=== PATIENT | female | born 1945 ===

== ENCOUNTER 2022-06-18 10:29 | Outpatient (REF) | payer MEDICARE, MEDICAID, SELFPAY ==
[2022-06-18 13:45] LABS: MANUAL DIFF FLAG NO
[2022-06-18 14:08] LABS: Alanine Aminotransferase < 6 U/L (0-31); Albumin Level 3.9 g/dL (3.5-5.0); Alkaline Phosphatase 96 U/L (39-117); Anion Gap 14 (12-20); Aspartate Amino Transferase 12 U/L (5-31); Bilirubin Total 0.8 mg/dL (0.0-1.0); Blood Urea Nitrogen 21 mg/dL (9-16); Calcium 9.1 mg/dL (8.4-10.2); Carbon Dioxide 26 mmol/L (22-29); Chloride 108 mmol/L (96-108); Cholesterol 143 mg/dL; Estimated Glomerular Filt Rate 60; Glucose Fasting 94 mg/dL (60-99); HDL Cholesterol 43 mg/dL; LDL Cholesterol Calculated 77 mg/dl; Potassium 3.3 mmol/L (3.3-5.1); Sodium 145 mmol/L (135-145); Total Protein 7.3 g/dL (6.5-8.0); Triglycerides 117 mg/dL
[2022-06-18 14:13] LABS: Basophils Percent Auto 0.5 % (0-2); Eosinophils Absolute Auto 0.2 X10*3/uL (0.0-0.4); Eosinophils Percent Auto 2.7 % (0-4); Hematocrit 33.4 % (37.0-47.0); Hemoglobin 10.4 g/dl (12.0-16.0); Imm Gran Abs Auto 0.02 X10*3/uL (0.00-0.03); Imm Gran Pct Auto 0.3 % (0.0-0.4); Lymphocytes Absolute Auto 1.5 X10*3/uL (1.2-4.9); Lymphocytes Percent Auto 23.8 % (20-40); Mean Corpuscular HGB Conc 31.1 g/dl (31.0-35.0); Mean Corpuscular Hemoglobin 28.8 pg (27.0-33.0); Mean Corpuscular Volume 92.5 fL (80.0-98.0); Mean Platelet Volume 9.8 fL (9.4-12.3); Monocytes Absolute Auto 0.5 X10*3/uL (0.1-1.2); Monocytes Percent Auto 7.9 % (2-11); Neutrophils Percent Auto 64.8 % (45-73); Platelet Count 274 X10*3/uL (160-400); Red Blood Count 3.61 X10*6/uL (4.20-5.50); Red Cell Distribution Width 14.2 % (11.0-16.0); White Blood Count 6.2 X10*3/uL (4.8-10.8)
[2022-06-18 14:30] LABS: Thyroid Stimulating Hormone 0.53 uIU/mL (0.32-4.0)
== END 2022-06-18 10:30 | disposition home or self-care (01) ==
LOC: HO.10HDL 10:29
PROVIDERS: Visit Provider Internal Medicine
DX: I45.81 Long QT syndrome (principal); I50.42 Chronic combined systolic (congestive) and diastolic (congestive) heart failure; J44.9 Chronic obstructive pulmonary disease, unspecified; F17.291 Nicotine dependence, other tobacco product, in remission
CPT/HCPCS: 36415; 80053; 80061; 84443; 85025

== ENCOUNTER 2023-05-16 17:38 | Inpatient (IN) | payer MEDICARE, MEDICAID, SELFPAY ==
--- NOTE | ~2023-05-16 | XR_ITS ---
EXAMINATION: XR CHEST CLINICAL INFORMATION: Hypoxia COMPARISON: chest radiograph 05/16/2023, CT angiography chest 11/10/2018. TECHNIQUE: Frontal view of the chest was obtained. FINDINGS: Dense aortic calcific atherosclerosis is noted. The heart size is grossly normal. Blunting of the left costophrenic sulcus is present suspicious for a mild-moderate left pleural effusion. Mild left base airspace opacification is noted and may represent compressive atelectasis secondary to the effusion. No pneumothoraces visualized. Attenuation of the upper lung zone pulmonary parenchyma is noted suspicious for centrilobular emphysema as confirmed upon contemporaneous review of the 11/10/2018 examination. XR/XR chest 1V IMPRESSION: 1. Mild-moderate left pleural effusion and mild left base atelectasis. 2. Dense aortic calcific atherosclerosis. 3. Centrilobular emphysema.
--- NOTE | ~2023-05-16 | CT_ITS ---
EXAMINATION: CT HEAD WITHOUT CONTRAST CLINICAL INFORMATION: Epilepsy. Brain metastases. COMPARISON: CT head from 11/04/2018. TECHNIQUE: Contiguous axial imaging was performed from the skull base to vertex without intravenous administration of contrast. This CT examination was performed using dose optimization techniques as appropriate, variously including the following: *Automated exposure control *Adjustment of mA and/or kV according to patient size (this includes techniques or standardized protocols for targeted exams where dose is matched to indication/reason for exam; i.e. extremities or head) *Use of iterative reconstruction technique DLP: 751 mGy-cm FINDINGS: There is a 3.2 cm heterogeneous mass centered in the parasagittal aspect of the right parietal lobe. Moderate perilesional edema. There is chronic encephalomalacia within the superior aspect of the right cerebellar hemisphere with associated volume loss. No additional loss of hernandez-white matter differentiation. No evidence of acute intracranial hemorrhage. Confluent hypoattenuation in the periventricular and deep white matter. Proportional prominence of the ventricles and sulcal spaces without evidence of obstructive hydrocephalus. No abnormal mass effect or midline shift. No extra-axial fluid collections. No acute soft tissue or osseous abnormalities. Mild mucosal thickening of the paranasal sinuses. The mastoid air cells and middle ear cavities are clear. The patient is edentulous. CT/CT head/brain wo IV con IMPRESSION: 1. There is a 3.2 cm heterogeneous mass centered in the parasagittal aspect of the right parietal lobe consistent with metastatic disease. Moderate perilesional edema. 2. No evidence of acute intracranial hemorrhage. 3. Chronic encephalomalacia of the right cerebellar hemisphere. Extensive underlying microangiopathy and generalized cerebral volume loss.
--- NOTE | ~2023-05-16 | XR_ITS ---
EXAMINATION: XR CHEST CLINICAL INFORMATION: Aspiration COMPARISON: Chest radiograph and chest CT dated 11/10/2018 TECHNIQUE: Frontal view of the chest was obtained. FINDINGS: There is mild cardiac enlargement. There is no gross CHF. No pleural effusions. The pleural effusion and left lower lobe infiltrate/atelectasis that was present on the 2018 study on the left has resolved. There is a rounded area of fullness is in the area mediastinal region at the level of the aortic arch on the right. Although this did not appear to be present on prior studies, this is probably a confluence of vessels but a mass cannot be entirely excluded. No acute osseous abnormality. Degenerative changes and scoliosis noted in the spine. Possible bone island overlies right humerus. XR/XR chest 1V IMPRESSION: 1. No acute intrathoracic disease. 2. Rounded area of fullness in the right mediastinum as described above. Consider contrast enhanced CT scan for further evaluation.
[2023-05-16] MEDS: LORazepam 2 MG/ML VIAL IVPUSH (17:45)
--- NOTE | 2023-05-16 17:48 | ED_ITS ---
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 on 03/24/2023 came from group home for status epilepticus started about 30 minute prior to arrival was given 1 mg of Ativan IM and while she came in the ER still having the seizure patient does take 1500 mg of Keppra twice daily no recent fall no fever patient was at her baseline prior to current seizure Related Data Allergies Allergy/AdvReac Type Severity Reaction Status Date / Time codeine Allergy Unknown passed out Verified 05/16/23 18:17 lisinopril Allergy Unknown cough Verified 05/16/23 18:17 primidone Allergy Unknown nausea Verified 05/16/23 18:17 tetanus and diphtheria Allergy Unknown Unknown Verified 05/16/23 18:17 toxoids varenicline Allergy Unknown Unknown Verified 05/16/23 18:17 No Known Allergies Allergy Verified 05/16/23 18:17 [No Known Allergies*] B-blockers Allergy Unknown Raynauds Uncoded 11/26/18 00:00 [facility] Social History Social History Advance Directives: Yes Advance Directives Information Provided: No Advance Directives on File: No Physical Exam Vital Signs: Vital Signs: Last Vital Signs Temp 97.4 F 05/16/23 20:41 Pulse 96 05/16/23 20:41 Resp 15 05/16/23 20:41 BP 93/57 L 05/16/23 20:41 Pulse Ox 100 05/16/23 20:41 O2 Del Method Nasal Cannula 05/16/23 20:41 O2 Flow Rate 2 05/16/23 20:41 Oxygen Flow Rate 6 05/16/23 18:18 BMI result Body Mass Index 17.7 Appearance: Having seizure generalized tonic clonic Neck: Normal inspection. Neck supple. CVS: Normal heart rate and rhythm. Pulses normal. Respiratory: No respiratory distress. Equal air entry bilateral, no wheezing/rales/rhonchi Abdomen: Soft Bowel sounds are present, no mass palpable, Skin: Skin warm and dry. Normal skin color. Normal skin turgor. Extremities: No lower extremity edema. Neuro: Having GTC Medications Administered Generic Name Dose Route Start Last Admin Trade Name Merritt PRN Reason Stop Dose Admin Enoxaparin Sodium 40 mg 05/16/23 21:00 05/16/23 21:46 Enoxaparin Sodium 40 Mg/0.4 Ml Syringe SUBCUT 40 mg Q24H KRIS Administration Sodium Chloride 1,000 mls @ 100 mls/hr 05/16/23 21:15 05/16/23 21:46 Ns IVCONT 100 mls/hr .Q10H KRIS Administration Discontinued Medications Generic Name Dose Route Start Last Admin Trade Name Merritt PRN Reason Stop Dose Admin Dexamethasone Sodium Phosphate 10 mg 05/16/23 19:19 05/16/23 20:20 Dexamethasone Sod Phosphate 10 Mg/Ml Vial IVPUSH 05/16/23 19:20 10 mg ONCE ONE Administration Sodium Chloride 1,000 mls @ 999 mls/hr 05/16/23 17:48 05/16/23 20:20 Ns IV 05/16/23 18:48 Infused .Q1H1M ONE Infusion Levetiracetam 1,000 mg in 100 mls @ 400 mls/hr 05/16/23 17:54 05/16/23 20:21 Keppra IV 05/16/23 18:08 Infused ONCE ONE Infusion Levetiracetam 500 mg in 100 mls @ 400 mls/hr 05/16/23 20:45 05/16/23 21:46 Keppra IV 05/16/23 20:59 400 mls/hr ONCE ONE Administration Lorazepam 2 mg 05/16/23 17:53 05/16/23 17:45 Lorazepam 2 Mg/Ml Vial IVPUSH 05/16/23 17:54 2 mg ONCE ONE Administration Medical Decision Making Medical Decision Making [facility] Narrative: 630 pm case discussed with patient's son Carol rodriguez agreed for only medical management does not want any intubation patient's status is DNR DNI supportive treatment now Patient's status epilepticus from brain Mets untreated lung cancer on Keppra, Decadron patient was given IV Keppra and Ativan 2 mg IV seizure stopped patient is postictal will admit patient for supportive management patient low-grade fever likely from seizures will check the [facility]A Consult Healthcare Provider Management of the patient was discussed with: Hospitalist Lab Data MDM Lab Attestation statement: I reviewed the patient's lab results. 05/16/23 17:52 05/16/23 18:20 Labs: Lab Results 05/16/23 05/16/23 05/16/23 Range/Units 17:52 18:00 18:20 WBC 10.0 (4.8-10.8) X10*3/uL RBC 4.17 L (4.20-5.50) X10*6/uL Hgb 11.5 L (12.0-16.0) g/dl Hct 37.1 (37.0-47.0) % MCV 89.0 (80.0-98.0) fL MCH 27.6 (27.0-33.0) pg MCHC 31.0 (31.0-35.0) g/dl RDW 19.1 H (11.0-16.0) % Plt Count 327 (160-400) X10*3/uL MPV 9.3 L (9.4-12.3) fL Immature Gran % (Auto) 0.7 H (0.0-0.4) % Neut % (Auto) 68.2 (45-73) % Lymph % (Auto) 21.1 (20-40) % Grainger % (Auto) 7.7 (2-11) % Eos % (Auto) 1.8 (0-4) % Baso % (Auto) 0.5 (0-2) % Lymph # (Auto) 2.1 (1.2-4.9) X10*3/uL Grainger # (Auto) 0.8 (0.1-1.2) X10*3/uL Eos # (Auto) 0.2 (0.0-0.4) X10*3/uL Baso # (Auto) 0.1 (0.0-0.2) X10*3/uL Abs Immat Gran (auto) 0.07 H (0.00-0.03) X10*3/uL Absolute Neuts (auto) 6.8 (2.0-8.3) x10*3/uL Absolute Nucleated RBC 0.000 (0.0-0.012) X10*3/uL Nucleated RBC % (auto) 0.0 (0.0-0.2) /100WBC Sodium 145 (135-145) mmol/L Potassium 5.2 H D (3.3-5.1) mmol/L Chloride 106 (96-108) mmol/L Carbon Dioxide 22 (22-29) mmol/L Anion Gap 22 H (12-20) BUN 9 (9-16) mg/dL Creatinine 0.69 (0.5-1.4) mg/dL Estim Creat Clear Calc 44.9 Estimated GFR > 60 POC Glucose 112 (60-115) mg/dL Random Glucose 113 (60-115) mg/dL Calcium 9.7 D (8.4-10.2) mg/dL Total Bilirubin 1.5 H (0.0-1.0) mg/dL AST 41 H (5-31) U/L ALT 26 (0-31) U/L Alkaline Phosphatase 120 H (39-117) U/L Total Protein 7.4 (6.5-8.0) g/dL Albumin 3.2 L (3.5-5.0) g/dL COVID-19 ([facility]) (Negative) COVID-19 Clin Com 05/16/23 Range/Units 18:20 WBC (4.8-10.8) X10*3/uL RBC (4.20-5.50) X10*6/uL Hgb (12.0-16.0) g/dl Hct (37.0-47.0) % MCV (80.0-98.0) fL MCH (27.0-33.0) pg MCHC (31.0-35.0) g/dl RDW (11.0-16.0) % Plt Count (160-400) X10*3/uL MPV (9.4-12.3) fL Immature Gran % (Auto) (0.0-0.4) % Neut % (Auto) (45-73) % Lymph % (Auto) (20-40) % Grainger % (Auto) (2-11) % Eos % (Auto) (0-4) % Baso % (Auto) (0-2) % Lymph # (Auto) (1.2-4.9) X10*3/uL Grainger # (Auto) (0.1-1.2) X10*3/uL Eos # (Auto) (0.0-0.4) X10*3/uL Baso # (Auto) (0.0-0.2) X10*3/uL Abs Immat Gran (auto) (0.00-0.03) X10*3/uL Absolute Neuts (auto) (2.0-8.3) x10*3/uL Absolute Nucleated RBC (0.0-0.012) X10*3/uL Nucleated RBC % (auto) (0.0-0.2) /100WBC Sodium (135-145) mmol/L Potassium (3.3-5.1) mmol/L Chloride (96-108) mmol/L Carbon Dioxide (22-29) mmol/L Anion Gap (12-20) BUN (9-16) mg/dL Creatinine (0.5-1.4) mg/dL Estim Creat Clear Calc Estimated GFR POC Glucose (60-115) mg/dL Random Glucose (60-115) mg/dL Calcium (8.4-10.2) mg/dL Total Bilirubin (0.0-1.0) mg/dL AST (5-31) U/L ALT (0-31) U/L Alkaline Phosphatase (39-117) U/L Total Protein (6.5-8.0) g/dL Albumin (3.5-5.0) g/dL COVID-19 ([facility]) Negative (Negative) COVID-19 Clin Com See Note Discharge Plan Discharge Clinical Impression: Status epilepticus, Lung cancer metastatic to brain Patient Disposition: Admitted As Inpatient
[2023-05-16 17:55] LABS: MANUAL DIFF FLAG NO
[2023-05-16 18:03] LABS: Glucose, Whole Blood 112 mg/dL (60-115)
[2023-05-16] MEDS: levETIRAcetam in NaCl (iso-os) 1,000 MG/100 ML PIGGYBACK 400 MG IV (18:07)
[2023-05-16] MEDS: 0.9 % Sodium Chloride 1,000 ML 999 ML IV (18:13)
[2023-05-16 18:18] VITALS: BP 133/80; BP 92/57; PULSE 107; PULSE 83; RESP 22; TEMP 37.9; O2SAT 99; BMI 17.7
--- NOTE | 2023-05-16 18:22 | PC.NURSE ---
sz activity diminished by 1809. no nystigmus, tremor is absent. pt remains unresponsive except to physical stimuli. grimaces with sternal rub. diaphoresis is diminished but not gone. ST on monitor. plan is for CT of head.
[2023-05-16 18:29] LABS: Basophils Absolute Auto 0.1 X10*3/uL (0.0-0.2); Basophils Percent Auto 0.5 % (0-2); Eosinophils Absolute Auto 0.2 X10*3/uL (0.0-0.4); Eosinophils Percent Auto 1.8 % (0-4); Hematocrit 37.1 % (37.0-47.0); Hemoglobin 11.5 g/dl (12.0-16.0); Imm Gran Abs Auto 0.07 X10*3/uL (0.00-0.03); Imm Gran Pct Auto 0.7 % (0.0-0.4); Lymphocytes Absolute Auto 2.1 X10*3/uL (1.2-4.9); Lymphocytes Percent Auto 21.1 % (20-40); Mean Corpuscular Hemoglobin 27.6 pg (27.0-33.0); Mean Platelet Volume 9.3 fL (9.4-12.3); Monocytes Absolute Auto 0.8 X10*3/uL (0.1-1.2); Monocytes Percent Auto 7.7 % (2-11); Neutrophils Absolute Auto 6.8 x10*3/uL (2.0-8.3); Neutrophils Percent Auto 68.2 % (45-73); Platelet Count 327 X10*3/uL (160-400); Red Blood Count 4.17 X10*6/uL (4.20-5.50); Red Cell Distribution Width 19.1 % (11.0-16.0)
[2023-05-16 18:47] LABS: COVID-19 Test Negative (Negative); IDNOW Serial# 6674DD1D
[2023-05-16 18:54] VITALS: BP 93/51; PULSE 97; RESP 22; O2SAT 90
[2023-05-16 18:54] LABS: Alanine Aminotransferase 26 U/L (0-31); Albumin Level 3.2 g/dL (3.5-5.0); Alkaline Phosphatase 120 U/L (39-117); Anion Gap 22 (12-20); Aspartate Amino Transferase 41 U/L (5-31); Bilirubin Total 1.5 mg/dL (0.0-1.0); Blood Urea Nitrogen 9 mg/dL (9-16); Calcium 9.7 mg/dL (8.4-10.2); Carbon Dioxide 22 mmol/L (22-29); Chloride 106 mmol/L (96-108); Creatinine Clr Calc Pharmacy 44.9; Estimated Glomerular Filt Rate > 60; Glucose Random 113 mg/dL (60-115); Potassium 5.2 mmol/L (3.3-5.1); Sodium 145 mmol/L (135-145); Total Protein 7.4 g/dL (6.5-8.0)
--- NOTE | 2023-05-16 19:48 | P.HPHOSP_ITS ---
History of Present Illness Date of Service: 05/16/23 Attending physician on admission: Gustavo Poole Chief Complaint: Status epilepticus Pt is an 78-year-old female with a PMH significant for lung cancer diagnosed with metastases to the brain with recent seizure activity, HFrEF, COPD, , HLD and depression who presents to the ED from SNF with status epilepticus for about 30 minutes prior to arrival. Patient was given 1 mg of Ativan IM by EMS without resolution of status epilepticus. In the ER patient was given 2 mg IV lorazepam and then 1 g IV Keppra which broke patient's status epilepticus. Patient was apparently at baseline prior to current seizure, and did not have a history of a recent fall or illness. Patient postictal and not responsive to verbal or painful stimuli and thus incapable of providing an accurate HPI. HPI obtained from chart review and family via phone call. Attempted to call SNF but unable to speak to pt's caregivers. Patient was originally diagnosed with lung cancer approximately 1 year ago, but refused treatment and to get a biopsy. Patient never established care with an oncologist despite family's wishes to do so. Son says that about 1 month ago patient agreed to be seen by Oncology and possibly have a biopsy done, and they asked SNF to establish care, however as of yet patient has not had an oncology visit. Patient began experiencing seizures around 6 months ago when metastasis to brain was discovered. Son states that patient is sometimes mildly confused at baseline, but still able to carry on a full conversation had make new memories. In the ED patient had a temperature of 100.3 degrees, was tachycardic up to 107, tachypneic up to 22, and hypotensive at 92 over 57, satting at 90% oxygen on OxyMask. Labs were largely unremarkable except for mildly elevated bilirubin at 1.5 and AST of 41. CXR showed no acute intrathoracic disease but with a rounded area of fullness in the right mediastinum possibly a mass. CT?of head found a 3.2 cm heterogeneous mass centered in the pair a sagittal aspect of the right parietal lobe consistent with metastatic disease with moderate perilesional edema. There is no evidence of acute intracranial hemorrhage but chronic encephalomalacia of the right cerebral hemisphere and extensive underlying micro angiopathy and generalized cerebral volume loss. Pt was treated with lorazepam 2 mg IV, Keppra 1 g IV, and IVF. Pt will be admitted to the hospital under observation for supportive treatment and further evaluation of status epilepticus. Review of Systems Review of Systems: Unable to obtain due to patient's mentation PMFSH Social History Advance Directives: Yes Advance Directives Information Provided: No Advance Directives on File: No Meds Allergies Allergy/AdvReac Type Severity Reaction Status Date / Time codeine Allergy Unknown passed out Verified 05/16/23 18:17 lisinopril Allergy Unknown cough Verified 05/16/23 18:17 primidone Allergy Unknown nausea Verified 05/16/23 18:17 tetanus and diphtheria Allergy Unknown Unknown Verified 05/16/23 18:17 toxoids varenicline Allergy Unknown Unknown Verified 05/16/23 18:17 No Known Allergies Allergy Verified 05/16/23 18:17 [No Known Allergies*] B-blockers Allergy Unknown Raynauds Uncoded 11/26/18 00:00 Physical Exam Vital Signs and Narrative: Vital Signs: Last Vital Signs Temp 100.3 F 05/16/23 18:18 Pulse 97 05/16/23 18:54 Resp 22 H 05/16/23 18:54 BP 93/51 L 05/16/23 18:54 Pulse Ox 90 L 05/16/23 18:54 O2 Del Method Oxymask 05/16/23 18:54 O2 Flow Rate 6 05/16/23 18:54 Oxygen Flow Rate 6 05/16/23 18:18 BMI result Body Mass Index 17.7 General: Patient obtunded, postictal, not responding to verbal or painful stimu li. Labored, diaphragmatic breathing, in mild respiratory distress. With OxyMask on. Resp: Difficult to assess due to patient's positioning and labored breathing through OxyMask CVS: S1, S2, RRR GI: +BS, NT, no distention Skin: No rash Extremities: No edema Results Labs 05/16/23 17:52 05/16/23 18:20 Labs: Laboratory Results - last 24 hr 05/16/23 05/16/23 05/16/23 17:52 18:00 18:20 MCV 89.0 MCH 27.6 MCHC 31.0 RDW 19.1 H Plt Count 327 MPV 9.3 L Immature Gran % (Auto) 0.7 H Neut % (Auto) 68.2 Lymph % (Auto) 21.1 Burnett % (Auto) 7.7 Eos % (Auto) 1.8 Baso % (Auto) 0.5 Lymph # (Auto) 2.1 Burnett # (Auto) 0.8 Eos # (Auto) 0.2 Baso # (Auto) 0.1 Abs Immat Gran (auto) 0.07 H Absolute Neuts (auto) 6.8 Absolute Nucleated RBC 0.000 Nucleated RBC % (auto) 0.0 Anion Gap 22 H Estim Creat Clear Calc 44.9 Estimated GFR > 60 POC Glucose 112 Random Glucose 113 Calcium 9.7 D Total Bilirubin 1.5 H AST 41 H ALT 26 Alkaline Phosphatase 120 H Total Protein 7.4 Albumin 3.2 L COVID-19 ([facility]) COVID-19 Clin Com 05/16/23 18:20 MCV MCH MCHC RDW Plt Count MPV Immature Gran % (Auto) Neut % (Auto) Lymph % (Auto) Burnett % (Auto) Eos % (Auto) Baso % (Auto) Lymph # (Auto) Burnett # (Auto) Eos # (Auto) Baso # (Auto) Abs Immat Gran (auto) Absolute Neuts (auto) Absolute Nucleated RBC Nucleated RBC % (auto) Anion Gap Estim Creat Clear Calc Estimated GFR POC Glucose Random Glucose Calcium Total Bilirubin AST ALT Alkaline Phosphatase Total Protein Albumin COVID-19 ([facility]) Negative COVID-19 Clin Com See Note Imaging Radiologist's Impressions: Impressions Chest X-Ray 05/16/23 18:38 IMPRESSION: 1. No acute intrathoracic disease. 2. Rounded area of fullness in the right mediastinum as described above. Consider contrast enhanced CT scan for further evaluation. Assessment and Plan (1) Status epilepticus: Status: Acute (2) Lung cancer metastatic to brain: Status: Acute (3) Hypoxia: Status: Acute Plan Pt is an 78-year-old female with a PMH significant for lung cancer diagnosed with metastases to the brain with recent seizure activity, HFrEF, COPD, HLD, and depression who presents to the ED from SNF with status epilepticus for about 30 minutes prior to arrival. Patient was given 1 mg of Ativan IM by EMS without resolution of status epilepticus. In the ER patient was given 2 mg IV lorazepam and then 1 g IV Keppra which broke patient's status epilepticus. Pt will be admitted to the hospital under observation for supportive treatment and further evaluation status epilepticus. Status epilepticus in setting of metastatic lung cancer to the brain Has been experiencing seizures for the past 6 months Arrived to the ER with seizure activity for 30+ minutes Patient was given Ativan 1 mg IM by EMS, and then Ativan 2 mg IV, Keppra 1000 mg IV, and dexamethasone 10 mg IV in the ED Continue Keppra 1.5 mg b.i.d. Dexamethasone 4 mg IV q.6 Oncology consult Neurology consult Seizure precautions NPO pending swallow eval IVF: Normal saline Hypoxia due to hypoventilation in the setting of metastatic lung cancer Patient satting at 90% O2 on OxyMask Patient on 3 L home O2 Titrate supplemental O2 >92, wean as tolerated Monitor respiratory status HFrEF Not in acute exacerbation Continue home meds HLD Continue home meds Depression/mood disorder Continue home meds DNR/DNI Attending:?Dr. Poole DVT Prophylaxis: Lovenox Pt will be admitted to the hospital under observation for supportive treatment and further evaluation status epilepticus. Time Spent With Patient Time: Total time managing care of this patient today ____ minutes. Quality Stroke Does the patient have a stroke diagnosis?: No VTE Prior VTE?: No VTE Risk Level:: Medical - moderate - high VTE Device Contraindication: Treatment Not Indicated VTE Drug Contraindication: N/A - Med Ordered
[2023-05-16] MEDS: dexAMETHasone sod phosphate 10 MG/ML VIAL IVPUSH (20:20)
[2023-05-16 20:41] VITALS: BP 93/57; PULSE 96; RESP 15; TEMP 36.3; O2SAT 100
[2023-05-16] MEDS: levETIRAcetam in NaCl (iso-os) 500 MG/100 ML PIGGYBACK 400 MG IV (21:46)
[2023-05-16] MEDS: Enoxaparin Sodium 40 MG/0.4 ML SYRINGE SUBCUT (21:46)
[2023-05-16] MEDS: 0.9 % Sodium Chloride 1,000 ML 100 ML IVCONT (21:46)
[2023-05-17] MEDS: 0.9 % Sodium Chloride Flush 3 ML SYRINGE IVFLUSH ×3 (01:30→19:55)
[2023-05-17] MEDS: dexAMETHasone sod phosphate 4 MG/ML VIAL IVPUSH ×4 (01:30→19:54)
[2023-05-17 01:32] VITALS: BP 100/62; PULSE 92; RESP 20; O2SAT 95
[2023-05-17 05:05] LABS: Basophils Percent Auto 0.6 % (0-2); Hematocrit 34.8 % (37.0-47.0); Hemoglobin 10.4 g/dl (12.0-16.0); Imm Gran Abs Auto 0.02 X10*3/uL (0.00-0.03); Imm Gran Pct Auto 0.4 % (0.0-0.4); Lymphocytes Absolute Auto 0.6 X10*3/uL (1.2-4.9); Lymphocytes Percent Auto 11.3 % (20-40); Mean Corpuscular HGB Conc 29.9 g/dl (31.0-35.0); Mean Corpuscular Hemoglobin 27.7 pg (27.0-33.0); Mean Corpuscular Volume 92.8 fL (80.0-98.0); Mean Platelet Volume 9.2 fL (9.4-12.3); Monocytes Absolute Auto 0.2 X10*3/uL (0.1-1.2); Monocytes Percent Auto 4.7 % (2-11); Neutrophils Absolute Auto 4.2 x10*3/uL (2.0-8.3); Platelet Count 175 X10*3/uL (160-400); Red Blood Count 3.75 X10*6/uL (4.20-5.50); Red Cell Distribution Width 18.6 % (11.0-16.0); White Blood Count 5.1 X10*3/uL (4.8-10.8)
[2023-05-17 05:06] LABS: MANUAL DIFF FLAG NO
[2023-05-17 05:19] LABS: Anion Gap 15 (12-20); Blood Urea Nitrogen 10 mg/dL (9-16); Calcium 8.6 mg/dL (8.4-10.2); Carbon Dioxide 23 mmol/L (22-29); Chloride 110 mmol/L (96-108); Creatinine Clr Calc Pharmacy 55.3; Estimated Glomerular Filt Rate > 60; Glucose Random 124 mg/dL (60-115); Potassium 4.1 mmol/L (3.3-5.1); Sodium 144 mmol/L (135-145)
--- NOTE | 2023-05-17 05:26 | P.CNHO_ITS ---
Subjective - Subjective Chief complaint: seizure Patient: new to practice Consult date: 05/17/23 Primary Care Provider: Ronak Finn MD HPI - Consult Narrative Reason for consult: 78 year old woman residing at [facility] on Narrative: Bri Stout is a 78 year old female residing at [facility] on [facility] in [place] brought to ER yesterday for status epilepticus. She has been treated extensively at [facility]. 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 She has a history of seizures. An MRI of the brain 12/13/2022 showed a 1.5x1.6x1.5 right parietal metastasis. Neurosurgery at [facility] declined surgery citing proximity to the motor strip and recommended radiation. It lucy this has not been done. She has declined a tissue diagnosis or treatment. A CT angiogram of the chest 03/21/2023 at [facility] showed a 3.2x5.1x3.6 cm RUL mass with extensive mediastinal adenopathy and hepatic metastases. She is not being followed there by oncology. She saw Dr. vee here in the clinic in 2013 for a hematology evaluation but has not been seen since. Review of Systems - Constitutional Reports headache(s), Reports lack of energy, Reports weakness - Cardiovascular Reports chest pain at rest - Respiratory Reports chest congestion, Reports cough, Reports dyspnea on exertion - Gastrointestinal Reports constipation, Reports dyspepsia - Musculoskeletal Reports muscle weakness - Neurologic Reports abnormal movements, Reports abnormal speech, Reports abnormal gait, Reports behavioral changes, Reports syncope, Reports frequent falls PMFSH Social History: Social History (Last Reviewed 05/16/23 @ 20:55 by TANYA Knight) Tobacco History: Patient Tobacco Use Status: Tobacco use Unknown Advance Directives: Advance Directives Date on File: 05/17/23 Home Medications and Allergies Current Medications: Current Medications Acetaminophen (Acetaminophen 325 Mg Tablet) 650 mg PO Q6H PRN PRN Reason: Pain, Mild (Pain Scale 1-3) Acetaminophen (Acetaminophen Supp 650 Mg Supp.Rect) 650 mg RI Q6H PRN PRN Reason: Pain, Mild (Pain Scale 1-3) Dexamethasone Sodium Phosphate (Dexamethasone Sod Phosphate 4 Mg/Ml Vial) 4 mg IVPUSH Q6H KRIS Last Admin: 05/17/23 01:30 Dose: 4 mg Enoxaparin Sodium (Enoxaparin Sodium 40 Mg/0.4 Ml Syringe) 40 mg SUBCUT Q24H [facility] Last Admin: 05/16/23 21:46 Dose: 40 mg Levetiracetam (Keppra) 1,500 mg in 100 mls @ 400 mls/hr IV BID KRIS Sodium Chloride (Ns) 1,000 mls @ 100 mls/hr IVCONT .Q10H [facility] Last Admin: 05/16/23 21:46 Dose: 100 mls/hr Melatonin (Melatonin 3 Mg Tablet) 6 mg PO BEDTIME PRN PRN Reason: Insomnia Ondansetron HCl (Ondansetron Hcl 4 Mg/2 Ml Vial) 4 mg IVPUSH Q8H PRN PRN Reason: Nausea and Vomiting Pharmacy Consult (Consult Rx Perform Med Rec) 1 each MISCELLANE ONCE PRN PRN Reason: Consult order Sodium Chloride (0.9 % Sodium Chloride Flush 3 Ml Syringe) 3 ml IVFLUSH QSHIFT [facility] Last Admin: 05/17/23 01:30 Dose: 3 ml Home Medications Medication Instructions Recorded Confirmed Type albuterol sulfate 2.5 mg/3 mL 2.5 mg inhalation Q6H PRN 05/17/23 05/17/23 History (0.083 %) solution for nebulization Shortness Of Breath Or Wheezing albuterol sulfate 90 mcg/actuation 2 puff inhalation QID PRN 05/17/23 05/17/23 History aerosol inhaler (Ventolin HFA) Shortness Of Breath Or Wheezing aspirin 81 mg chewable tablet 81 mg PO DAILY 05/17/23 05/17/23 History atorvastatin 80 mg tablet 80 mg PO BEDTIME 05/17/23 05/17/23 History atropine 1 % eye drops 2 drp buccal BEDTIME 05/17/23 05/17/23 History clopidogrel 75 mg tablet 75 mg PO DAILY 05/17/23 05/17/23 History codeine 10 mg-guaifenesin 100 mg/5 10 ml PO Q4H PRN Cough 05/17/23 05/17/23 History mL oral liquid (Guaifenesin AC) collagenase clostridium histo. 250 1 appl topical NEEDED PRN Wound 05/17/23 05/17/23 History unit/gram topical ointment (Santyl) Care collagenase clostridium histo. 250 1 appl topical QSHIFT 05/17/23 05/17/23 History unit/gram topical ointment (Santyl) dexamethasone 4 mg tablet 4 mg PO DAILY 05/17/23 05/17/23 History docusate sodium 100 mg capsule 100 mg PO BID PRN Constipation 05/17/23 05/17/23 History famotidine 20 mg tablet 20 mg PO BID 05/17/23 05/17/23 History furosemide 20 mg tablet 20 mg PO Q2D 05/17/23 05/17/23 History levetiracetam 100 mg/mL oral 1,500 mg PO BID 05/17/23 05/17/23 History solution loperamide 2 mg capsule 2 mg PO NEEDED PRN Loose Stool 05/17/23 05/17/23 History meclizine 25 mg tablet 25 mg PO TID PRN Dizziness 05/17/23 05/17/23 History mirtazapine 7.5 mg tablet 15 mg PO BEDTIME 05/17/23 05/17/23 History nitroglycerin 0.4 mg sublingual 0.4 mg sublingual DIRECTED PRN 05/17/23 05/17/23 History tablet Chest Pain nystatin 100,000 unit/mL oral 5 ml PO QID 05/17/23 05/17/23 History suspension ondansetron HCl 4 mg tablet 4 mg PO Q6H PRN Nausea And Vomiting 05/17/23 05/17/23 History polyethylene glycol 3350 17 gram 17 g PO DAILY PRN Constipation 05/17/23 05/17/23 History oral powder packet (Miralax) pramipexole 1 mg tablet 1 mg PO BEDTIME 05/17/23 05/17/23 History sertraline 50 mg tablet 50 mg PO DAILY 05/17/23 05/17/23 History umeclidinium 62.5 mcg-vilanterol 1 ea inhalation DAILY 05/17/23 05/17/23 History 25 mcg/actuation powdr for inhalation (Anoro Ellipta) Allergies Allergy/AdvReac Type Severity Reaction Status Date / Time codeine Allergy Unknown passed out Verified 05/16/23 18:17 lisinopril Allergy Unknown cough Verified 05/16/23 18:17 primidone Allergy Unknown nausea Verified 05/16/23 18:17 tetanus and diphtheria Allergy Unknown Unknown Verified 05/16/23 18:17 toxoids varenicline Allergy Unknown Unknown Verified 05/16/23 18:17 No Known Allergies Allergy Verified 05/16/23 18:17 [No Known Allergies*] B-blockers Allergy Unknown Raynauds Uncoded 11/26/18 00:00 Physical Exam Vital signs: Vital Signs Temp 97.4 F 05/16/23 20:41 Pulse 92 05/17/23 01:32 Resp 20 05/17/23 01:32 BP 100/62 05/17/23 01:32 Pulse Ox 95 05/17/23 01:32 O2 Del Method Oxymask 05/17/23 01:32 O2 Flow Rate 1 05/17/23 01:32 FiO2 27 05/17/23 01:32 Intake & Output 05/16/23 05/16/23 05/17/23 06:59 18:59 06:59 Intake Total 1200 / 1200 Balance 1200 / 1200 Intake: Intake, IV Amount 1200 / 1200 0.9 % Sodium Chloride 1,000 ml 1000 / 1000 @ 999 mls/hr IV .Q1H1M ONE Rx#: [id number] levETIRAcetam in NaCl (iso-os) 100 / 100 1,000 mg In 100 ml @ 400 mls/hr IV ONCE ONE Rx#:[id number] levETIRAcetam in NaCl (iso-os) 100 / 100 500 mg In 100 ml @ 400 mls/hr IV ONCE ONE Rx#:[id number] Other: Weight 43.8 kg Weight 43.8 kg - Constitutional Present: chronically ill appearing, obtunded - Routine HEENT Exam Head: Present: atraumatic, normal inspection, normocephalic - Routine Neck Exam Present: supple, full ROM - Routine Respiratory Exam Present: decreased breath sounds - Routine Cardiovascular Exam Cardiovascular: Present: RRR, S1, S2 - Routine Abdominal Exam Present: diminished bowel sounds - Routine Extremities Exam Present: nontender - Routine Skin Exam Present: intact - Routine Neurological Exam Present: altered mental status Hem/Onc Consult Result - Labs CBC & Chem 7: 05/17/23 05:00 05/17/23 05:00 Labs: Short CBC 05/16/23 05/17/23 Range/Units 17:52 05:00 WBC 10.0 5.1 (4.8-10.8) X10*3/uL Hgb 11.5 L 10.4 L (12.0-16.0) g/dl Hct 37.1 34.8 L (37.0-47.0) % Plt Count 327 175 D (160-400) X10*3/uL BMP 05/16/23 05/17/23 18:20 05:00 Sodium 145 144 Potassium 5.2 H D 4.1 D Chloride 106 110 H Carbon Dioxide 22 23 BUN 9 10 Creatinine 0.69 0.56 Calcium 9.7 D 8.6 D Liver Function 05/16/23 Range/Units 18:20 Total Bilirubin 1.5 H (0.0-1.0) mg/dL AST 41 H (5-31) U/L ALT 26 (0-31) U/L Alkaline Phosphatase 120 H (39-117) U/L Albumin 3.2 L (3.5-5.0) g/dL Assessment and Plan Patient Active problem list reviewed?: Yes (1) Lung cancer metastatic to brain Status: Acute Assessment and plan: She has refused diagnosis and therapy in the past. She is DNR/DNI. If she wished to dininish the seizures she could receive several high fractionated doses of radiation at [facility]. At present I recommend dexamethasone 2 to 4 mg bid for palliation of edema in [employer]. Suggest a hospice referral and aggressive palliative care. Will follow. - Time Spent With Patient Time Spent with Patient (in minutes): 30
[2023-05-17] MEDS: 0.9 % Sodium Chloride 1,000 ML 100 ML IVCONT ×2 (06:32→15:30)
[2023-05-17 07:21] VITALS: BP 98/62; PULSE 94; RESP 17; TEMP 36.2; O2SAT 97
[2023-05-17] MEDS: levETIRAcetam in NaCl (iso-os) 1,500 MG/100 ML PIGGYBACK 400 MG IV ×2 (08:53→19:54)
--- OUTSIDE RECORDS SUMMARY | 2023-05-17 08:53 | XMS_ITS | Continuity of Care Document ---
Author Name Unknown Organization [facility] Address [address] [place] [id number]- Care Team Providers Care Molecular Biologist Name Role Phone Sharon Chamberlain MD Primary Care Physician [phone] Encounter [facility] Date(s): 03/07/21 - 03/07/[address] [address]- Encounter Diagnosis Hip pain(Final) - 03/07/21 Discharge Disposition: A-D/C Home Attending Physician: Brandon Gibson MD Admitting Physician: Brandon Gibson MD Referring Physician: Not on Staff, Referring MD Allergies, Adverse Reactions, Alerts Substance Reaction Severity Status codeine Passed out Active Immunizations Given and Recorded Vaccine Date Status Refusal Reason influenza virus vaccine, inactivated 08/23/20 Give n pneumococcal 13-valent vaccine 1 08/22/20 Given 1Result Comment: Manufactured by [employer] Medications Acetaminophen Tablet 975 mg, Tablet, By Mouth, Once, STAT, 03/07/21 9:51:00 EDT, Stop date 03/07/21 9:51:00 EDT Start Date: 03/07/21 Stop Date: 03/07/21 Status: Completed albuterol 0.083% inhalation solution 3 mL = 2.5 mg, Neb, Every 6 hours, PRN as needed for wheezing, # 90 mL, 0 Refills, Maintenance, 08/16/20 18:28:00 EDT, Solution Start Date: 08/16/20 Status: Ordered Anoro Ellipta 62.5 mcg-25 mcg/inh inhalation powder 1 puffs, Inhalation, Daily, # 30 each, 0 Refills, Maintenance, 08/16/20 18:28:00 EDT, Powder Start Date: 08/16/20 Status: Ordered Aspirin Enteric Coated 81 mg oral delayed release tablet 1 tablet = 81 mg, By Mouth, Daily Start Date: 08/16/20 Status: Ordered atorvastatin 80 mg oral tablet 1 tablet = 80 mg, By Mouth, Daily Start Date: 08/16/20 Status: Ordered celecoxib 200 mg oral capsule 1 capsule = 200 mg, By Mouth, Daily Start Date: 08/16/20 Status: Ordered cilostazol 100 mg oral tablet 1 tablet = 100 mg, By Mouth, 2 times a day Start Date: 08/16/20 Status: Ordered Daliresp 500 mcg oral tablet 1 tablet = 500 mcg, By Mouth, Daily, 0 Refills, Maintenance, 09/02/20 13:29:00 EDT, Tablet Start Date: 09/02/20 Status: Ordered hydroCHLOROthiazide 12.5 mg oral capsule 1 capsule = 12.5 mg, By Mouth, Daily Start Date: 08/16/20 Status: Ordered losartan 50 mg oral tablet 50 mg, Tablet, By Mouth, 03/07/21 13:05:00 EDT Start Date: 03/07/21 Stop Date: 03/07/21 Status: Completed losartan 50 mg oral tablet 1 tablet = 50 mg, By Mouth, Daily Start Date: 08/16/20 Status: Ordered melatonin 3 mg oral tablet, disintegrating By Mouth, Daily at bedtime, 0 Refills, Maintenance, 09/02/20 13:29:00 EDT, DIS Tablet Start Date: 09/02/20 Status: Ordered metoprolol 25 mg oral tablet, extended release 25 mg, 1, tablet, By Mouth, Daily, Refills 0, Maintenance, 09/02/20 13:29:00 EDT Start Date: 09/02/20 Status: Ordered morphine 15 mg oral tablet, immediate release 1 tablet = 15 mg, By Mouth, Every 4 hours, PRN as needed for pain, # 5 tablet, 0 Refills, Maintenance, 03/07/21 15:44:00 EDT, Tablet, Partial fill upon patient request if the prescription is for a schedule II opioid drug. Start Date: 03/07/21 Status: Ordered omeprazole 20 mg oral enteric coated capsule 1 capsule = 20 mg, By Mouth, Daily Start Date: 08/16/20 Status: Ordered pramipexole 1 mg oral tablet 1 tablet = 1 mg, By Mouth, Daily at bedtime Start Date: 08/16/20 Status: Ordered saccharomyces boulardii lyo 250 mg oral capsule 1 capsule = 250 mg, By Mouth, 2 times a day, 0 Refills, Maintenance, 09/02/20 13:29:00 EDT, Capsule Start Date: 09/02/20 Status: Ordered Ventolin HFA 108 mcg/inh inhalation aerosol with adapter 2 puffs, Inhalation, 4 times a day, PRN for wheezing, # 18 Gm, 0 Refills, Maintenance, 08/16/20 18:29:00 EDT, Aerosol Start Date: 08/16/20 Status: Ordered Zoloft 25 mg oral tablet 1 tablet = 25 mg, By Mouth, Daily, 0 Refills, Maintenance, 09/02/20 13:29:00 EDT, Tablet Start Date: 09/02/20 Status: Ordered Problem List Condition Effective Dates Status Health Status Inform ant COPD with respiratory failur e, acute(Confirmed) Active MSSA bacteremia(Confirmed) Active Macular degeneration(Confirmed) Active Essential hypertension(Confirmed) Active Glaucoma(Confirmed) Active Hyperlipidemia(Confirmed) Active Acute kidney injury(Confirmed) Active Right low back pain(Confirmed) Active Buerger disease(Confirmed) Active Vital Signs Most recent to oldest [Reference Range]: 1 2 3 Pulse Rate [55-90 bpm] 84 bpm (03/07/21 5:57 PM) Blood Pressure [90-138/55-84 mm Hg] 141/71mm Hg *H* (03/07/21 6:00 PM) 141/71mm Hg *H* (03/07/21 5:57 PM) 98/59mm Hg (03/07/21 3:14 PM) Respiratory Rate [16-30 br/min] 18 br/min (03/07/21 5:57 PM) 18 br/min (03/07/21 3:14 PM) 18 br/min (03/07/21 11:13 AM) Temperature [96.8-100.4 DegF] 98.1 DegF (03/07/21 5:57 PM) 98.2 DegF (03/07/21 9:51 AM) Blood pressure sites Arm, left (03/07/21 5:57 PM) Arm, left (03/07/21 3:14 PM) Arm, left (03/07/21 9:51 AM) Temperature Route Oral (03/07/21 5:57 PM) Oral (03/07/21 9:51 AM) Social History Social History Type Response Tobacco Use: 4 or less cigar ettes(less than 1/4 pack)/day in last 30 days. Tobacco user in household: Yes. Sex
--- OUTSIDE RECORDS SUMMARY | 2023-05-17 08:53 | XMS_ITS | Continuity of Care Document ---
Author Name Unknown Organization [facility] Address [address] [place] [address]- Care Team Providers Care Recovery Collector Name Role Phone Sharon Chamberlain MD Primary Care Physician [phone] Encounter [facility] Date(s): 10/02/20 - 11/14/20 [facility] [address] [place] [id number] Attending Physician: Kamala Hassan NP Admitting Physician: Mo HARGROVE, Kamala Referring Physician: Sharon Chamberlain MD Allergies, Adverse Reactions, Alerts Substance Reaction Severity Status codeine Passed out Active Immunizations Given and Recorded Vaccine Date Status Refusal Reason influenza virus vaccine, inactivated 08/23/20 Give n pneumococcal 13-valent vaccine 1 08/22/20 Given 1Result Comment: Manufactured by [employer] Medications albuterol 0.083% inhalation solution 3 mL = [...] Status: Ordered losartan 50 mg oral tablet 1 tablet [...] 13:29:00 EDT Start Date: 09/02/20 Status: Ordered omeprazole 20 mg oral enteric [...] low back pain(Confirmed) Active Buerger disease(Confirmed) Active Social History Social History Type Response Tobacco Use: 4 or less cigar ettes(less than 1/4 pack)/day in last 30 days. Tobacco user in household: Yes. Sex
--- OUTSIDE RECORDS SUMMARY | 2023-05-17 08:53 | XMS_ITS | Continuity of Care Document ---
Author Name Unknown Organization [facility] Address [address] [place] [id number] Care Team Providers Care Sap Basis Administrator Name Role Phone Bulmaro DEVLIN, Sharon Langley Primary Care Physician Encounter [facility] Date(s): 01/12/23 - 01/14/[address] [id number] Encounter Diagnosis COPD (chronic obstructive pulmonary disease)(Final) - 01/12/23 CHF (congestive heart failure)(Final) - 01/14/23 Discharge Disposition: A-D/C Home Attending Physician: Dionte Mota MD Admitting Physician: Miracle Contreras MD Referring Physician: Not on Staff, Referring MD Allergies, Adverse Reactions, Alerts Substance Reaction Severity Status codeine Passed out Active Immunizations Given and Recorded Vaccine Date Status Refusal Reason SARS-CoV-2 (COVID-19) mRNA-1273 vaccine 03/20/22 R ecorded SARS-CoV-2 (COVID-19) mRNA-1273 vaccine 06/25/21 R ecorded SARS-CoV-2 (COVID-19) mRNA-1273 vaccine 04/24/21 R ecorded SARS-CoV-2 (COVID-19) mRNA-1273 vaccine 03/26/21 R ecorded zoster vaccine, inactivated 07/05/21 Recorded tetanus/diphtheria/pertussis, acel(Tdap) 07/05/21 Recorded influenza virus vaccine, inactivated 08/23/20 Give n pneumococcal 13-valent vaccine 1 08/22/20 Given 1Result Comment: Manufactured by [employer] Medications albuterol 0.083% inhalation solution 3 mL [...] tablet = 80 mg, By Mouth, Daily at bedtime Start Date: 08/16/20 Status: Ordered clopidogrel 75 mg oral tablet 75 mg, 1, tablet, By Mouth, Daily, # 30 tablet, Refills 0, Tot. Refills 0, Maintenance, 05/26/22 14:42:00 EDT, Route to Pharmacy Electronically, [facility], Partial fill upon patient request if the prescription is for a schedule II opioi... Start Date: 05/26/22 Status: Ordered Doculase 100 mg oral capsule 1 capsule = 100 mg, By Mouth, 2 times a day, PRN as needed for constipation, 0 Refills, Maintenance, 05/23/22 12:07:00 EDT, Partial fill upon patient request if the prescription is for a schedule II opioid drug. Start Date: 05/23/22 Status: Ordered gabapentin 100 mg oral capsule 100 mg, Capsule, By Mouth, Once, Restless Legs, PRN for Pain , Moderate, NEERAJ, 01/13/23 21:05:00 EST Start Date: 01/13/23 Stop Date: 01/13/23 Status: Completed Keppra 500 mg oral tablet 2 tablet = 1,000 mg, By Mouth, 2 times a day, # 120 tablet, 0 Refills, Maintenance, 01/14/23 14:23:00 EST, Tablet, [facility], Partial fill upon patient request if the prescription is for a schedule II opioid drug., 162, cm, 01/14/23 1:3... Start Date: 01/14/23 Status: Ordered Lasix 40 mg oral tablet 40 mg, 1, tablet, By Mouth, Daily, # 30 tablet, Refills 0, Tot. Refills 0, Maintenance, 05/26/22 14:43:00 EDT, Route to Pharmacy Electronically, [facility], Partial fill upon patient request if the prescription is for a schedule II opioi... Start Date: 05/26/22 Status: Ordered loperamide 2 mg oral capsule 2 mg, 1, capsule, By Mouth, Daily, PRN, Refills 0, Maintenance, as needed for loose stool, 05/23/2212:09:00 EDT, Partial fill upon patient request if the prescription is for a schedule II opioid drug. Start Date: 05/23/22 Status: Ordered meclizine 25 mg oral tablet, chewable 1 tablet = 25 mg, Chew, 3 times a day, PRN for dizziness, # 30 tablet, 0 Refills, Maintenance, 11/22/21 11:50:00 EST, Chew Tablet, Partial fill upon patient request if the prescription is for a schedule II opioid drug. Start Date: 11/22/21 Status: Ordered MiraLax oral powder for reconstitution = 17 Gm, By Mouth, Daily, PRN Constipation, 0 Refills, Maintenance, 05/23/22 12:15:00 EDT, Partial fill upon patient request if the prescription is for a schedule II opioid drug. Start Date: 05/23/22 Status: Ordered mirtazapine 7.5 mg oral tablet 1 tablet = 7.5 mg, By Mouth, Daily at bedtime, 0 Refills, Maintenance, 05/23/22 12:09:00 EDT, Partial fill upon patient request if the prescription is for a schedule II opioid drug. Start Date: 05/23/22 Status: Ordered nitroglycerin 0.4 mg sublingual tablet 1 tablet = 0.4 mg, Sublingual, Every 5 minutes, PRN Chest Pain, # 100 tablet, 0 Refills, Maintenance, 05/26/22 14:43:00 EDT, Tablet, [facility], Partial fill upon patient request if theprescription is for a schedule II opioid drug., 163... Start Date: 05/26/22 Status: Ordered pramipexole 1 mg oral tablet 1 tablet = 1 mg, By Mouth, Daily at bedtime Start Date: 08/16/20 Status: Ordered predniSONE 20 mg oral tablet 2 tablet = 40 mg, By Mouth, Daily, for 2 days, with food or milk, # 4 tablet, 0 Refills, Acute 01/16/23 14:22:00 EST, 01/14/23 14:22:00 EST, Tablet, [facility], Partial fill upon patient request if the prescription is for a schedule II o... Start Date: 01/14/23 Stop Date: 01/16/23 Status: Ordered Protonix 40 mg oral delayed release tablet = 40 mg, By Mouth, Daily, Please take daily - refill per PCP, # 30 tablet, 0 Refills, Maintenance, 11/24/22 9:27:00 EST, EC Tablet, 164, cm, 11/24/22 7:34:00 EST, Height, 59.5, kg, 11/15/22 22:02:00 EST, Dry Weight Start Date: 11/24/22 Status: Ordered Tylenol 325 mg oral tablet 650 mg, 2, tablet, By Mouth, Every 6 hours, PRN, Refills 0, Maintenance, Pain , Mild, 11/29/21 13:14:00 EST, Partial fill upon patient request if the prescription is for a schedule II opioid drug. Start Date: 11/29/21 Status: Ordered Ventolin HFA 108 mcg/inh inhalation aerosol with adapter 2 puffs, Inhalation, 4 times a day, PRN for wheezing, # 18 Gm, 0 Refills, Maintenance, 08/16/20 18:29:00 EDT, Aerosol Start Date: 08/16/20 Status: Ordered Zoloft 50 mg oral tablet 1 tablet = 50 mg, By Mouth, Daily, 0 Refills, Maintenance, 05/23/22 12:10:00 EDT, Partial fill uponpatient request if the prescription is for a schedule II opioid drug. Start Date: 05/23/22 Status: Ordered Problem List Condition Confirmation Course Effective Dates Status H ealth Status Informant COPD with respiratory failure, acute Confirmed Active MSSA bacteremia Confirmed Active COVID-19 1 Confirmed 09/11/22 Active Macular degeneration Confirmed Active Essential hypertension Confirmed Active Glaucoma Confirmed Active Hyperlipidemia Confirmed Active Acute kidney injury Confirmed Active Right low back pain Confirmed Active Buerger disease Confirmed Active 1Problem added by Discern Expert Results Radiology Reports * Exam Date Time Procedure Performing Provider Status 01/12/23 9:26 AM Chest Portable Yaya , Patito; Auth (V erified) Notes: (Chest Portable) Reason For Exam: Shortness of Breath RESULT: Chest Portable Chest Portable Reason: Shortness of Breath. Clinical Question(s): Pneumonia COMPARISON: 12/20/2022, 12/17/2022. FINDINGS: LINES AND TUBES: None. LUNGS AND PLEURA: Unchanged nodular opacity in the right upper lobe corresponding to a spiculated mass best appreciated on CT chest 12/17/2022. Relatively unchanged left basilar opacity. Increased hazy opacity at the right lung base. Curvilinear opacity overlying the upper mediastinum at the level of the medial clavicles. 0.3 cm square-shaped radiolucency overlying the left upper lobe, may be external to the patient. No pleural effusion. No pneumothorax. HEART, MEDIASTINUM AND HUA: Heart is normal in size. Aorta is calcified. BONES AND SOFT TISSUES: No acute abnormality. IMPRESSION: Mildly increased hazy opacity of the right lung base, favoring atelectasis, however, developing consolidation cannot be entirely excluded. Curvilinear opacity overlying the upper mediastinum at the level of the clavicles, of unknown significance. Further characterization with two-view x-ray can be considered. Relatively unchanged hazy opacity at the left lung base. Unchanged nodular opacity in the right upper lobe corresponding to spiculated mass on prior CT 12/17/2022. 0.3 cm radiopaque density overlying the left upper lobe, most likely external to the patient. I have personally reviewed the images and I agree with this report. WSN: [id number] Ordering Physician: Anita Cadena Dictated By: Ramiro Sun MD Dictated Date/Time: 01/12/23 9:58 am Reviewed By: Calvin Wu MD Signed By: Calvin Wu MD Signed Date/Time: 01/12/23 10:03 am Transcribed By: IVANNA Transcribed Date/Time: 01/12/23 9:47 am Vital Signs Most recent to oldest [Reference Range]: 1 2 3 Height 162 cm (01/14/23 1:35 AM) Weight 56.7 kg (01/14/23 1:35 AM) Oxygen Saturation [94-100 %] 94 % (01/14/23 3:00 PM) 95 % (01/14/23 8:00 AM) 95 % (01/14/23 4:00 AM) Pulse Rate [55-90 bpm] 89 bpm (01/14/23 3:00 PM) 78 bpm (01/14/23 8:00 AM) 75 bpm (01/14/23 4:00 AM) Body Mass Index [18.5-24.99 kg/m2] 21.6 kg/m2 (01/14/23 1:35 AM) Blood Pressure [90-138/55-84 mm Hg] 103/56mm Hg (01/14/23 3:00 PM) 111/54mm Hg (01/14/23 8:00 AM) 100/54mm Hg (01/14/23 4:00 AM) Respiratory Rate [16-30 br/min] 18 br/min (01/14/23 3:00 PM) 17 br/min (01/14/23 8:00 AM) 16 br/min (01/14/23 2:00 AM) Temperature [96.8-100.4 DegF] 97.5 DegF (01/14/23 3:00 PM) 98.7 DegF (01/14/23 8:00 AM) 97.3 DegF (01/14/23 4:00 AM) Liters per Minute 2 L/min (01/14/23 3:00 PM) 2 L/min (01/14/23 8:00 AM) 2 L/min (01/14/23 1:35 AM) Mode of Delivery (Oxygen) Nasal cannula (01/14/23 3:00 PM) Nasal cannula (01/14/23 8:00 AM) Nasal cannula (01/14/23 4:00 AM) Blood pressure sites Arm, right (01/14/23 3:00 PM) Arm, right (01/14/23 8:00 AM) Arm, right (01/14/23 4:00 AM) Temperature Route Oral (01/14/23 3:00 PM) Axillary (01/14/23 8:00 AM) Axillary (01/14/23 4:00 AM) Dry Weight 56.7 kg (01/14/23 1:35 AM) Social History Social History Type Response Tobacco Other: quit smoking in 2019, started smoking age 11, 2 or 3 packs per day. Sex Admission evaluation note * Yessica DEVLIN, Dewayne Rivera: PERFORM Event Display: Admission Note Authored Date: [id number] Patient: ??BRI STOUT ? Age:??77 Years?Sex:??Female?:??1945?? Chief Complaint/Reason for Consultation Siezures and shortness of breath at home. 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 The patient was interviewed alone??however collateral was obtained by calling her son Caleb.? Patient??first had symptoms??around??7??or 8 AM??this morning??with 2 seizures??each lasting between 3 and 5 minutes.?? The patient recalls??1 of these seizures??and describes??upper extremity arm flapping??and an out of body experience.?? She describes feeling as though??she is aware that she is seizing but she is unable to make her hand??stop flapping.?? She was incontinent of urine during the spell.?? She did not have??generalized tonic-clonic convulsions??and no involvement of her??lower extremities.?? She does not typically remember her seizures, she has been having them for the past 4 mo nths,??they are thought to be??likely due to??her??metastatic brain cancer with a known right parietal lesion.?? On conversation with her??son Elijah,??he states that she had 1 witnessed seizure??that was seen by??the patient's sister, and then a second seizure??that shot witnessed.?? Carlos describes seeing??his mom??lying on the ground??with her upper extremities??tremoring??and??hands??flapping.??He did not note??involvement of the lower extremities.?? The seizures abated??without??abortive therapies. ?? When EMS arrived??they also found that she was in respiratory distress.?? She is on??2 L of oxygen at baseline??and is quite dependent on??nebulizer treatments.?? EMS??gave her??Solu-Medrol??and a DuoNeb treatment??with improvement in her respiratory status.?? She states that she has had??a slightly increased cough??in the past week??and she has a cough productive of sputum??at baseline.?? She denies fevers, chills, or sick contacts.?? She takes??Lasix??40 mg??daily??for??heart failure,??while she does not administer her own medications, to her knowledge,??she has been taking all of her medications??as written and has not had any large dietary changes.?? Her sister Maeve??helps??with her medications??as??rBi is blind.?? The patient??does not feel as though she is retaining fluid,??she has not had edematous??on exam and she has not noticed any swelling in her ankles. ?? The patient has had 2 hospitalizations in the past??6 weeks??preceding this admission.?? She washospitalized in mid November??for??shortness of breath??and seizures.?? During that hospitalization??she was found to have??a left- sided??lung mass??and a right??parietal??brain mass.?? She declined biopsy of her lung??however??her clinical picture??is consistent with??a likely diagnosis of metastatic??lung cancer??with a metastasis to the brain.?? She was seen by neurology at that time and they recommended starting her on Keppra, she has been on Keppra 750 mg twice daily??since??her initial hospitalization in mid November.?? At her??most recent hospitalization??she opted??to return home??and deferred further work-up of her cancer.?? She had an extensive goals of care conversation with her??medical team and her family??and decided that she would like to be DNR DNI.?? She was not formally??referred to hospice??and on speaking with her today??she is not feel ready??for that. Review of Systems Patient denies??headaches,??vision changes,??weakness,??fevers, chills,??chest pain,??palpitations,??swelling of the extremities,??new rash,??diarrhea,??dysuria. Patient reports??shortness of breath, sputum production,??seizure. Objective ?? Physical Exam Constitutional: Thin elderly woman??who is??frustrated and agitated upon exam. Mental Status: Oriented to person, place and time. Eyes: Pupils are equal, round and reactive to light. Extraocular muscles intact. Ear, Nose and Throat: Oropharynx clear, mucous membranes moist. Ears and nose without masses, lesions or deformities. Trachea midline. Neck: Supple, Full range of motion.?? +1 JVD. Respiratory: Crackles at the bases bilaterally, worse on the left than the right.?? I do not appreciate a prolonged expiratory phase or??wheezing. Cardiovascular: S1 S2 regular. No murmurs, rubs or gallops. Gastrointestinal: Abdomen soft, non-tender, non-distended. Normal bowel sounds. No pulsatile mass. No hepatosplenomegaly. Neurologic: Cranial nerves II-XII grossly intact. No focal neurological deficits. Flexor plantar response. Moves all extremities spontaneously. Sensation intact bilaterally. Skin: No rashes or lesions. No petechiae or purpura.?? Musculoskeletal: No cyanosis or clubbing. No gross deformities. Normal range of motion. Psychiatric: Normal mood and affect. ??Patient is very frustrated with her experience in the emergency department. Assessment/Plan 77-year-old lady with PMHx for presumed metastatic lung cancer w/ right parietal intracranial mass,seizures, COPD on 2-5L home O2,??HFrEF (EF 25%), aortic regurgitation, HTN/HLP, glaucoma, macular degeneration, left inguinal hernia,?? 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 ??Her seizures are most likely??secondary to??her metastatic??brain lesion.?? She is also likely in a COPD exacerbation, will treat with steroids and azithromycin.?? May be some component??of an acute on chronic??decompensated heart failure, will trial??diuresis as well. ?? Focal onset seizures with impaired awareness Lung cancer with presumed metastatic brain lesion of R Parietal lobe Patient with 2 witnessed seizures of approximately 3 to 5 minutes duration,??bilateral upper extremity arm flapping,??with impaired awareness. Source presumed??to be??metastatic brain lesion in the right parietal lobe. On levetiracetam??750 mg??twice daily. As we have a known etiology??we may or may not consult neurology??depending on clinical course,??patient's goals of care Patient was supposed to follow-up with outpatient neurology??today however??was at ED and was not able to make their appointment. ?? Plan: ?Seizure precautions ??? Q4 neuro check ?Consider neurology consult??depending on goals of care conversation ?? Acute on chronic??respiratory failure??on home oxygen COPD exacerbation Heart failure reduced ejection fraction (EF??25%) Admission chest x-ray??appeared improved from??last hospitalization,??low??suspicion for??community-acquired pneumonia Likely viral URI??trigger??as patient has had increased cough over the past??week or so Received Solu-Medrol??with EMS On exam??patient is??increased work of breathing and accessory muscle use,??crackles bilaterally. May be a component of decompensated heart failure??as well??however this is??of lower concern??as BNP??looks normal??and patient has an ambiguous volume exam. On Lasix 40mg daily at home. Patient denies feeling volume up or any peripheral edema. ?? Plan: ?Azithromycin??500 mg??for 3 days ?Prednisone 40 mg 5-day course ?Duo nebs??every 4??scheduled and as needed ??? Hold home inhaler ???Trial 40 mg IV Lasix, reassess??volume status??and output??tomorrow ?? Goals of care From last hospitalization, [facility]??form signed by her - DNR/DNI/-??She agreed with BIPAP/CPAP if needed. She does not want to have dialysis. She does not want artificial nutrition. She would like to have Artificial hydration?? but for short term only. She want to come??back to hospital if needed??but only to receive non invasive measures such as IVF, antibiotics and simple medications. Given patient??recently??left hospital??under an essentially??plan for comfort cares,??and patient has??grave reservations about a prolonged hospitalization??today,??we will revisit??her disposition??and need for ongoing hospitalization??tomorrow.?? She may be??more appropriate??for comfort cares??a nd a potential discharge home to hospice.?? We will continue to assess??her goals??moving forward. ?? History of??cerebellar stroke??(2019): Continue home aspirin, statin, Plavix. Anxiety/depression:??continue sertraline and mirtazapine ?? Quality Metrics Code Status: DNR/DNI - [facility] signed on 12/23 Diet: Cardiac Diet DVT Prophyllaxis: Lovenox Ongoing Medical Necesity: Seizures, COPD exacerbation Disposition: 1-2 nights ?? Patient presentation??and plan of treatment??were reviewed with Dr. Contreras. ?? Dewayne Juan MD Medicine-Pediatrics, PGY-1 Pager: [phone] ?? (This document has been dictated using [employer] dictation software. Please do not hesitate to contact the author for clarification of any unintentional errors should it be needed.) ?? Histories Allergies Allergies ?(Active and Proposed Allergies Only) codeine? (Severity: Unknown severity, Onset: Unknown) ?Reactions: Passed out ? Past Medical History/Problem List Active Problems??(10) Acute kidney injury Buerger disease COPD with respiratory failure, acute COVID-19 Essential hypertension Glaucoma Hyperlipidemia Macular degeneration MSSA bacteremia Right low back pain ? Past Surgical History Cholecystectomy section Cataract extraction Amputation of finger tip ? Social History Alcohol Details:??Use: Current. ??Frequency: Daily. ??Type: Beer. ??Other: 2-3 15 oz cans of beer per day. Home/Environment Details:??Living situation: Home with assistance. ??Lives with: Sister. ??Other: Son and his familylive upstairs. ??She ambulates with a walker.. Substance Abuse Details:??Use: Never. Tobacco Details:??Use: 4 or less cigarettes(less than 1/4 pack)/day in last 30 days. ??Tobacco user in household: Yes. Details:??Other: quit smoking in 2019, started smoking age 11, 2 or 3 packs per day. ? Family History Father: Skin cancer ? Medications Home Medications Acetaminophen (Tylenol 325 mg oral tablet)?650?Milligram?2?tablet?By Mouth?Every 6 hours?as needed?Pain , Mild Albuterol (albuterol 0.083% inhalation solution)?3?Milliliter?2.5?Milligram?Neb?Every 6 hours?as needed?as needed for wheezing Albuterol (Ventolin HFA 108 mcg/inh inhalation aerosol with adapter)?2?puff(s)?Inhalation?4 times a day?as needed?for wheezing Aspirin (Aspirin Enteric Coated 81 mg oral delayed release tablet)?1?tab(s)?81?Milligram?By Mouth?Daily Atorvastatin (atorvastatin 80 mg oral tablet)?1?tab(s)?80?Milligram?By Mouth?Daily at bedtime Clopidogrel (clopidogrel 75 mg oral tablet)?75?Milligram?1?tablet?By Mouth?Daily Docusate (Doculase 100 mg oral capsule)?1?capsule?100?Milligram?By Mouth?2 times a day?as needed?as needed for constipation Furosemide (Lasix 40 mg oral tablet)?40?Milligram?1?tablet?By Mouth?Daily levETIRAcetam (Keppra 750 mg oral tablet)?1?tab(s)?750?Milligram?By Mouth?2 timesa day?for 30?Days Loperamide (loperamide 2 mg oral capsule)?2?Milligram?1?capsule?By Mouth?Daily?as needed?as needed for loose stool Meclizine (meclizine 25 mg oral tablet, chewable)?1?tab(s)?25?Milligram?Chew?3 times a day?as needed?for dizziness Mirtazapine (mirtazapine 7.5 mg oral tablet)?1?tab(s)?7.5?Milligram?By Mouth?Daily at bedtime Nitroglycerin (nitroglycerin 0.4 mg sublingual tablet)?1?tab(s)?0.4?Milligram?Sublingual?Every 5 minutes?as needed?Chest Pain Oxymetazoline Nasal (Afrin 0.05% spray)?2?spray(s)?Nares, Both?2 times a day Pantoprazole (Protonix 40 mg oral delayed release tablet)?40?Milligram?By Mouth?Daily?Please take daily - refill per PCP Polyethylene Glycol 3350 (MiraLax oral powder for reconstitution)?17?gram?By Mouth?Daily?as needed?Constipation Pramipexole (pramipexole 1 mg oral tablet)?1?tab(s)?1?Milligram?By Mouth?Daily atbedtime PredniSONE (predniSONE 10 mg oral tablet)?See Instructions?4 tab po daily for 2 days then 3 tabs po daily for 2 days then 2 tabs po daily for 2 days then 1 tab po daily for 2 days then stop Sertraline (Zoloft 50 mg oral tablet)?1?tab(s)?50?Milligram?By Mouth?Daily umeclidinium-vilanterol (Anoro Ellipta 62.5 mcg-25 mcg/inh inhalation powder)?1?puff(s)?Inhalation?Daily ? Results Recent Labs BLOOD COUNT & DIFF WBC 3.8 k/mm3 (Low)?? 01/12/2023 09:44 RBC 3.32 m/mm3 (Low)?? 01/12/2023 09:44 Hgb 9.1 Gm/dL (Low)?? 01/12/2023 09:44 Hct 29.2 % (Low)?? 01/12/2023 09:44 MCV 88.0 femtoliters ()?? 01/12/2023 09:44 MCH 27.4 pg ()?? 01/12/2023 09:44 MCHC 31.2 g/dL (Low)?? 01/12/2023 09:44 Platelet Count 260 k/mm3 ()?? 01/12/2023 09:44 RDW-SD 51.9 femtoliters (High)?? 01/12/2023 09:44 MPV 8.9 femtoliters (Low)?? 01/12/2023 09:44 Nucleated RBC (Automated) 0.0 #/100 WBC'S ()?? 01/12/2023 09:44 Abs. NRBC 0.0 k/mm3 ()?? 01/12/2023 09:44 Abs. Neut 2.9 k/mm3 ()?? 01/12/2023 09:44 Abs. Lymph 0.6 k/mm3 (Low)?? 01/12/2023 09:44 Abs. Aurora 0.2 k/mm3 (Low)?? 01/12/2023 09:44 Abs. Eo 0.2 k/mm3 ()?? 01/12/2023 09:44 Abs. Baso 0.0 k/mm3 ()?? 01/12/2023 09:44 Neut % 76.2 % (High)?? 01/12/2023 09:44 Lymph % 14.6 % (Low)?? 01/12/2023 09:44 Aurora % 4.7 % ()?? 01/12/2023 09:44 Eos % 3.9 % ()?? 01/12/2023 09:44 Baso % 0.3 % ()?? 01/12/2023 09:44 Imm Gran 0.3 % ()?? 01/12/2023 09:44 Abs. Imm Gran 0.0 k/mm3 ()?? 01/12/2023 09:44 ?? CARDIAC Nt-Probnp 435 pg/mL ()?? 01/12/2023 09:44 High Sensitivity Troponin (HSTnT) 20 ng/L (High)?? 01/12/2023 09:40 ?? CHEM GENERAL Sodium 144 mmol/L ()?? 01/12/2023 09:44 Potassium 3.4 mmol/L (Low)?? 01/12/2023 09:44 Chloride 105 mmol/L ()?? 01/12/2023 09:44 Bicarbonate Level 27 mmol/L ()?? 01/12/2023 09:44 Anion Gap 12 ()?? 01/12/2023 09:44 Glucose Level 105 mg/dL (High)?? 01/12/2023 09:44 BUN 11 mg/dL ()?? 01/12/2023 09:44 Creatinine-Blood 0.8 mg/dL ()?? 01/12/2023 09:44 Estimated GFR Creatinine 80 ML/MIN/1.73 M2 ()?? 01/12/2023 09:44 Calcium 9.0 mg/dL ()?? 01/12/2023 09:44 Protein, Total 6.0 Gm/dL (Low)?? 01/12/2023 09:44 Albumin 3.3 Gm/dL (Low)?? 01/12/2023 09:44 AG Ratio 1.2 ()?? 01/12/2023 09:44 Alkaline Phosphatase 118 units/L (High)?? 01/12/2023 09:44 AST (SGOT) 10 units/L ()?? 01/12/2023 09:44 ALT (SGPT) <5 units/L ()?? 01/12/2023 09:44 Bilirubin, Total 0.6 mg/dL ()?? 01/12/2023 09:44 ?? HEME OTHER Hold Blue Top SPECIMEN DISCARDED AFTER 4 HOURS. ()?? 01/12/2023 09:44 ?? VIROLOGY Influenza A PCR NEGATIVE ()?? 01/12/2023 10:47 Influenza B PCR NEGATIVE ()?? 01/12/2023 10:47 RSV PCR NEGATIVE ()?? 01/12/2023 10:47 COVID-19 PCR Specimen Source NASAL ()?? 01/12/2023 10:47 COVID-19 PCR Result NEGATIVE ()?? 01/12/2023 10:47 ? CBC, CBC w/Diff?? CBC?? Differential?? WBC:??3.8 k/mm3??Low (09:44) Abs. Neut: 2.9 k/mm3 (:44) RBC:??3.32 m/mm3??Low (09:44) Abs. Lymph:??0.6 k/mm3??Low (09:44) Hct:??29.2 %??Low (:44) Abs. Aurora:??0.2 k/mm3??Low (09:44) RDW-SD:??51.9 femtoliters??High (09:44) Abs. Eo: 0.2 k/mm3 (09:44) Nucleated RBC (Automated): 0 #/100 WBC'S (:44) Abs. Baso: 0 k/mm3 (:44) Abs. NRBC: 0 k/mm3 (09:44) Neut %:??76.2 %??High (09:44) ?? Lymph %:??14.6 %??Low (09:44) ?? Aurora %: 4.7 % (09:44) ?? Eos %: 3.9 % (09:44) ?? Baso %: 0.3 % (:44) ?? Imm Gran: 0.3 % (:44) ?? Abs. Imm Gran: 0 k/mm3 (:44) ? BMP, Mg, and Phos Anion Gap: 12 (:44) Bicarbonate Level: 27 mmol/L (:44) BUN: 11 mg/dL (:44) Calcium: 9 mg/dL (:44) Chloride: 105 mmol/L (:44) Creatinine-Blood: 0.8 mg/dL (:44) Estimated GFR Creatinine: 80 ML/MIN/1.73 M2 (:44) Glucose Level:??105 mg/dL??High (:) Potassium:??3.4 mmol/L??Low (:44) Sodium: 144 mmol/L (:44) ?? Cardiology Labs Nt-Probnp: 435 pg/mL (01/12/23 09:44:00) High Sensitivity Troponin (HSTnT):??20 ng/L??High (01/12/23 09:40:00) ? * Diane DEVLIN, Miracle P: PERFORM Event Display: Admission Note Authored Date: Attending Attestation: I have seen and evaluated this patient on 01/12/23. I have discussed the caseand its management with the resident and agree with the findings and plan as documented in the resident???s note except where modified. ?? Miracle Contreras MD MPH Internal Medicine/Pediatric Hospitalist Pager: [phone] ? Hospital Progress note * Nga Ruiz RN: PERFORM, SIGN, VERIFY Event Display: Progress Note Hospital Authored Date: [id number] Patient: BRI STOUT Age: 77 years Sex: Female : 1945 Associated Diagnoses: None Author: Nga Ruiz RN Findings Narrative/Incidental Patient discharged to home with services. IV removed catheter tip intact and telemetry disconnected. Hand off given to hospital scientist, Medicatiosn sent with patient belongings. Discharged reveiwed with patients son via phone call. . Discharge Information Case Management Discharge Plan : Case Management Discharge Plan Data 01/14/2023 17:31 EST Discharge Level of Care at Discharge Homehealth/VNA Discharge VNA/Hospice/Home Care [facility] [phone] 01/14/2023 11:49 EST Discharge Level of Care at Discharge Homehealth/VNA Discharge VNA/Hospice/Home Care [facility] [phone] Name of Agency #1 [facility] Home Health & Hospice Service Categories #1 Physical Therapy, Prison Service Comments #1 the nurse will see you the day after discharge. They will call before they cometo set up a time to see you. * Denae Chanel: PERFORM, SIGN, VERIFY Event Display: Progress Note Hospital Authored Date: Patient: BRI STOUT Age: 77 years Sex: Female : 1945 Associated Diagnoses: None Author: Denae Chanel Findings Problem Related to Alteration in Respiratory Function (new) : Alteration in Respiratory Function/new 01/14/2023 1:00 EST Alteration in Resp Status Related to COPD, Pneumonia Goals & Outcomes, Respiratory Pt will maintain/resume baseline physical assessment, Pt will maintain adequate nutritional intake, Pt will maintain/resume normal fluid/electrolyte balance, Pt willnot develop complications r/t immobility Interventions, Respiratory Assess for and report S&S of respiratory distress, Position for comfort & optimal oxygenation, Monitor sputum color & consistency. Report changes to MD Goals/Interventions, Respiratory Yes Respiratory, Problem Start 01/14/2023 1:47 Reviewed Plan with, Respiratory Patient Patient Progression, Respiratory Plan Initiation . Nursing Data Vital Signs : VITAL SIGNS SECTION 01/14/2023 1:35 EST Temperature 97.7 DegF Temperature Route Axillary Pulse Rate 82 bpm Respiratory Rate 18 br/min Systolic Blood Pressure 102 mm Hg Diastolic Blood Pressure 52 mm Hg L Blood pressure sites Arm, right Mean Arterial Pressure 69 mm Hg Pulse Pressure 50 mm Hg Oxygen Saturation 95 % Liters per Minute 2 L/min Mode of Delivery (Oxygen) Nasal cannula . Evaluation (Pt arrived via stretcher from ED. A&Ox4. VSS. Denies any pain currently. Pt arrivedon 4L o2 via NC with o2 sat 98%, pt weaned to 2L o2 via NC which is current home O2 level at . clear, no SOB. Skin intact. Pt with L inguinal hernia noted. Neuro's WNL and no seizure activity, seizure precautions maintained. Pt SR on telemetry. Oriented to room and call haq. Frequent safety rounding in place, see CIS for full assessment. ) * Maddi Villanueva MD: PERFORM Event Display: Progress Note Hospital Authored Date: Patient: ??BRI STOUT ? Age:??77 Years?Sex:??Female?:??1945?? Subjective This morning patient feels terrific and very eager to go home. She is aware that her seizures arelikely related to a metastatic mass in the brain. ?? States the last 3 days it's difficult to ambulate due to weakness and deconditioning from being admitted to the hospital often. She does not believe it's due to SOB. ?? Unable to get in touch with son. Called home number and sister answered who did not know much information and said to contact son, however stated he's a very busy person at work. Review of Systems Constitutional: No weight loss, fever, chills (+)fatigue Cardiovascular:??No chest pain, palpitations, edema Respiratory: No shortness of breath, cough, or sputum production Gastrointestinal: No nausea, vomiting, diarrhea, abdominal pain. Genitourinary: No burning micturition. No urinary frequency or incontinence. Neurologic: No headache, dizziness, syncope, unilateral weakness, ataxia, numbness or tingling in the extremities. No change in bowel or bladder control. Musculoskeletal: No muscle pain, back pain, joint pain or stiffness. Psychiatric: No depression or anxiety.?? Allergies Allergies ?(Active and Proposed Allergies Only) codeine? (Severity: Unknown severity, Onset: Unknown) ?Reactions: Passed out ? Objective Vital Signs?? Temperature: 97.4 DegF (01/13/23 13:53:00) Temperature Route: Oral (01/13/23 13:53:00) Pulse Rate: 90 bpm (01/13/23 13:53:00) Respiratory Rate: 19 br/min (01/13/23 13:53:00) Vented: No (01/13/23 05:50:00) Systolic Blood Pressure: 127 mm Hg (01/13/23 13:53:00) Diastolic Blood Pressure: 77 mm Hg (01/13/23 13:53:00) Blood pressure sites: Arm, right (01/13/23 13:53:00) Mean Arterial Pressure: 86 mm Hg (01/13/23 09:53:00) Pulse Pressure: 13 mm Hg (01/13/23 09:53:00) Oxygen Saturation:??93 %??Low (01/13/23 13:53:00) Liters per Minute: 4 L/min (01/13/23 13:53:00) Mode of Delivery (Oxygen): Nasal cannula (01/13/23 13:53:00) Early Warning Score: 7 (01/13/23 13:54:24) ?? Physical Exam Constitutional: Thin elderly woman??, alert, no distress Mental Status: Oriented to person, place and time. Eyes: Pupils are equal, round and reactive to light. Extraocular muscles intact. Ear, Nose and Throat: Oropharynx clear, mucous membranes moist. Ears and nose without masses, lesions or deformities. Trachea midline. Neck: Supple, Full range of motion.?? +hepatojugular reflux Respiratory: Crackles at the bases bilaterally, worse on the left than the right.?? I do not appreciate a prolonged expiratory phase or??wheezing. Cardiovascular: S1 S2 regular. No murmurs, rubs or gallops. Gastrointestinal: Abdomen soft, non-tender, non-distended. Normal bowel sounds. No pulsatile mass. No hepatosplenomegaly. Neurologic: Cranial nerves II-XII grossly intact. No focal neurological deficits. Flexor plantar response. Moves all extremities spontaneously. Sensation intact bilaterally. Skin: No rashes or lesions. No petechiae or purpura.?? Musculoskeletal: No cyanosis or clubbing. No gross deformities. Normal range of motion. Psychiatric: Normal mood and affect. ??Patient is very frustrated with her experience in the emergency department. _ Inpatient Medications Medications (19) Active SCHEDULED: (15) Albuterol/Ipratropium Inhalation Karma 3mL (Duoneb Inhalation Solution) ??1 vials, BAND Nebulizer, 4 times a day Aspirin 81 mg EC Tablet (aspirin 81 mg oral delayed release tablet) ??81 mg, By Mouth, Daily Atorvastatin 80 mg Tablet (atorvastatin 80 mg oral tablet) ??80 mg, By Mouth, Daily at bedtime Azithromycin 500 mg Tablet (Azithromycin Tablet) ??500 mg, By Mouth, Daily Clopidogrel 75 mg Tablet (clopidogrel 75 mg oral tablet) ??75 mg, By Mouth, Daily Enoxaparin 40 mg Inj (Enoxaparin Inj) ??40 mg 0.4 mL, Subcutaneous Injection, Daily Furosemide Inj (Lasix ??Inj) ??40 mg 4 mL, IV Push Slowly, Daily Keppra 500mg Tablet (Keppra 500 mg oral tablet) ??1,000 mg, By Mouth, 2 times a day Mirtazapine 15 mg Tablet (mirtazapine 15 mg oral tablet) ??7.5 mg, By Mouth, Daily at bedtime NaCl 0.9% Flush 3ml (NaCL 0.9% Flush) ??3 mL, IV Push, Every 8 hours Pantoprazole 40 mg EC Tablet (Protonix 40 mg oral delayed release tablet) ??40 mg, By Mouth, Daily Polyethylene Glycol 17 Gm Powder (Polyethylene Glycol Powder) ??17 Gm 1 pack/packet, By Mouth, Daily Pramipexole 0.5 mg Tablet (pramipexole 0.5 mg oral tablet) ??1 mg, By Mouth, Daily at bedtime PredniSONE 20 mg Tablet (predniSONE 20 mg oral tablet) ??40 mg, By Mouth, Daily Sertraline 50 mg Tablet (Zoloft 50 mg oral tablet) ??50 mg, By Mouth, Daily CONTINUOUS: (0) PRN: (4) Acetaminophen 325 mg Tablet (Acetaminophen Tablet) ??650 mg, By Mouth, Every 4 hours Albuterol/Ipratropium Inhalation Karma 3mL (Duoneb Inhalation Solution) ??1 vials, BAND Nebulizer, Every 4 hours Lorazepam 2 mg Inj Syringe (Ativan Inj) ??2 mg, IV Push Slowly, Once Meclizine 12.5 mg Tablet (meclizine 12.5 mg oral tablet) ??25 mg, Chew, 3 times a day ? Results Recent Labs BLOOD COUNT & DIFF WBC 3.8 k/mm3 (Low)?? 01/12/2023 09:44 RBC 3.32 m/mm3 (Low)?? 01/12/2023 09:44 Hgb 9.1 Gm/dL (Low)?? 01/12/2023 09:44 Hct 29.2 % (Low)?? 01/12/2023 09:44 MCV 88.0 femtoliters ()?? 01/12/2023 09:44 MCH 27.4 pg ()?? 01/12/2023 09:44 MCHC 31.2 g/dL (Low)?? 01/12/2023 09:44 Platelet Count 260 k/mm3 ()?? 01/12/2023 09:44 RDW-SD 51.9 femtoliters (High)?? 01/12/2023 09:44 MPV 8.9 femtoliters (Low)?? 01/12/2023 09:44 Nucleated RBC (Automated) 0.0 #/100 WBC'S ()?? 01/12/2023 09:44 Abs. NRBC 0.0 k/mm3 ()?? 01/12/2023 09:44 Abs. Neut 2.9 k/mm3 ()?? 01/12/2023 09:44 Abs. Lymph 0.6 k/mm3 (Low)?? 01/12/2023 09:44 Abs. Aurora 0.2 k/mm3 (Low)?? 01/12/2023 09:44 Abs. Eo 0.2 k/mm3 ()?? 01/12/2023 09:44 Abs. Baso 0.0 k/mm3 ()?? 01/12/2023 09:44 Neut % 76.2 % (High)?? 01/12/2023 09:44 Lymph % 14.6 % (Low)?? 01/12/2023 09:44 Aurora % 4.7 % ()?? 01/12/2023 09:44 Eos % 3.9 % ()?? 01/12/2023 09:44 Baso % 0.3 % ()?? 01/12/2023 09:44 Imm Gran 0.3 % ()?? 01/12/2023 09:44 Abs. Imm Gran 0.0 k/mm3 ()?? 01/12/2023 09:44 ?? CARDIAC Nt-Probnp 435 pg/mL ()?? 01/12/2023 09:44 High Sensitivity Troponin (HSTnT) 20 ng/L (High)?? 01/12/2023 09:40 ?? CHEM GENERAL Sodium 144 mmol/L ()?? 01/12/2023 09:44 Potassium 3.4 mmol/L (Low)?? 01/12/2023 09:44 Chloride 105 mmol/L ()?? 01/12/2023 09:44 Bicarbonate Level 27 mmol/L ()?? 01/12/2023 09:44 Anion Gap 12 ()?? 01/12/2023 09:44 Glucose Level 105 mg/dL (High)?? 01/12/2023 09:44 BUN 11 mg/dL ()?? 01/12/2023 09:44 Creatinine-Blood 0.8 mg/dL ()?? 01/12/2023 09:44 Estimated GFR Creatinine 80 ML/MIN/1.73 M2 ()?? 01/12/2023 09:44 Calcium 9.0 mg/dL ()?? 01/12/2023 09:44 Protein, Total 6.0 Gm/dL (Low)?? 01/12/2023 09:44 Albumin 3.3 Gm/dL (Low)?? 01/12/2023 09:44 AG Ratio 1.2 ()?? 01/12/2023 09:44 Alkaline Phosphatase 118 units/L (High)?? 01/12/2023 09:44 AST (SGOT) 10 units/L ()?? 01/12/2023 09:44 ALT (SGPT) <5 units/L ()?? 01/12/2023 09:44 Bilirubin, Total 0.6 mg/dL ()?? 01/12/2023 09:44 ?? HEME OTHER Hold Blue Top SPECIMEN DISCARDED AFTER 4 HOURS. ()?? 01/12/2023 09:44 ?? UA/URINALYSIS Appear/Color, Urine COLORLESS ()?? 01/12/2023 19:23 Specific [place], Urine 1.008 ()?? 01/12/2023 19:23 pH, Urine 6.5 ()?? 01/12/2023 19:23 Albumin, Urine NEGATIVE ()?? 01/12/2023 19:23 Glucose, Urine NEGATIVE ()?? 01/12/2023 19:23 Ketones, Urine NEGATIVE ()?? 01/12/2023 19:23 Bilirubin, Urine NEGATIVE ()?? 01/12/2023 19:23 Hemoglobin, Urine NEGATIVE ()?? 01/12/2023 19:23 Nitrite, Urine NEGATIVE ()?? 01/12/2023 19:23 Leukocyte, Urine NEGATIVE ()?? 01/12/2023 19:23 Urobilinogen NORMAL mg/dL ()?? 01/12/2023 19:23 WBC's, Urine 1 /HPF ()?? 01/12/2023 19:23 RBC's, Urine 1 /HPF ()?? 01/12/2023 19:23 Bacteria SLIGHT HPF (Abnormal)?? 01/12/2023 19:23 Hold Urine Culture Testing available 48 hours from time of collection. ()?? 01/12/2023 19:23 ?? VIROLOGY Influenza A PCR NEGATIVE ()?? 01/12/2023 10:47 Influenza B PCR NEGATIVE ()?? 01/12/2023 10:47 RSV PCR NEGATIVE ()?? 01/12/2023 10:47 COVID-19 PCR Specimen Source NASAL ()?? 01/12/2023 10:47 COVID-19 PCR Result NEGATIVE ()?? 01/12/2023 10:47 ? 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 ??Her seizures are most likely??secondary to??her metastatic??brain lesion.?? She is also likely in a COPD exacerbation, will treat with steroids and azithromycin.?? May be some component??of an acute on chronic??decompensated heart failure, will trial??diuresis as well. ?? Focal onset seizures with impaired awareness Lung cancer with presumed metastatic brain lesion of R Parietal lobe Patient with 2 witnessed seizures of approximately 3 to 5 minutes duration,??bilateral upper extremity arm flapping,??with impaired awareness. Source presumed??to be??metastatic brain lesion in the right parietal lobe. On levetiracetam??750 mg??twice daily. As we have a known etiology??we may or may not consult neurology??depending on clinical course,??patient's goals of care Patient was supposed to follow-up with outpatient neurology??today however??was at ED and was not able to make their appointment. ?? Plan: ?Seizure precautions ??? Q4 neuro check ?Neurology consult appreciated: increase keppra to 1g bid ?? Acute on chronic??respiratory failure??on home oxygen COPD exacerbation Heart failure reduced ejection fraction (EF??25%) Admission chest x-ray??appeared improved from??last hospitalization,??low??suspicion for??community-acquired pneumonia Likely viral URI??trigger??as patient has had increased cough over the past??week or so Received Solu-Medrol??with EMS On exam??patient is??increased work of breathing and accessory muscle use,??crackles bilaterally. May be a component of decompensated heart failure??as well??however this is??of lower concern??as BNP??looks normal??and patient has an ambiguous volume exam. On Lasix 40mg daily at home. Patient denies feeling volume up or any peripheral edema. ?? Plan: ?Azithromycin??500 mg??for 3 days ?Prednisone 40 mg 5-day course ?Duo nebs??every 4??scheduled and as needed ??? Hold home inhaler ??? Cont lasix 40mg IV daily until tomorrow ?? Goals of care From last hospitalization, MOLST??form signed by her - DNR/DNI/-??She agreed with BIPAP/CPAP if needed. She does not want to have dialysis. She does not want artificial nutrition. She would like to have Artificial hydration?? but for short term only. She want to come??back to hospital if needed??but only to receive non invasive measures such as IVF, antibiotics and simple medications. Given patient??recently??left hospital??under an essentially??plan for comfort cares,??and patient has??grave reservations about a prolonged hospitalization??today,??we will revisit??her disposition??and need for ongoing hospitalization??tomorrow.?? She may be??more appropriate??for comfort cares??a nd a potential discharge home to hospice.?? We will continue to assess??her goals??moving forward. ?? History of??cerebellar stroke??(2019): Continue home aspirin, statin, Plavix. Anxiety/depression:??continue sertraline and mirtazapine ?? Quality Metrics Code Status: DNR/DNI - MOLST signed on 12/23 Diet: Cardiac Diet DVT Prophyllaxis: Lovenox Ongoing Medical Necesity: Seizures, COPD exacerbation Disposition: Really wants to be discharged tomorrow - Consider outpatient hospice transition - Increase keppra at home - Needs son to pick patient up or transportation as son is very busy and??I was unable to contact him today. Note * Nga Ruiz RN: PERFORM Event Display: Discharge/Transfer Note Hospital Authored Date: [id number] Nursing Discharge Note Entered On: 01/14/2023 17:31 EST Performed On: 01/14/2023 17:31 EST by Nga Ruiz RN Nursing Discharge Note 2 Discharge Time : 01/14/2023 17:25 EST Discharge Level of Care at Discharge : Homehealth/VNA Discharge VNA/Hospice/Home Care(v001) : [facility] [phone] Patient Left Unit Via : Ambulance Patient Accompanied Off Unit with : Ambulance/Chair Van Personnel Handover Given to Transport Personnel : Yes DC Instructions Provided & Signed by Pt : Yes Patient Understands D/C Instructions : Yes Patient Instructions Discharge Signed : Yes Did Pt have Specialty Bed or Wound Vac : No Nga Ruiz RN - 01/14/2023 17:31 EST * Argelia Frederick MD: MODIFY, PERFORM, MODIFY Event Display: Discharge/Transfer Note Hospital Authored Date: [id number] Patient: ??MIRIAN, BRI ? Age:??77 Years?Sex:??Female?:??1945?? Patient Information Discharge Location: [facility] Primary Care Physician: Sharon Chamberlain MD Admit Date/Time: 01/12/23 01:23 Discharge Disposition Discharge Disposition: Home with Home Health Discharge Diagnosis Lung cancer, with presumed metastatic brain lesion of R Parietal lobe Focal onset seizures with impaired awareness Acute on chronic respiratory failure on home oxygen COPD exacerbation Heart failure reduced ejection fraction (EF 25%) History of cerebellar stroke Anxiety/Depression _ Discharge Medications Acetaminophen (Tylenol 325 mg oral tablet)?650?Milligram?2?tablet?By Mouth?Every 6 hours?as needed?Pain , Mild Albuterol (albuterol 0.083% inhalation solution)?3?Milliliter?2.5?Milligram?Neb?Every 6 hours?as needed?as needed for wheezing Albuterol (Ventolin HFA 108 mcg/inh inhalation aerosol with adapter)?2?puff(s)?Inhalation?4 times a day?as needed?for wheezing Aspirin (Aspirin Enteric Coated 81 mg oral delayed release tablet)?1?tab(s)?81?Milligram?By Mouth?Daily Atorvastatin (atorvastatin 80 mg oral tablet)?1?tab(s)?80?Milligram?By Mouth?Daily at bedtime Clopidogrel (clopidogrel 75 mg oral tablet)?75?Milligram?1?tablet?By Mouth?Daily Docusate (Doculase 100 mg oral capsule)?1?capsule?100?Milligram?By Mouth?2 times a day?as needed?as needed for constipation Furosemide (Lasix 40 mg oral tablet)?40?Milligram?1?tablet?By Mouth?Daily levETIRAcetam (Keppra 500 mg oral tablet)?2?tab(s)?1,000?Milligram?By Mouth?2 times a day Loperamide (loperamide 2 mg oral capsule)?2?Milligram?1?capsule?By Mouth?Daily?as needed?as needed for loose stool Meclizine (meclizine 25 mg oral tablet, chewable)?1?tab(s)?25?Milligram?Chew?3 times a day?as needed?for dizziness Mirtazapine (mirtazapine 7.5 mg oral tablet)?1?tab(s)?7.5?Milligram?By Mouth?Daily at bedtime Nitroglycerin (nitroglycerin 0.4 mg sublingual tablet)?1?tab(s)?0.4?Milligram?Sublingual?Every 5 minutes?as needed?Chest Pain Pantoprazole (Protonix 40 mg oral delayed release tablet)?40?Milligram?By Mouth?Daily?Please take daily - refill per PCP Polyethylene Glycol 3350 (MiraLax oral powder for reconstitution)?17?gram?By Mouth?Daily?as needed?Constipation Pramipexole (pramipexole 1 mg oral tablet)?1?tab(s)?1?Milligram?By Mouth?Daily atbedtime PredniSONE (predniSONE 20 mg oral tablet)?2?tab(s)?40?Milligram?By Mouth?Daily?for 2?Days?with food or milk Sertraline (Zoloft 50 mg oral tablet)?1?tab(s)?50?Milligram?By Mouth?Daily umeclidinium-vilanterol (Anoro Ellipta 62.5 mcg-25 mcg/inh inhalation powder)?1?puff(s)?Inhalation?Daily ? Medications Started Prednisone 40mg daily (through 01/16/23) Medications Discontinued none Doses Changed Levetiracetam 1g twice daily (increased from 750mg twice daily) Allergies Allergies ?(Active and Proposed Allergies Only) codeine? (Severity: Unknown severity, Onset: Unknown) ?Reactions: Passed out ? PCP Follow-Up/Heads-Up - Please encourage patient to continue following with neurology outpatient as appropriate to manageseizures and further adjust her medication as necessary. Her Keppra dose was increased to 1g BID during this hospitalization. - Please encourage ongoing care with home health services to continue managing COPD and oxygen requirements. - If she feels that appointments, medications, and frequent hospitalizations are becoming too burdensome, can further discuss additional support from hospice services if and when ready. At this time,she is not interested in meeting with hospice services. Future Appointments 2022 12:45 PM EDT ?? With: David Ventura MD Where: [facility] Cardiology [address] [id number]- Hospital Course Ms. Stout is a 77 y.o. female with PMH of presumed metastatic lung cancer with R parietal intracranial mass, 4-month history of seizures on Keppra 750mg BID, history of R cerebellar stroke, COPD on 2-5L O2 at home, HFrEF (EF 25%), macular degeneration with blindness, thromboangiitis obliterans s/p L digit amputation, L inguinal hernia, HTN who presented on 01/12 with shortness of breath following 2 seizures at home, admitted for acute on chronic respiratory failure in the setting of COPD and further management of her seizures. Neurology was consulted and believes her presentation is consistentwith seizures and recommended increasing Keppra dose to 1g BID. Her COPD exacerbation was treated with azithromycin, prednisone burst, nebulizer treatments, and oxygen therapy. In considering her goals of care in light of her presumed metastatic cancer, she has been clear in her wishes to avoid hospitalization as much as possible and may be??discharged home with services ([facility]).??She was able to ambulate with a walker. At this time??does not wish to proceed with hospice but is aware she can discuss this with her PCP. Some??evidence of fluid overload on exam on admission, did well with IV diuresis, now ready to resume home diuretic therapy as she is euvolemic. ?? Focal onset seizures with impaired awareness Lung cancer with presumed metastatic brain lesion of R Parietal lobe ??Patient with 2 witnessed seizures of approximately 3 to 5 minutes duration, bilateral upper extremity arm flapping, with impaired awareness. ??Source presumed to be metastatic brain lesion in the right parietal lobe, on levetiracetam 750 mgtwice daily at home. ??She was scheduled to see neurology outpatient, missed appointment due to being in ED. ??Neurology consulted and recommended increasing Keppra dose to 1g BID for seizure control. ?? Recommendations: - Keppra 1g twice daily -??Please help coordinate follow up with??neurology as outpatient ?? Acute on chronic respiratory failure on home oxygen COPD exacerbation Heart failure reduced ejection fraction (EF 25%) ??Admission chest x-ray appeared improved from last hospitalization with low suspicion for community-acquired pneumonia ??Likely viral URI trigger as patient has had increased cough over the past week. Received Solu-Medrol with EMS. ??On exam??had increased work of breathing and accessory muscle use, crackles bilaterally. ??May be a component of decompensated heart failure, but of lower concern as BNP normal and ambiguous volume exam. ??On Lasix 40mg daily at home. Patient denies feeling volume up or any peripheral edema. ??Treated with azithromycin x3 days, Duonebs as needed, prednisone 40mg (currently day 3/5), and Lasix 40mg IV daily x2 days (home dose is 40mg PO daily) ?? Recommendations: - Continue 40mg prednisone daily through 01/18/23 - Restart home inhalers - Continue home Lasix 40mg daily ?? Goals of care From last hospitalization, MOLST form signed by her - DNR/DNI/- She agreed with BIPAP/CPAP if needed. She does not want to have dialysis. She does not want artificial nutrition. She would like to have Artificial hydration but for short term only. She want to come back to hospital if needed but only to receive non invasive measures such as IVF, antibiotics and simple medications. Patient recently left hospital under an essentially plan for comfort cares, and patient has grave reservations about a prolonged hospitalization. Discussed support services at home and ongoing medical issues in the context of possible support from hospice. While acknowledging the toll that??appointments and medications take in light of her illness, she has been clear she is not ready for hospice transition at this time as??she feels cared for appropriately at home through a combination of family and established VNA and home health aides. ?? Recommendations: - Continue home health??services for support - Can consider establishing with outpatient hospice for additional support if needed ?? Chronic stable conditions: History of cerebellar stroke (2019): Continue home aspirin, statin, Plavix. Anxiety/depression: continue sertraline and mirtazapine Objective Vital Signs?? Temperature: 98.7 DegF (01/14/23 08:00:00) Temperature Route: Axillary (01/14/23 08:00:00) Pulse Rate: 78 bpm (01/14/23 08:00:00) Respiratory Rate: 17 br/min (01/14/23 08:00:00) Systolic Blood Pressure: 111 mm Hg (01/14/23 08:00:00) Diastolic Blood Pressure:??54 mm Hg??Low (01/14/23 08:00:00) Blood pressure sites: Arm, right (01/14/23 08:00:00) Mean Arterial Pressure: 69 mm Hg (01/14/23 01:35:00) Pulse Pressure: 57 mm Hg (01/14/23 08:00:00) Oxygen Saturation: 95 % (01/14/23 08:00:00) Liters per Minute: 2 L/min (01/14/23 08:00:00) Mode of Delivery (Oxygen): Nasal cannula (01/14/23 08:00:00) Early Warning Score: 2 (01/14/23 08:44:29) . Physical Exam General:??Alert, no distress,??talkative, pleasant, with NC in place. Respiratory:??Clear to auscultation. No wheezing, rales or rhonchi, examined shortly after nebulizer treatment. Cardiovascular:??Heart sounds normal. Regular rate and rhythm, no murmurs, cap refill <2 sec. Gastrointestinal:??Abdomen soft, non-tender, non-distended. Normal bowel sounds. Skin:??No rashes or lesions. No petechiae or purpura. No edema. Musculoskeletal:??No joint edema or erythema.??Normal range of motion, ambulates with walker at baseline. Consultants Dr. Kishan Sosa (Neurology) Patient Instructions You came to the hospital due to a seizure at home and shortness of breath due to a flare up of yourCOPD. A neurologist evaluated you for your seizures and recommended increasing the dose of the medication you take at home for seizures in order to help control them. Additionally, your shortness of breath was treated with oxygen, nebulizer treatments, and steroids. Your shortness of breath improved with these medicines and on your home oxygen. We would like you to finish treatment of your COPD flare up with 2 more days of prednisone, a steroid medication, to ensure your shortness of breath continues to improve. ?? We discussed your wishes for the care you hope to receive both in and out of the hospital and understand your wishes for avoiding hospitalization as much as possible. We also discussed your desire for continuing to have home health services at home, without considering hospice services at this time. We recommend that you follow up with your PCP to further discuss your medications and support at home should you feel you need any additional level of care. Home Health Face to Face *Denotes mandatory gould ?? *I certify that this patient is under my care and that I or an allowed non- physician working with me had a face to face encounter with the patient on this date:??01/14/2023 14:26 ?? *The encounter with the patient was in whole, or in part, for the following medical condition, which is the primary diagnosis(es) for home health care:??Seizure disorder, secondary (G40.909) COPD with respiratory failure, acute (J44.9) Acute on chronic HFrEF (heart failure with reduced ejection fraction) (I50.23) Macular degeneration (H35.30) Essential hypertension (I10) Lung cancer metastatic to brain (C34.90) Hyperlipidemia (E78.5) CHF (congestive heart failure) (I50.9) COPD (chronic obstructive pulmonary disease) (J44.9) ? *Select the indications for the discipline/s that are being arranged for this patient. Nursing (select all that apply): [_] None [x] Medication management (reconciliation, teaching)?? [x] Chronic disease management?? [_] Wound care and treatment?? [x] Home safety evaluation [_] Administer SQ/IM/IV medications?? [_] Cath care?? [_] Drain care?? [_] Trach or GT care?? Other _ Occupation Therapy (select all that apply): [_] None [_] ADL Management [_] Fall prevention training [_] Energy conservation [_] Cognitive training Other _ Physical Therapy (select all that apply): [_] None [x] Functional mobility training [_] Home exercise program to strengthen [_] Increase ROM?? [x] Falls prevention training [x] Home maintenance program for chronic disease Other _ Speech Therapy (select all that apply): [_] None [_] Swallow evaluation and training [_] Speech and language training [_] Cognitive training to process, organize, and/or recall information Other _ ? *Homebound due to (select all that apply): [_] Inability to leave home without assistance/supervision [_] Inability to ambulate without assistance [_] Pain [x] Decreased strength and endurance [x] Unsteady gait [_] Severe SOB and fatigue [_] Impaired transfers [_] Inability to negotiate stairs [_] Limited weight bearing [_] Mental status change? *Physician Signature:??Argelia Frederick MD ?? *By signing this, I certify that I have personally evaluated the patient and agree with the findings and recommendations as documented above. ? Results Discharge Labs BLOOD COUNT & DIFF WBC 5.8 k/mm3 ()?? 01/14/2023 07:21 RBC 2.64 m/mm3 (Low)?? 01/14/2023 07:21 Hgb 8.7 Gm/dL (Low)?? 01/14/2023 07:21 Hct 24.1 % (Low)?? 01/14/2023 07:21 MCV 91.3 femtoliters ()?? 01/14/2023 07:21 MCH 33.0 pg ()?? 01/14/2023 07:21 MCHC 36.1 g/dL ()?? 01/14/2023 07:21 Platelet Count 339 k/mm3 ()?? 01/14/2023 07:21 RDW-SD 54.9 femtoliters (High)?? 01/14/2023 07:21 MPV 9.2 femtoliters (Low)?? 01/14/2023 07:21 Nucleated RBC (Automated) 0.0 #/100 WBC'S ()?? 01/14/2023 07:21 Abs. NRBC 0.0 k/mm3 ()?? 01/14/2023 07:21 Abs. Neut 3.6 k/mm3 ()?? 01/14/2023 07:21 Abs. Lymph 1.6 k/mm3 ()?? 01/14/2023 07:21 Abs. Aurora 0.5 k/mm3 ()?? 01/14/2023 07:21 Abs. Eo 0.2 k/mm3 ()?? 01/14/2023 07:21 Abs. Baso 0.0 k/mm3 ()?? 01/14/2023 07:21 Neut % 61.5 % ()?? 01/14/2023 07:21 Lymph % 27.3 % ()?? 01/14/2023 07:21 Aurora % 8.2 % ()?? 01/14/2023 07:21 Eos % 2.6 % ()?? 01/14/2023 07:21 Baso % 0.2 % ()?? 01/14/2023 07:21 Imm Gran 0.2 % ()?? 01/14/2023 07:21 Abs. Imm Gran 0.0 k/mm3 ()?? 01/14/2023 07:21 ?? CARDIAC Nt-Probnp 435 pg/mL ()?? 01/12/2023 09:44 High Sensitivity Troponin (HSTnT) 20 ng/L (High)?? 01/12/2023 09:40 ?? CHEM GENERAL Sodium 144 mmol/L ()?? 01/14/2023 07:21 Potassium 3.3 mmol/L (Low)?? 01/14/2023 07:21 Chloride 104 mmol/L ()?? 01/14/2023 07:21 Bicarbonate Level 31 mmol/L (High)?? 01/14/2023 07:21 Anion Gap 9 ()?? 01/14/2023 07:21 Glucose Level 105 mg/dL (High)?? 01/12/2023 09:44 BUN 28 mg/dL (High)?? 01/14/2023 07:21 Creatinine-Blood 1.0 mg/dL ()?? 01/14/2023 07:21 Estimated GFR Creatinine 56 ML/MIN/1.73 M2 ()?? 01/14/2023 07:21 Calcium 9.0 mg/dL ()?? 01/12/2023 09:44 Magnesium 1.8 mg/dL ()?? 01/14/2023 07:21 Protein, Total 6.0 Gm/dL (Low)?? 01/12/2023 09:44 Albumin 3.3 Gm/dL (Low)?? 01/12/2023 09:44 AG Ratio 1.2 ()?? 01/12/2023 09:44 Alkaline Phosphatase 118 units/L (High)?? 01/12/2023 09:44 AST (SGOT) 10 units/L ()?? 01/12/2023 09:44 ALT (SGPT) <5 units/L ()?? 01/12/2023 09:44 Bilirubin, Total 0.6 mg/dL ()?? 01/12/2023 09:44 ?? HEME OTHER Hold Blue Top SPECIMEN DISCARDED AFTER 4 HOURS. ()?? 01/12/2023 09:44 ? UA/URINALYSIS Appear/Color, Urine COLORLESS ()?? 01/12/2023 19:23 Specific [place], Urine 1.008 ()?? 01/12/2023 19:23 pH, Urine 6.5 ()?? 01/12/2023 19:23 Albumin, Urine NEGATIVE ()?? 01/12/2023 19:23 Glucose, Urine NEGATIVE ()?? 01/12/2023 19:23 Ketones, Urine NEGATIVE ()?? 01/12/2023 19:23 Bilirubin, Urine NEGATIVE ()?? 01/12/2023 19:23 Hemoglobin, Urine NEGATIVE ()?? 01/12/2023 19:23 Nitrite, Urine NEGATIVE ()?? 01/12/2023 19:23 Leukocyte, Urine NEGATIVE ()?? 01/12/2023 19:23 Urobilinogen NORMAL mg/dL ()?? 01/12/2023 19:23 WBC's, Urine 1 /HPF ()?? 01/12/2023 19:23 RBC's, Urine 1 /HPF ()?? 01/12/2023 19:23 Bacteria SLIGHT HPF (Abnormal)?? 01/12/2023 19:23 Hold Urine Culture Testing available 48 hours from time of collection. ()?? 01/12/2023 19:23 ? VIROLOGY Influenza A PCR NEGATIVE ()?? 01/12/2023 10:47 Influenza B PCR NEGATIVE ()?? 01/12/2023 10:47 RSV PCR NEGATIVE ()?? 01/12/2023 10:47 COVID-19 PCR Specimen Source NASAL ()?? 01/12/2023 10:47 COVID-19 PCR Result NEGATIVE ()?? 01/12/2023 10:47 ? 40??minutes spent on discharge ?? Documentation assisted by Rola Osullivan MS4 ?? Argelia Frederick MD Medicine-Pediatrics PGY2 Pager # [phone] Available on Cort[employer] ?? Please excuse any errors in wording or grammatical mistakes in the note as this was transcribed using dictation.? This note is not final until signed by the attending physician.?? The patient was seen and discussed with attending physician, Dr. Mota. * Nakul DEVLIN, Dionte: PERFORM Event Display: Discharge/Transfer Note Hospital Authored Date: [id number] Attending Attestation:??I have seen and evaluated this patient. ??I have discussed the case and itsmanagement with the resident and agree with the findings and plan as documented in the resident???snote. * Nga Ruiz RN: PERFORM Event Display: Patient Education/Instruction Authored Date: [id number] Inpatient Adult Discharge Instructions [address] [address] Name: BRI STOUT : 1945 Visit: 01/12/2023 01:23:00 Current Date: 01/14/2023 16:10 Account: [id number] Inpatient Adult Discharge Instructions We would like to thank you for allowing us to assist you with your healthcare needs. The following includes patient education materials and information regarding your injury/illness. Our entire staffstrives to provide an excellent experience for our patients and their families. PLEASE ENSURE YOU FOLLOW-UP PER THE INSTRUCTIONS BELOW! ?? YOUR OPINION IS IMPORTANT TO US! Please complete the survey you may receive by mail or email. Your feedback will be used to make improvements to the healthcare experiences of our patients and their families. Surveys are administered by [employer] ?? If further treatment with your primary care physician or another doctor is recommended, it is important for you to keep the appointment. Call your primary care physician or return to the Emergency Department immediately if your condition worsens, fails to improve, or new symptoms develop. If you need to find a doctor, you can call [facility] [employer] for a referral at [phone] or toll free at [phone] or log in to [email or web address].. ?? You can view and manage your care through the patient portal or by using a health care leigh of your choosing. [employer] is a website that allows you to securely view your medical information including your hospital discharge summary, office visit summaries, medications and follow-up visits. You can also request appointments, renew medications, and request access to your medical information using a health care leigh of your choosing, or just ask a question. You can enroll at [email or web address] or register during your next office visit. You have been discharged from [facility], Patient Care Unit: D6B. If you have any questions regarding these instructions after you leave, please call us and we will be happy to assist you. [facility] Your Care Team Attending Physician Nakul DEVLIN, Dionte Consulting Providers Ian DEVLIN, Kishan Shcaefer Discharging Providers Otoniel DEVLIN, Argelia Reason for Admission Siezures and shortness of breath at home. Your Diagnosis COPD (chronic obstructive pulmonary disease) COPD with respiratory failure, acute Macular degeneration Essential hypertension Seizure disorder, secondary Lung cancer metastatic to brain Acute on chronic HFrEF (heart failure with reduced ejection fraction) Hyperlipidemia CHF (congestive heart failure) Tests Performed Below is a partial list of the tests performed during your hospitalization. You may have had other tests and procedures not included in this list. Please discuss all test results with your provider. BUN CBC w/ Differential Comprehensive Metabolic Panel COVID-19, RSV, and Flu A/B, Rapid PCR Creatinine High??Sensitivity??Troponin T Hold Blue Top Tube Lytes ProBNP Urinalysis w/hold for Urine Culture CXR Portable Primary Care Provider Bulmaro DEVLIN, Sharon Langley Advance Directive Health Care Proxy on File Yes - Health Care Proxy Yes - MOLST Discharge Vitals Temperature: 97.5 DegF Height: 162 cm Pulse Rate: 89 bpm Weight: 56.7 kg Respiratory Rate: 18 br/min Body Mass Index: 21.6 kg/m2 Systolic Blood Pressure: 103 mm Hg Body surface area: 1.6 Diastolic Blood Pressure: 56 mm Hg ?? Oxygen Saturation: 94 % ?? Studies Pending All tests and labs ordered during this hospital stay have been completed unless listed below. Please discuss all pending results with your provider listed above in these instructions. ?? Basic Metabolic Panel CBC Hold Lavender Tube (BB) Magnesium Level What to do next Instructions From Your Doctor Discharge Orders Scheduled Follow-Up Appointments 2022 12:45 PM EDT ?? With: David Ventura MD Where: [facility] Cardiology [facility] [place] [address]- Discharge Medications MIRIANYULI MirelesNE :1945 Visit Date:01/12/2023 Medications: Please continue your medications until treatment is completed or stopped by your provider. Medications not listed below should be discontinued. Discuss any questions related to medications with your provider. What How Much When Instructions Next Dose Changed PredniSONE (predniSONE 20 mg oral tablet) 2 tab(s) Oral Daily Duration: 2 Days with food or milk ?? [facility] 9 am Changed levETIRAcetam (Keppra 500 mg oral tablet) 2 tab(s) Oral Twice a day Pickup at [facility] 3 01/14/2023 9 pm Unchanged Acetaminophen (Tylenol 325 mg oral tablet) 2 tab(s) Oral Every 6 hours as needed for Pain , Mild as needed Unchanged Albuterol (Ventolin HFA 108 mcg/ inh inhalation aerosol with adapter) 2 puff(s) Inhalation 4 times a day as needed for for wheezing as needed Unchanged Aspirin (Aspirin Enteric Coated 81 mg oral delayed release tablet) 1 tab(s) Oral Daily 01/15/2023 9 am Unchanged Atorvastatin (atorvastatin 80 mg oral tablet) 1 tab(s) Oral Daily at Bedtime 01/14/2023 9 pm Unchanged Clopidogrel (clopidogrel 75 mg oral tablet) 1 tab(s) Oral Daily 01/15/2023 9 am Unchanged Docusate (Doculase 100 mg oral capsule) 1 capsule Oral Twice a day as needed for as needed for constipation as needed Unchanged Furosemide (Lasix 40 mg oral tablet) 1 tab(s) Oral Daily 01/15/2023 9 am Unchanged Loperamide (loperamide 2 mg oral capsule) 1 capsule Oral Daily as needed for as needed for loose stool as needed Unchanged Meclizine (meclizine 25 mg oral tablet, chewable) 1 tab(s) Chew 3 times a day as needed for for dizziness as needed Unchanged Mirtazapine (mirtazapine 7.5 mg oral tablet) 1 tab(s) Oral Daily at Bedtime 01/14/2023 9 pm Unchanged Nitroglycerin (nitroglycerin 0.4 mg sublingual tablet) 1 tab(s) Sublingual Every 5 minutes as needed for Chest Pain as needed Unchanged Pantoprazole (Protonix 40 mg oral delayed release tablet) 40 Milligram Oral Daily Please take daily - refill per PCP ?? 01/15/2023 9 am Unchanged Polyethylene Glycol 3350 (MiraLax oral powder for reconstitution) 17 gram Oral Daily as needed for Constipation as needed Unchanged Pramipexole (pramipexole 1 mg oral tablet) 1 tab(s) Oral Daily at Bedtime 01/14/2023 9 pm Unchanged Sertraline (Zoloft 50 mg oral tablet) 1 tab(s) Oral Daily 01/15/2023 9 am Unchanged umeclidinium-vilanterol (Anoro Ellipta 62.5 mcg-25 mcg/ inh inhalation powder) 1 puff(s) Inhalation Daily 01/15/2023 Pharmacy Information [facility] 3: [address], [place] [id number] [phone] ?? What How Much When Comments Stop Taking Oxymetazoline Nasal (Afrin 0.05% spray) 2 spray(s) Nares, Both Twice a day Test Results Below is a partial list of the most recent Laboratory test results done prior to this discharge. You may have had other tests and procedures not included in this list. Please discuss all test resultswith your provider. BUN (01/14/2023) ???BUN - 28 mg/dL CBC w/ Differential (01/14/2023) ???WBC - 5.8 k/mm3???RBC - 2.64 m/mm3???Hgb - 8.7 Gm/dL???Hct - 24.1 %???MCV - 91.3 femtoliters???MCH - 33.0 pg???MCHC - 36.1 g/dL???Platelet Count - 339 k/mm3???RDW-SD - 54.9 femtoliters???MPV - 9.2femtoliters???Nucleated RBC (Automated) - 0.0 #/100 WBC'S???Abs. NRBC - 0.0 k/mm3???Abs. Neut - 3.6 k/mm3???Abs. Lymph - 1.6 k/mm3???Abs. Aurora - 0.5 k/mm3???Abs. Eo - 0.2 k/mm3???Abs. Baso - 0.0 k/mm3???Neut % - 61.5 %???Lymph % - 27.3 %???Aurora % - 8.2 %???Eos % - 2.6 %???Baso % - 0.2 %???Imm Gran - 0.2 %???Abs. Imm Gran - 0.0 k/mm3 Comprehensive Metabolic Panel (01/12/2023) ???Sodium - 144 mmol/L???Potassium - 3.4 mmol/L???Chloride - 105 mmol/L???Bicarbonate Level - 27 mmol/L???Anion Gap - 12???Glucose Level - 105 mg/dL???BUN - 11 mg/dL???Creatinine-Blood - 0.8 mg/dL???Estimated GFR Creatinine - 80 ML/MIN/1.73 M2???Calcium - 9.0 mg/dL???Protein, Total - 6.0 Gm/dL???Alb umin - 3.3 Gm/dL???AG Ratio - 1.2???Alkaline Phosphatase - 118 units/L???AST (SGOT) - 10 units/L???ALT (SGPT) - <5 units/L? ?Bilirubin, Total - 0.6 mg/dL COVID-19, RSV, and Flu A/B, Rapid PCR (01/12/2023) ???Influenza A PCR - NEGATIVE???Influenza B PCR - NEGATIVE???RSV PCR - NEGATIVE???COVID-19 PCR Specimen Source - NASAL???COVID-19 PCR Result - NEGATIVE Creatinine (01/14/2023) ???Creatinine-Blood - 1.0 mg/dL???Estimated GFR Creatinine - 56 ML/MIN/1.73 M2 High??Sensitivity??Troponin T (01/12/2023) ???High Sensitivity Troponin (HSTnT) - 20 ng/L Hold Blue Top Tube (01/12/2023) ???Hold Blue Top - SPECIMEN DISCARDED AFTER 4 HOURS. Lytes (01/14/2023) ???Sodium - 144 mmol/L???Potassium - 3.3 mmol/L???Chloride - 104 mmol/L???Bicarbonate Level - 31 mmol/L???Anion Gap - 9 ProBNP (01/12/2023) ???Nt-Probnp - 435 pg/mL Urinalysis w/hold for Urine Culture (01/12/2023) ???Appear/Color, Urine - COLORLESS???Specific [place], Urine - 1.008???pH, Urine - 6.5???Albumin, Urine - NEGATIVE???Glucose, Urine - NEGATIVE???Ketones, Urine - NEGATIVE???Bilirubin, Urine - NEGATIVE???Hemoglobin, Urine - NEGATIVE???Nitrite, Urine - NEGATIVE???Leukocyte, Urine - NEGATIVE???Urobilin ogen - NORMAL???WBC's, Urine - 1 /HPF???RBC's, Urine - 1 /HPF???Bacteria - SLIGHT???Hold Urine Culture - Testing available 48 hours from time of collection. Allergies (NKA means No Known Allergies) codeine??(Passed out) Problems Active Problems??(10) Acute kidney injury?? Buerger disease?? COPD with respiratory failure, acute?? COVID-19?? Essential hypertension?? Glaucoma?? Hyperlipidemia?? Macular degeneration?? MSSA bacteremia?? Right low back pain?? Education Materials Below is the list of Educational Leaflet Providered with your Discharge Instructions. Recurrent Seizure (Adult)?? Chronic Lung Disease: Preventing Lung Infections?? Valuables and Belongings I fully understand and agree that [facility] accepts no responsibility for all my personal property including clothing, toilet articles, radios, jewelry, dentures, hearing aids, rings, money, or any other property that is in my possession or is brought to me after admission. I understand certain valuables may be placed in a hospital safe for a short period of time. I understand that the hospital is not liable for loss or damage due to accident, fire, or other natural occurrence while said property is in the safe. I accept full responsibility for any personal property that I keep with me, and will not hold the hospital responsible in case of loss or disappearance. I acknowledge that i have been encouraged to send valuables and belongings home. ?? Review of Valuable and Belonging List: With patient Date for Pt to Sign Valuables/Belongings: 01/14/23 06:38:00 ?? Other Discharge Information ? Case Management Discharge Plan?? Discharge Plan?? Discharge Agency Information?? Discharge Level of Care at Discharge: Homehealth/VNA Name of Agency #1: [facility] Discharge VNA/Hospice/Home Care: [facility] [phone] Service Categories #1: Physical Therapy, Prison ?? Service Comments #1: the nurse will see you the day after discharge. They will call before they come to set up a time to see you. ?? Pulmonary Rehab Status?? Pulmonary Rehab Discharge Status?? Respiratory Rate: 18 br/min ? Common Emergency Awareness Tips IS IT A STROKE? Act FAST and Check for these signs: FACE Does the face look uneven? ARM Does one arm drift down? SPEECH Does their speech sound strange? TIME Call at any sign of stroke ?? Heart Attack Signs Chest discomfort: Most heart attacks involve discomfort in the center of the chest and lasts more than a few minutes, or goes away and comes back. It can feel like uncomfortable pressure, squeezing, fullness or pain. Discomfort in upper body: Symptoms can include pain or discomfort in one or both arms, back, neck, jaw or stomach. Shortness of breath: With or without discomfort. Other signs: Breaking out in a cold sweat, nausea, or lightheaded. Remember, MINUTES DO MATTER. If you experience any of these heart attack warning signs, call to get immediate medical attention! ?? Smoking can increase your chances of developing chronic health problems and can cause harmful effects to other family members in your house. If you smoke, you are strongly encouraged to quit. Please call [facility] [employer] at [phone] or 8-713-597[employer]co ([phone]) or log in to [email or web address] for referrals to smoking cessation programs. ?? The National Suicide Prevention Hotline is available 15/06 if you or someone you know needs to find a reason to keep living. By calling 1-075-725-[employer] (4967) you'll be connected to a skilled, trained counselor at a crisis center in your area. INPATIENT DISCHARGE INSTRUCTIONS SIGNATURE PAGE BRI STOUT Location:[facility] Registration Date and Time:01/12/2023 01:23 [facility] Primary Care Physician: Bulmaro DEVLIN, Sharon Langley, I MIRIANYULINE, have received the above patient education materials/instructions and have verbalized understanding. If ambulance or transport services are being used I further acknowledge being givena choice of service. ?? If you need to contact me, please call me at this number: . Patient/Director Metabolism Name: Patient/Director Metabolism Signature: Relationship to Patient: Witness Name/Signature: Date: * Rola Osullivan: PERFORM Event Display: Patient Education Leaflets Authored Date: [id number] Recurrent Seizure (Adult) ?? [id number] Recurrent Seizure (Adult) You have had another seizure today. A common cause of seizures that keep happening (recurrent seizures) is missing doses of seizure medicine. But sometimes seizures are hard to control even when you take the medicine correctly. If this is the case for you, your healthcare provider may need to increase your dosage. Or you may need to add or change to another medicine. Home care Follow these tips when caring for yourself at home. ??? Seizures aren???t predictable. So don't do anything that might cause danger to you or other people if you have another seizure. Until the seizures are under good control, take these safety steps:o Don???t drive, ride a motorcycle, or ride a bike. o Don???t operate dangerous equipment such as power tools. o Take showers instead of baths. o Don???t swim or climb ladders, trees, or roofs. ??? Tell your close friends and relatives about your seizure. Teach them what to do for you if it happensagain. ??? If medicine was prescribed to prevent seizures, take it exactly as directed. Missing doses will increase the risk of having another seizure. ??? If you miss a dose, take the missed dose assoon as you remember. If it's almost time for your next dose, skip the missed dose. Restart the medicine at your next scheduled time. Don???t take extra medicine to make up for the missed dose. ??? Wear a Medic-Alert bracelet to let emergency staff know about your condition. ??? Follow a regular sleep schedule so that you get at least 6 to 8 hours of restful sleep every night. This is especially important when you're sick with a cold or flu or another type of infection. ??? Alcohol and illegal drugs can cause you to have more seizures. Ask your provider if you are allowed to drink any alcohol at all. For future seizures, if you're alone: ??? If you feel a seizure coming on, lie down on a bed or on the floor with something soft under your head. This will keep you from falling. Lie on your left side, not on your back. This will let fluid drain out of your mouth and prevent choking. Be sure you are clear of any objects that might injure you during the seizure. Call for help if there is time. For future seizures, if someone is with you: ??? The person should help you get into a safe position and call for help. The person shouldn???t try to force anything in your mouth once the seizure begins. This could harm your teeth or jaw. ?? Follow-up care Follow up with your healthcare provider. Keep a seizure calendar to record how often you have a seizure. If you're being started on anti-seizure medicine, ask your provider if you need additional control. Seizure medicine can affect how well control pills work, and you could become . Some women who take seizure medicine also need certain vitamins. Tell your provider if you plan on getting or if you become . Don't drink alcohol until your provider tells you it???s OK. Each state has different laws that say when someone with seizures is allowed to drive. Some states require that a seizure disorder to be reported to the state. They don't allow you to drive until your seizures are controlled. Talk with your provider to see if this applies to you. ?? Important Don't drive until you've followed up with your healthcare provider and you've been cleared to drive. ?? When to get medical care Call your healthcare provider right away??if any of these occur: ??? Seizures happen more often or last longer than normal ??? A seizure lasts more than 5 minutes ??? You don???t wake up between seizures ??? Confusion that lasts more than 30 minutes after a seizure ??? Injury during a seizure ??? Fever of 100.4??F (38.0??C) or higher, or as advised by your provider ??? Unusual grouchiness, drowsiness, or confusion ??? Stiff or painful neck ??? Headache that gets worse? Last Reviewed Date: 2022 ?? 3839-2196 [employer]. All rights reserved. This information is not intended as a substitute for professional medical care. Always follow your healthcare professional's instructions. ?? * Rola Osullivan: PERFORM Event Display: Patient Education Leaflets Authored Date: [id number] Chronic Lung Disease: Preventing Lung Infections ?? 20741 Chronic Lung Disease: Preventing Lung Infections There are many types of chronic lung disease. You may have one of these: ??? Chronic obstructive lung disease (COPD) ??? Chronic bronchitis ??? Emphysema ??? Pulmonary fibrosis ??? Sarcoidosis When you have a chronic lung disease, it's important to protect yourself from respiratory infections. This includes colds, the flu, and lung infections such as pneumonia. Infections like these may cause your chronic lung disease to get worse. It's hard to fully escape getting sick. But there are things you can do to lower your risk of infections. Tips for preventing illness You can lower your risk of respiratory infections with these steps: ??? Keep your hands clean. Washyour hands often, including before and after eating, after using the bathroom, and after coughing, sneezing, or blowing your nose. If you can???t wash, use hand edi coordinator that has at least 60% alcohol. Use it after touching doorknobs, handles, keypads, and anything else other people have touched. Then wash your hands as soon as you can. ??? Wash well. When you wash your hands, use soap and clean,running water. Rub your hands together well for at least 20 seconds. Be sure to wash the backs of your hands, between your fingers, and under your fingernails. Rinse them well. Dry your hands on clean towels or let them air-dry. ??? Don???t touch your face. If your hands aren???t clean, keep them away from your nose and mouth. Germs on your hands can get into your respiratory system this way. ???Get recommended vaccines. To help prevent the flu, get a flu shot every year. You may be able to get it at your healthcare provider's office, a drugstore, pharmacy, or at work. Get your flu shot as soon as the vaccines are available in your area. This is often around July each year. A pneumonia vaccine can also help prevent pneumococcal pneumonia. Talk with your healthcare provider about which vaccine you need, the number of doses, and when you should have them. The COVID-19 vaccine can help prevent serious illness from COVID-19. ??? Stay away from sick people. Try to stay away from people with colds or the flu. Stay away from crowded places during cold and flu season. This may includeshopping centers, movie theaters, and social events. ??? Quit smoking. If you smoke, talk with yourhealthcare provider about getting help to quit. Smoking can make your lung disease worse. And it increases your risk of infections. Also stay away from other people's smoke. This is called secondhandsmoke. It is also harmful and increases your chance of infections. ??? Wear a mask. Wearing a mask indoors can help prevent respiratory illnesses. Consider wearing a mask during cold and flu season if you are in crowded places. ?? Last Reviewed Date: 2022 ?? 4742-8863 [employer]. All rights reserved. This information is not intended as a substitute for professional medical care. Always follow your healthcare professional's instructions. ?? Portable XR Chest Views * [facility] , CIS S: TRANSCRIBE Calvin Wu MD: VERIFY Ramiro Sun MD T: SIGN Event Display: Result: Authored Date: [id number] Chest Portable Reason: Shortness of Breath. Clinical Question(s): Pneumonia COMPARISON: 12/20/2022, 12/17/2022. FINDINGS: LINES AND TUBES: None. LUNGS AND PLEURA: Unchanged nodular opacity in the right upper lobe corresponding to a spiculated mass best appreciated on CT chest 12/17/2022. Relatively unchanged left basilar opacity. Increased hazy opacity at the right lung base. Curvilinear opacity overlying the upper mediastinum at the level of the medial clavicles. 0.3 cm square-shaped radiolucency overlying the left upper lobe, may be external to the patient. No pleural effusion. No pneumothorax. HEART, MEDIASTINUM AND HUA: Heart is normal in size. Aorta is calcified. BONES AND SOFT TISSUES: No acute abnormality. IMPRESSION: Mildly increased hazy opacity of the right lung base, favoring atelectasis, however, developing consolidation cannot be entirely excluded. Curvilinear opacity overlying the upper mediastinum at the level of the clavicles, of unknown significance. Further characterization with two-view x-ray can be considered. Relatively unchanged hazy opacity at the left lung base. Unchanged nodular opacity in the right upper lobe corresponding to spiculated mass on prior CT 12/17/2022. 0.3 cm radiopaque density overlying the left upper lobe, most likely external to the patient. I have personally reviewed the images and I agree with this report. WSN: [id number] Ordering Physician: Anita Cadena Dictated By: Ramiro Sun MD Dictated Date/Time: 01/12/23 9:58 am Reviewed By: Calvin Wu MD Signed By: Calvin Wu MD Signed Date/Time: 01/12/23 10:03 am Transcribed By: IVANNA Transcribed Date/Time: 01/12/23 9:47 am Patient Care team information Care Team Personnel Name: Sharon Chamberlain MD Position: [facility] Outreach Member Role: PCP Address: Address: [address] [place] [address] [address] Sharon Chamberlain MD [place], [place] [id number] Name: Latanya Kahn RN Position: [facility] RN Member Role: Primary Care Nurse Name: Ervin Concepcion RN Position: [facility] RN Member Role: Primary Care Nurse Name: Yuliet Mckinney RN Position: [facility] RN Member Role: Primary Care Nurse Name: Silvia Calhoun RN Position: [facility] RN Member Role: Primary Care Nurse Name: Johana Chacon RN Position: [facility] RN Member Role: Primary Care Nurse Name: Lesley Santana RN Position: [facility] RN Member Role: Primary Care Nurse Name: Alfredito Mosqueda RN Position: [facility] RN Member Role: Primary Care Nurse Name: Magda Rand Position: [facility] RN Member Role: Primary Care Nurse Name: Amena Ta RN Position: [facility] RN Member Role: Primary Care Nurse Name: Michael Landa RN Position: [facility] ED RN W/OE and Tasks Member Role: Primary Care Nurse Name: Dewayne Wahl III, RN Position: [facility] RN Member Role: Primary Care Nurse Name: Nirmala Oconnor RN Position: [facility] RN Member Role: Primary Care Nurse Name: Marlin Pearce RN Position: [facility] RN Member Role: Primary Care Nurse Name: Agapito Montanez RN Position: [facility] RN Member Role: Primary Care Nurse Name: Danyelle Dos Santos RN Position: [facility] RN Member Role: Primary Care Nurse Name: Lo Rodriguez RN Position: [facility] RN Member Role: Primary Care Nurse Name: Rosa Maria Artis RN Position: [facility] Onco RN Member Role: Primary Care Nurse Name: Vanesa Lim RN Position: [facility] RN Member Role: Primary Care Nurse Name: Brittney Vallejo RN Position: [facility] RN Member Role: Primary Care Nurse Name: Kat Donovan RN Position: [facility] RN Member Role: Primary Care Nurse Name: Mya Middleton RN Position: [facility] RN Member Role: Primary Care Nurse Name: [facility] Attending Position: [facility] ED Medicine MD Name: Chuy Walls Position: [facility] ED TA [facility] Name: Alfred Rivers RN Position: [facility] ED RN W/OE and Tasks Member Role: Patient Care Provider Name: Angie Loja RN Position: [facility] ED RN W/OE and Tasks Member Role: Patient Care Provider Care Team Related Persons Name: CALEB STOUT Address: [address] [address]
--- OUTSIDE RECORDS SUMMARY | 2023-05-17 08:53 | XMS_ITS | Continuity of Care Document ---
Author Name Unknown Organization [facility] Address [address] [place] [id number] Care Team Providers Care Restaurant Associate Name Role Phone Bulmaro DEVLIN, Sharon Langley Primary Care Physician Encounter [facility] Date(s): 03/21/23 - 03/24/[address] [id number] Encounter Diagnosis Aspiration pneumonia(Final) - 03/21/23 Discharge Disposition: A-Transfer SNF Attending Physician: Sara Rubi MD Admitting Physician: Nadya Dawn MD Referring Physician: Not on Staff, Referring [...] 1 08/22/20 Given 1Result Comment: Manufactured by [employer] Medications albuterol 0.083% inhalation solution 3 mL = 2.5 mg, Neb, Every 6 hours, PRN as needed for wheezing, 0 Refills, Maintenance, 08/16/20 18:28:00 EDT, Solution Start Date: 08/16/20 Status: Ordered Anoro Ellipta 62.5 mcg-25 mcg/inh inhalation powder 1 puffs, Inhalation, Daily, 0 Refills, Maintenance, 08/16/20 18:28:00 EDT, Powder [...] 05/26/22 14:42:00 EDT, Route to Pharmacy Electronically, [facility], Partial fill upon patient request if the prescription is for a schedule II opioi... Start Date: 05/26/22 Status: Ordered dexamethasone 4 mg oral tablet See Instructions, 4 mg by mouth 2 times day x 2 days followed by 2 mg 2 times a day to be continuedwith food, # 32 tablet, 0 Refills, Acute 04/28/23 14:04:00 EDT, 03/24/23 14:03:00 EDT, Tablet, Partial fill upon patient request if the prescription... Start Date: 03/24/23 Stop Date: 04/28/23 Status: Ordered Doculase 100 mg oral capsule 1 capsule = 100 mg, By Mouth, 2 times a day, PRN as needed for constipation, 0 Refills, Maintenance, 05/23/22 12:07:00 EDT, Partial fill upon patient request if the prescription is for a schedule II opioid drug. Start Date: 05/23/22 Status: Ordered famotidine 20 mg oral tablet 20 mg, 1, tablet, By Mouth, 2 times a day, Refills 0, Maintenance, 03/24/23 14:12:00 EDT, Partial fill upon patient request if the prescription is for a schedule II opioid drug. Start Date: 03/24/23 Status: Ordered Keppra 500 mg oral tablet 3 tablet = 1,500 mg, By Mouth, 2 times a day, # 180 tablet, 0 Refills, Maintenance, 02/22/23 21:37:00 EDT, Tablet, [facility], Partial fill upon patient request if the prescription is for a schedule II opioid drug., 163, cm, 02/01... Start Date: 02/22/23 Stop Date: 03/24/23 Status: Ordered Lasix 40 mg oral tablet 40 mg, 1, tablet, By Mouth, Daily, # 30 tablet, Refills 0, Tot. Refills 0, Maintenance, 05/26/22 14:43:00 EDT, Route to Pharmacy Electronically, [facility], Partial fill upon patient request if [...] 3 times a day, PRN for dizziness, 0 Refills, Maintenance, 11/22/21 11:50:00EST, Chew Tablet, Partial fill upon patient request if the prescription is for a schedule II opioiddrug. Start Date: 11/22/21 Status: Ordered MiraLax oral [...] 0 Refills, Maintenance, 05/26/22 14:43:00 EDT, Tablet, [facility], Partial fill upon patient request if theprescription is for a schedule II opioid drug., 163... Start Date: 05/26/22 Status: Ordered pramipexole 1 mg oral tablet 1 tablet = 1 mg, By Mouth, Daily at bedtime Start Date: 08/16/20 Status: Ordered Robitussin DM Liquid 10 mL, By Mouth, Every 4 hours, PRN Cough, 0 Refills, Maintenance, 03/24/23 14:02:00 EDT, Syrup, Partial fill upon patient request if the prescription is for a schedule II opioid drug. Start Date: 03/24/23 Status: Ordered Tylenol 325 mg oral tablet 650 mg, 2, tablet, By Mouth, Every 6 hours, PRN, Refills 0, Maintenance, Pain , Mild, 11/29/21 13:14:00 EST, Partial fill upon patient request if the prescription is for a schedule II opioid drug. Start Date: 11/29/21 Status: Ordered Ventolin HFA 108 mcg/inh inhalation aerosol with adapter 2 puffs, Inhalation, 4 times a day, PRN Wheezing/Shortness of Breath, 0 Refills, Maintenance, 08/16/20 18:29:00 EDT, Aerosol [...] Active 1Problem added by Discern Expert Results Orders for Microbiology Reports Name Date Blood Culture 03/23/23 Blood Culture #2 03/23/23 Blood Culture 03/21/23 Blood Culture #2 03/21/23 Microbiology Reports TEST:Blood Culture STATUS:Unauthenticated BODY SITE: SOURCE:Blood COLLECTED DATE/TIME:03/23/23 1:18 AM Blood Culture SPECIMEN DESCRIPTION : BLOOD NO SITE SPECIAL REQUESTS : NONE CULTURE : NO GROWTH AFTER 24 HOURS REPORT STATUS : PRELIMINARY REPORT TEST:Blood Culture, Second Order STATUS:Unauthenticated BODY SITE: SOURCE:Blood COLLECTED DATE/TIME:03/23/23 1:18 AM Blood Culture, Second Order SPECIMEN DESCRIPTION : BLOOD NOT GIVEN SPECIAL REQUESTS : NONE CULTURE : NO GROWTH AFTER 24 HOURS REPORT STATUS : PRELIMINARY REPORT TEST:Blood Culture STATUS:Unauthenticated BODY SITE: SOURCE:Blood COLLECTED DATE/TIME:03/21/23 2:20 AM Blood Culture SPECIMEN DESCRIPTION : BLOOD RT AC SPECIAL REQUESTS : NONE CULTURE : NO GROWTH 3 DAYS REPORT STATUS : PRELIMINARY REPORT TEST:Blood Culture, Second Order STATUS:Auth (Verified) BODY SITE: SOURCE:Blood COLLECTED DATE/TIME:03/21/23 2:20 AM Blood Culture, Second Order SPECIMEN DESCRIPTION : BLOOD L AC SPECIAL REQUESTS : CRITICAL VALUE CALLED AND VERIFIED BY READBACK FOR: GRAM POSITIVE COCCI TO [id number], D6A, 03/22 AT 0310 BY TECH [id number] CULTURE : STAPHYLOCOCCUS EPIDERMIDIS SUSCEPTIBILITY TESTING NOT ROUTINELY PERFORMED ON THIS ISOLATE. Single isolates of coagulase negative Staphylococcus, Micrococcus sp., Bacillus sp., Corynebacterium sp. (or Diptheroids), Cutibacterium (formerly Propionibacterium) acnes and Viridans group streptococci could be skin contaminates. Multiple isolates of these organisms are more likely to be significant. Staphylococcus epidermidis was identified by multi-plex PCR REPORT STATUS : FINAL 03/23/2023 Radiology Reports * Exam Date Time Procedure Performing Provider Status 03/23/23 12:37 PM Chest Portable Anita Richey; Lalo h (Verified) Notes: (Chest Portable) Reason For Exam: Shortness of Breath RESULT: Chest Portable Chest Portable Reason: Shortness of Breath; Clinical Question(s): Pulmonary Edema. COMPARISON: Multiple prior chest imaging studies, most recent CT chest with abdomen/pelvis and chest radiograph 03/21/2023. FINDINGS: LINES AND TUBES: None. LUNGS AND PLEURA: Similar appearance of an ill-defined patchy opacity abutting the right superior mediastinum consistent with a known right upper lobe paramediastinal mass best seen on recent cross-sectional imaging. Mildly coarsened interstitial markings likely representing a combination of chronic lung disease and atelectasis. Underlying mild pulmonary edema, infection, or inflammation is not excluded. A small left pleural effusion and/or atelectasis is not excluded. No pneumothorax. HEART, MEDIASTINUM AND MORRIS: Unchanged. BONES AND SOFT TISSUES: No acute abnormality. IMPRESSION: 1. Mildly coarsened bilateral lung markings which could represent a combination of chronic lung disease, atelectasis, pulmonary edema, infection, and/or inflammation. 2. A small left pleural effusion is not excluded. 3. Similar appearance of ill-defined patchy opacity in the right upper paramediastinal region consistent with known right upper lobe paramediastinal mass. I have personally reviewed the images and I agree with this report. WSN: [id number] Ordering Physician: Sara Rubi Dictated By: Sharon Michel DO Dictated Date/Time: 03/23/23 1:35 pm Reviewed By: Latanya Das MD Signed By: Latanya Das MD Signed Date/Time: 03/23/23 1:40 pm Transcribed By: IVANNA Transcribed Date/Time: 03/23/23 1:28 pm * Exam Date Time Procedure Performing Provider Status 03/21/23 2:08 AM Chest Portable Magda Goins; Auth (Verified) Notes: (Chest Portable) Reason For Exam: Shortness of Breath RESULT: Chest Portable Chest Portable performed upright at 2:05 AM Reason: Shortness of Breath; Clinical Question(s): Pneumonia COMPARISON: None. FINDINGS: LINES AND TUBES: None. LUNGS AND PLEURA: Clear lungs. Normal pulmonary vascularity. No pleural effusion. No pneumothorax. HEART, MEDIASTINUM AND MORRIS: Heart is normal in size. Aorta is tortuous and partially calcified. BONES AND SOFT TISSUES: No acute abnormality. IMPRESSION: No acute abnormality. WSN: [id number] Ordering Physician: Richard Valentine Dictated By: Gisela Meeks MD Dictated Date/Time: 03/21/23 5:30 am Reviewed By: Gisela Meeks MD Signed By: Gisela Meeks MD Signed Date/Time: 03/21/23 5:30 am Transcribed By: IVANNA Transcribed Date/Time: 03/21/23 5:29 am * Exam Date Time Procedure Performing Provider Status 03/21/23 3:[address] Abd/Pelvis W/ IV Contrast Only Kimberly Figueroa; Auth (Verified) Notes: (CT Abd/Pelvis W/ IV Contrast Only) Reason For Exam: LLQ abdominal pain;Other: RESULT: CT Abd/Pelvis W/ IV Contrast Only CT Chest W/ Contrast, CT Abd/Pelvis W/ IV Contrast Only INDICATION: Seizure-like activity. Metastatic lung cancer. TECHNIQUE: Helical CT scan of the chest, abdomen, and pelvis with IV contrast, formatted in 3 planes. 70 cc of Omnipaque 300 was administered intravenously. This study was performed without oral contrast. Weight-based protocol was performed using automatic exposure control. CTDIvol Body: 6.40 mGy, DLP Body: 417 mGy*cm. COMPARISON: Multiple priors most recent 02/14/2023 and 09/07/2022 FINDINGS: [employer] Sales Representative view findings, lines and tubes: None. Trachea and airways: Patent without evidence of tracheal or endobronchial lesion. Lungs and pleura: * Increased right upper lobe paramediastinal mass, 3.2 x 5.1 x 3.6 cm. The mass abuts the segmentaland subsegmental right upper lobe pulmonary arteries as well as the superior vena cava. * Moderate centrilobular emphysema. * No effusion or pneumothorax. Mediastinum and morris: Extensive mediastinal lymphadenopathy. Large maury mass in the mediastinum measuring 3.2 x 3.5 cm. Additional smaller mediastinal lymph nodes are seen measuring up to 1.6 cm. Small type I hiatal hernia. Heart: Heart is normal in size. No pericardial effusion. Moderate coronary artery calcification. Aorta: Severe atherosclerotic vascular calcification but no aneurysm. Pulmonary arteries: Normal caliber. No evidence of pulmonary embolism on this study performed without angiographic technique. Chest wall soft tissues: No acute abnormality. Diaphragm: Intact. Liver: New low-density lesions seen in segment 5 with the more well-defined lesion measuring 2 cm (image 101 series 2 1) Gallbladder: Absent consistent with prior cholecystectomy. Bile ducts: Mild intrahepatic and extrahepatic biliary dilation, likely physiologic given the postcholecystectomy status. Spleen: Normal in size. Pancreas: No suspicious lesion or ductal dilatation. Adrenal glands: Unchanged right adrenal gland nodule. New left adrenal gland nodule measuring 1.7 cm, suspicious for metastatic disease. Kidneys and ureters: No hydronephrosis, stone, or suspicious lesion. Simple appearing renal cysts are noted, requiring no dedicated follow up. Bladder: No wall thickening or surrounding stranding. Reproductive organs: Normal. Stomach, small bowel, and large bowel: No evidence of obstruction or inflammation. Small bowel loops within left inguinal hernia without evidence of strangulation. Sigmoid diverticulosis without evidence of diverticulitis. Appendix: Not seen, but no evidence of acute appendicitis. Peritoneum and retroperitoneum: No ascites or pneumoperitoneum. No omental or mesenteric lesions. Abdominal lymph nodes: Normal. Blood vessels: Severe atherosclerotic vascular calcification. 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 Ectasia of bilateral common iliac arteries. No evidence of venous thrombosis. Abdominal and pelvic wall soft tissues: Small fat-containing umbilical hernia. Right fat-containinginguinal hernia. Left small bowel containing inguinal hernia. Bones: Prior right femur kevin fixation. Moderate degenerative changes in the visualized spine. No acute abnormality. IMPRESSION: Increased right upper lobe lung mass and new liver and left adrenal metastatic lesions. I have personally reviewed the images and I agree with this report. WSN: [id number] Ordering Physician: Richard Valentine Dictated By: Mane Bateman DO Dictated Date/Time: 03/21/23 7:53 am Reviewed By: Henry Syed MD Signed By: Henry Syed MD Signed Date/Time: 03/21/23 7:58 am Transcribed By: IVANNA Transcribed Date/Time: 03/21/23 7:44 am * Exam Date Time Procedure Performing Provider Status 03/21/23 3:[address] Chest W/ Contrast Kimberly Figueroa; Tay (Verified) Notes: (CT Chest W/ Contrast) Reason For Exam: Pulmonary Lesion;Other: RESULT: CT Chest W/ Contrast CT Chest W/ Contrast, CT Abd/Pelvis W/ IV Contrast Only INDICATION: Seizure-like activity. Metastatic lung cancer. TECHNIQUE: Helical CT scan of the chest, abdomen, and pelvis with IV contrast, formatted in 3 planes. 70 cc of Omnipaque 300 was administered intravenously. This study was performed without oral contrast. Weight-based protocol was performed using automatic exposure control. CTDIvol Body: 6.40 mGy, DLP Body: 417 mGy*cm. COMPARISON: Multiple priors most recent 02/14/2023 and 09/07/2022 FINDINGS: [employer] Sales Representative view findings, lines and tubes: None. Trachea and airways: Patent without evidence of tracheal or endobronchial lesion. Lungs and pleura: * Increased right upper lobe paramediastinal mass, 3.2 x 5.1 x 3.6 cm. The mass abuts the segmentaland subsegmental right upper lobe pulmonary arteries as well as the superior vena cava. * Moderate centrilobular emphysema. * No effusion or pneumothorax. Mediastinum and morris: Extensive mediastinal lymphadenopathy. Large maury mass in the mediastinum measuring 3.2 x 3.5 cm. Additional smaller mediastinal lymph nodes are seen measuring up to 1.6 cm. Small type I hiatal hernia. Heart: Heart is normal in size. No pericardial effusion. Moderate coronary artery calcification. Aorta: Severe atherosclerotic vascular calcification but no aneurysm. Pulmonary arteries: Normal caliber. No evidence of pulmonary embolism on this study performed without angiographic technique. Chest wall soft tissues: No acute abnormality. Diaphragm: Intact. Liver: New low-density lesions seen in segment 5 with the more well-defined lesion measuring 2 cm (image 101 series 2 1) Gallbladder: Absent consistent with prior cholecystectomy. Bile ducts: Mild intrahepatic and extrahepatic biliary dilation, likely physiologic given the postcholecystectomy status. Spleen: Normal in size. Pancreas: No suspicious lesion or ductal dilatation. Adrenal glands: Unchanged right adrenal gland nodule. New left adrenal gland nodule measuring 1.7 cm, suspicious for metastatic disease. Kidneys and ureters: No hydronephrosis, stone, or suspicious lesion. Simple appearing renal cysts are noted, requiring no dedicated follow up. Bladder: No wall thickening or surrounding stranding. Reproductive organs: Normal. Stomach, small bowel, and large bowel: No evidence of obstruction or inflammation. Small bowel loops within left inguinal hernia without evidence of strangulation. Sigmoid diverticulosis without evidence of diverticulitis. Appendix: Not seen, but no evidence of acute appendicitis. Peritoneum and retroperitoneum: No ascites or pneumoperitoneum. No omental or mesenteric lesions. Abdominal lymph nodes: Normal. Blood vessels: Severe atherosclerotic vascular calcification. 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 Ectasia of bilateral common iliac arteries. No evidence of venous thrombosis. Abdominal and pelvic wall soft tissues: Small fat-containing umbilical hernia. Right fat-containinginguinal hernia. Left small bowel containing inguinal hernia. Bones: Prior right femur kevin fixation. Moderate degenerative changes in the visualized spine. No acute abnormality. IMPRESSION: Increased right upper lobe lung mass and new liver and left adrenal metastatic lesions. I have personally reviewed the images and I agree with this report. WSN: [id number] Ordering Physician: Richard Valentine Dictated By: Mane Bateman DO Dictated Date/Time: 03/21/23 7:53 am Reviewed By: Henry Syed MD Signed By: Henry Syed MD Signed Date/Time: 03/21/23 7:58 am Transcribed By: IVANNA Transcribed Date/Time: 03/21/23 7:44 am * Exam Date Time Procedure Performing Provider Status 03/21/23 3:[address] Head/Brain W/O Contrast Kimberly Figueroa ; Tay (Verified) Notes: (CT Head/Brain W/O Contrast) Reason For Exam: Headache(s) RESULT: CT Head/Brain W/O Contrast CT Head/Brain W/O Contrast INDICATION: Reason: Headache(s); Clinical Question(s): Hematoma; Taylor met bleed TECHNIQUE: Noncontrast head CT using axial technique and reconstructed in axial and coronal planes.Iterative reconstruction techniques are used to optimize dose and image quality. CTDIvol Head: 47.80 mGy, DLP Head: 773 mGy*cm. COMPARISON: Multiple priors most recently 02/22/2023 FINDINGS: [employer] Sales Representative view findings, lines and tubes: None. BRAIN AND EXTRA-AXIAL SPACES: Redemonstrated heterogeneous mass in the superior frontoparietal junction measuring 2.6 x 3.3 x 2.7cm, increased in size compared to prior when it measured 2 x 2.5 cm. Significant surrounding vasogenic edema. There is mild mass effect on the right lateral ventricle. There is no cisternal effacement. No parenchymal hemorrhage, or midline shift. Colin-white matter differentiation is well preserved.No acute infarct. Mild prominence of the ventricles and sulci consistent with parenchymal volume loss. Moderate low-density white matter changes. No subarachnoid hemorrhage. No subdural or epidural collection. CALVARIUM, SKULL BASE, AND SOFT TISSUES: No fractures or suspicious bony lesions. The paranasal sinuses and mastoid air cells are clear. Visualized orbits and globes are intact. The extracranial soft tissues are unremarkable. IMPRESSION: Redemonstrated mass in the superior frontoparietal junction, increased in size and surrounding vasogenic edema when compared to 02/22/2023 No acute intracranial hemorrhage. Findings communicated to Dr. Richard Valentine at 3:16 AM on 03/21/2023. I have personally reviewed the images and I agree with this report. WSN: [id number] Ordering Physician: Richard Valentine Dictated By: Mane Bateman DO Dictated Date/Time: 03/21/23 7:57 am Reviewed By: Juan Alcala MD Signed By: Juan Alcala MD Signed Date/Time: 03/21/23 8:02 am Transcribed By: IVANNA Transcribed Date/Time: 03/21/23 3:16 am Vital Signs Most recent to oldest [Reference Range]: 1 2 3 Oxygen Saturation [94-100 %] 100 % (03/24/23 12:34 PM) 100 % (03/24/23 8:08 AM) 100 % (03/24/23 5:00 AM) Pulse Rate [55-90 bpm] 88 bpm (03/24/23 12:34 PM) 96 bpm *H* (03/24/23 8:08 AM) 89 bpm (03/24/23 5:00 AM) Blood Pressure [90-138/55-84 mm Hg] 120/70mm Hg (03/24/23 12:34 PM) 115/76mm Hg (03/24/23 8:08 AM) 131/76mm Hg (03/24/23 5:00 AM) Respiratory Rate [16-30 br/min] 19 br/min (03/24/23 12:34 PM) 18 br/min (03/24/23 8:08 AM) 18 br/min (03/24/23 5:00 AM) Temperature [96.8-100.4 DegF] 97.6 DegF (03/24/23 12:34 PM) 98.6 DegF (03/24/23 8:08 AM) 97.3 DegF (03/24/23 5:00 AM) Liters per Minute 2 L/min (03/24/23 12:34 PM) 5 L/min (03/24/23 8:08 AM) 4 L/min (03/24/23 5:00 AM) Mode of Delivery (Oxygen) Nasal cannula (03/24/23 12:34 PM) Nasal cannula (03/24/23 8:08 AM) Nasal cannula (03/24/23 5:00 AM) Blood pressure sites Arm, left (03/24/23 12:34 PM) Arm, left (03/24/23 8:08 AM) Arm, right (03/24/23 5:00 AM) Temperature Route Oral (03/24/23 12:34 PM) Temporal (03/24/23 8:08 AM) Oral (03/24/23 5:00 AM) Social History Social History Type Response Tobacco Other: quit smoking in 2019, started smoking age 11, 2 or 3 packs per day. Sex Admission evaluation note * Ellie DEVLIN, Juan M Subramanian: MODIFY, MODIFY, PERFORM Event Display: Admission Note Authored Date: Patient: ??BRI VELA ? Age:??78 Years?Sex:??Female?:??1945?? Chief Complaint/Reason for Consultation Seizure, acute on chronic respiratory failure, acute encephalopathy ?? 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 She was ordered for admission to neuro Intercare unit because of her seizures, respiratory failure, and mental status changes.?PMHx COPD normally on 2 L (recently increased to 3L)??or increased as needed when ambulatory, systolic CHF (EF 20 05/2022 [facility]), hypertension, hyperlipidemia. Multiple admissions in recent??months for seizure and respiratory failure. ?? As noted, with history of chronic hypoxic respiratory failure 2 L at baseline, found to be hypoxic by EMS??(to the 70s, documented in ED chart??)??and placed on facemask en route and??CPAP??in the ED.?? On presentation heart rates in the 120s with low-grade fever of 100.2, appears to have stabilized in the ED after supportive treatment and was given Keppra, IV azithromycin and ceftriaxone in the ED.?? CT chest, abdomen, head were performed; chest/abdomen CT showing new adrenal and liver metastasis and increase in size of her lung mass.?? Initial blood work fairly unremarkable aside from lactic acidemia 3.7. ?? 03/21: Patient accepted under my care shortly before 8 AM.?? Chart reviewed, saw and examined patient.?? Her??hypoxia is resolved??while on CPAP. ??She??is very somnolent but arouses easily to answer questions, dozing off immediately.?? History is limited.?? Therefore history taken from chart review,??her listed emergency contact was called repeatedly but no answer.?? As per her most recent??admission and MOLST form??she was DNR/DNI, we will continue this.?? Unable to reconcile meds,??will have the pharmacy technician instructor??confirm meds. Received a call back by son Caleb, she lives with sister Maeve Louise, reachable at home [phone] or cell [phone]. At baseline patient wheelchair bound, son checks in daily and confirms she is taking AM seizure meds. No recent illnesses or changes inrecent days. She is generally on 3 liters at rest and 5 with activity. She is also blind. ?? Review of Systems History limited by patient's mental status, she arouses to answer limited ROS but question reliability - denies CP/SOB/abdominal pain or other pain Objective ? Vital Signs?? Temperature: 99 DegF (03/21/23 03:51:00) Temperature Route: Oral (03/21/23 02:24:00) Heart Rate Monitored: 85 bpm (03/21/23 09:41:00) Respiratory Rate: 20 br/min (03/21/23 09:41:00) Vented: No (03/21/23 09:41:00) Systolic Blood Pressure: 136 mm Hg (03/21/23 09:41:00) Diastolic Blood Pressure: 72 mm Hg (03/21/23 09:41:00) Pulse Pressure: 64 mm Hg (03/21/23 09:41:00) Oxygen Saturation: 99 % (03/21/23 09:41:00) Mode of Delivery (Oxygen): BiPAP (03/21/23 09:41:00) FiO2: 30 % (03/21/23 09:41:00) Early Warning Score: 0 (03/21/23 09:45:39) ? Pain Scores?? No qualifying data available. ? Mobility & Ambulation Level Mobility & Ambulation Level?? No qualifying data available. ? Physical Exam Constitutional: Somnolent,??wakes up to loud voice and noxious stimuli, will answer questions??briefly before falling back asleep immediately, in no acute distress. Head EENT: PERRL.??NCAT. NIV mask in place Neck: Supple. No obvious LAD. Respiratory: CTAB. No use of accessory muscles. Cardiovascular: S1S2 present. No obvious JVD. Gastrointestinal: Abdomen soft, non-tender, non-distended. Bowel sounds present. Genitourinary: No CVA tenderness. Genital exam deferred. Extremities: No lower extremity pitting??edema. No cyanosis or clubbing. Neurologic: Somnolent, limited exam, speech very soft, some right arm contracture noted Assessment/Plan Diagnoses Acute encephalopathy ??(G93.40) Acute on chronic respiratory failure with hypoxia ??(J96.21) Aspiration pneumonia ??(J69.0) Brain metastasis ??(C79.31) COPD with respiratory failure, acute ??(J44.9) Chronic systolic heart failure ??(I50.22) Encephalopathy ??(G93.40) Essential hypertension ??(I10) Hyperlipidemia ??(E78.5) Lactic acidemia ??(E87.20) Lung cancer metastatic to brain ??(C34.90) Seizure ??(R56.9) ?? 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 She was ordered for admission to neuro Intercare unit because of her seizures, respiratory failure, and mental status changes. PMHx COPD normally on??3L or increased as neededwhen ambulatory, systolic CHF (EF 20 05/2022 [facility]), hypertension, hyperlipidemia. Multiple admissions in recent months for seizure and respiratory failure.. ?? Acute on chronic hypoxic respiratory failure COPD on 2 L (recently increased to 3L) Systolic CHF EF 20 On exam,??no obvious hypervolemia noted.??Chest imaging??clear aside from her known lung cancer, which is increased in size.??She has??chronic emphysematous changes, no new??infiltrates or effusion.??On admission, she is hyperoxic on??CPAP, a stat??ABG was ordered, it is possible she is retaining??which is contributing to her mental status changes.??In the ED she was treated with empiric antibiotics for the suspicion of pneumonia however??there are no infiltrates, we will hold off on further antibiotics for now. ?? -Admit to inpatient -Appropriate for Intercare for now -Continue NIV for now,??consider change to BiPAP??based on ABG results -Wean to??home oxygen??(2 L)??as her mental status improves -Hold off on steroids (for COPD) or diuretics for now -Hold empiric antibiotics, monitor vital signs, fever curve, signs and symptoms of infection,??Pro-Alejo -DNR/DNI per??chart review and MOLST -Son was called and updated,??see revised HPI -Son is primary HCP and POA,??sister lives with patient but could not be reached ?? 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 She was also previously considered for neurosurgical treatments??but??surgical risk was felt too high because of the risk of paralysis.??On admission,??head CT performed revealing??increase in size of her right-sided brain mass.??She is noted to have some right arm contracture as well??on exam. ?? -EEG -Seizure precautions -Already loaded with Keppra??IV in the ED -Continue IV Keppra??till her mental status improves, at home she is on 1 g twice daily, we will??increase to??1250 twice daily IV (given breakthrough seizure)??for now??pending??Neuro eval, adjust as per Neuro -Dexamethasone 6x1 for now,??consider further doses??and adjustment??as per Neuro/Neurosurgery -If mental status does not improve we will put her on??maintenance IV fluids??at a lower rate -Neurology and Neurosurgery consults requested ?? -May be appropriate for??Rad Onc eval,??versus Hospice depending on goals of care -Palliative care consulted??preemptively for next week ? Hypertension Hyperlipidemia History of cerebellar stroke Anxiety/Depression -Holding p.o. meds until her mental status improves and??as she can swallow safely, they can be??reconciled ?? Lactic acidemia Patient with lactic acidemia, 3.7, on admission??blood work in the ED.??Possibly relating to her seizure??versus respiratory failure. -Recheck with next blood work ? Please note, dictation software ([employer]) may have been used in the preparation of this note, and may have generated unintentional errors in speech recognition. If there are any questions going forward, please reach out for clarification. ? Discharge Planning:?? Ongoing workup and management for multiple acute issues as above ?? Histories Allergies Allergies ?(Active and Proposed Allergies Only) codeine? (Severity: Unknown severity, Onset: Unknown) ?Reactions: Passed out ? Past Medical History/Problem List Active Problems??(11) Acute kidney injury Aspiration pneumonia Buerger disease COPD with respiratory failure, acute [...] ? Family History Father: Skin cancer ? Travel History Travel Outside [facility]: No ?? Medications Home Medications Acetaminophen (Tylenol 325 mg oral tablet)?650?Milligram?2?tablet?By Mouth?Every 6 hours?as needed?Pain , Mild Albuterol (albuterol 0.083% inhalation solution)?3?Milliliter?2.5?Milligram?Neb?Every 6 hours?as needed?as needed for wheezing Albuterol (Ventolin HFA 108 mcg/inh inhalation aerosol with adapter)?2?puff(s)?Inhalation?4 times a day?as needed?Wheezing/Shortness of Breath Aspirin (Aspirin Enteric Coated 81 mg oral delayed release tablet)?1?tab(s)?81?Milligram?By Mouth?Daily Atorvastatin (atorvastatin 80 mg oral tablet)?1?tab(s)?80?Milligram?By Mouth?Daily at bedtime Clopidogrel (clopidogrel 75 mg oral tablet)?75?Milligram?1?tablet?By Mouth?Daily Docusate (Doculase 100 mg oral capsule)?1?capsule?100?Milligram?By Mouth?2 times a day?as needed?as needed for constipation Furosemide (Lasix 40 mg oral tablet)?40?Milligram?1?tablet?By Mouth?Daily levETIRAcetam (Keppra 500 mg oral tablet)?2?tab(s)?1,000?Milligram?By Mouth?2 times a day levETIRAcetam (Keppra 500 mg oral tablet)?3?tab(s)?1,500?Milligram?By Mouth?2 times a day?for 30?Days Loperamide (loperamide 2 mg oral capsule)?2?Milligram?1?capsule?By Mouth?Daily?as needed?as needed for loose stool Meclizine (meclizine 25 mg oral tablet, chewable)?1?tab(s)?25?Milligram?Chew?3 times a day?as needed?for dizziness Mirtazapine (mirtazapine 7.5 mg oral tablet)?1?tab(s)?7.5?Milligram?By Mouth?Daily at bedtime Nitroglycerin (nitroglycerin 0.4 mg sublingual tablet)?1?tab(s)?0.4?Milligram?Sublingual?Every 5 minutes?as needed?Chest Pain Oxymetazoline Nasal (oxymetazoline 0.05% nasal spray)?2?spray(s)?Nares, Both?2 times a day?as needed?as needed for nasal congestion Pantoprazole (Protonix 40 mg oral delayed release tablet)?40?Milligram?By Mouth?Daily?Please take daily - refill per PCP Polyethylene Glycol 3350 (MiraLax oral powder for reconstitution)?17?gram?By Mouth?Daily?as needed?Constipation Pramipexole (pramipexole 1 mg oral tablet)?1?tab(s)?1?Milligram?By Mouth?Daily atbedtime Sertraline (Zoloft 50 mg oral tablet)?1?tab(s)?50?Milligram?By Mouth?Daily umeclidinium-vilanterol (Anoro Ellipta 62.5 mcg-25 mcg/inh inhalation powder)?1?puff(s)?Inhalation?Daily ? Inpatient Medications Medications (10) Active SCHEDULED: (3) Dexamethasone 4 mg/mL Inj (Decadron Inj) ??6 mg 1.5 mL, IV Push Slowly, Once Levetiracetam 100mg/ml IVPB (Keppra Inj) ??1,250 mg, IV Push Slowly, Every 12 hours NaCl 0.9% Flush 3ml (NaCL 0.9% Flush) ??3 mL, IV Push, Every 8 hours CONTINUOUS: (0) PRN: (7) Acetaminophen 325 mg Tablet (Acetaminophen Tablet) ??650 mg, By Mouth, Every 4 hours Dextromethorphan-Guaifenesin 20 mg-200 mg/10 mL Liqu UD (Robitussin DM Liquid) ??10 mL, By Mouth, Every 4 hours Melatonin 3 mg Tablet (Melatonin Tablet) ??3 mg, By Mouth, Daily at bedtime NaCl 0.9% Flush 3ml (NaCL 0.9% Flush) ??3 mL, IV Push, Every 8 hours Polyethylene Glycol 17 Gm Powder (MiraLax Powder) ??17 Gm 1 pack/packet, By Mouth, Daily Senna 8.6 mg / Docusate 50 mg tablet (Docusate/Senna Tablet) ??1 tablet, By Mouth, 2 times a day Simethicone 80 mg Chewable Tablet (Simethicone Tablet) ??80 mg, Chew, 3 times a day ? 72 Hour Antibiotic History Stopped Antibiotics Stop Date/Time Last Administered First Administered Azithromycin??500 mg, 250 mL/hr, IVPB, Once 03/21/2023 03:17 03/21/2023 03:17 03/21/2023 03:17 Ceftriaxone??1 Gm, 100 mL/hr, IVPB, Once 03/21/2023 02:28 03/21/2023 02:27 03/21/2023 02:27 ? Vaccinations and Immunoprophylaxis influenza virus vaccine, inactivated: 0.7 mL (08/23/20 10:51:00) pneumococcal 13-valent vaccine: 0.5 mL (08/22/20 10:37:00) SARS-CoV-2 (COVID-19) mRNA-1273 vaccine: 0.25 Unknown (03/20/22 08:00:00) SARS-CoV-2 (COVID-19) mRNA-1273 vaccine: 0 Unknown (06/25/21 08:00:00) SARS-CoV-2 (COVID-19) mRNA-1273 vaccine: 0.5 Unknown (04/24/21 08:00:00) SARS-CoV-2 (COVID-19) mRNA-1273 vaccine: 0.5 Unknown (03/26/21 08:00:00) tetanus/diphtheria/pertussis, acel(Tdap): 0.5 Unknown (07/05/21 08:00:00) zoster vaccine, inactivated: 0.5 Unknown (07/05/21 08:00:00) ?? Results Recent Labs BLOOD COUNT & DIFF WBC 8.7 k/mm3 ()?? 03/21/2023 02:22 RBC 4.06 m/mm3 (Low)?? 03/21/2023 02:22 Hgb 11.3 Gm/dL (Low)?? 03/21/2023 02:22 Hct 35.7 % ()?? 03/21/2023 02:22 MCV 87.9 femtoliters ()?? 03/21/2023 02:22 MCH 27.8 pg ()?? 03/21/2023 02:22 MCHC 31.7 g/dL (Low)?? 03/21/2023 02:22 Platelet Count 371 k/mm3 ()?? 03/21/2023 02:22 RDW-SD 51.4 femtoliters (High)?? 03/21/2023 02:22 MPV 9.2 femtoliters (Low)?? 03/21/2023 02:22 Nucleated RBC (Automated) 0.0 #/100 WBC'S ()?? 03/21/2023 02:22 Abs. NRBC 0.0 k/mm3 ()?? 03/21/2023 02:22 Abs. Neut 4.3 k/mm3 ()?? 03/21/2023 02:22 Abs. Lymph 3.4 k/mm3 (High)?? 03/21/2023 02:22 Abs. Campbell 0.9 k/mm3 ()?? 03/21/2023 02:22 Abs. Eo 0.2 k/mm3 ()?? 03/21/2023 02:22 Abs. Baso 0.1 k/mm3 ()?? 03/21/2023 02:22 Neut % 48.9 % ()?? 03/21/2023 02:22 Lymph % 38.4 % ()?? 03/21/2023 02:22 Campbell % 9.7 % ()?? 03/21/2023 02:22 Eos % 2.2 % ()?? 03/21/2023 02:22 Baso % 0.6 % ()?? 03/21/2023 02:22 Imm Gran 0.2 % ()?? 03/21/2023 02:22 Abs. Imm Gran 0.0 k/mm3 ()?? 03/21/2023 02:22 ?? CARDIAC Nt-Probnp 283 pg/mL ()?? 03/21/2023 02:22 High Sensitivity Troponin (HSTnT) 33 ng/L (High)?? 03/21/2023 02:22 ?? CHEM GENERAL Sodium 139 mmol/L ()?? 03/21/2023 02:22 Potassium HEMOLYZED mmol/L ()?? 03/21/2023 02:22 Chloride 95 mmol/L (Low)?? 03/21/2023 02:22 Bicarbonate Level 28 mmol/L ()?? 03/21/2023 02:22 Anion Gap 16 ()?? 03/21/2023 02:22 Glucose Level 123 mg/dL (High)?? 03/21/2023 02:22 Glucose, POC 132 mg/dL (High)?? 03/21/2023 01:56 BUN 14 mg/dL ()?? 03/21/2023 02:22 Creatinine-Blood 0.8 mg/dL ()?? 03/21/2023 02:22 Estimated GFR Creatinine 72 ML/MIN/1.73 M2 ()?? 03/21/2023 02:22 Calcium 9.7 mg/dL ()?? 03/21/2023 02:22 Magnesium 1.6 mg/dL ()?? 03/21/2023 02:22 Protein, Total 7.3 Gm/dL ()?? 03/21/2023 02:22 Albumin 4.0 Gm/dL ()?? 03/21/2023 02:22 AG Ratio 1.2 ()?? 03/21/2023 02:22 Alkaline Phosphatase 112 units/L (High)?? 03/21/2023 02:22 AST (SGOT) 20 units/L ()?? 03/21/2023 02:22 ALT (SGPT) 8 units/L ()?? 03/21/2023 02:22 Bilirubin, Total 0.8 mg/dL ()?? 03/21/2023 02:22 Lactate 1.8 mmol/L ()?? 03/21/2023 09:05 ?? COAG INR 1.1 ()?? 03/21/2023 02:22 Protime (PT) 11.9 seconds (High)?? 03/21/2023 02:22 ?? UA/URINALYSIS Appear/Color, Urine YELLOW ()?? 03/21/2023 04:58 Specific [place], Urine 1.017 ()?? 03/21/2023 04:58 pH, Urine 5.5 ()?? 03/21/2023 04:58 Albumin, Urine TRACE (Abnormal)?? 03/21/2023 04:58 Glucose, Urine NEGATIVE ()?? 03/21/2023 04:58 Ketones, Urine NEGATIVE ()?? 03/21/2023 04:58 Bilirubin, Urine NEGATIVE ()?? 03/21/2023 04:58 Hemoglobin, Urine NEGATIVE ()?? 03/21/2023 04:58 Nitrite, Urine NEGATIVE ()?? 03/21/2023 04:58 Leukocyte, Urine 3+ (Abnormal)?? 03/21/2023 04:58 Urobilinogen NORMAL mg/dL ()?? 03/21/2023 04:58 WBC's, Urine 100 /HPF (High)?? 03/21/2023 04:58 RBC's, Urine 2 /HPF ()?? 03/21/2023 04:58 Bacteria MODERATE HPF (Abnormal)?? 03/21/2023 04:58 Squamous Epith 6 /HPF ()?? 03/21/2023 04:58 Transitional Epith 1 /HPF ()?? 03/21/2023 04:58 Renal Epith 1 /HPF ()?? 03/21/2023 04:58 Mucus SLIGHT /LPF ()?? 03/21/2023 04:58 WBC Clumps SLIGHT /HPF ()?? 03/21/2023 04:58 Hold Urine Culture Testing available 48 hours from time of collection. ()?? 03/21/2023 04:58 ?? VIROLOGY Influenza A PCR NEGATIVE ()?? 03/21/2023 04:58 Influenza B PCR NEGATIVE ()?? 03/21/2023 04:58 RSV PCR NEGATIVE ()?? 03/21/2023 04:58 COVID-19 PCR Specimen Source NASAL ()?? 03/21/2023 04:58 COVID-19 PCR Result NEGATIVE ()?? 03/21/2023 04:58 ? EKG study * Event Display: EKG Authored Date: * Event Display: ECG 12-Lead Authored Date: Please click on pdf link to open report * Event Display: ECG 12-Lead Authored Date: Ventricular Rate: 140 BPM Atrial Rate: 129 BPM P-R Interval: 200 ms QRS Duration: 76 ms Q-T Interval: 320 ms QTC Calculation(Bazett): 488 ms P [place]: -46 degrees R [place]: -79 degrees T [place]: 140 degrees Poor data quality, interpretation may be adversely affected Undetermined rhythm Left axis deviation infero-posterior infarct (cited on or before 23-MAY-2022) Anterior infarct (cited on or before Baseline artifact limits ECG interpretation Abnormal ECG When compared with ECG of 22-FEB-2023 18:26, Poor data quality in current ECG precludes serial comparison Confirmed by JANES MARKS ([id number]) on 03/24/2023 10:10:19 AM [place]: JANES MARKS Note * Alexander WING, Argelia: PERFORM Event Display: Discharge/Transfer Note Hospital Authored Date: [id number] Nursing Discharge Note Entered On: 03/24/2023 18:49 EDT Performed On: 03/24/2023 18:49 EDT by Argelia Munoz RN Nursing Discharge Note 2 Discharge Time : 03/24/2023 17:44 EDT Discharge Level of Care at Discharge : detention facility Discharge Nursing Homes/Rehab Facilities : [facility] Patient Left Unit Via : Ambulance Patient Accompanied Off Unit with : Ambulance/Chair Van Personnel Handover Given to Transport Personnel : Yes DC Instructions Provided & Signed by Pt : Yes Patient Understands D/C Instructions : Yes Patient Instructions Discharge Signed : Yes Did Pt have Specialty Bed or Wound Vac : Yes Argelia Munoz RN - 03/24/2023 18:49 EDT * Elicia DEVLIN, Sara: MODIFY, MODIFY, MODIFY, PERFORM Event Display: Discharge/Transfer Note Hospital Authored Date: [id number] Patient: ??BRI VELA ? Age:??78 Years?Sex:??Female?:??1945?? Patient Information Discharge Location: [facility] Primary Care Physician: Bulmaro DEVLIN, Sharon Langley Admit Date/Time: 03/21/23 06:17 Discharge Disposition Discharge Disposition: Senior Care Facility/Rehab Discharge Diagnosis Acute encephalopathy (G93.40) Acute on chronic respiratory failure with hypoxia (J96.21) Aspiration pneumonia (J69.0) Brain metastasis (C79.31) COPD with respiratory failure, acute (J44.9) Chronic systolic heart failure (I50.22) Encephalopathy (G93.40) Essential hypertension (I10) Hyperlipidemia (E78.5) Lactic acidemia (E87.20) Lung cancer metastatic to brain (C34.90) Seizure (R56.9) Acute kidney injury COPD with respiratory failure, acute Essential hypertension Glaucoma Hyperlipidemia Macular degeneration ?? _ Discharge Medications Acetaminophen (Tylenol 325 mg oral tablet)?650?Milligram?2?tablet?By Mouth?Every 6 hours?as needed?Pain , Mild Albuterol (albuterol 0.083% inhalation solution)?3?Milliliter?2.5?Milligram?Neb?Every 6 hours?as needed?as needed for wheezing Albuterol (Ventolin HFA 108 mcg/inh inhalation aerosol with adapter)?2?puff(s)?Inhalation?4 times a day?as needed?Wheezing/Shortness of Breath Aspirin (Aspirin Enteric Coated 81 mg oral delayed release tablet)?1?tab(s)?81?Milligram?By Mouth?Daily Atorvastatin (atorvastatin 80 mg oral tablet)?1?tab(s)?80?Milligram?By Mouth?Daily at bedtime Clopidogrel (clopidogrel 75 mg oral tablet)?75?Milligram?1?tablet?By Mouth?Daily Dexamethasone (dexamethasone 4 mg oral tablet)?See Instructions?4 mg by mouth 2 times day x 2days followed by 2 mg ??2 times a day ??to be continuedwith food Docusate (Doculase 100 mg oral capsule)?1?capsule?100?Milligram?By Mouth?2 times a day?as needed?as needed for constipation Famotidine (famotidine 20 mg oral tablet)?20?Milligram?1?tablet?By Mouth?2 times a day Furosemide (Lasix 40 mg oral tablet)?40?Milligram?1?tablet?By Mouth?Daily Guaifenesin/Dextromethorphan (Robitussin DM Liquid)?10?Milliliter?By Mouth?Every 4 hours?as needed?Cough levETIRAcetam (Keppra 500 mg oral tablet)?3?tab(s)?1,500?Milligram?By Mouth?2 times a day?for 30?Days Loperamide (loperamide 2 mg oral capsule)?2?Milligram?1?capsule?By Mouth?Daily?as needed?as needed for loose stool Meclizine (meclizine 25 mg oral tablet, chewable)?1?tab(s)?25?Milligram?Chew?3 times a day?as needed?for dizziness Mirtazapine (mirtazapine 7.5 mg oral tablet)?1?tab(s)?7.5?Milligram?By Mouth?Daily at bedtime Nitroglycerin (nitroglycerin 0.4 mg sublingual tablet)?1?tab(s)?0.4?Milligram?Sublingual?Every 5 minutes?as needed?Chest Pain Polyethylene Glycol 3350 (MiraLax oral powder for reconstitution)?17?gram?By Mouth?Daily?as needed?Constipation Pramipexole (pramipexole 1 mg oral tablet)?1?tab(s)?1?Milligram?By Mouth?Daily atbedtime Sertraline (Zoloft 50 mg oral tablet)?1?tab(s)?50?Milligram?By Mouth?Daily umeclidinium-vilanterol (Anoro Ellipta 62.5 mcg-25 mcg/inh inhalation powder)?1?puff(s)?Inhalation?Daily ?? Medications Started Dexamethasone (dexamethasone 4 mg oral tablet)?See Instructions?4 mg by mouth 2 times day x 2days followed by 2 mg ??2 times a day ??to be continuedwith food Famotidine (famotidine 20 mg oral tablet)?20?Milligram?1?tablet?By Mouth?2 times a day Guaifenesin/Dextromethorphan (Robitussin DM Liquid)?10?Milliliter?By Mouth?Every 4 hours?as needed?Cough Polyethylene Glycol 3350 (MiraLax oral powder for reconstitution)?17?gram?By Mouth?Daily?as needed?Constipation Medications Discontinued None Doses Changed Levetiracetam (Keppra 500 mg oral tablet)?3?tab(s)?1,500?Milligram?By Mouth?2 times a day?for 30?Days PCP Follow-Up/Heads-Up Patient was admitted for altered mental status from seizure from brain metastasis. ??She is startedon dexamethasone with GI prophylaxis with famotidine. ??Follow-up with the??seizure clinic as outpatient.?Palliative care evaluated patient during the hospital stay, further??conversation needed wi th the patient and the son regarding goals of care.?? 1 out of 2 blood culture was positive for??Staph epidermidis from 03/21, likely contaminant, no active source of infection, no fever, no leukocytosis. ??Please follow-up the repeat blood culture sent on 03/23 as outpatient. Hospital Course 78 years old female with medical history of??metastatic lung cancer complicated by parietal brain metastasis, most with history of recurrent partial seizure, Buerger's disease , ??COPD normally on??3L or increased as needed when ambulatory, systolic CHF (EF 20 05/2022 [facility]), hypertension, hyperlipidemia presented on 03/21 in the gill box fixer with partial seizure, similar to prior episodes.?? She was initially admitted in neuro inter care for??seizures, respiratory failure, and mental status changes. Multiple admissions in recent months for seizure and respiratory failure. ??Now stable. ? Acute encephalopathy- likely from seizure from brain metastasis. 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 CT head???mass in the superior frontoparietal junction, increased in size and surrounding vasogenicedema compared to 02/22/2023. ??No acute intracranial hemorrhage. CT??chest/abdomen/pelvis???increased right upper lobe lung mass, new liver and left adrenal metastatic lesions. NSGY evaluated pt 03/21, Patient did not want any invasive surgical procedures to be done. ??Page them back, if patient changes her mind. ?? Pt did not undergo any biopsy for her lung lesion in Nov 2022. Pulmonary evaluated her during that time. Neurology evaluated patient 03/21, increase Keppra?? to??1500 mg 2 times a day Decadron tapering doses, please continue as outpatient. Famotidine for GI prophylaxis.?? Per [place] state law, no driving until 6 months seizure free.?? Avoid any activity that put you or others at risk should you lose consciousness Palliative team evaluated pt during hospital stay, last seen 03/24/2023,??Pt mentioned??repeatedly that she does not want hospice,??though her goals seem in line with hospice. She is?? unsure if she wants to come back?? to the hospital when she gets sicker.?? Follow-up as outpatient with primary care physician, and palliative team as needed. ? Acute on chronic hypoxic respiratory failure COPD on 2 L (recently increased to 3L) Systolic CHF EF 20 On exam,??no obvious hypervolemia noted.?? On admission, she??was hypoxic on??CPAP, now stable.?? CXR no acute changes Continue??albuterol inhaler, DuoNeb as needed Anoro Ellipta? Continue home Lasix.?? Follow up with PCP as outpatient. ?? Blood culture positive for??staph epidermidis Patient had staph epidermidis in blood culture from 1 out of 2 samples??from 03/21 No fever, no leucocytosis, no signs of infection. Most likely contaminant, no need for antibiotics. Repeat blood culture sent 03/22, PLEASE FOLLOW UP FINAL Culture result. ? 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 ?? Hypertension History of cerebellar stroke Anxiety/Depression Continue home meds??mirtazapine??7.5 mg daily at bedside Continue pramipexole 1 mg daily at bedtime Sertraline 50 mg daily ? Hyperlipidemia Continue home Statin. ?? Lactic acidemia Patient with lactic acidemia, 3.7, now improved 1.5. Possibly related to her seizure?? Objective ? Vital Signs?? Temperature: 98.6 DegF (03/24/23 08:08:00) Temperature Route: Temporal (03/24/23 08:08:00) Pulse Rate:??96 bpm??High (03/24/23 08:08:00) Respiratory Rate: 18 br/min (03/24/23 08:08:00) Systolic Blood Pressure: 115 mm Hg (03/24/23 08:08:00) Diastolic Blood Pressure: 76 mm Hg (03/24/23 08:08:00) Blood pressure sites: Arm, left (03/24/23 08:08:00) Mean Arterial Pressure: 89 mm Hg (03/24/23 08:08:00) Pulse Pressure: 39 mm Hg (03/24/23 08:08:00) Oxygen Saturation: 100 % (03/24/23 08:08:00) Liters per Minute: 5 L/min (03/24/23 08:08:00) Mode of Delivery (Oxygen): Nasal cannula (03/24/23 08:08:00) Early Warning Score: 0 (03/24/23 08:08:55) ? . Physical Exam Constitutional: Alert, in mild distress from shortness of breath. Mental Status: Oriented to person, place,?year. Has waxing and waning of mental status at times. Head: Normocephalic. Eyes: Pupils are equal, round and reactive to light.?? Ear, Nose and Throat: Oropharynx clear, mucous membranes moist.?Nasal cannula in place. Neck: Supple, Full range of motion. Respiratory:??Decreased ??lung sounds bilaterally, some rhonchi present. Cardiovascular: S1 S2 regular. No murmurs, rubs or gallops. Gastrointestinal: Abdomen soft, non-tender, non-distended. Normal bowel sounds.?? Neurologic: Cranial nerves II-XII grossly intact.??Motor strength--??LUE 3/5 , RUE 4/5, Bilateral LE 4/5 strength. Consultants Neurology Palliative team Pending Results Blood Culture ordered on 03/21/2023 Blood Culture ordered on 03/23/2023 Blood Culture #2 ordered on 03/23/2023 Blood Gas Arterial ordered on 03/21/2023 COVID-19 (Novel Coronavirus), Rapid PCR ordered on 03/24/2023 Lactic Acid Level ordered on 03/21/2023 Patient Education Titles Dexamethasone Oral Tablet?? Levetiracetam Oral Tablet?? Recurrent Seizure (Adult)?? Anatomy of the Brain?? Discharge Instructions for Heart Failure?? Coping with Heart Failure?? Chronic Lung Disease: Helping with Treatment, For Caregivers?? Chronic Lung Disease: Your Emotional Well-Being?? Preventing Common Respiratory Infections?? Follow-Up Appointments Added Follow Up ?Time Frame ?Comments Miki DEVLIN, Kaz?1 week Bulmaro DEVLIN, Sharon Langley?1 to 2 weeks Patient Instructions During this hospitalization you were??treated for: Acute encephalopathy Seizure from brain mass versus cyst Acute on chronic hypoxic respiratory failure Positive blood culture ? You will go home with the following NEW medications: Dexamethasone (dexamethasone 4 mg oral tablet)?See Instructions?4 mg by mouth 2 times day x 2days followed by 2 mg ??2 times a day ??to be continuedwith food Famotidine (famotidine 20 mg oral tablet)?20?Milligram?1?tablet?By Mouth?2 times a day Guaifenesin/Dextromethorphan (Robitussin DM Liquid)?10?Milliliter?By Mouth?Every 4 hours?as needed?Cough Polyethylene Glycol 3350 (MiraLax oral powder for reconstitution)?17?gram?By Mouth?Daily?as needed?Constipation ? The following medications were CHANGED : Levetiracetam (Keppra 500 mg oral tablet)?3?tab(s)?1,500?Milligram?By Mouth?2 times a day?for 30?Days? The following medications were?? STOPPED: None ? Activity changes: Per [place] state law, no driving until 6 months seizure free.?? Avoid any activity that put you or others at risk should you lose consciousness.? Who to follow up with after being discharged from the hospital: -??Please follow up at your primary??care doctor's office in 1-2 weeks. Please make appointment with the clinic. - Please follow up with seizure doctor as outpatient. Please call office to schedule appointment. - Please follow-up with??your primary care physician to??monitor your electrolytes and kidney function as outpatient. - Please follow-up with your primary care physician to follow-up your blood culture results??as outpatient ?? Reasons to immediately return to the emergency room or call 911: - You pass out or faint. - You develop any acute weakness or numbness in any part of the body. - You develop any acute??speech difficulty, swallowing problem,??vision problem.?? -??You are having trouble breathing. - You are unable to tolerate fluids enough to stay hydrated. - You have any concerns that you think require emergency management. Post Discharge Care Diet: Regular Diet Activity: Ambulate with assistance ??3 times a day ??unless otherwise specified Code Status: No Resuscitation Other Comfort Measures: OK for NIV Discharge ?03/24/23 15:01:00 EDT Discharge Prescriptions ?None, ??03/24/23 15:01:00 EDT Home Health Face to Face ^HomeHealthFTF Results Discharge Labs BLOOD COUNT & DIFF WBC 4.2 k/mm3 ()?? 03/22/2023 00:32 RBC 3.35 m/mm3 (Low)?? 03/22/2023 00:32 Hgb 9.0 Gm/dL (Low)?? 03/22/2023 00:32 Hct 29.2 % (Low)?? 03/22/2023 00:32 MCV 87.2 femtoliters ()?? 03/22/2023 00:32 MCH 26.9 pg (Low)?? 03/22/2023 00:32 MCHC 30.8 g/dL (Low)?? 03/22/2023 00:32 Platelet Count 238 k/mm3 ()?? 03/22/2023 00:32 RDW-SD 51.2 femtoliters (High)?? 03/22/2023 00:32 MPV 9.2 femtoliters (Low)?? 03/22/2023 00:32 Nucleated RBC (Automated) 0.0 #/100 WBC'S ()?? 03/22/2023 00:32 Abs. NRBC 0.0 k/mm3 ()?? 03/22/2023 00:32 Abs. Neut 4.3 k/mm3 ()?? 03/21/2023 02:22 Abs. Lymph 3.4 k/mm3 (High)?? 03/21/2023 02:22 Abs. Campbell 0.9 k/mm3 ()?? 03/21/2023 02:22 Abs. Eo 0.2 k/mm3 ()?? 03/21/2023 02:22 Abs. Baso 0.1 k/mm3 ()?? 03/21/2023 02:22 Neut % 48.9 % ()?? 03/21/2023 02:22 Lymph % 38.4 % ()?? 03/21/2023 02:22 Campbell % 9.7 % ()?? 03/21/2023 02:22 Eos % 2.2 % ()?? 03/21/2023 02:22 Baso % 0.6 % ()?? 03/21/2023 02:22 Imm Gran 0.2 % ()?? 03/21/2023 02:22 Abs. Imm Gran 0.0 k/mm3 ()?? 03/21/2023 02:22 ?? CARDIAC Nt-Probnp 283 pg/mL ()?? 03/21/2023 02:22 High Sensitivity Troponin (HSTnT) 33 ng/L (High)?? 03/21/2023 02:22 ?? CHEM GENERAL Sodium 145 mmol/L ()?? 03/22/2023 00:32 Potassium 4.8 mmol/L ()?? 03/22/2023 00:32 Chloride 107 mmol/L ()?? 03/22/2023 00:32 Bicarbonate Level 29 mmol/L ()?? 03/22/2023 00:32 Anion Gap 9 ()?? 03/22/2023 00:32 Glucose Level 129 mg/dL (High)?? 03/22/2023 00:32 Glucose, POC 132 mg/dL (High)?? 03/21/2023 01:56 BUN 15 mg/dL ()?? 03/22/2023 00:32 Creatinine-Blood 0.7 mg/dL ()?? 03/22/2023 00:32 Estimated GFR Creatinine 87 ML/MIN/1.73 M2 ()?? 03/22/2023 00:32 Calcium 9.0 mg/dL ()?? 03/22/2023 00:32 Magnesium 1.7 mg/dL ()?? 03/22/2023 00:32 Protein, Total 7.3 Gm/dL ()?? 03/21/2023 02:22 Albumin 4.0 Gm/dL ()?? 03/21/2023 02:22 AG Ratio 1.2 ()?? 03/21/2023 02:22 Alkaline Phosphatase 112 units/L (High)?? 03/21/2023 02:22 AST (SGOT) 20 units/L ()?? 03/21/2023 02:22 ALT (SGPT) 8 units/L ()?? 03/21/2023 02:22 Bilirubin, Total 0.8 mg/dL ()?? 03/21/2023 02:22 Lactate 1.5 mmol/L ()?? 03/21/2023 10:26 ?? COAG INR 1.1 ()?? 03/21/2023 02:22 Protime (PT) 11.9 seconds (High)?? 03/21/2023 02:22 ?? MISC. CHEMISTRY Hold Green Top SPECIMEN DISCARDED AFTER 1 WEEK ()?? 03/21/2023 10:26 Procalcitonin 0.24 ng/mL ()?? 03/21/2023 10:26 ?? UA/URINALYSIS Appear/Color, Urine YELLOW ()?? 03/21/2023 04:58 Specific [place], Urine 1.017 ()?? 03/21/2023 04:58 pH, Urine 5.5 ()?? 03/21/2023 04:58 Albumin, Urine TRACE (Abnormal)?? 03/21/2023 04:58 Glucose, Urine NEGATIVE ()?? 03/21/2023 04:58 Ketones, Urine NEGATIVE ()?? 03/21/2023 04:58 Bilirubin, Urine NEGATIVE ()?? 03/21/2023 04:58 Hemoglobin, Urine NEGATIVE ()?? 03/21/2023 04:58 Nitrite, Urine NEGATIVE ()?? 03/21/2023 04:58 Leukocyte, Urine 3+ (Abnormal)?? 03/21/2023 04:58 Urobilinogen NORMAL mg/dL ()?? 03/21/2023 04:58 WBC's, Urine 100 /HPF (High)?? 03/21/2023 04:58 RBC's, Urine 2 /HPF ()?? 03/21/2023 04:58 Bacteria MODERATE HPF (Abnormal)?? 03/21/2023 04:58 Squamous Epith 6 /HPF ()?? 03/21/2023 04:58 Transitional Epith 1 /HPF ()?? 03/21/2023 04:58 Renal Epith 1 /HPF ()?? 03/21/2023 04:58 Mucus SLIGHT /LPF ()?? 03/21/2023 04:58 WBC Clumps SLIGHT /HPF ()?? 03/21/2023 04:58 Hold Urine Culture Testing available 48 hours from time of collection. ()?? 03/21/2023 04:58 ?? VIROLOGY Influenza A PCR NEGATIVE ()?? 03/21/2023 04:58 Influenza B PCR NEGATIVE ()?? 03/21/2023 04:58 RSV PCR NEGATIVE ()?? 03/21/2023 04:58 COVID-19 PCR Specimen Source NASAL ()?? 03/21/2023 04:58 COVID-19 PCR Result NEGATIVE ()?? 03/21/2023 04:58 ? Microbiology ?? Blood Culture #2?? Completed?? Source: Blood Body Site: ?? Collected Dt/Tm: 03/21/2023 01:58 Last Updated Dt/Tm: 03/21/2023 02:15 ?SPECIMEN DESCRIPTION : BLOOD ??L ACSPECIAL REQUESTS : CRITICAL VALUE CALLED AND VERIFIED BY READBACK FOR: GRAM POSITIVE COCCI ? TO [id number], D6A, 03/22 AT 0310 BY Birdi [id number] : STAPHYLOCOCCUS EPIDERMIDIS ??SUSCEPTIBILITY TESTING NOT ROUTINELY ? PERFORMED ON THIS ISOLATE.Single isolates of coagulase negative ? Staphylococcus, Micrococcus sp., Bacillus sp., Corynebacterium sp. (or ? Diptheroids), Cutibacterium (formerly Propionibacterium) acnes and? Viridans group streptococci could be skin contaminates. Multiple ? isolates of these organisms are more likely to be significant. ?Staphylococcus epidermidis was identified by multi-plex PCRREPORT STATUS : FINAL 03/23/2023 COVID-19, RSV, and Flu A/B, Rapid PCR?? Completed?? Source: Nasal Body Site: Nose Collected Dt/Tm: 03/21/2023 04:23 Last Updated Dt/Tm: 03/21/2023 05:50 ? Imaging(s) ?CT Head/Brain W/O Contrast ?? 03/21/2023 03:27??by Juan Alcala MD ? Redemonstrated mass in the superior frontoparietal junction, increased in size and surrounding vasogenic edema when compared to 02/22/2023 ?? No acute intracranial hemorrhage. ?CT Chest W/ Contrast ?? 03/21/2023 03:27??by Henry Syed MD ? Increased right upper lobe lung mass and new liver and left adrenal metastatic lesions. ?Chest Portable ?? 03/23/2023 12:37??by Latanya Das MD ? 1. Mildly coarsened bilateral lung markings which could represent a combination of chronic lung disease, atelectasis, pulmonary edema, infection, and/or inflammation. 2. A small left pleural effusion is not excluded. 3. Similar appearance of ill-defined patchy opacity in the right upper paramediastinal region consistent with known right upper lobe paramediastinal mass. ?Chest Portable ?? 03/21/2023 02:08??by Gisela Meeks MD ? No acute abnormality. ?Routine EEG ?? 03/22/2023 12:19 ?This routine EEG, obtained with the patient awake with no instructions for sleep deprivation is moderately abnormal due to the multifocal slowing described above, more over the left frontotemporal leads as well the right posterior quadrant as intermittent RLEDs. No epileptiform activityor seizures occurred. These findings are nonspecific indicators od multifocal cerebral dysfunction as might be seen due to toxic, metabolic, infectious or ischemic causes among others. ?CT Abd/Pelvis W/ IV Contrast Only ?? 03/21/2023 03:27??by Henry Syed MD ? Increased right upper lobe lung mass and new liver and left adrenal metastatic lesions. ? 35 minutes spent on discharge * Attila WING, Senait: PERFORM, SIGN, VERIFY Event Display: Case Management Discharge Plan Authored Date: [id number] Patient: BRI VELA Age: 78 years Sex: Female : 1945 Associated Diagnoses: None Author: Attila WING, Senait Discharge Plan Case Management Discharge Plan : Case Management Discharge Plan Data 03/24/2023 14:36 EDT Discharge Level of Care at Discharge detention facility Discharge Nursing Homes/Rehab Facilities [facility] Discharge Transportation Arranged [facility] [address] [facility] [id number] [phone] Discharge Arranged Transport Date/Time 03/24/2023 16:00 Mode of Transportation Arranged Ambulance Name of Agency #1 [facility] Service Categories #1 Occupational Therapy, Physical Therapy, Senior Care Service Comments #1 An ambulance has been arranged through [facility] to transfer patient to [facility] today @ 4pm Name of Person Notified of Transfer Patient and son Marcio * Alexander WING, Argelia: PERFORM Event Display: Patient Education/Instruction Authored Date: [id number] Inpatient Adult Discharge Instructions [address] [address] Name: BRI VELA : 1945 Visit: 03/21/2023 06:17:00 Current Date: 03/24/2023 15:55 Account: [id number] Inpatient Adult Discharge Instructions We would like [...] and their families. Surveys are administered by [employer] ?? If further treatment with your primary care physician or another doctor is recommended, it is important for you to keep the appointment. Call your primary care physician or return to the Emergency Department immediately if your condition worsens, fails to improve, or new symptoms develop. If you need to find a doctor, you can call [facility] for a referral at [phone] or toll free at [phone] or log in to [email or web address].. ?? You can view and manage your care through the patient portal or by using a health care leigh of your choosing. [employer] is a website that allows you to securely view your medical information including your hospital discharge summary, office visit summaries, medications and follow-up visits. You can also request appointments, renew medications, and request access to your medical information using a health care leigh of your choosing, or just ask a question. You can enroll at [email or web address] or register during your next office visit. You have been discharged from [facility], Patient Care Unit: D5A. If you have any questions regarding these instructions after you leave, please call us and we will be happy to assist you. [facility] Your Care Team Attending Physician Elicia DEVLIN, Sara Consulting Providers Rylie DEVLIN, Maddi Lujan Discharging Providers Elicia DEVLIN, Sara Reason for Your Visit See NAOMI Level 1 Your Diagnosis Acute encephalopathy,??Encephalopathy Acute on chronic respiratory failure with hypoxia Aspiration pneumonia Brain metastasis Chronic systolic heart failure COPD with respiratory failure, acute Essential hypertension General medical Hyperlipidemia Lactic acidemia Lung cancer metastatic to brain Seizure Tests Performed Below is a partial list of the tests performed during your hospitalization. You may have had other tests and procedures not included in this list. Please discuss all test results with your provider. ABG?-- Results Pending -- Basic Metabolic Panel CBC CBC w/ Differential Comprehensive Metabolic Panel COVID-19 (NOVEL CORONAVIRUS), PCR COVID-19, RSV, and Flu A/B, Rapid PCR GLUCOSE POC High??Sensitivity??Troponin T HOLD GREEN TUBE INR Lactate Level Magnesium Level ProBNP Procalcitonin Level Urinalysis w/hold for Urine Culture CT Abd/Pelvis W/ IV Contrast Only CT Chest W/ IV Contrast CT Head/Brain W/O Contrast Portable Chest XR Chest Portable ? You will be contacted within 72 hours with your results. Primary Care Provider Bulmaro DEVLIN, Sharon Langley Advance Directive . Discharge Vitals Temperature: 97.6 DegF Pulse Rate: 88 bpm Respiratory Rate: 19 br/min Systolic Blood Pressure: 120 mm Hg Diastolic Blood Pressure: 70 mm Hg Oxygen Saturation: 100 % Studies Pending All tests and labs ordered during this hospital stay have been completed unless listed below. Please discuss all pending results with your provider listed above in these instructions. ?? Blood Culture Blood Culture #2 Blood Gas Arterial (ABG) Lactic Acid Level (Lactate Level) What to do next Instructions From Your Doctor During this hospitalization you were??treated for: Acute encephalopathy Seizure from brain mass versus cyst Acute on chronic hypoxic respiratory failure Positive blood culture ? You will go home with the following NEW medications: Dexamethasone (dexamethasone 4 mg oral tablet)?See Instructions?4 mg by mouth 2 times day x 2days followed by 2 mg ??2 times a day ??to be continuedwith food Famotidine (famotidine 20 mg oral tablet)?20?Milligram?1?tablet?By Mouth?2 times a day Guaifenesin/Dextromethorphan (Robitussin DM Liquid)?10?Milliliter?By Mouth?Every 4 hours?as needed?Cough Polyethylene Glycol 3350 (MiraLax oral powder for reconstitution)?17?gram?By Mouth?Daily?as needed?Constipation ? The following medications were CHANGED : Levetiracetam (Keppra 500 mg oral tablet)?3?tab(s)?1,500?Milligram?By Mouth?2 times a day?for 30?Days? The following medications were?? STOPPED: None ? Activity changes: Per [place] state law, no driving until 6 months seizure free.?? Avoid any activity that put you or others at risk should you lose consciousness.? Who to follow up with after being discharged from the hospital: -??Please follow up at your primary??care doctor's office in 1-2 weeks. Please make appointment with the clinic. - Please follow up with seizure doctor as outpatient. Please call office to schedule appointment. - Please follow-up with??your primary care physician to??monitor your electrolytes and kidney function as outpatient. - Please follow-up with your primary care physician to follow-up your blood culture results??as outpatient ?? Reasons to immediately return to the emergency room or call 911: - You pass out or faint. - You develop any acute weakness or numbness in any part of the body. - You develop any acute??speech difficulty, swallowing problem,??vision problem.?? -??You are having trouble breathing. - You are unable to tolerate fluids enough to stay hydrated. - You have any concerns that you think require emergency management. Discharge Orders Diet:??Regular Diet Activity:??Ambulate with assistance 3 times a day unless otherwise specified Code Status:??No Resuscitation Other Comfort Measures: OK for NIV You Need to Schedule the Following Appointments Follow Up with??Kaz Livingston MD When??Within 1 week Where: [address] [place] [address]- Follow Up with??Sharon Chamberlain MD When??Within 1 to 2 weeks Where: [address] [place] [address]- Discharge Medications BRI VELA :1945 Visit Date:03/21/2023 Medications: Please continue your medications until treatment is completed or stopped by your provider. Medications not listed below should be discontinued. Discuss any questions related to medications with your provider. What How Much When Instructions Next Dose New Famotidine (famotidine 20 mg oral tablet) 1 tab(s) Oral Twice a day 03/24 9PM Unchanged Acetaminophen (Tylenol 325 mg oral tablet) 2 tab(s) Oral Every 6 hours as needed for Pain , Mild PRN Unchanged Albuterol (albuterol 0.083% inhalation solution) 3 Milliliter Nebulized inhalation Every 6 hours as needed for as needed for wheezing PRN Unchanged Albuterol (Ventolin HFA 108 mcg/ inh inhalation aerosol with adapter) 2 puff(s) Inhalation 4 times a day as needed for Wheezing/Shortness of Breath PRN Unchanged Aspirin (Aspirin Enteric Coated 81 mg oral delayed release tablet) 1 tab(s) Oral Daily 03/25 9AM Unchanged Atorvastatin (atorvastatin 80 mg oral tablet) 1 tab(s) Oral Daily at Bedtime 03/24 9PM Unchanged Clopidogrel (clopidogrel 75 mg oral tablet) 1 tab(s) Oral Daily 03/25 9AM Unchanged Dexamethasone (dexamethasone 4 mg oral tablet) See instructions 4 mg by mouth 2 times day x 2 days followed by 2 mg ??2 times a day ??to be continued with food ?? 03/24 7PM Unchanged Docusate (Doculase 100 mg oral capsule) 1 capsule Oral Twice a day as needed for as needed for constipation 03/24 9PM Unchanged Furosemide (Lasix 40 mg oral tablet) 1 tab(s) Oral Daily 03/25 9AM Unchanged Guaifenesin/ Dextromethorphan (Robitussin DM Liquid) 10 Milliliter Oral Every 4 hours as needed for Cough PRN for cough Unchanged levETIRAcetam (Keppra 500 mg oral tablet) 3 tab(s) Oral Twice a day Duration: 30 Days 03/24 9PM Unchanged Loperamide (loperamide 2 mg oral capsule) 1 capsule Oral Daily as needed for as needed for loose stool Resume home dosing Unchanged Meclizine (meclizine 25 mg oral tablet, chewable) 1 tab(s) Chew 3 times a day as needed for for dizziness Resume home dosing Unchanged Mirtazapine (mirtazapine 7.5 mg oral tablet) 1 tab(s) Oral Daily at Bedtime 03/24 9PM Unchanged Nitroglycerin (nitroglycerin 0.4 mg sublingual tablet) 1 tab(s) Sublingual Every 5 minutes as needed for Chest Pain Resume home dosing Unchanged Polyethylene Glycol 3350 (MiraLax oral powder for reconstitution) 17 gram Oral Daily as needed for Constipation Resume home dosing Unchanged Pramipexole (pramipexole 1 mg oral tablet) 1 tab(s) Oral Daily at Bedtime 03/24 9PM Unchanged Sertraline (Zoloft 50 mg oral tablet) 1 tab(s) Oral Daily 03/25 9AM Unchanged umeclidinium-vilanterol (Anoro Ellipta 62.5 mcg-25 mcg/ inh inhalation powder) 1 puff(s) Inhalation Daily 03/25 9AM Test Results Below is a partial list of the most recent Laboratory test results done prior to this discharge. You may have had other tests and procedures not included in this list. Please discuss all test resultswith your provider. Basic Metabolic Panel (03/22/2023) ???Sodium - 145 mmol/L???Potassium - 4.8 mmol/L???Chloride - 107 mmol/L???Bicarbonate Level - 29 mmol/L???Anion Gap - 9???Glucose Level - 129 mg/dL???BUN - 15 mg/dL???Creatinine-Blood - 0.7 mg/dL???Estimated GFR Creatinine - 87 ML/MIN/1.73 M2???Calcium - 9.0 mg/dL CBC (03/22/2023) ???WBC - 4.2 k/mm3???RBC - 3.35 m/mm3???Hgb - 9.0 Gm/dL???Hct - 29.2 %???MCV - 87.2 femtoliters???MCH - 26.9 pg???MCHC - 30.8 g/dL???Platelet Count - 238 k/mm3???RDW-SD - 51.2 femtoliters???MPV - 9.2femtoliters???Nucleated RBC (Automated) - 0.0 #/100 WBC'S???Abs. NRBC - 0.0 k/mm3 CBC w/ Differential (03/21/2023) ???WBC - 8.7 k/mm3???RBC - 4.06 m/mm3???Hgb - 11.3 Gm/dL???Hct - 35.7 %???MCV - 87.9 femtoliters???MCH - 27.8 pg???MCHC - 31.7 g/dL???Platelet Count - 371 k/mm3???RDW-SD - 51.4 femtoliters???MPV - 9.2 femtoliters???Nucleated RBC (Automated) - 0.0 #/100 WBC'S???Abs. NRBC - 0.0 k/mm3???Abs. Neut - 4.3 k/mm3???Abs. Lymph - 3.4 k/mm3???Abs. Campbell - 0.9 k/mm3???Abs. Eo - 0.2 k/mm3???Abs. Baso - 0.1 k/mm3???Neut % - 48.9 %???Lymph % - 38.4 %???Campbell % - 9.7 %???Eos % - 2.2 %???Baso % - 0.6 %???Imm Gran- 0.2 %???Abs. Imm Gran - 0.0 k/mm3 Comprehensive Metabolic Panel (03/21/2023) ???Sodium - 139 mmol/L???Potassium - HEMOLYZED???Chloride - 95 mmol/L???Bicarbonate Level - 28 mmol/L???Anion Gap - 16???Glucose Level - 123 mg/dL???BUN - 14 mg/dL???Creatinine-Blood - 0.8 mg/dL???Estimated GFR Creatinine - 72 ML/MIN/1.73 M2???Calcium - 9.7 mg/dL???Protein, Total - 7.3 Gm/dL???Albumin - 4.0 Gm/dL???AG Ratio - 1.2???Alkaline Phosphatase - 112 units/L???AST (SGOT) - 20 units/L???ALT (SGPT) - 8 units/L???Bilirubin, Total - 0.8 mg/dL COVID-19 (NOVEL CORONAVIRUS), PCR (03/24/2023) ???COVID-19 by RT-PCR - NEGATIVE COVID-19, RSV, and Flu A/B, Rapid PCR (03/21/2023) ???Influenza A PCR - NEGATIVE???Influenza B PCR - NEGATIVE???RSV PCR - NEGATIVE???COVID-19 PCR Specimen Source - NASAL???COVID-19 PCR Result - NEGATIVE GLUCOSE POC (03/21/2023) ???Glucose, POC - 132 mg/dL High??Sensitivity??Troponin T (03/21/2023) ???High Sensitivity Troponin (HSTnT) - 33 ng/L HOLD GREEN TUBE (03/21/2023) ???Hold Green Top - SPECIMEN DISCARDED AFTER 1 WEEK INR (03/21/2023) ???INR - 1.1???Protime (PT) - 11.9 seconds Lactate Level (03/21/2023) ???Lactate - 1.5 mmol/L Magnesium Level (03/22/2023) ???Magnesium - 1.7 mg/dL ProBNP (03/21/2023) ???Nt-Probnp - 283 pg/mL Procalcitonin Level (03/21/2023) ???Procalcitonin - 0.24 ng/mL Urinalysis w/hold for Urine Culture (03/21/2023) ???Appear/Color, Urine - YELLOW???Specific [place], Urine - 1.017???pH, Urine - 5.5???Albumin, Urine - TRACE???Glucose, Urine - NEGATIVE???Ketones, Urine - NEGATIVE???Bilirubin, Urine - NEGATIVE???Hemoglobin, Urine - NEGATIVE???Nitrite, Urine - NEGATIVE???Leukocyte, Urine - 3+???Urobilinogen - NORMAL???WBC's, Urine - 100 /HPF???RBC's, Urine - 2 /HPF???Bacteria - MODERATE???Squamous Epith - 6 /HPF???Transitional Epith - 1 /HPF???Renal Epith - 1 /HPF???Mucus - SLIGHT???WBC Clumps - SLIGHT???Hold Urine Culture - Testing available 48 hours from time of collection. Allergies (NKA means No Known Allergies) codeine??(Passed out) Problems Active Problems??(11) Acute kidney injury?? Aspiration pneumonia?? Buerger disease?? COPD with respiratory failure, acute?? COVID-19?? Essential hypertension?? Glaucoma?? Hyperlipidemia?? Macular degeneration?? MSSA bacteremia?? Right low back pain?? Education Materials Below is the list of Educational Leaflet Providered with your Discharge Instructions. Famotidine Oral Tablet?? Dexamethasone Oral Tablet?? Levetiracetam Oral Tablet?? Recurrent Seizure (Adult)?? Anatomy of the Brain?? Discharge Instructions for Heart Failure?? Coping with Heart Failure?? Chronic Lung Disease: Helping with Treatment, For Caregivers?? Chronic Lung Disease: Your Emotional Well-Being?? Preventing Common Respiratory Infections?? Valuables and Belongings I fully understand and agree that [facility] accepts no responsibility for all my personal [...] Review of Valuable and Belonging List: With witness Date for Pt to Sign Valuables/Belongings: 03/21/23 09:11:00 ?? Other Discharge Information ? Case Management Discharge Plan?? Discharge Plan?? Discharge Agency Information?? Discharge Level of Care at Discharge: detention facility Name of Agency #1: [facility] Discharge Transportation Arranged: [facility] [address] [facility] [id number] [phone] Service Categories #1: Occupational Therapy, Physical Therapy, Senior Care Mode of Transportation Arranged: Ambulance Service Comments #1: An ambulance has been arranged through [facility] @ 4[facility] Discharge Arranged Transport Date/Time: 03/24/23 16:00:00 Name of Person Notified of Transfer: Patient and son Marcio Discharge Nursing Homes/Rehab Facilities: [facility] ? Pulmonary Rehab Status?? Pulmonary Rehab Discharge Status?? CPAP/BiPAP Mask Type: Full CPAP/BiPAP Mask Size: Small Respiratory Rate: 19 br/min ? Common Emergency Awareness Tips IS [...] are strongly encouraged to quit. Please call [facility] at [phone] or [phone] or log in to [email or web address] for referrals to smoking cessation programs. ?? 016 Suicide & Crisis Lifeline is available 15/06 if you or someone you know needs to find a reason to keep living. By calling 107 you'll be connected to a skilled, trained counselor at a crisis center in your area. INPATIENT DISCHARGE INSTRUCTIONS SIGNATURE PAGE BRI VELA Location:[facility] Registration Date and Time:03/21/2023 06:17 EDT Primary Care Physician: Bulmaro DEVLIN, Sharon Langley, I MIRIAN BRI, have received the above patient education materials/instructions and have verbalized understanding. If ambulance or transport services are being used I further acknowledge being givena choice of service. ?? If you need to contact me, please call me at this number: . Patient/Client Experience Consultant Name: Patient/Client Experience Consultant Signature: Relationship to Patient: Witness Name/Signature: Date: * Argelia Munoz RN: PERFORM Event Display: Patient Education Leaflets Authored Date: [id number] Famotidine Oral Tablet ?? Famotidine Oral Tablet Brands: Pepcid Uses This medicine is used for the following purposes: ??? heartburn ??? inflammation of stomach ??? prevent heartburn ??? prevent indigestion ??? stomach acid ??? stomach acid reflux ??? ulcers in stomach or intestines ??? ulcers in stomach or intestines ?? Instructions This medicine may be taken with or without food. Swallow with a full glass (8 oz) of water unless your doctor gives you different instructions. Keep the medicine at room temperature. Avoid heat and direct light. Keep the medicine away from heat and light. This medicine can reduce the absorption of other medicines. Talk to your doctor or pharmacist aboutthe best times to use this product. It is important that you keep taking each dose of this medicine on time even if you are feeling well. If you forget to take a dose on time, take it as soon as you remember. If it is almost time for thenext dose, do not take the missed dose. Return to your normal schedule. Do not take 2 doses at one time. Drug interactions can change how medicines work or increase risk for side effects. Tell your healthcare providers about all medicines taken. Include prescription and ramp-kwn-hiirpjn medicines, vitamins, and herbal medicines. Speak with your doctor or pharmacist before starting or stopping any medicine. Tell your doctor if symptoms do not get better or if they get worse. ?? Cautions Tell your doctor and pharmacist if you ever had an allergic reaction to a medicine. Do not use the medication any more than instructed. Tell the doctor or pharmacist if you are , planning to be , or . Do not share this medicine with anyone who has not been prescribed this medicine. ?? Side Effects The following is a list of some common side effects from this medicine. Please speak with your doctor about what you should do if you experience these or other side effects. ??? constipation or diarrhea ??? headaches Call your doctor or get medical help right away if you notice any of these more serious side effects: ??? bleeding or bruising ??? chest pain ??? confusion ??? dizziness ??? fainting ??? fast or irregular heart beats ??? seizures ??? shortness of breath A few people may have an allergic reaction to this medicine. Symptoms can include difficulty breathing, skin rash, itching, swelling, or severe dizziness. If you notice any of these symptoms, seek medical help quickly. ?? Extra Please speak with your doctor, nurse, or pharmacist if you have any questions about this medicine. ?? [email or web address] IMPORTANT NOTE: This document tells you briefly how to take your medicine, but it does not tell youall there is to know about it. Your doctor or pharmacist may give you other documents about your medicine. Please talk to them if you have any questions. Always follow their advice. There is a more complete description of this medicine available in [place]. Scan this code on your smartphone or tablet or use the web address below. You can also ask your pharmacist for a printout. If you have any questions, please ask your pharmacist. The display and use of this drug information is subject to Terms of Use. Copyright(c) 2022 [employer]. ?? [employer]. All rights reserved. This information is not intended as a substitute for professional medical care. Always follow your healthcare professional's instructions. ?? * Sara Rubi MD: PERFORM Event Display: Patient Education Leaflets Authored Date: [id number] Dexamethasone Oral Tablet ?? [id number] Dexamethasone Oral Tablet Brands: Decadron Uses This medicine is used for the following purposes: ??? allergic reaction ??? autoimmune disorder ???blood disorder ??? diagnostic test ??? endocrine disorder ??? inflammatory disease ??? nausea and vomiting ??? immune suppression ??? cancer ??? COVID-19 (coronavirus) ?? Instructions Take the medicine with food. Keep the medicine at room temperature. Avoid heat and direct light. If you forget to take a dose on time, take it as soon as you remember. If it is almost time for thenext dose, do not take the missed dose. Return to your normal schedule. Do not take 2 doses at one time. Drug interactions can change how medicines work or increase risk for side effects. Tell your healthcare providers about all medicines taken. Include prescription and qtws-xjl-jtaarmw medicines, vitamins, and herbal medicines. Speak with your doctor or pharmacist before starting or stopping any medicine. Tell your doctor if symptoms do not get better or if they get worse. This medicine may affect your blood sugar levels. If you have diabetes, talk to your doctor before changing the dose of your diabetes medicine. This medicine may affect the strength of your bones. If you have or are at increased risk for osteoporosis (weakening of the bones), your doctor may recommend foods with calcium and vitamin D. ?? Cautions Tell your doctor and pharmacist if you ever had an allergic reaction to a medicine. Some patients taking this medicine have experienced serious side effects. Please speak with your doctor to understand the risks and benefits associated with this medicine. Do not use the medication any more than instructed. Please check with your doctor before drinking alcohol while on this medicine. This medicine may reduce your body's ability to fight infections. Avoid contact with people with colds, flu or other infections. Contact your doctor if you develop fever, cough, sore throat, or chills. Speak with your health care provider before receiving any vaccinations. It is unknown if this medicine passes into breast milk. Ask your doctor before . During , this medicine should be used only when clearly needed. Talk to your doctor about the risks and benefits. Do not share this medicine with anyone who has not been prescribed this medicine. ?? Side Effects The following is a list of some common side effects from this medicine. Please speak with your doctor about what you should do if you experience these or other side effects. ??? agitated feeling or trouble sleeping ??? increased appetite ??? headaches ??? high blood sugar ??? high blood pressure ??? stomach upset or abdominal pain ??? weight gain Call your doctor or get medical help right away if you notice any of these more serious side effects: ??? change in behavior ??? bleeding or bruising ??? severe or persistent bone, joint or jaw pain ??? confusion ??? coughing up blood or vomit that looks like coffee grounds ??? depression or feeling sad ??? swelling of the legs, feet, and hands ??? pain in the eye ??? fever or chills ??? hallucinations (unusual thoughts, seeing or hearing things that are not real) ??? fast or irregular heart beats ??? menstruation changes (missed or fewer periods) ??? mood changes ??? muscle pain or weakness ??? seizures ??? thinning of the skin ??? severe stomach or bowel pain ??? bloody or dark, tarry stools ??? suicidal thoughts ??? persistent or unusual thirst ??? unusual or unexplained tiredness or weakness ??? increased urinary frequency ??? blurring or changes of vision ??? sudden or unexplained weight gain ??? slow wound healing A few people may have an allergic reaction to this medicine. Symptoms can include difficulty breathing, skin rash, itching, swelling, or severe dizziness. If you notice any of these symptoms, seek medical help quickly. ?? Extra Please speak with your doctor, nurse, or pharmacist if you have any questions about this medicine. ?? [email or web address] IMPORTANT NOTE: This document tells you briefly how to take your medicine, but it does not tell youall there is to know about it. Your doctor or pharmacist may give you other documents about your medicine. Please talk to them if you have any questions. Always follow their advice. There is a more complete description of this medicine available in [place]. Scan this code on your smartphone or tablet or use the web address below. You can also ask your pharmacist for a printout. If you have any questions, please ask your pharmacist. The display and use of this drug information is subject to Terms of Use. Copyright(c) 2022 [employer]. ?? [employer]. All rights reserved. This information is not intended as a substitute for professional medical care. Always follow your healthcare professional's instructions. ?? * Sara Rubi MD: PERFORM Event Display: Patient Education Leaflets Authored Date: [id number] Levetiracetam Oral Tablet ?? [id number] Levetiracetam Oral Tablet Brands: Keppra, Roweepra Uses For seizures. ?? Instructions Swallow the medicine without crushing or chewing it. This medicine may be taken with or without food. This medicine will work best if you take it at about the same time every day. Keep the medicine at room temperature. Avoid heat and direct light. It is important that you keep taking each dose of this medicine on time even if you are feeling well. If you forget to take a dose on time, take it as soon as you remember. If it is almost time for thenext dose, do not take the missed dose. Return to your normal schedule. Do not take 2 doses at one time. Tell your doctor and pharmacist about all your medicines. Include prescription and zdcm-pmp-fkuslsxhcjrpddoh, vitamins, and herbal medicines. Contact your doctor if your seizures do not improve or worsen while on this medicine. Do not suddenly stop taking this medicine. Check with your doctor before stopping. It is very important that you follow your doctor's instructions for all blood tests. ?? Cautions Tell your doctor and pharmacist if you ever had an allergic reaction to a medicine. There is an increased risk of bleeding while on this medicine, please tell your doctor or nurse if you notice any excessive bleeding or bruising. Do not use the medication any more than instructed. Your ability to stay alert or to react quickly may be impaired by this medicine. Do not drive or operate machinery until you know how this medicine will affect you. Please check with your doctor before drinking alcohol while on this medicine. Family should check on the patient often. Call the doctor if patient becomes more depressed, has thoughts of suicide, or shows changes in behavior. Tell the doctor or pharmacist if you are , planning to be , or . Do not start or stop any other medicines without first speaking to your doctor or pharmacist. Do not share this medicine with anyone who has not been prescribed this medicine. Some patients have serious side effects from this medicine. Ask your pharmacist to show you the information from the Food and Drug Administration (FDA) and discuss it with you. ?? Side Effects The following is a list of some common side effects from this medicine. Please speak with your doctor about what you should do if you experience these or other side effects. ??? dizziness or drowsiness ??? lack of energy and tiredness Call your doctor or get medical help right away if you notice any of these more serious side effects: ??? agitated feeling or trouble sleeping ??? depression or feeling sad ??? fever ??? fast or irregular heart beats ??? rapid breathing A few people may have an allergic reaction to this medicine. Symptoms can include difficulty breathing, skin rash, itching, swelling, or severe dizziness. If you notice any of these symptoms, seek medical help quickly. ?? Extra Please speak with your doctor, nurse, or pharmacist if you have any questions about this medicine. ?? [email or web address] IMPORTANT NOTE: This document tells you briefly how to take your medicine, but it does not tell youall there is to know about it. Your doctor or pharmacist may give you other documents about your medicine. Please talk to them if you have any questions. Always follow their advice. There is a more complete description of this medicine available in [place]. Scan this code on your smartphone or tablet or use the web address below. You can also ask your pharmacist for a printout. If you have any questions, please ask your pharmacist. The display and use of this drug information is subject to Terms of Use. Copyright(c) 2022 [employer]. ?? 4933-2884 [employer]. All rights reserved. This information is not intended as a substitute for professional medical care. Always follow your healthcare professional's instructions. ?? * Event Display: Cardiac Rhythm Strips Authored Date: Hospital Progress note * Argelia Munoz RN: PERFORM, SIGN, VERIFY, MODIFY, SIGN Event Display: Progress Note Hospital Authored Date: Patient: BRI VELA Age: 78 years Sex: Female : 1945 Associated Diagnoses: None Author: Argelia Munoz RN Findings Problem Related to Alteration in Neurological : Alteration in Neurological Function/new 03/24/2023 14:00 EDT Alteration in Neuro status Related to Seizure Goals & Outcomes, Neurological Lab studies/diagnostic tests within pt specific limits, Pt is safe with transfers & activities, Pt will be discharged without infection, Pt will be hemodynamically stable, Pt will be Neurologically stable, Pt will become pain free with appropriate intervention, Pt will maintain intact skin integrity, Pt will remain free from injury, Pt will resume/maintain ad equate cardiac output, Pt will state importance of adhering to medication regime, Pt/caregiver willreceive psychosocial support as needed, Pt/caregiver will state understanding of rehab plan, Pt/caregiver will state strategies to reduce risk factors, Pt/caregiver will state understanding aspiration precautions, Pt/caregiver will state understanding dietary modifications, Pt/caregiver will state understanding of disease process, Pt/caregiver will state understanding of plan/goals of care, Pt/caregiver will state understanding of the D/C plan, Pt will be free from complications r/t seizure activity, Pt will be seizure controlled, Pt will remain free from injury post seizure activity, Pt willreturn to baseline after post ictal phase, Pt/caregiver will state understanding of home management Interventions, Neurological Assess/monitor neurologic status, Assess/monitor VS per unit standards & prn, Call/Report variances in assessments to provider, Collaborate w/ provider to implement appropriate guidelines, Collaborate with Nutrition, Collaborate with provider re: medication regime, Document & Monitor O2 Sats; Administer O2 as ordered, Emergency airway equipment at bedside, Insti tute alternate means of communication, Keep patient's head & body in good alignment, Maintain normothermia, report temp >101.5 F, Maintain patient safety if unsteady gait, Maintain strict intake & output, Monitor Fluid & Electrolytes, Serum Osmolarity, Monitor for headaches, nausea, vomiting, Monitor speech fluency, aphasia, word finding difficulty, Physical assessment per unit errol hutchison, Provide emotional support to Pt/caregiver Goals/Interventions, Neurological Yes Neurological, Problem Start 03/21/2023 17:00 Reviewed plan with, Neurological Patient Patient Progression, Neurological Pt progressing according to plan . Nursing Data Neurological Data. : Neurological Data. 03/24/2023 9:00 EDT Tongue Disposition Midline Neurological Symptoms Double vision, Unsteady gait/Ataxia, Weakness or loss of muscle strength (Modified) Level of Consciousness Confusion Orientated to person, place, time Person, Place Hallucinations None Facial Symmetry Intact Characteristics of Speech Clear and normal Swallowing Difficulty None Pupil description, left Regular Pupil description, right Regular Pupil reaction, left Brisk Pupil reaction, right Brisk Strength LUE 3-Active movement against gravity Strength RUE 5-Active movement against gravity & full resistance Strength LLE 3-Active movement against gravity Strength RLE 5-Active movement against gravity & full resistance Tone LUE Normal Tone RUE Normal Tone LLE Normal Tone RLE Normal Sensation LUE Intact Sensation RUE Intact Sensation LLE Intact Sensation RLE Intact Movement LUE Spontaneous, To command Movement RUE Spontaneous, To command Movement LLE Spontaneous, To command Movement RLE Spontaneous, To command Gait Unable to assess Tremors None Response Eye Opening Spontaneously Motor Response-Adult Obeys commands Verbal Response-Adult Disoriented and converses [place] Coma Score 14 Neuro WNL except Eyes and Movements Conjugate gaze: Move in same direction at same speed Headache None Memory Intact Swallow - Neuro Normal . Evaluation Pt A+Ox2 with speech clear and appropriate. Confused at times. Able to follow all commands. Calm and cooperative with care. Moves left side 3/5 and right side 5/5, unable to assess gait. Reports blurred vision that is her baseline. Denies any N/V, numbness/tingling, dizziness, headache or visual changes. On 2L nasal cannula, occasionally desats while working with PT or eating and reports that at home she goes up to 5L when needed. Last BM was 03/21, +bs in all quadrants, gave all PRN bowel meds to help facilitate movement. Denies any pain. Safety precautions maintained. Family updated over thephone. . * Rylie DEVLIN, Maddi Lujan: PERFORM Event Display: Progress Note Hospital Authored Date: [id number] Patient: ??BRI VELA ? Age:??78 Years?Sex:??Female?:??1945?? Subjective ?? Met with Bri this morning. ??She denied pain or shortness of breath. ??Oxygen back to 2 L.?? She states that she does get short of breath when walking around, often has to titrate her oxygen at home.?? She denied headache, nausea, vomiting. ??She says that she has a good appetite.?? We discussed whether or not she wants to return home or go to nursing facility from the hospital. ??She says thatshe does not have??a strong opinion, though acknowledges that it has been a lot to care for her at home.?? She states that her incontinence makes it difficult for her sister to care for her.?? She says that she would be willing to consider going to a facility.?? We discussed what kind of care she would want when she is at the facility.?? I asked her if she would want to come back to the hospital and she get sicker or if she would rather?? in the nursing facility. ??She shared with me that??this was a difficult decision, but she??thinks that she would prefer to in the nursing facility instead of coming back to the hospital.?? She said that she would like some time to think about this and talk to her son Caleb.?? Supported that decision. ?? Spoke to??son Caleb over the phone.?? Introduced the role of palliative care.?? He states that things are going?? okay at home with Bri's health. ??He understands that she does not desire a work-up for her metastatic cancer. ??I shared that it is likely lung cancer.?? He says that he has noticedthat his mom is gotten weaker at home and needs more more care. ??This has been difficult for her sister who has been trying to care for her??and also has her own medical problems. ??Carlos lives in the apartment downstairs and is providing help with moving Bri. ??She is no longer walking.?? He feels like she is declining.?? I asked him??about what he??thought the best plan of action going from here would be. 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 I told him that if she goes to long-term care or rehab, they will send her back to the hospital if she develops symptoms.?? I also shared my worry that??she has a disease that will likely cause severe symptoms such as seizure.?? With permission, shared a prognosis of??weeks to short months.?? He was not surprised to hear this information.?? Because Bri had shared with me that she would consider comfort measure only??in a facility, I??told Carlos that usually when patients opt for this, I would recommend the support of hospice care, as they can provide support and symptom management at the end of life.?? Caleb states they met with hospice and were taken aback when they were told that family members would have to administer morphine at the end-of-lfe instead of sending Bri to the hospital.?? Caleb feels that family would not be able to administer morphine even for symptoms.?? I shared my worry about Bri coming back and forth to the hospital during the last days to weeks of life instead of spending time on things sheenjoys.?? He understands this.?? I encouraged him to continue to talk to Bri about her wishes at end-of-life because??I think 1. time is short, 2. likely to be symptomatic at end of life, 3. Bri is declining.?? He was appreciative of our conversation. ?? Updated later in the day that the plan is for discharge today. Symptoms well- controlled.?? Will need ongoing GOC discussions. ?? Review of Systems Negative aside from above Allergies Allergies ?(Active and Proposed Allergies Only) codeine? (Severity: Unknown severity, Onset: Unknown) ?Reactions: Passed out ? Past Medical History Active Problems??(11) Acute kidney injury Aspiration pneumonia Buerger disease COPD with respiratory failure, acute [...] 2 or 3 packs per day. ? Psychosocial History ? Family History Father: Skin cancer ? Spiritual History Future Pastoral Plan: Continue to follow, Other: As appropriate Intervention Spiritual Services: Attentive presence, Empathetic listening, Empowerment/encouragement/affirmation, Hope building/decision making, Prayer/spiritual support Adventist/Spiritual Preference: Muslim Start Time (Spiritual Service): 11/20/22 11:17:00 ?? Objective ? Vital Signs?? Temperature: 97.6 DegF (03/24/23 12:34:00) Temperature Route: Oral (03/24/23 12:34:00) Pulse Rate: 88 bpm (03/24/23 12:34:00) Respiratory Rate: 19 br/min (03/24/23 12:34:00) Systolic Blood Pressure: 120 mm Hg (03/24/23 12:34:00) Diastolic Blood Pressure: 70 mm Hg (03/24/23:34:00) Blood pressure sites: Arm, left (03/24/23 12:34:00) Mean Arterial Pressure: 87 mm Hg (03/24/23 12:34:00) Pulse Pressure: 50 mm Hg (03/24/23 12:34:00) Oxygen Saturation: 100 % (03/24/23:34:00) Liters per Minute: 2 L/min (03/24/23 12:34:00) Mode of Delivery (Oxygen): Nasal cannula (03/24/23 12:34:00) Early Warning Score: 2 (03/24/23 12:35:31) ? Pain Scores?? No qualifying data available. ? Physical Exam Constitutional: Awake, tachypneic, 2L O2 Mental Status: O x 3 Head:??Normocephalic?? Eyes: PERRLA, no conjunctival injection Ear, Nose and Throat: Oropharynx clear, hearing intact, diffuse wheeze Neck: Supple Respiratory: Bilateral breath sounds, no crackles or wheeze Cardiovascular: RRR. No murmurs LE:??No peripheral edema Gastrointestinal: Abdomen soft, nontender, nondistended.?? No hepatosplenomegaly. Neurologic: Strength and sensation equal bilaterally.?? CN grossly intact. Skin: No rashes or lesions. No petechiae or purpura. Musculoskeletal: No joint erythema or swelling. Psychiatric: Calm, engaged _ Inpatient Medications Medications (25) Active SCHEDULED: (14) Albuterol 90mcg/Inhalation Inhaler HFA (albuterol CFC free 90 mcg/inh inhalation aerosol) ??180 mcg2 puffs, Inhalation, Every 6 hours Aspirin 81 mg EC Tablet (aspirin 81 mg oral delayed release tablet) ??81 mg, By Mouth, Daily Atorvastatin 80 mg Tablet (atorvastatin 80 mg oral tablet) ??80 mg, By Mouth, Daily at bedtime Breo Ellipta 100 mcg / 25 mcg Inhaler (Breo Ellipta 100 mcg-25 mcg Inhaler) ??1 puffs, Inhalation, Daily Clopidogrel 75 mg Tablet (clopidogrel 75 mg oral tablet) ??75 mg, By Mouth, Daily Dexamethasone 4 mg/mL Inj (Decadron Inj) ??4 mg 1 mL, IV Push Slowly, Every 12 hours Famotidine 20 mg Tablet (famotidine 20 mg oral tablet) ??20 mg, By Mouth, 2 times a day Furosemide 40 mg Tablet (Lasix 40 mg oral tablet) ??40 mg, By Mouth, Daily Heparin 5000 units/mL Inj (1 mL) (Heparin Inj) ??5,000 units 1 mL, Subcutaneous Injection, 3 times a day Keppra 500mg Tablet (Keppra 500 mg oral tablet) ??1,500 mg, By Mouth, 2 times a day Mirtazapine 15 mg Tablet (mirtazapine 15 mg oral tablet) ??7.5 mg, By Mouth, Daily at bedtime NaCl 0.9% Flush 3ml (NaCL 0.9% Flush) ??3 mL, IV Push, Every 8 hours Pramipexole 0.5 mg Tablet (pramipexole 0.5 mg oral tablet) ??1 mg, By Mouth, Daily at bedtime Sertraline 50 mg Tablet (Zoloft 50 mg oral tablet) ??50 mg, By Mouth, Daily CONTINUOUS: (0) PRN: (11) Acetaminophen 325 mg Tablet (Acetaminophen Tablet) ??650 mg, By Mouth, Every 4 hours Albuterol/Ipratropium Inhalation Karma 3mL (Duoneb Inhalation Solution) ??1 vials, BAND Nebulizer, Every 4 hours Dextromethorphan-Guaifenesin 20 mg-200 mg/10 mL Liqu UD (Robitussin DM Liquid) ??10 mL, By Mouth, Every 4 hours Docusate Sodium 100 mg Capsule (docusate sodium 100 mg oral capsule) ??100 mg 1 capsule, By Mouth, 2 times a day Meclizine 12.5 mg Tablet (meclizine 12.5 mg oral tablet) ??25 mg, Chew, 3 times a day Melatonin 3 mg Tablet (Melatonin Tablet) ??3 mg, By Mouth, Daily at bedtime NaCl 0.9% Flush 3ml (NaCL 0.9% Flush) ??3 mL, IV Push, Every 8 hours Nitroglycerin 0.4 mg Sublingual Tablet (nitroglycerin 0.4 mg sublingual tablet) ??0.4 mg, Sublingual, Every 5 minutes Polyethylene Glycol 17 Gm Powder (MiraLax Powder) ??17 Gm 1 pack/packet, By Mouth, Daily Senna 8.6 mg / Docusate 50 mg tablet (Docusate/Senna Tablet) ??1 tablet, By Mouth, 2 times a day Simethicone 80 mg Chewable Tablet (Simethicone Tablet) ??80 mg, Chew, 3 times a day ? 72 Hour Antibiotic History Stopped Antibiotics Stop Date/Time Last Administered First Administered Vancomycin??750 mg, 150 mL, 150 mL/hr, IVPB, Every 24 hours 03/24/2023 12:49 03/24/2023 07:03 03/23/2023 06:33 Vancomycin??750 mg, 150 mL, 150 mL/hr, IVPB, Every 24 hours 03/22/2023 12:40 03/22/2023 05:06 03/22/2023 05:06 ? Results Recent Labs No labs resulted between 03/23/2023 00:00 and 03/24/2023 14:37? Assessment/Plan Chief Complaint: See NAOMI Level 1 ?? Diagnoses Acute encephalopathy ??(G93.40) Acute on chronic respiratory failure with hypoxia ??(J96.21) Aspiration pneumonia ??(J69.0) Brain metastasis ??(C79.31) COPD with respiratory failure, acute ??(J44.9) Chronic systolic heart failure ??(I50.22) Encephalopathy ??(G93.40) Essential hypertension ??(I10) Hyperlipidemia ??(E78.5) Lactic acidemia ??(E87.20) Lung cancer metastatic to brain ??(C34.90) Seizure ??(R56.9) ?? Patient is a 78 yo F with metastatic lung ca, with mets to brain, and COPD and HF who presents to the hospital with seizure-like activity and acute hypoxic respiratory failure.? She has been hospitalized at least once a month since 10/2022. Palliative care consulted for goals of care. ?? Active Issues: hypoxia, metastatic cancer with brain mets, seizures ?? #Advanced care planning/Goals of care Code Status: DNI/DNR, confirmed today MOLST?: yes HCP/surrogate decision maker: bony Milligan -Goals: to return home, to peacefully without significant intervention -Spiritual Needs: Denominational ?? #Pain: Patient currently denies pain. -Tylenol PRN ?? #Dyspnea: Likely 2/2 lung ca, CHF, and COPD. High risk for aspiration. -O2 per primary team -Management of COPD/CHF per primary team ?? #Constipation: -would recommend scheduling??2 tabs senna twice daily?? -can add MiraLAX as needed if not having bowel movements after 24-48 hours and titrate to bisacodylsuppository as needed ?? #Delirium: At risk given age and acute illness. - Non-pharm measures as follows: subdued environment, sunlight during day, reducing distractions and noise, rest at night, well-lit surrounding, routine, frequent reorientation, and familiar faces when possible. ?? #Psychosocial support/Adjustment to Illness: -offered supportive listening to patient ?? # Prognostic Awareness?? -Palliative Performance Scale: 30% -ECOG Performance Status: 4 -Clinical estimate:?days to weeks -Discussed with patient/family? no -Information preferences:?patient likes to be involved in decision-making ?? Patient is at high risk for??rehospitalization given progressive cancer with history of seizures.??I have explained this in detail to her son and have begun [facility] conversations with Bri.?? She??has told me repeatedly that she does not want hospice,??though her goals seem in line with hospice - sheis as??of??today unsure if she wants to come back?? to the hospital when she gets sicker.?? I encouraged her to speak with her son about her wishes.?? Even without hospice,??could [facility]. ? Thank you for consulting the Palliative Care Service.?? Pager: [phone] or via Cortext M-F Daytime Family Line: [phone]? * Talia WING, Erin Andrade: SIGN, PERFORM, VERIFY Event Display: Progress Note Hospital Authored Date: Patient: BRI VELA Age: 78 years Sex: Female : 1945 Associated Diagnoses: None Author: Talia WING, Erin Andrade Findings Problem Related to Alteration in Neurological : Alteration in Neurological Function/new 03/23/2023 22:00 EDT Alteration in Neuro status Related to Seizure Goals & Outcomes, Neurological Lab studies/diagnostic tests within pt specific limits, Pt is safe with transfers & activities, Pt will be discharged without infection, Pt will be hemodynamically stable, Pt will be Neurologically stable, Pt will become pain free with appropriate intervention, Pt will maintain intact skin integrity, Pt will remain free from injury, Pt will resume/maintain ad equate cardiac output, Pt will state importance of adhering to medication regime, Pt/caregiver willreceive psychosocial support as needed, Pt/caregiver will state understanding of rehab plan, Pt/caregiver will state strategies to reduce risk factors, Pt/caregiver will state understanding aspiration precautions, Pt/caregiver will state understanding dietary modifications, Pt/caregiver will state understanding of disease process, Pt/caregiver will state understanding of plan/goals of care, Pt/caregiver will state understanding of the D/C plan, Pt will be free from complications r/t seizure activity, Pt will be seizure controlled, Pt will remain free from injury post seizure activity, Pt willreturn to baseline after post ictal phase, Pt/caregiver will state understanding of home management(Modified) Interventions, Neurological Assess & monitor for seizure activity, Assess for aspiration and status epileptics, Assess seizure Hx, frequency/type/presence of aura, Document length of postictal phase & postictal activity, Document length of seizure and activity during seizure, During seizureactivity maintain pt safety & privacy, Initiate & maintain Seizure Precautions, Minimize seizure triggering stimuli (i.e. light, noise, pain, Monitor for therapeutic levels of anti-seizure meds, Monitor oxygenation/ventilation during seizure activity, Monitor/maintain airway patency, Obtainpost seizure labs as ordered, Post seizure: assess pt for injury/vital signs/neuro's, Provide explanation of disorder, causes & treatment, Teach Pt/caregiver EEG Video protocol, Teach Pt/caregiver how to respond to seizures, Teach Pt/caregiver maintaining daily seizure log, Teach Pt/caregiver medications & schedule, Teach Pt/caregiver s/s of too much medication (Modified) BH Goals/Interventions, Neurological Yes Neurological, Problem Start 03/21/2023 17:00 Reviewed plan with, Neurological Patient Patient Progression, Neurological Plan Initiation . Nursing Data Neurological Data. : Neurological Data. 03/23/2023 22:03 EDT Neurological Symptoms History of seizures Level of Consciousness Full Consciousness Orientated to person, place, time Person, Place, Time Strength LUE 4-Active movement against gravity & some resistance Strength RUE 5-Active movement against gravity & full resistance Tone LUE Normal Tone RUE Normal Tone LLE Normal Tone RLE Normal Sensation LUE Intact Sensation RUE Intact Sensation LLE Intact Sensation RLE Intact Neuro WNL except . 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 Pt LUE 4/5 strength, RUE 5/5 strength, BLE 4/5 strength. Pt on tele box #19 in NSR w/ a bundle branch block and has diminished lung sounds on 5LO2 via NC w/ normal breathing and an occasional nonproductive cough. Desat into 80s but resolve deep brathing exercises, rodri Fraga paged and made aware. Pt is incontinent of urine and bowel in a brief and voiding w/ out issues w/ last BM 03/21 w/ +BSx4 and abd soft and nontender. Pt has some redness to the coccyx but the area is blanchable. Pt denies pain, nausea, or vomiting. All PM and PRN meds administered per order. Ed ucated patient on the plan of care and call haq use, fall risk precaution in place. Call haq within reach. Will continue to monitor as needed. . Discharge Information Pulmonary Rehab Discharge : Pulmonary Rehab Discharge Status 03/21/2023 8:46 EDT CPAP/BiPAP Mask Type Full CPAP/BiPAP Mask Size Small 03/21/2023 4:38 EDT CPAP/BiPAP Mask Type Full CPAP/BiPAP Mask Size Small 03/21/2023 2:01 EDT CPAP/BiPAP Mask Type Full CPAP/BiPAP Mask Size Small Portable XR Chest Views * [facility] , CIS S: TRANSCRIBE Sharon Michel DO: SIGN Latanya Das MD: VERIFY Event Display: Result: Authored Date: [id number] Chest Portable Reason: Shortness of Breath; Clinical Question(s): Pulmonary Edema. COMPARISON: Multiple prior chest imaging studies, most recent CT chest with abdomen/pelvis and chest radiograph 03/21/2023. FINDINGS: LINES AND TUBES: None. LUNGS AND PLEURA: Similar appearance of an ill-defined patchy opacity abutting the right superior mediastinum consistent with a known right upper lobe paramediastinal mass best seen on recent cross-sectional imaging. Mildly coarsened interstitial markings likely representing a combination of chronic lung disease and atelectasis. Underlying mild pulmonary edema, infection, or inflammation is not excluded. A small left pleural effusion and/or atelectasis is not excluded. No pneumothorax. HEART, MEDIASTINUM AND MORRIS: Unchanged. BONES AND SOFT TISSUES: No acute abnormality. IMPRESSION: 1. Mildly coarsened bilateral lung markings which could represent a combination of chronic lung disease, atelectasis, pulmonary edema, infection, and/or inflammation. 2. A small left pleural effusion is not excluded. 3. Similar appearance of ill-defined patchy opacity in the right upper paramediastinal region consistent with known right upper lobe paramediastinal mass. I have personally reviewed the images and I agree with this report. WSN: [id number] Ordering Physician: Sara Rubi Dictated By: Sharon Michel DO Dictated Date/Time: 03/23/23 1:35 pm Reviewed By: Latanya Das MD Signed By: Latanya Das MD Signed Date/Time: 03/23/23 1:40 pm Transcribed By: IVANNA Transcribed Date/Time: 03/23/23 1:28 pm * Lalita CIS S: TRANSCRIBE Gisela Meeks MD: VERIFY Event Display: Result: Authored Date: [id number] Chest Portable performed upright at 2:05 AM Reason: Shortness of Breath; Clinical Question(s): Pneumonia COMPARISON: None. FINDINGS: LINES AND TUBES: None. LUNGS AND PLEURA: Clear lungs. Normal pulmonary vascularity. No pleural effusion. No pneumothorax. HEART, MEDIASTINUM AND MORRIS: Heart is normal in size. Aorta is tortuous and partially calcified. BONES AND SOFT TISSUES: No acute abnormality. IMPRESSION: No acute abnormality. WSN: [id number] Ordering Physician: Richard Valentine Dictated By: Gisela Meeks MD Dictated Date/Time: 03/21/23 5:30 am Reviewed By: Gisela Meeks MD Signed By: Gisela Meeks MD Signed Date/Time: 03/21/23 5:30 am Transcribed By: IVANNA Transcribed Date/Time: 03/21/23 5:[address] Abdomen and Pelvis W contrast IV * [facility] , CIS S: TRANSCRIBE Mane Bateman DO: SIGN Henry Syed MD: VERIFY Event Display: Result: Authored Date: [id number] CT Chest W/ Contrast, CT Abd/Pelvis W/ IV Contrast Only INDICATION: Seizure-like activity. Metastatic lung cancer. TECHNIQUE: Helical CT scan of the chest, abdomen, and pelvis with IV contrast, formatted in 3 planes. 70 cc of Omnipaque 300 was administered intravenously. This study was performed without oral contrast. Weight-based protocol was performed using automatic exposure control. CTDIvol Body: 6.40 mGy, DLP Body: 417 mGy*cm. COMPARISON: Multiple priors most recent 02/14/2023 and 09/07/2022 FINDINGS: [employer] Sales Representative view findings, lines and tubes: None. Trachea and airways: Patent without evidence of tracheal or endobronchial lesion. Lungs and pleura: * Increased right upper lobe paramediastinal mass, 3.2 x 5.1 x 3.6 cm. The mass abuts the segmentaland subsegmental right upper lobe pulmonary arteries as well as the superior vena cava. * Moderate centrilobular emphysema. * No effusion or pneumothorax. Mediastinum and morris: Extensive mediastinal lymphadenopathy. Large maury mass in the mediastinum measuring 3.2 x 3.5 cm. Additional smaller mediastinal lymph nodes are seen measuring up to 1.6 cm. Small type I hiatal hernia. Heart: Heart is normal in size. No pericardial effusion. Moderate coronary artery calcification. Aorta: Severe atherosclerotic vascular calcification but no aneurysm. Pulmonary arteries: Normal caliber. No evidence of pulmonary embolism on this study performed without angiographic technique. Chest wall soft tissues: No acute abnormality. Diaphragm: Intact. Liver: New low-density lesions seen in segment 5 with the more well-defined lesion measuring 2 cm (image 101 series 2 1) Gallbladder: Absent consistent with prior cholecystectomy. Bile ducts: Mild intrahepatic and extrahepatic biliary dilation, likely physiologic given the postcholecystectomy status. Spleen: Normal in size. Pancreas: No suspicious lesion or ductal dilatation. Adrenal glands: Unchanged right adrenal gland nodule. New left adrenal gland nodule measuring 1.7 cm, suspicious for metastatic disease. Kidneys and ureters: No hydronephrosis, stone, or suspicious lesion. Simple appearing renal cysts are noted, requiring no dedicated follow up. Bladder: No wall thickening or surrounding stranding. Reproductive organs: Normal. Stomach, small bowel, and large bowel: No evidence of obstruction or inflammation. Small bowel loops within left inguinal hernia without evidence of strangulation. Sigmoid diverticulosis without evidence of diverticulitis. Appendix: Not seen, but no evidence of acute appendicitis. Peritoneum and retroperitoneum: No ascites or pneumoperitoneum. No omental or mesenteric lesions. Abdominal lymph nodes: Normal. Blood vessels: Severe atherosclerotic vascular calcification. 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 Ectasia of bilateral common iliac arteries. No evidence of venous thrombosis. Abdominal and pelvic wall soft tissues: Small fat-containing umbilical hernia. Right fat-containinginguinal hernia. Left small bowel containing inguinal hernia. Bones: Prior right femur kevin fixation. Moderate degenerative changes in the visualized spine. No acute abnormality. IMPRESSION: Increased right upper lobe lung mass and new liver and left adrenal metastatic lesions. I have personally reviewed the images and I agree with this report. WSN: [id number] Ordering Physician: Richard Valentine Dictated By: Mane Bateman DO Dictated Date/Time: 03/21/23 7:53 am Reviewed By: Henry Syed MD Signed By: Henry Syed MD Signed Date/Time: 03/21/23 7:58 am Transcribed By: IVANNA Transcribed Date/Time: 03/21/23 7:[address] Chest W contrast IV * [facility] , CIS S: TRANSCRIBE Mane Bateman DO: Henry Mendoza MD: VERIFY Event Display: Result: Authored Date: [id number] CT Chest W/ Contrast, CT Abd/Pelvis W/ IV Contrast Only INDICATION: Seizure-like activity. Metastatic lung cancer. TECHNIQUE: Helical CT scan of the chest, abdomen, and pelvis with IV contrast, formatted in 3 planes. 70 cc of Omnipaque 300 was administered intravenously. This study was performed without oral contrast. Weight-based protocol was performed using automatic exposure control. CTDIvol Body: 6.40 mGy, DLP Body: 417 mGy*cm. COMPARISON: Multiple priors most recent 02/14/2023 and 09/07/2022 FINDINGS: [employer] Sales Representative view findings, lines and tubes: None. Trachea and airways: Patent without evidence of tracheal or endobronchial lesion. Lungs and pleura: * Increased right upper lobe paramediastinal mass, 3.2 x 5.1 x 3.6 cm. The mass abuts the segmentaland subsegmental right upper lobe pulmonary arteries as well as the superior vena cava. * Moderate centrilobular emphysema. * No effusion or pneumothorax. Mediastinum and morris: Extensive mediastinal lymphadenopathy. Large maury mass in the mediastinum measuring 3.2 x 3.5 cm. Additional smaller mediastinal lymph nodes are seen measuring up to 1.6 cm. Small type I hiatal hernia. Heart: Heart is normal in size. No pericardial effusion. Moderate coronary artery calcification. Aorta: Severe atherosclerotic vascular calcification but no aneurysm. Pulmonary arteries: Normal caliber. No evidence of pulmonary embolism on this study performed without angiographic technique. Chest wall soft tissues: No acute abnormality. Diaphragm: Intact. Liver: New low-density lesions seen in segment 5 with the more well-defined lesion measuring 2 cm (image 101 series 2 1) Gallbladder: Absent consistent with prior cholecystectomy. Bile ducts: Mild intrahepatic and extrahepatic biliary dilation, likely physiologic given the postcholecystectomy status. Spleen: Normal in size. Pancreas: No suspicious lesion or ductal dilatation. Adrenal glands: Unchanged right adrenal gland nodule. New left adrenal gland nodule measuring 1.7 cm, suspicious for metastatic disease. Kidneys and ureters: No hydronephrosis, stone, or suspicious lesion. Simple appearing renal cysts are noted, requiring no dedicated follow up. Bladder: No wall thickening or surrounding stranding. Reproductive organs: Normal. Stomach, small bowel, and large bowel: No evidence of obstruction or inflammation. Small bowel loops within left inguinal hernia without evidence of strangulation. Sigmoid diverticulosis without evidence of diverticulitis. Appendix: Not seen, but no evidence of acute appendicitis. Peritoneum and retroperitoneum: No ascites or pneumoperitoneum. No omental or mesenteric lesions. Abdominal lymph nodes: Normal. Blood vessels: Severe atherosclerotic vascular calcification. 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 Ectasia of bilateral common iliac arteries. No evidence of venous thrombosis. Abdominal and pelvic wall soft tissues: Small fat-containing umbilical hernia. Right fat-containinginguinal hernia. Left small bowel containing inguinal hernia. Bones: Prior right femur kevin fixation. Moderate degenerative changes in the visualized spine. No acute abnormality. IMPRESSION: Increased right upper lobe lung mass and new liver and left adrenal metastatic lesions. I have personally reviewed the images and I agree with this report. WSN: [id number] Ordering Physician: Richard Valentine Dictated By: Mane Bateman DO Dictated Date/Time: 03/21/23 7:53 am Reviewed By: Henry Syed MD Signed By: Henry Syed MD Signed Date/Time: 03/21/23 7:58 am Transcribed By: IVANNA Transcribed Date/Time: 03/21/23 7:[address] Head WO contrast * [facility] , AURE S: TRANSCJuan Cuenca MD J: VERIFY Mane Bateman DO: SIGN Event Display: Result: Authored Date: [id number] CT Head/Brain W/O Contrast INDICATION: Reason: Headache(s); Clinical Question(s): Hematoma; Taylor met bleed TECHNIQUE: Noncontrast head CT using axial technique and reconstructed in axial and coronal planes.Iterative reconstruction techniques are used to optimize dose and image quality. CTDIvol Head: 47.80 mGy, DLP Head: 773 mGy*cm. COMPARISON: Multiple priors most recently 02/22/2023 FINDINGS: [employer] Sales Representative view findings, lines and tubes: None. BRAIN AND EXTRA-AXIAL SPACES: Redemonstrated heterogeneous mass in the superior frontoparietal junction measuring 2.6 x 3.3 x 2.7cm, increased in size compared to prior when it measured 2 x 2.5 cm. Significant surrounding vasogenic edema. There is mild mass effect on the right lateral ventricle. There is no cisternal effacement. No parenchymal hemorrhage, or midline shift. Colin-white matter differentiation is well preserved.No acute infarct. Mild prominence of the ventricles and sulci consistent with parenchymal volume loss. Moderate low-density white matter changes. No subarachnoid hemorrhage. No subdural or epidural collection. CALVARIUM, SKULL BASE, AND SOFT TISSUES: No fractures or suspicious bony lesions. The paranasal sinuses and mastoid air cells are clear. Visualized orbits and globes are intact. The extracranial soft tissues are unremarkable. IMPRESSION: Redemonstrated mass in the superior frontoparietal junction, increased in size and surrounding vasogenic edema when compared to 02/22/2023 No acute intracranial hemorrhage. Findings communicated to Dr. Richard Valentine at 3:16 AM on 03/21/2023. I have personally reviewed the images and I agree with this report. WSN: [id number] Ordering Physician: Richard Valentine Dictated By: Mane Bateman DO Dictated Date/Time: 03/21/23 7:57 am Reviewed By: Juan Alcala MD Signed By: Juan Alcala MD Signed Date/Time: 03/21/23 8:02 am Transcribed By: IVANNA Transcribed Date/Time: 03/21/23 3:16 am Patient Care team information Care Team Personnel Name: Sharon Chamberlain MD Position: [facility] Outreach Member Role: PCP Address: Address: [address] [place] [address] [address] Sharon Chamberlain MD [place], [place] [address] Name: Erin Melgar RN Position: [facility] RN Member Role: Primary Care Nurse Name: Latanya Kahn RN Position: S RN Member Role: Primary Care Nurse Name: Ervin Concepcion RN Position: S RN Member Role: Primary Care Nurse Name: Yuliet Mckinney RN Position: S RN Member Role: Primary Care Nurse Name: Silvia Calhoun RN Position: S RN Member Role: Primary Care Nurse Name: Johana Chacon RN Position: S RN Member Role: Primary Care Nurse Name: Michael Lomeli RN Position: [facility] RN Member Role: Primary Care Nurse Name: Lesley Santana RN Position: [facility] RN Member Role: Primary Care Nurse Name: Alfredito Mosqueda RN Position: [facility] RN Member Role: Primary Care Nurse Name: Magda Rand Position: [facility] RN Member Role: Primary Care Nurse Name: Amena Ta RN Position: [facility] RN Member Role: Primary Care Nurse Name: Dewayne Wahl III, RN Position: [facility] RN Member Role: Primary Care Nurse Name: Nirmala Oconnor RN Position: [facility] RN Member Role: Primary Care Nurse Name: Marlin Pearce RN Position: [facility] RN Member Role: Primary Care Nurse Name: Eugenia Batista RN Position: [facility] RN Member Role: Primary Care Nurse Name: Agapito Montanez RN Position: [facility] RN Member Role: Primary Care Nurse Name: Danyelle Dos Santos RN Position: [facility] RN Member Role: Primary Care Nurse Name: Lo Rodriguez RN Position: [facility] RN Member Role: Primary Care Nurse Name: Rosa Maria Artis RN Position: [facility] Onco RN Member Role: Primary Care Nurse Name: Vanesa Lim RN Position: [facility] RN Member Role: Primary Care Nurse Name: Brittney Vallejo RN Position: [facility] RN Member Role: Primary Care Nurse Name: Kat Donovan RN Position: [facility] RN Member Role: Primary Care Nurse Name: Terrell CORONADO Attending Position: [facility] ED Medicine MD Name: Meme HEATON, Richard Position: [facility] Resident Member Role: ED Resident Address: Address: [address] [place] [address] [place] [address]- Name: Cassie Gauthier Position: [facility] ED TA [facility] Member Role: Molding Supervisor Name: Marlin Quintero Position: [facility] ED RN W/OE and Tasks Member Role: Patient Care Provider Care Team Related Persons Name: CALEB VELA Address: [address] [place] [address]
--- OUTSIDE RECORDS SUMMARY | 2023-05-17 08:53 | XMS_ITS | Continuity of Care Document ---
Author Name Unknown Organization [facility] Address [address] [address]- Care Team Providers Care Leather Seasoner Name Role Phone Bulmaro DEVLIN, Sharon Langley Primary Care Physician Encounter [facility] Date(s): 11/01/20 - 12/01/20 [facility] [address] [address]- Attending Physician: Caden Lynch Admitting Physician: AdmCaden yepez Referring Physician: Admtr, Ar8 Allergies, Adverse Reactions, Alerts Substance Reaction Severity Status codeine Passed out Active Immunizations Given and Recorded Vaccine Date Status Refusal Reason influenza virus vaccine, inactivated 08/23/20 Give n pneumococcal 13-valent vaccine 1 08/22/20 Given 1Result Comment: Manufactured by [employer] Medications albuterol 0.083% inhalation solution 3 mL [...]
--- OUTSIDE RECORDS SUMMARY | 2023-05-17 08:53 | XMS_ITS | Continuity of Care Document ---
Author Name Unknown Organization [facility] Address [address] [place] [id number]- Care Team Providers Care Shank Cutter Name Role Phone Sharon Chamberlain MD Primary Care Physician [phone] [facility] [place] 02/14/23 - 02/15/[address] [address]- Encounter Diagnosis Shortness of breath(Final) - 02/14/23 Discharge Disposition: A-D/C Home Attending Physician: Miles Paez MD Admitting Physician: Miles Paez MD Referring Physician: Not on Staff, Referring [...] 1 08/22/20 Given 1Result Comment: Manufactured by [employer]. [employer] Medications albuterol 0.083% inhalation solution 3 mL [...] 05/26/22 14:42:00 EDT, Route to Pharmacy Electronically, [facility], Partial fill upon patient [...] opioid drug. Start Date: 05/23/22 Status: Ordered Keppra 500 mg oral tablet 2 tablet = 1,000 mg, By Mouth, 2 times a day, # 120 tablet, 0 Refills, Maintenance, 01/14/23 14:23:00 EST, Tablet, [facility], Partial fill upon patient request if the prescription is for a schedule II opioid drug., 162, cm, 01/14/23 1:3... Start Date: 01/14/23 Status: Ordered Lasix 40 mg oral tablet 40 mg, 1, tablet, By Mouth, Daily, # 30 tablet, Refills 0, Tot. Refills 0, Maintenance, 05/26/22 14:43:00 EDT, Route to Pharmacy Electronically, [facility], Partial fill upon patient [...] 0 Refills, Maintenance, 05/26/22 14:43:00 EDT, Tablet, [facility], Partial fill upon patient request if theprescription is for a schedule II opioid drug., 163... Start Date: 05/26/22 Status: Ordered oxymetazoline 0.05% nasal spray 2 sprays, Nares, Both, 2 times a day, PRN as needed for nasal congestion, Maintenance, 02/15/23 7:33:00 EDT, [place], Partial fill upon patient request if the prescription is for a schedule II opioid drug. 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 Images are formatted in multiple planes using 2-D multiplanar and 3-D maximum intensity projection. 60 cc of Omnipaque 300 was administered intravenously. Weight-based protocol using automatic tube modulation was used to optimize exposure parameters. CTDIvol Body: 8.78 mGy, DLP Body: 415 mGy*cm. COMPARISONS: 2023 and 12/17/2022. ANGIOGRAPHIC FINDINGS: Evaluation is mildly limited by motion artifact. No pulmonary embolism to the subsegmental level. Normal caliber pulmonary arteries. No acute aortic abnormality seen on this study performed without cardiac gating. Severe atherosclerotic calcifications. NON-ANGIOGRAPHIC FINDINGS: Header Dock View Findings, Lines and Tubes: None. Trachea and Airways: Patent without evidence of tracheal or endobronchial lesion. 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 Mass abuts segmental and subsegmental right upper lobe pulmonary arteries as well as the superior vena cava. * Moderate centrilobular emphysema. * Moderate left base atelectasis. * No pleural effusion or pneumothorax. Mediastinum and morris: No mass or hematoma. Extensive mediastinal and right hilar adenopathy including a 3.4 cm right paratracheal lymph node and 2.2 cm subcarinal lymph node. Type 3 paraesophageal hernia. Unchanged small bilateral thyroid nodules. Heart: Mild cardiomegaly. No pericardial effusion. Moderate coronary artery calcification. Chest Wall Soft Tissues: Normal. Diaphragm and upper abdomen: No significant abnormality. Bones: No acute abnormality. Moderate thoracic dextroscoliosis. Unchanged right T7 bone island. IMPRESSION: No evidence of pulmonary embolism. Unchanged 3.4 cm right upper paramediastinal mass and extensive mediastinal and right hilar adenopathy. I have personally reviewed the images and I agree with this report. WSN: [id number] Ordering Physician: Tia Seaman Dictated By: Enrike Toledo DO Dictated Date/Time: 02/14/23 11:07 p Reviewed By: Tyler Morris MD Signed By: Tyler Morris MD Signed Date/Time: 02/14/23 11:12 pm Transcribed By: IVANNA Transcribed Date/Time: 02/14/23 10:39 pm * Exam Date Time Procedure Performing Provider Status 02/14/23 8:29 PM Chest Portable Cal Thacker; Auth (Ve rified) Notes: (Chest Portable) Reason For Exam: Shortness of Breath RESULT: Chest Portable Chest Portable Reason: Shortness of Breath; Clinical Question(s): CHF COMPARISON: X-ray 2023 CT 2023. FINDINGS: LINES AND TUBES: None. LUNGS AND PLEURA: Right juxta hilar mass approximately 3 cm unchanged. No pneumonia . There is a new small left effusion with adjacent atelectasis. No pneumothorax. HEART, MEDIASTINUM AND MORRIS: Mild prominence of the cardiac silhouette. 3 cm right superior juxta hilar nodule corresponding to spiculated lesion seen on CT. BONES AND SOFT TISSUES: No acute abnormality. IMPRESSION: New small left effusion with some atelectasis at the left lung base. Right juxta hilar mass unchanged from previous exams. COPD. WSN: [id number] Ordering Physician: Dee Dee Neri Dictated By: Tyler Morris MD Dictated Date/Time: 02/14/23 8:40 pm Reviewed By: Tyler Morris MD Signed By: Tyler Morris MD Signed Date/Time: 02/14/23 8:40 pm Transcribed By: IVANNA Transcribed Date/Time: 02/14/23 8:37 pm Vital Signs Most recent to oldest [Reference Range]: 1 2 3 Oxygen Saturation [94-100 %] 96 % (02/15/23 7:39 AM) 96 % (02/15/23 6:00 AM) 93 % *L* (02/15/23 4:00 AM) Pulse Rate [55-90 bpm] 83 bpm (02/15/23 7:39 AM) 84 bpm (02/15/23 6:00 AM) 85 bpm (02/15/23 4:00 AM) Blood Pressure [90-138/55-84 mm Hg] 138/97mm Hg (02/15/23 7:39 AM) 126/74mm Hg (02/15/23 6:00 AM) 115/82mm Hg (02/15/23 4:00 AM) Respiratory Rate [16-30 br/min] 20 br/min (02/15/23 7:39 AM) 20 br/min (02/15/23 6:00 AM) 22 br/min (02/15/23 4:00 AM) Temperature [96.8-100.4 DegF] 97.6 DegF (02/15/23 6:00 AM) 97.7 DegF (02/15/23 3:17 AM) 97.7 DegF (02/14/23 11:08 PM) Liters per Minute 1 L/min (02/15/23 7:39 AM) 2 L/min (02/15/23 6:00 AM) 2 L/min (02/15/23 4:00 AM) Mode of Delivery (Oxygen) Nasal cannula (02/15/23 7:39 AM) Nasal cannula (02/15/23 6:00 AM) Nasal cannula (02/15/23 4:00 AM) Blood pressure sites Arm, right (02/15/23 7:39 AM) Arm, right (02/15/23 6:00 AM) Arm, right (02/15/23 4:00 AM) Temperature Route Oral (02/15/23 6:00 AM) Oral (02/15/23 3:17 AM) Oral (02/14/23 11:08 PM) Social History Social History Type Response Tobacco Other: quit smoking in 2018, started smoking age 11, 2 or 3 packs per day. Sex EKG study * Event Display: ECG 12-Lead Authored Date: Please click on pdf link to open report * Event Display: ECG 12-Lead Authored Date: Ventricular Rate: 87 BPM Atrial Rate: 87 BPM P-R Interval: 164 ms QRS Duration: 76 ms Q-T Interval: 390 ms QTC Calculation(Bazett): 469 ms P [place]: 51 degrees R [place]: -61 degrees T [place]: 15 degrees Normal sinus rhythm Possible Left atrial enlargement Left axis deviation Inferior infarct , age undetermined Anterior infarct (cited on or before 26-NOV-2021) Abnormal ECG When compared with ECG of 01-FEB-2023 10:15, Inferior infarct is now Present Questionable change in initial forces of Lateral leads Nonspecific T wave abnormality has replaced inverted T waves in Lateral leads Confirmed by MICHELLE DANIEL MD ([id number]) on 02/15/2023 9:06:56 AM [place]: MICHELLE DANIEL MD Portable XR Chest Views * [facility] , CIS S: TRANSCRIBE Arturo DEVLIN, Tyler J: VERIFY Event Display: Result: Authored Date: Chest Portable Reason: Shortness of Breath; Clinical Question(s): CHF COMPARISON: X-ray 2023 CT 2023. FINDINGS: LINES AND TUBES: None. LUNGS AND PLEURA: Right juxta hilar mass approximately 3 cm unchanged. No pneumonia . There is a new small left effusion with adjacent atelectasis. No pneumothorax. HEART, MEDIASTINUM AND MORRIS: Mild prominence of the cardiac silhouette. 3 cm right superior juxta hilar nodule corresponding to spiculated lesion seen on CT. BONES AND SOFT TISSUES: No acute abnormality. IMPRESSION: New small left effusion with some atelectasis at the left lung base. Right juxta hilar mass unchanged from previous exams. COPD. 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 Images are formatted in multiple planes using 2-D multiplanar and 3-D maximum intensity projection. 60 cc of Omnipaque 300 was administered intravenously. Weight-based protocol using automatic tube modulation was used to optimize exposure parameters. CTDIvol Body: 8.78 mGy, DLP Body: 415 mGy*cm. COMPARISONS: 2023 and 12/17/2022. ANGIOGRAPHIC FINDINGS: Evaluation is mildly limited by motion artifact. No pulmonary embolism to the subsegmental level. Normal caliber pulmonary arteries. No acute aortic abnormality seen on this study performed without cardiac gating. Severe atherosclerotic calcifications. NON-ANGIOGRAPHIC FINDINGS: Header Dock View Findings, Lines and Tubes: None. Trachea and Airways: Patent without evidence of tracheal or endobronchial lesion. 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 Mass abuts segmental and subsegmental right upper lobe pulmonary arteries as well as the superior vena cava. * Moderate centrilobular emphysema. * Moderate left base atelectasis. * No pleural effusion or pneumothorax. Mediastinum and morris: No mass or hematoma. Extensive mediastinal and right hilar adenopathy including a 3.4 cm right paratracheal lymph node and 2.2 cm subcarinal lymph node. Type 3 paraesophageal hernia. Unchanged small bilateral thyroid nodules. Heart: Mild cardiomegaly. No pericardial effusion. Moderate coronary artery calcification. Chest Wall Soft Tissues: Normal. Diaphragm and upper abdomen: No significant abnormality. Bones: No acute abnormality. Moderate thoracic dextroscoliosis. Unchanged right T7 bone island. IMPRESSION: No evidence of pulmonary embolism. Unchanged 3.4 cm right upper paramediastinal mass and extensive mediastinal and right hilar adenopathy. I have personally reviewed the images and I agree with this report. WSN: [id number] Ordering Physician: Tia Seaman Dictated By: Enrike Toledo DO Dictated Date/Time: 02/14/23 11:07 p Reviewed By: Tyler Morris MD Signed By: Tyler Morris MD Signed Date/Time: 02/14/23 11:12 pm Transcribed By: IVANNA Transcribed Date/Time: 02/14/23 10:39 pm Patient Care team information Care Team Personnel Name: Sharon Chamberlain MD Position: [facility] Outreach Member Role: PCP Address: Address: [address] Sharon Chamber[place], [place] [address] Name: Latanya Kahn RN Position: S RN Member Role: Primary Care Nurse Name: Ervin Concepcion RN Position: S RN Member Role: Primary Care Nurse Name: Yuliet Mckinney RN Position: S RN Member Role: Primary Care Nurse Name: Silvia Calhoun RN Position: [facility] RN Member Role: Primary Care Nurse Name: Johana Chacon RN Position: [facility] RN Member Role: Primary Care Nurse Name: Lesley Santana RN Position: [facility] RN Member Role: Primary Care Nurse Name: Alfredito Mosqueda RN Position: [facility] RN Member Role: Primary Care Nurse Name: Magda Rand Position: [facility] RN Member Role: Primary Care Nurse Name: Amena Ta RN Position: [facility] RN Member Role: Primary Care Nurse Name: Michael Landa RN Position: [facility] RN Member Role: Primary Care Nurse Name: Dewayne Wahl III, RN Position: [facility] RN Member Role: Primary Care Nurse Name: Nirmaal Oconnor RN Position: [facility] RN Member Role: Primary Care Nurse Name: Marlin Pearce RN Position: [facility] RN Member Role: Primary Care Nurse Name: Agapito Montanez RN Position: [facility] RN Member Role: Primary Care Nurse Name: Danyelle Dos Santos RN Position: [facility] RN Member Role: Primary Care Nurse Name: Lo Rodriguez RN Position: [facility] RN Member Role: Primary Care Nurse Name: Rosa Maria Artis RN Position: [facility] Onco RN Member Role: Primary Care Nurse Name: Vanesa Lim RN Position: [facility] RN Member Role: Primary Care Nurse Name: Brittney Vallejo RN Position: [facility] RN Member Role: Primary Care Nurse Name: Kat Donovan RN Position: [facility] RN Member Role: Primary Care Nurse Name: Mya Middleton RN Position: [facility] RN Member Role: Primary Care Nurse Name: Greer Cox DO Position: [facility] Resident Member Role: ED Resident Address: Address: [address] [place] [id number] [place] Name: Esperanza Camp Position: [facility] ED TA [facility] Name: India Young RN Position: [facility] ED RN W/OE and Tasks Member Role: Patient Care Provider Name: Miles Paez MD Position: [facility] ED Medicine MD Member Role: Admitting Physician Address: Address: [address] [place] [id number]- Care Team Related Persons Name: CALEB VELA Address: home [address] [place] [id number]
--- OUTSIDE RECORDS SUMMARY | 2023-05-17 08:53 | XMS_ITS | Continuity of Care Document ---
Author Name Unknown Organization [facility] Address [address] [place] [id number]- Care Team Providers Care R[employer]her [employer] Name Role Phone Bulmaro DEVLIN, Sharon Langley Primary Care Physician [phone] Encounter [facility] [place](s): 11/16/21 - 11/29/[address] [address]- Encounter Diagnosis Hip fracture, right(Final) - 11/16/21 Discharge Disposition: A-Transfer SNF Attending Physician: Monie Maya MD Admitting Physician: Audi Patterson MD Referring Physician: Not on Staff, Referring MD Allergies, Adverse Reactions, Alerts Substance Reaction Severity Status codeine Passed out Active Immunizations Given and Recorded Vaccine Date Status Refusal Reason SARS-CoV-2 (COVID-19) mRNA-1273 vaccine 06/25/21 R ecorded SARS-CoV-2 (COVID-19) mRNA-1273 vaccine 04/24/21 R ecorded SARS-CoV-2 (COVID-19) mRNA-1273 vaccine 03/26/21 R ecorded influenza virus vaccine, inactivated 08/23/20 Give n pneumococcal 13-valent vaccine 1 08/22/20 Given 1Result Comment: Manufactured by [employer] Medications Afrin 0.05% spray 2 sprays, Nares, Both, 2 times a day, # 15 mL, 0 Refills, Maintenance, 11/22/21 11:51:00 EST, [place], Partial fill upon patient request if the prescription is for a schedule II opioid drug. Start Date: 11/22/21 Status: Ordered albuterol 0.083% inhalation solution 3 mL = [...] a day Start Date: 08/16/20 Status: Ordered docusate sodium 150 mg/15 ml oral liquid 10 mL = 100 mg, By Mouth, 2 times a day, PRN Constipation, 0 Refills, Maintenance, 11/29/21 13:16:00 EST, Liquid, Partial fill upon patient request if the prescription is for a schedule II opioid drug. Start Date: 11/29/21 Status: Ordered Enoxaparin 0.4 mL = 40 mg, Subcutaneous Injection, Daily, 0 Refills, Maintenance, 11/29/21 13:16:00 EST, Injection, Partial fill upon patient request if the prescription is for a schedule II opioid drug. Start Date: 11/29/21 Stop Date: 12/13/21 Status: Ordered gabapentin 300 mg oral capsule 300 mg, Capsule, By Mouth, 11/29/21 15:00:00 EST Start Date: 11/29/21 Stop Date: 11/29/21 Status: Completed Lasix 20 mg oral tablet 20 mg, 1, tablet, By Mouth, Daily, Refills 0, Maintenance, 11/29/21 13:16:00 EST, Partial fill uponpatient request if the prescription is for a schedule II opioid drug. Start Date: 11/29/21 Status: Ordered lisinopril 20 mg oral tablet 20 mg, Tablet, By Mouth, 11/29/21 9:00:00 EST Start Date: 11/29/21 Stop Date: 11/29/21 Status: Completed losartan 50 mg oral tablet 1 tablet = 50 mg, By Mouth, Daily Start Date: 08/16/20 Status: Ordered meclizine 25 mg oral tablet, chewable 1 tablet = 25 mg, Chew, 3 times a day, PRN for dizziness, # 30 tablet, 0 Refills, Maintenance, 11/22/21 11:50:00 EST, Chew Tablet, Partial fill upon patient request if the prescription is for a schedule II opioid drug. Start Date: 11/22/21 Status: Ordered metoprolol 25 mg oral tablet 12.5 mg, Tablet, By Mouth, 11/29/21 9:00:00 EST Start Date: 11/29/21 Stop Date: 11/29/21 Status: Completed metoprolol 25 mg oral tablet, extended release 25 mg, 1, tablet, By Mouth, Daily, Refills 0, Maintenance, 09/02/20 13:29:00 EDT Start Date: 09/02/20 Status: Ordered omeprazole 20 mg oral enteric coated capsule 1 capsule = 20 mg, By Mouth, Daily Start Date: 08/16/20 Status: Ordered oxyCODONE 5 mg oral tablet 2.5 mg, 0.5, tablet, By Mouth, Every 6 hours, PRN, for 2 days, # 7 tablet, Refills 0, Tot. Refills 0, Acute 12/01/21 14:51:00 EST, Pain , Moderate, 11/29/21 14:51:00 EST, Print Requisition, Partial fill upon patient request if the prescription is for... Start Date: 11/29/21 Stop Date: 12/01/21 Status: Ordered pramipexole 1 mg oral tablet 1 tablet = 1 mg, By Mouth, Daily at bedtime Start Date: 08/16/20 Status: Ordered Tylenol 325 mg oral tablet 975 mg, 3, tablet, By Mouth, Every 6 hours, Refills 0, Maintenance, 11/29/21 13:14:00 EST, Partial fill upon patient [...] low back pain(Confirmed) Active Buerger disease(Confirmed) Active Results Orders for Microbiology Reports Name Date Sputum Culture (CF Pts) w/Gram Smear Blood Culture 11/19/21 Blood Culture #2 11/19/21 Microbiology Reports TEST:Sputum Culture w/Gram Smear STATUS:Auth (Verified) BODY SITE: SOURCE:ENDOTR COLLECTED DATE/TIME:11/20/21 5:20 AM Sputum Culture w/Gram Smear SPECIMEN DESCRIPTION : ENDOTRACHEAL ASPIRATE SPECIAL REQUESTS : NONE GRAM STAIN : 2+ POLYMORPHONUCLEAR LEUKOCYTES 3+ TISSUE CELLS 3+ GRAM POSITIVE COCCI 2+ GRAM POSITIVE RODS CULTURE : 3+ NORMAL ISATU REPORT STATUS : FINAL 11/23/2021 TEST:Blood Culture STATUS:Auth (Verified) BODY SITE: SOURCE:Blood COLLECTED DATE/TIME:11/19/21 6:35 PM Blood Culture SPECIMEN DESCRIPTION : BLOOD R SPECIAL REQUESTS : NONE CULTURE : NO GROWTH 5 DAYS. REPORT STATUS : FINAL 11/24/2021 TEST:Blood Culture, Second Order STATUS:Auth (Verified) BODY SITE: SOURCE:Blood COLLECTED DATE/TIME:11/19/21 6:35 PM Blood Culture, Second Order SPECIMEN DESCRIPTION : BLOOD NOSITE SPECIAL REQUESTS : NONE CULTURE : NO GROWTH 5 DAYS. REPORT STATUS : FINAL 11/24/2021 Radiology Reports (Most Recent Ten) * Exam Date Time Procedure Performing Provider Status 11/27/21 8:25 AM Esophagus Barium Swallow Breanna Mcgraw er; Auth (Verified) Notes: (Esophagus Barium Swallow) Reason For Exam: Dysphagia;Dysphagia RESULT: Esophagus Barium Swallow PROCEDURE: Esophagus Barium Swallow CLINICAL INDICATION: Dysphagia COMPARISONS: None FLUOROSCOPY TIME: 1.6 Min Dose Area Product (DAP): 1258.0 uGy*m2 TECHNIQUE: Barium contrast esophagram was performed by Cole Evans PA-C. FINDINGS: Swallow: Normal oral and pharyngeal phases with no laryngeal penetration or subglottic aspiration. Esophagus: Normal in contour and mucosal appearance. Tertiary contractions are noted along the distal half of the esophagus with proximal escape of the barium bolus seen. A nonreducible hiatal herniawith minor paraesophageal component is seen measuring up to 8 cm in transverse dimension and composed of approximately one quarter of the stomach. Spontaneous paraesophageal reflux was appreciated during the study. A 13 mm barium tablet passed unimpeded into the stomach. No evidence of esophageal web, narrowing or outpouching. No esophageal obstruction. The stomach and proximal duodenum are grossly normal. Contrast promptly empties from the stomach into a nondilated duodenum. No gastric outlet obstruction. IMPRESSION: Type III hiatal hernia with associated spontaneous gastroesophageal reflux. Moderate esophageal dysmotility By undersigning and finalizing the report, the attending radiologist confirms he/she has personallyreviewed and interpreted the images and agrees with the description of the findings. I have personally reviewed the images and I agree with this report. WSN: [id number] Ordering Physician: Hung Smart Dictated By: Kiko Mars Dictated Date/Time: 11/27/21 1:00 pm Reviewed By: Abdiaziz Farias MD Signed By: Abdiaziz Farias MD Signed Date/Time: 11/27/21 1:05 pm Transcribed By: IVANNA Transcribed Date/Time: 11/27/21 8:25 am * Exam Date Time Procedure Performing Provider Status 11/26/21 12:05 PM Chest Portable Greer Riley; Auth (V erified) Notes: (Chest Portable) Reason For Exam: CHF RESULT: Chest Portable Chest Portable CLINICAL INDICATION: Reason: CHF; Clinical Question(s): Pulmonary Edema COMPARISON: Prior radiographs, most recently 11/24/2021. Chest CT, 11/16/2021. FINDINGS: The cardiac silhouette is within normal limits. There is calcification of the aortic arch. Hilar contours are normal. There are low lung volumes with thick linear band at the right lung base, likely atelectasis. Minimal left basilar atelectasis is also seen. Underlying emphysematous changes are noted. Spiculated density in the right upper lobe corresponds to the nodule seen on CT. No acute osseous abnormality is noted. IMPRESSION: Low lung volumes. Thick linear band at the right lung base likely represents atelectasis. There is also mild left basilar atelectasis. Spiculated right upper lobe nodule better seen on CT. WSN: [id number] Ordering Physician: Hung Smart Dictated By: Bere Delarosa MD Dictated Date/Time: 11/26/21 12:26 p Reviewed By: Bere Delarosa MD Signed By: Bere Delarosa MD Signed Date/Time: 11/26/21 12:26 pm Transcribed By: IVANNA Transcribed Date/Time: 11/26/21 12:24 pm * Exam Date Time Procedure Performing Provider Status 11/24/21 9:38 AM Chest Portable Marfabiano Abdiaziz; Tay (Verified) Notes: (Chest Portable) Reason For Exam: Asthma RESULT: Chest Portable Examination: Portable chest performed on 11/24/2021. History: Asthma. Findings: A frontal view of the chest is compared to a prior study dated 11/21/2021. The cardiac silhouette is within normal limits for size. Calcification and ectasia of the thoracic aorta is seen. There are patchy bilateral lower lobe opacities. The osseous structures are intact. IMPRESSION: Patchy bilateral lower lobe opacities which may represent atelectasis or developing infiltrates. Clinical correlation is suggested. WSN: [id number] Ordering Physician: Hung Smart Dictated By: Thelma Greenfield MD Dictated Date/Time: 11/24/21 12:24 p Reviewed By: Thelma Greenfield MD Signed By: Thelma Greenfield MD Signed Date/Time: 11/24/21 12:24 pm Transcribed By: IVANNA Transcribed Date/Time: 11/24/21 12:22 pm * Exam Date Time Procedure Performing Provider Status 11/21/21 10:22 AM Chest Portable Argelia Garcia; Lorraine th (Verified) Notes: (Chest Portable) Reason For Exam: Shortness of Breath RESULT: Chest Portable Chest Portable Reason: Shortness of Breath. COMPARISON: Chest radiograph 11/20/2021. FINDINGS: Patient is slightly rotated rightward. LINES AND TUBES: Interval removal of ET and enteric tubes. Left IJ central venous catheter terminates at the level of the brachiocephalic/SVC confluence. LUNGS AND PLEURA: Low lung volumes with unchanged patchy bilateral interstitial opacities. Lungs are otherwise clear with no consolidation. No pleural effusion. No pneumothorax. HEART, MEDIASTINUM AND HUA: Heart is normal in size. Aorta is calcified. BONES AND SOFT TISSUES: No acute abnormality. IMPRESSION: Interval removal of enteric and ET tubes. Unchanged bilateral groundglass opacities more prominent at the bases. I have personally reviewed the images and I agree with this report. WSN: [id number] Ordering Physician: Andrew Potter Dictated By: Nadya Coleman MD Dictated Date/Time: 11/21/21 10:52 a Reviewed By: Tito Hilliard MD, V Signed By: Tito Hilliard MD, V Signed Date/Time: 11/21/21 10:57 am Transcribed By: IVANNA Transcribed Date/Time: 11/21/21 10:50 am * Exam Date Time Procedure Performing Provider Status 11/20/21 3:55 AM Chest Portable Henny Calderon (Verified) Notes: (Chest Portable) Reason For Exam: Line Placement RESULT: Chest Portable Chest Portable Reason: Line Placement; Clinical Question(s): Line Placement; Special Instructions: L TLC already placed needs confirmation COMPARISON: X-ray from 11/19/2021 at 9:21 PM FINDINGS: LINES AND TUBES: ETT 1.7 cm above the verónica. Enterogastric tube tip extends below the left diaphragm off the [id number] unchanged. Left IJ CVL with distal tip projecting at the confluence of the left brachiocephalic vein and SVC. LUNGS AND PLEURA: Patchy bibasilar opacity and slight volume loss not significantly changed. Central vascular markings are prominent. No pleural effusion. No pneumothorax. HEART, MEDIASTINUM AND HUA: Heart size is exaggerated by AP technique and low lung volumes, unchanged. Normal upper mediastinal and hilar contour. BONES AND SOFT TISSUES: No acute abnormality. IMPRESSION: Lines and tubes are adequately positioned as above. No change in bibasilar opacities and central vascular congestion. WSN: [id number] Ordering Physician: Gonzalo Dueñas Dictated By: Tyler Morris MD Dictated Date/Time: 11/20/21 8:05 am Reviewed By: Tyler Morris MD Signed By: Tyler Morris MD Signed Date/Time: 11/20/21 8:05 am Transcribed By: IVANNA Transcribed Date/Time: 11/20/21 8:03 am * Exam Date Time Procedure Performing Provider Status 11/19/21 9:30 PM Chest Portable Sandip Calderon; Aut h (Verified) Notes: (Chest Portable) Reason For Exam: Tube Placement RESULT: Chest Portable Chest Portable Reason: Tube Placement; Clinical Question(s): Tube Placement COMPARISON: None. FINDINGS: LINES AND TUBES: Endotracheal tube tip appears to have slightly pulled back now 1 cm above the verónica. Enteric tube in good position. LUNGS AND PLEURA: Patchy density in the right lung unchanged from previous examination. No pleural effusion. No pneumothorax. HEART, MEDIASTINUM AND HUA: Heart is normal in size. Normal upper mediastinal and hilar contour. BONES AND SOFT TISSUES: No acute abnormality. IMPRESSION: Endotracheal tube tip now 1 cm above the verónica. Enteric tube in good position. WSN: [id number] Ordering Physician: Santo Sullivan Dictated By: Daquan Mcneill MD Dictated Date/Time: 11/19/21 9:36 pm Reviewed By: Daquan Mcneill MD Signed By: Daquan Mcneill MD Signed Date/Time: 11/19/21 9:36 pm Transcribed By: IVANNA Transcribed Date/Time: 11/19/21 9:35 pm * Exam Date Time Procedure Performing Provider Status 11/19/21 9:04 PM Chest Portable Sandip Calderon; Mod ified Notes: (Chest Portable) Reason For Exam: Tube Placement RESULT: Chest Portable Chest Portable Reason: Shortness of Breath; Worsening SOB with increase O2 requirements; Clinical Question(s): Pneumonia COMPARISON: 11/18/2021 FINDINGS: LINES AND TUBES: ET tube at the verónica. Enteric tube terminates at the distal esophagus. Removal of previous left IJapproach central venous catheter. LUNGS AND PLEURA: Bilateral patchy airspace opacities slightly worsened on the right. No pneumothorax. HEART, MEDIASTINUM AND HUA: Heart is normal in size. Normal upper mediastinal and hilar contour. BONES AND SOFT TISSUES: No acute abnormality. IMPRESSION: ET tube at the level of the verónica. Suggest retraction. Enteric tube terminates in the distal esophagus. Suggest advancement. WSN: [id number] Ordering Physician: Harpal Pablo Dictated By: Abdiaziz Galo MD Dictated Date/Time: 11/19/21 7:59 pm Reviewed By: Abdiaziz Galo MD Signed By: Abdiaziz Galo MD Signed Date/Time: 11/19/21 7:59 pm Transcribed By: IVANNA Transcribed Date/Time: 11/19/21 7:56 pm * Exam Date Time Procedure Performing Provider Status 11/18/21 6:50 AM Chest Portable Giraldo Verónica; Au th (Verified) Notes: (Chest Portable) Reason For Exam: Follow-Up Pleural Effusion RESULT: Chest Portable Chest Portable Reason: Follow-Up Pleural Effusion COMPARISON: 11/16/2021 FINDINGS: LINES AND TUBES: None. LUNGS AND PLEURA: Low lung volumes with mild basilar atelectasis. Chronic elevation of right hemidiaphragm. Previously seen nodular opacity overlying the right upperlobe slightly less apparent due to atelectasis but otherwise still present. Central vascular markings are mildly prominent. No pleural effusion. No pneumothorax. HEART, MEDIASTINUM AND HUA: Heart is at the upper limits of normal for size. Aorta is calcified. BONES AND SOFT TISSUES: No acute abnormality. IMPRESSION: Borderline cardiac enlargement and mild vascular congestion without overt CHF. No pleural effusionsare seen. WSN: [id number] Ordering Physician: Nita Chong Dictated By: Tyler Morris MD Dictated Date/Time: 11/18/21 7:45 am Reviewed By: Tyler Morris MD Signed By: Tyler Morris MD Signed Date/Time: 11/18/21 7:45 am Transcribed By: IVANNA Transcribed Date/Time: 11/18/21 7:44 am * Exam Date Time Procedure Performing Provider Status 11/16/21 4:26 PM C-Arm < 1 Hour Jolynn Mojica; Auth ( Verified) Notes: (C-Arm < 1 Hour) Reason For Exam: right femur rodding RESULT: C-Arm < 1 Hour Femur 2 Views Right, C-Arm < 1 Hour INDICATION: right femur rodding; Special Instructions: TT 55 min, FT 74 sec, DAP 21.64 mGy COMPARISONS: 11/16/2021 TECHNIQUE: Fluoroscopy support was provided. There was no radiologist in attendance. Fluoroscopy time: 73.7 seconds Technologist time: 55 minutes Exposure: 21.6 mGy FINDINGS: 5 images were submitted showing ORIF of the right proximal femur fracture. Please refer to operative note for full details. IMPRESSION: See above. WSN: [id number] Ordering Physician: Audi Patterson Dictated By: Tyler Doss MD Dictated Date/Time: 11/16/21 5:25 pm Reviewed By: Tyler Doss MD Signed By: Tyler Doss MD Signed Date/Time: 11/16/21 5:25 pm Transcribed By: IVANNA Transcribed Date/Time: 11/16/21 5:24 pm * Exam Date Time Procedure Performing Provider Status 11/16/21 4:26 PM XR Femur 2 Views Right Jolynn Mojica ; Auth (Verified) Notes: (XR Femur 2 Views Right) Reason For Exam: right femur rodding RESULT: Femur 2 Views Right Femur 2 Views Right, C-Arm < 1 Hour INDICATION: right femur rodding; Special Instructions: TT 55 min, FT 74 sec, DAP 21.64 mGy COMPARISONS: 11/16/2021 TECHNIQUE: Fluoroscopy support was provided. There was no radiologist in attendance. Fluoroscopy time: 73.7 seconds Technologist time: 55 minutes Exposure: 21.6 mGy FINDINGS: 5 images were submitted showing ORIF of the right proximal femur fracture. Please refer to operative note for full details. IMPRESSION: See above. WSN: [id number] Ordering Physician: Audi Patterson Dictated By: Tyler Doss MD Dictated Date/Time: 11/16/21 5:25 pm Reviewed By: Tyler Doss MD Signed By: Tyler Doss MD Signed Date/Time: 11/16/21 5:25 pm Transcribed By: IVANNA Transcribed Date/Time: 11/16/21 5:24 pm Vital Signs Most recent to oldest [Reference Range]: 1 2 3 Height 147 cm (11/29/21 2:45 PM) 147 cm (11/29/21 7:14 AM) 147 cm (11/29/21 3:50 AM) Weight 73.5 kg (11/21/21 6:48 AM) 78.1 kg (11/19/21 8:03 PM) Oxygen Saturation [94-100 %] 93 % *L* (11/29/21 2:45 PM) 94 % (11/29/21 7:14 AM) 98 % (11/29/21 3:50 AM) Pulse Rate [55-90 bpm] 86 bpm (11/29/21 2:45 PM) 109 bpm *H* (11/29/21 8:51 AM) 91 bpm *H* (11/29/21 7:14 AM) Blood Pressure [90-138/55-84 mm Hg] 107/53mm Hg (11/29/21 2:45 PM) 138/70mm Hg (11/29/21 8:51 AM) 138/70mm Hg (11/29/21 8:51 AM) Respiratory Rate [16-30 br/min] 20 br/min (11/29/21 5:25 PM) 20 br/min (11/29/21 3:24 PM) 18 br/min (11/29/21 2:45 PM) Temperature [96.8-100.4 DegF] 98.0 DegF (11/29/21 2:45 PM) 97.9 DegF (11/29/21 7:14 AM) 98.1 DegF (11/29/21 3:50 AM) Liters per Minute 3 L/min (11/29/21 2:45 PM) 3 L/min (11/29/21 7:14 AM) 3 L/min (11/29/21 3:50 AM) Mode of Delivery (Oxygen) Nasal cannula (11/29/21 2:45 PM) Nasal cannula (11/29/21 7:14 AM) Nasal cannula (11/29/21 3:50 AM) Blood pressure sites Arm, right (11/29/21 2:45 PM) Arm, right (11/29/21 7:14 AM) Arm, right (11/29/21 3:50 AM) Temperature Route Oral (11/29/21 2:45 PM) Oral (11/29/21 7:14 AM) Oral (11/29/21 3:50 AM) Dry Weight 78.1 kg (11/19/21 7:45 PM) Weight Obtained Via Bed scale (11/21/21 6:48 AM) Bed scale (11/19/21 8:03 PM) Social History Social History Type Response Tobacco Use: 4 or less cigar ettes(less than 1/4 pack)/day in last 30 days. Tobacco user in household: Yes. Sex
--- OUTSIDE RECORDS SUMMARY | 2023-05-17 08:53 | XMS_ITS | Continuity of Care Document ---
Author Name Unknown Organization [facility] Address [address] [place] [id number]- Care Team Providers Care [employer] Processor Name Role Phone Sharon Chamberlain MD Primary Care Physician [phone] Encounter [facility] [place] Date(s): 11/18/22 - 01/21/23 [facility] [address] [place] [id number]- Attending Physician: Mo HARGROVE, Kamala Admitting Physician: Mo HARGROVE, Kamala Allergies, Adverse Reactions, Alerts Substance Reaction Severity [...] 1 08/22/20 Given 1Result Comment: Manufactured by [employer] Medications albuterol 0.083% inhalation solution 3 mL [...] 05/26/22 14:42:00 EDT, Route to Pharmacy Electronically, [facility], Partial fill upon patient request [...] 0 Refills, Maintenance, 01/14/23 14:23:00 EST, Tablet, [facility], Partial fill upon patient request if the prescription is for a schedule II opioid drug., 162, cm, 01/14/23 1:3... Start Date: 01/14/23 Status: Ordered Lasix 40 mg oral tablet 40 mg, 1, tablet, By Mouth, Daily, # 30 tablet, Refills 0, Tot. Refills 0, Maintenance, 05/26/22 14:43:00 EDT, Route to Pharmacy Electronically, [facility], Partial fill upon patient request [...] 0 Refills, Maintenance, 05/26/22 14:43:00 EDT, Tablet, [facility], Partial fill upon patient request if [...] Confirmed Active 1Problem added by Discern Expert Social History Social History Type Response Tobacco Other: quit smoking in 2019, started smoking age 11, 2 or 3 packs per day. Sex Patient Care team information Care Team Personnel Name: Sharon Chamberlain MD Position: [facility] Outreach Member Role: PCP Address: Address: [address] [place] [address] [address] Sharon Chamberlain MD [place], [place] [address] Name: Latanya Kahn RN Position: S RN Member Role: Primary Care Nurse Name: Ervin Concepcion RN Position: [facility] RN Member Role: Primary Care Nurse Name: Yuliet Mckinney RN Position: S RN Member Role: Primary Care Nurse Name: Silvia Calhoun RN Position: S RN Member Role: Primary Care Nurse Name: Johana Chacon RN Position: S RN Member Role: Primary Care Nurse Name: Lesley Santana RN Position: S RN Member Role: Primary Care Nurse Name: Alfredito Mosqueda RN Position: S RN Member Role: Primary Care Nurse Name: Magda Rand Position: S RN Member Role: Primary Care Nurse Name: Amena Ta RN Position: S RN Member Role: Primary Care Nurse Name: Michael Landa RN Position: S RN Member Role: Primary Care Nurse Name: Dewayne Wahl III, RN Position: [facility] RN Member Role: Primary Care Nurse Name: Nirmala Oconnor RN Position: [facility] RN Member Role: Primary Care Nurse Name: Marlin Pearce RN Position: [facility] RN Member Role: Primary Care Nurse Name: Agapito Montanez RN Position: [facility] RN Member Role: Primary Care Nurse Name: Danyelle Dos Santos RN Position: [facility] RN Member Role: Primary Care Nurse Name: Lo Rodriguez RN Position: [facility] RN Member Role: Primary Care Nurse Name: Rosa Maria Artis RN Position: [facility] Onco RN Member Role: Primary Care Nurse Name: Vanesa Lim RN Position: [facility] RN Member Role: Primary Care Nurse Name: Brittney Vallejo RN Position: [facility] RN Member Role: Primary Care Nurse Name: Kat Donovan RN Position: [facility] RN Member Role: Primary Care Nurse Name: Mya Middleton RN Position: [facility] RN Member Role: Primary Care Nurse Care Team Related Persons Name: SHELLI VELAN Address: [address] [address]
--- OUTSIDE RECORDS SUMMARY | 2023-05-17 08:53 | XMS_ITS | Continuity of Care Document ---
Author Name Unknown Organization [facility] Address [address] [place] [address]- Care Team Providers Care Orthotist/Prosthetist Name Role Phone Sharon Chamberlain MD Primary Care Physician [phone] Encounter [facility] [place] Date(s): 10/01/20 - 10/31/20 [facility] [address] [place] [id number]- Allergies, Adverse Reactions, Alerts Substance Reaction Severity Status codeine Passed out Active Immunizations Given and Recorded Vaccine Date Status Refusal Reason influenza virus vaccine, inactivated 08/23/20 Give n pneumococcal 13-valent vaccine 1 08/22/20 Given 1Result Comment: Manufactured by [employer] Medications albuterol 0.083% inhalation solution 3 mL [...] Daily Start Date: 08/16/20 Status: Ordered meclizine 12.5 mg oral tablet 2 tablet = 25 mg, By Mouth, 3 times a day, for 10 days, # 60 tablet, 0 Refills, Acute 11/01/20 12:51:00 EST, 10/22/20 12:51:00 EST, Tablet, [facility], Partial fill upon patient request, 162, cm, 10/22/20 11:17:00 EST, Height, 54.5, kg,... Start Date: 10/22/20 Stop Date: 11/01/20 Status: Ordered melatonin 3 mg oral tablet, [...]
--- OUTSIDE RECORDS SUMMARY | 2023-05-17 08:53 | XMS_ITS | Continuity of Care Document ---
Author Name Unknown Organization [facility] Address [address] [place] [phone]- Care Team Providers Care Drug Safety Scientist Name Role Phone Bulmaro DEVLIN, Sharon Langley Primary Care Physician [phone] Encounter [facility] [place] Date(s): 08/28/20 - 09/02/[address] [address]- [facility] Encounter Diagnosis ACS (acute coronary syndrome)(Final) - 08/27/20 Fatigue(Final) - 08/28/20 Discharge Disposition: A-Transfer SNF Attending Physician: Kinga Marlow MD Admitting Physician: Edis Parker MD Referring Physician: Not on Staff, Referring MD Allergies, Adverse Reactions, Alerts Substance Reaction Severity Status codeine Passed out Active Immunizations Given and Recorded Vaccine Date Status Refusal Reason influenza virus vaccine, inactivated 08/23/20 Give n pneumococcal 13-valent vaccine 1 08/22/20 Given 1Result Comment: Manufactured by [employer] Medications albuterol 0.083% inhalation solution 3 mL [...] Mouth, Daily Start Date: 08/16/20 Status: Ordered ceFAZolin 2 g intravenous injection = 2 Gm, IV Infusion, Every 8 hours, for 23 days, # 69 each, 0 Refills, Acute 09/16/20 11:18:00 EDT,08/24/20 11:18:00 EDT Start Date: 08/24/20 Stop Date: 09/16/20 Status: Ordered celecoxib 200 mg oral capsule [...] COPD with respiratory failur e, acute(Confirmed) Active Macular degeneration(Confirmed) Active Essential hypertension(Confirmed) Active Glaucoma(Confirmed) Active Hyperlipidemia(Confirmed) Active Buerger disease(Confirmed) Active Results Orders for Microbiology Reports Name Date Blood Culture #2 08/30/20 Microbiology Reports TEST:Blood Culture, Second Order STATUS:Unauthenticated BODY SITE: SOURCE:Blood COLLECTED DATE/TIME:08/30/20 7:58 PM Blood Culture, Second Order SPECIMEN DESCRIPTION : BLOOD RAC SPECIAL REQUESTS : NONE CULTURE : NO GROWTH 3 DAYS REPORT STATUS : PRELIMINARY REPORT Radiology Reports * Exam Date Time Procedure Performing Provider Status 08/30/20 2:43 PM Chest Portable Esperanza New; Auth ( Verified) Notes: (Chest Portable) Reason For Exam: Fever RESULT: Chest Portable Chest Portable Reason: Fever; Clinical Question(s): Pneumonia COMPARISON: 08/27/2020 FINDINGS: Slight increase in right basilar airspace disease. No change in linear density in the left mid to lower lung zone. IMPRESSION: Slight increase in right basilar airspace disease may be secondary to atelectasis, pneumonia or aspiration. Linear density in the left mid to lower lung zone is stable and may be secondary to subsegmental atelectasis WSN: [id number] Ordering Physician: Malini Vasquez Dictated By: Abdiaziz Farias MD Dictated Date/Time: 08/30/20 2:45 pm Reviewed By: Abdiaziz Farias MD Signed By: Abdiaziz Farias MD Signed Date/Time: 08/30/20 2:45 pm Transcribed By: IVANNA Transcribed Date/Time: 08/30/20 2:43 pm * Exam Date Time Procedure Performing Provider Status 08/27/20 7:29 PM Chest Portable Tomeka Williamson; Auth (Verified) Notes: (Chest Portable) Reason For Exam: Shortness of Breath RESULT: Chest Portable Chest Portable Hx of Present Illness: pt reports no complaints since discharge home on 08 24. repeadedly states I just want everything to be okay. I want to be me again. Denies new pain, new back pain; Reason: Shortness of Breath; Clinical Question(s): CHF COMPARISON: Multiple priors, most recently 08/19/2020. FINDINGS: LINES AND TUBES: None. LUNGS AND PLEURA: Resolving airspace disease in the right lung base. Persistent airspace disease in the left lung base. The rest of the lungs again demonstrate coarse lung markings consistent with COPD. No new focal consolidation. No pleural effusion. No pneumothorax. HEART, MEDIASTINUM AND HUA: Heart size is unchanged. Aorta is calcified. BONES AND SOFT TISSUES: No acute abnormality. IMPRESSION: Somewhat improved right lung base. Otherwise no significant change. WSN: [id number] Ordering Physician: Vidal Garvin Dictated By: Mikey Maciel MD Dictated Date/Time: 08/27/20 7:46 pm Reviewed By: Mikey Maciel MD Signed By: Mikey Maciel MD Signed Date/Time: 08/27/20 7:46 pm Transcribed By: IVANNA Transcribed Date/Time: 08/27/20 7:33 pm Vital Signs Most recent to oldest [Reference Range]: 1 2 3 Height 162 cm (09/02/20 4:02 PM) 162 cm (09/02/20 7:38 AM) 162 cm (09/02/20 4:35 AM) Weight 65.8 kg (08/28/20 1:30 PM) 59 kg (08/28/20 9:53 AM) 59 kg (08/27/20 6:24 PM) Oxygen Saturation [94-100 %] 96 % (09/02/20 4:02 PM) 95 % (09/02/20 7:38 AM) 97 % (09/02/20 4:35 AM) Pulse Rate [55-90 bpm] 97 bpm *H* (09/02/20 4:02 PM) 96 bpm *H* (09/02/20 9:13 AM) 89 bpm (09/02/20 7:38 AM) Body Mass Index [18.5-24.99] 25.07 *H* (08/28/20 1:30 PM) 22.48 (08/28/20 9:53 AM) Blood Pressure [90-138/55-84 mm Hg] 112/54mm Hg (09/02/20 4:02 PM) 125/68mm Hg (09/02/20 9:14 AM) 125/68mm Hg (09/02/20 9:13 AM) Respiratory Rate [16-30 br/min] 18 br/min (09/02/20 4:02 PM) 18 br/min (09/02/20 7:38 AM) 18 br/min (09/02/20 4:35 AM) Temperature [96.8-100.4 DegF] 97.9 DegF (09/02/20 4:02 PM) 99.2 DegF (09/02/20 7:38 AM) 98.0 DegF (09/02/20 4:35 AM) Liters per Minute 3 L/min (09/02/20 4:02 PM) 2 L/min (09/02/20 7:38 AM) 2 L/min (09/02/20 4:35 AM) Mode of Delivery (Oxygen) Nasal cannula (09/02/20 4:02 PM) Nasal cannula (09/02/20 7:38 AM) Nasal cannula (09/02/20 4:35 AM) Blood pressure sites Arm, right (09/02/20 4:02 PM) Arm, right (09/02/20 7:38 AM) Arm, right (09/02/20 4:35 AM) Temperature Route Oral (09/02/20 4:02 PM) Oral (09/02/20 7:38 AM) Oral (09/02/20 4:35 AM) Dry Weight 65.8 kg (08/28/20 1:30 PM) 59 kg (08/28/20 9:53 AM) 59 kg (08/27/20 6:24 PM) Weight Obtained Via Patient/family stated (08/27/20 6:24 PM) Dry Weight Obtained Via Patient/family stated (08/27/20 6:24 PM) Social History Social History Type Response Tobacco Use: 4 or less cigar ettes(less than 1/4 pack)/day in last 30 days. Tobacco user in household: Yes. Sex
--- OUTSIDE RECORDS SUMMARY | 2023-05-17 08:53 | XMS_ITS | Continuity of Care Document ---
Author Name Unknown Organization [facility] Address [address] [place] [phone]- Care Team Providers Care Warranty Manager Name Role Phone Sharon Chamberlain MD Primary Care Physician Encounter [facility] R [id number] Date(s): 11/21/22 - 03/21/23 [facility] [address] [place] [phone]- Attending Physician: David Ventura MD Admitting Physician: David Ventura MD Referring Physician: Sharon Chamberlain MD Allergies, Adverse [...] 1 08/22/20 Given 1Result Comment: Manufactured by [employer] Medications albuterol 0.083% inhalation solution 3 mL [...] 05/26/22 14:42:00 EDT, Route to Pharmacy Electronically, [facility], Partial fill upon patient request if [...] 0 Refills, Maintenance, 02/22/23 21:37:00 EDT, Tablet, [facility], Partial fill upon patient request if the prescription is for a schedule II opioid drug., 163, cm, 02/01... Start Date: 02/22/23 Stop Date: 03/24/23 Status: Ordered Lasix 40 mg oral tablet 40 mg, 1, tablet, By Mouth, Daily, # 30 tablet, Refills 0, Tot. Refills 0, Maintenance, 05/26/22 14:43:00 EDT, Route to Pharmacy Electronically, [facility], Partial fill upon patient request if [...] 0 Refills, Maintenance, 05/26/22 14:43:00 EDT, Tablet, [facility], Partial fill upon patient request if [...] Team Personnel Name: Sharon Chamberlain MD Position: [facility] Outreach Member Role: PCP Address: Address: [address] [place] [address] [address] Sharon Chamberlain MD [place], [place] [address] Name: Latanya Kahn RN Position: [facility] RN Member Role: Primary Care Nurse Name: Ervin Concepcion RN Position: [facility] RN Member Role: Primary Care Nurse Name: Yuliet Mckinney RN Position: [facility] RN Member Role: Primary Care Nurse Name: Silvia Calhoun RN Position: [facility] RN Member Role: Primary Care Nurse Name: Johana Chacon RN Position: [facility] RN Member Role: Primary Care Nurse Name: Lesley Santana RN Position: [facility] RN Member Role: Primary Care Nurse Name: Alfredito Mosqueda RN Position: [facility] RN Member Role: Primary Care Nurse Name: Magda Rand Position: [facility] RN Member Role: Primary Care Nurse Name: Amena Ta RN Position: [facility] RN Member Role: Primary Care Nurse Name: Michael Landa RN Position: [facility] RN Member Role: Primary Care Nurse Name: Dewayne Wahl III, RN Position: [facility] RN Member Role: Primary Care Nurse Name: Nirmala Oconnor RN Position: [facility] RN Member Role: Primary Care Nurse Name: Marlin Pearce RN Position: [facility] RN Member Role: Primary Care Nurse Name: Agapito Montanez RN Position: [facility] RN Member Role: Primary Care Nurse Name: Danyelle Dos Santos RN Position: [facility] RN Member Role: Primary Care Nurse Name: Lo Rodriguez RN Position: [facility] RN Member Role: Primary Care Nurse Name: Rosa Maria Artis RN Position: [facility] On[employer] RN Member Role: Primary Care Nurse Name: Vanesa Lim RN Position: [facility] RN Member Role: Primary Care Nurse Name: Brittney Vallejo RN Position: [facility] RN Member Role: Primary Care Nurse Name: Kat Donovan RN Position: [facility] RN Member Role: Primary Care Nurse Care Team Related Persons Name: DAVID VELAWN Address: [address] [address]
--- OUTSIDE RECORDS SUMMARY | 2023-05-17 08:53 | XMS_ITS | Continuity of Care Document ---
Author Name Unknown Organization [facility] Address [address] [facility], [address] Floor, [address] [place] [address]- Care Team Providers Care Ice Guard Inspector Name Role Phone Bulmaro DEVLIN, Sharon Langley Primary Care Physician Encounter [facility] [place] Date(s): 01/12/23 - 02/11/23 [facility] [address], [address] Floor, [address] [place] [address]- Attending Physician: Admtr, Ar8 Admitting Physician: Admtr, Ar8 Referring Physician: Admtr, Ar8 Allergies, Adverse Reactions, [...] 1 08/22/20 Given 1Result Comment: Manufactured by [employer] Medications albuterol 0.083% inhalation solution 3 mL [...] 05/26/22 14:42:00 EDT, Route to Pharmacy Electronically, [facility], Partial fill upon patient [...] 0 Refills, Maintenance, 01/14/23 14:23:00 EST, Tablet, [facility], Partial fill upon patient request if the prescription is for a schedule II opioid drug., 162, cm, 01/14/23 1:3... Start Date: 01/14/23 Status: Ordered Lasix 40 mg oral tablet 40 mg, 1, tablet, By Mouth, Daily, # 30 tablet, Refills 0, Tot. Refills 0, Maintenance, 05/26/22 14:43:00 EDT, Route to Pharmacy Electronically, [facility], Partial fill upon patient [...] 0 Refills, Maintenance, 05/26/22 14:43:00 EDT, Tablet, [facility], Partial fill upon patient [...] Team Personnel Name: Sharon Chamberlain MD Position: [facility] Outreach Member Role: PCP Address: Address: [address] [place] [address] [address] Sharon Chamberlain MD [place], [place] [address] Name: Latanya Kahn RN Position: [facility] RN Member Role: Primary Care Nurse Name: Ervin Concepcion RN Position: [facility] RN Member Role: Primary Care Nurse Name: Yuliet Mckinney RN Position: [facility] RN Member Role: Primary Care Nurse Name: Silvia Calhoun RN Position: [facility] RN Member Role: Primary Care Nurse Name: Johana Chacon RN Position: [facility] RN Member Role: Primary Care Nurse Name: Lesley Santana RN Position: [facility] RN Member Role: Primary Care Nurse Name: Alfredito Mosqueda RN Position: [facility] RN Member Role: Primary Care Nurse Name: Magda Rand Position: [facility] RN Member Role: Primary Care Nurse Name: Amena Ta RN Position: [facility] RN Member Role: Primary Care Nurse Name: Michael Landa RN Position: [facility] RN Member Role: Primary Care Nurse Name: Dewayne Wahl III, RN Position: [facility] RN Member Role: Primary Care Nurse Name: Nirmala Oconnor RN Position: [facility] RN Member Role: Primary Care Nurse Name: Marlin Pearce RN Position: [facility] RN Member Role: Primary Care Nurse Name: Agapito Montanez RN Position: [facility] RN Member Role: Primary Care Nurse Name: Danyelle Dos Santos RN Position: [facility] RN Member Role: Primary Care Nurse Name: Lo Rodriguez RN Position: [facility] RN Member Role: Primary Care Nurse Name: Rosa Maria Artis RN Position: [facility] Onco RN Member Role: Primary Care Nurse Name: Vanesa Lim RN Position: [facility] RN Member Role: Primary Care Nurse Name: Brittney Vallejo RN Position: [facility] RN Member Role: Primary Care Nurse Name: Kat Donovan RN Position: [facility] RN Member Role: Primary Care Nurse Name: Mya Middleton RN Position: [facility] RN Member Role: Primary Care Nurse Care Team Related Persons Name: CALEB VELA Address: [address] [address]
--- OUTSIDE RECORDS SUMMARY | 2023-05-17 08:53 | XMS_ITS | Continuity of Care Document ---
Author Name Unknown Organization [facility] Address [address] [place] [id number]- Care Team Providers Care Survey Engineer Name Role Phone Bulmaro DEVLIN, Sharon Langley Primary Care Physician Encounter [facility] [place] Date(s): 02/18/21 - 02/18/[address] [address]- Encounter Diagnosis Fall(Final) - 02/18/21 Pelvic fracture(Final) - 02/18/21 Discharge Disposition: A-D/C Home Attending Physician: Bindu Moura MD Admitting Physician: Bindu Moura MD Referring Physician: Not on Staff, Referring MD Allergies, Adverse Reactions, Alerts Substance Reaction Severity Status codeine Passed out Active Immunizations Given and Recorded Vaccine Date Status Refusal Reason influenza virus vaccine, inactivated 08/23/20 Give n pneumococcal 13-valent vaccine 1 08/22/20 Given 1Result Comment: Manufactured by [employer] Medications albuterol 0.083% inhalation solution 3 mL [...] 13:29:00 EDT Start Date: 09/02/20 Status: Ordered MorPHINE Immediate Release Tablet 7.5 mg, Tablet, By Mouth, Once, PRN for Pain , Moderate, STAT, 02/18/21 17:27:00 EDT Start Date: 02/18/21 Stop Date: 02/18/21 Status: Completed omeprazole 20 mg oral enteric coated capsule [...] back pain(Confirmed) Active Buerger disease(Confirmed) Active Results Radiology Reports * Exam Date Time Procedure Performing Provider Status 02/18/21 7:20 PM Pelvis Min 3 Views Mikaela Izquierdo; Au th (Verified) Notes: (Pelvis Min 3 Views) Reason For Exam: Pain RESULT: Pelvis Min 3 Views Pelvis Min 3 Views Hx of Present Illness: At 1800 last night, pt stepped up on one step outside of home, using walker,slipped and fell on lower back. Denies LOC, head neck pain, numbness. Lower back pain radiates L toR. -Thinners.; Reason: Pain; Clinical Question(s): Fracture; Special Instructions: AP, inlet, outlet, judet views COMPARISON: CT lumbar spine and pelvis 02/18/2021 FINDINGS: Bones are diffusely osteopenic. The nondisplaced right superior and inferior pubic ramus fractures and sacral insufficiency fractures are better visualized on comparison CT scan. No displaced fracture or dislocation. Mild osteitis pubis. Severe vascular calcification. Ectatic infrarenal aorta again demonstrated. IMPRESSION: Nondisplaced right superior and inferior pubic rami fractures and sacral insufficiency fractures better visualized on CT pelvis performed earlier today. No displaced fracture or dislocation. Osteopenia. WSN: [id number] Ordering Physician: Peg Bro Dictated By: Matt Lamar MD Dictated Date/Time: 02/18/21 7:45 pm Reviewed By: Matt Lamar MD Signed By: Matt Lamar MD Signed Date/Time: 02/18/21 7:45 pm Transcribed By: IVANNA Transcribed Date/Time: 02/18/21 7:41 pm Vital Signs Most recent to oldest [Reference Range]: 1 2 3 Oxygen Saturation [94-100 %] 98 % (02/18/21 10:30 PM) 96 % (02/18/21 6:38 PM) 97 % (02/18/21 4:15 PM) Pulse Rate [55-90 bpm] 85 bpm (02/18/21 10:30 PM) 98 bpm *H* (02/18/21 6:38 PM) 100 bpm *H* (02/18/21 4:15 PM) Blood Pressure [90-138/55-84 mm Hg] 128/56mm Hg (02/18/21 10:30 PM) 138/80mm Hg (02/18/21 6:38 PM) 140/79mm Hg *H* (02/18/21 4:15 PM) Respiratory Rate [16-30 br/min] 20 br/min (02/18/21 10:30 PM) 20 br/min (02/18/21 8:02 PM) 18 br/min (02/18/21 6:38 PM) Temperature [96.8-100.4 DegF] 98.5 DegF (02/18/21 2:29 PM) Mode of Delivery (Oxygen) Room air (02/18/21 10:30 PM) Room air (02/18/21 6:38 PM) Room air (02/18/21 4:15 PM) Blood pressure sites Arm, right (02/18/21 10:30 PM) Arm, right (02/18/21 6:38 PM) Arm, right (02/18/21 4:15 PM) Temperature Route Oral (02/18/21 2:29 PM) Social History Social History Type Response Tobacco Use: 4 or less cigar ettes(less than 1/4 pack)/day in last 30 days. Tobacco user in household: Yes. Sex
--- OUTSIDE RECORDS SUMMARY | 2023-05-17 08:53 | XMS_ITS | Continuity of Care Document ---
Author Name Unknown Organization [facility] Address [address] [place] [address]- Care Team Providers Care Telephone Surveyor Name Role Phone Bulmaro DEVLIN, Sharon Langley Primary Care Physician Encounter [facility] [place] Date(s): 12/06/20 - 01/05/21 [facility] [address] [place] [id number]- Attending Physician: AdmCaden yepez Admitting Physician: Admtr, Ar8 Referring Physician: Admtr, Ar8 Allergies, Adverse Reactions, Alerts Substance Reaction Severity Status codeine Passed out Active Immunizations Given and Recorded Vaccine Date Status Refusal Reason influenza virus vaccine, inactivated 08/23/20 Give n pneumococcal 13-valent vaccine 1 08/22/20 Given 1Result Comment: Manufactured by [employer] Medications albuterol 0.083% inhalation solution 3 mL [...]
--- OUTSIDE RECORDS SUMMARY | 2023-05-17 08:53 | XMS_ITS | Continuity of Care Document ---
Author Name Unknown Organization [facility] Address [address] [place] [address]- Care Team Providers Care Reference Archivist Name Role Phone Sharon Chamberlain MD Primary Care Physician [phone] [facility] [place] Date(s): 11/12/20 - 02/16/21 [facility] [address] [place] [address] Attending Physician: David Ventura MD Admitting Physician: David Ventura MD Referring Physician: Sharon Chamberlain MD Allergies, Adverse Reactions, Alerts Substance Reaction Severity Status codeine Passed out Active Immunizations Given and Recorded Vaccine Date Status Refusal Reason influenza virus vaccine, inactivated 08/23/20 Give n pneumococcal 13-valent vaccine 1 08/22/20 Given 1Result Comment: Manufactured by [employer] Medications albuterol 0.083% inhalation solution 3 mL [...]
--- OUTSIDE RECORDS SUMMARY | 2023-05-17 08:53 | XMS_ITS | Continuity of Care Document ---
Author Name Unknown Organization [facility] Address [address] [place] [address]- Care Team Providers Care Personal Development Coach Name Role Phone Sharon Chamberlain MD Primary Care Physician [phone] Encounter [facility] [place] Date(s): 09/28/22 - 11/07/[address] [address]- Attending Physician: Aneudy Fernandez MD Admitting Physician: Aneudy Fernandez MD Referring Physician: Aneudy Fernandez MD Allergies, Adverse Reactions, Alerts Substance Reaction [...] 1 08/22/20 Given 1Result Comment: Manufactured by [employer] Medications Afrin 0.05% spray 2 sprays, Nares, Both, 2 times a day, # 15 mL, 0 Refills, Maintenance, 11/22/21 11:51:00 EST, [place], Partial fill upon patient request if the prescription is for a schedule II opioid drug. Start Date: 11/22/21 Status: Ordered albuterol 0.083% inhalation solution 3 mL = 2.5 mg, Neb, Every 6 hours, PRN as needed for wheezing, # 90 mL, 0 Refills, Maintenance, 08/16/20 18:28:00 EDT, Solution Start Date: 08/16/20 Status: Ordered albuterol-ipratropium 3 mg-0.5 mg/3 ml inhalation solution 3 mL, Neb, Every 4 hours, Dx: J44.9, # 180 mL, 0 Refills, Maintenance, 05/27/22 9:41:00 EDT, Inhalation Solution, [facility], Partial fill upon patient request if the prescription is for a schedule II opioid drug., 3 mL Neb Every... Start Date: 05/27/22 Status: Ordered Anoro Ellipta 62.5 mcg-25 mcg/inh [...] 05/26/22 14:42:00 EDT, Route to Pharmacy Electronically, [facility] 3, Partial fill upon patient [...] opioid drug. Start Date: 05/23/22 Status: Ordered Lasix 40 mg oral tablet 40 mg, 1, tablet, By Mouth, Daily, # 30 tablet, Refills 0, Tot. Refills 0, Maintenance, 05/26/22 14:43:00 EDT, Route to Pharmacy Electronically, [facility], Partial fill upon patient request [...] 11/22/21 Status: Ordered metoprolol 25 mg oral tablet, extended release 25 mg, 1, tablet, By Mouth, Daily, Refills 0, Maintenance, 09/02/20 13:29:00 EDT Start Date: 09/02/20 Status: Ordered MiraLax oral powder for reconstitution [...] Refills, Maintenance, 05/26/22 14:43:00 EDT, Tablet, [facility], Partial fill upon patient request if theprescription is for a schedule II opioid drug., 163... Start Date: 05/26/22 Status: Ordered omeprazole 20 mg oral enteric [...] opioid drug. Start Date: 11/29/21 Status: Ordered valsartan 40 mg oral tablet 40 mg, 1, tablet, By Mouth, 2 times a day, # 180 tablet, Refills 0, Tot. Refills 0, Maintenance, 05/26/22 14:43:00 EDT, Route to Pharmacy Electronically, [facility], Partial fill upon patient request if the prescription is for a schedule... Start Date: 05/26/22 Status: Ordered Ventolin HFA 108 mcg/inh inhalation [...] days. Tobacco user in household: Yes. Sex Patient Care team information Care Team Personnel Name: Sharon Chamberlain MD Position: [facility] Outreach Member Role: PCP Address: Address: [address] [place] [address] [address] [place] [address]- Name: Latanya Kahn RN Position: S RN Member Role: Primary Care Nurse Name: Ervin Concepcion RN Position: S RN Member Role: Primary Care Nurse Name: Yuliet Mckinney RN Position: [facility] RN Member Role: Primary Care Nurse Name: Silvia Calhoun RN Position: [facility] RN Member Role: Primary Care Nurse Name: Johana Chacon RN Position: [facility] RN Member Role: Primary Care Nurse Name: Alfredito Mosqueda RN Position: [facility] RN Member Role: Primary Care Nurse Name: Magda Rand Position: [facility] RN Member Role: Primary Care Nurse Name: Amena Ta RN Position: [facility] RN Member Role: Primary Care Nurse Name: Dewayne Wahl III, RN Position: [facility] RN Member Role: Primary Care Nurse Name: Nirmala Oconnor RN Position: [facility] RN Member Role: Primary Care Nurse Name: Marlin Pearce RN Position: [facility] RN Member Role: Primary Care Nurse Name: Agapito Montanez RN Position: [facility] RN Member Role: Primary Care Nurse Name: Rosa Maria Artis RN Position: [facility] Onco RN Member Role: Primary Care Nurse Name: Brittney Vallejo RN Position: [facility] RN Member Role: Primary Care Nurse Name: Kat Donovan RN Position: [facility] RN Member Role: Primary Care Nurse Name: Mya Middleton RN Position: [facility] RN Member Role: Primary Care Nurse Care Team Related Persons Name: CALEB VELA Address: [address] [address]
--- OUTSIDE RECORDS SUMMARY | 2023-05-17 08:53 | XMS_ITS | Continuity of Care Document ---
Author Name Unknown Organization [facility] Address [address] [facility], [address] Floor, [address] [place] [address]- Care Team Providers Care Coater Operator Insulation Board Name Role Phone Bulmaro DEVLIN, Sharon Langley Primary Care Physician Encounter [facility] [place] [facility] [id number] Date(s): 12/24/20 - 01/23/21 [facility] [address] [facility], 3rd Floor, [address] [place] [id number] Attending Physician: AdmCaden yepez Admitting Physician: Admtr, Ar8 Referring Physician: Admtr, Ar8 Allergies, Adverse Reactions, Alerts Substance Reaction Severity Status codeine Passed out Active Immunizations Given and Recorded Vaccine Date Status Refusal Reason influenza virus vaccine, inactivated 08/23/20 Give n pneumococcal 13-valent vaccine 1 08/22/20 Given 1Result Comment: Manufactured by [employer] Medications albuterol 0.083% inhalation solution 3 mL [...]
--- OUTSIDE RECORDS SUMMARY | 2023-05-17 08:53 | XMS_ITS | Continuity of Care Document ---
Author Name Unknown Organization [facility] Address [address] [place] [address]- Care Team Providers Care Audit Lead Name Role Phone Bulmaro DEVLIN, Sharon Langley Primary Care Physician Encounter [facility] [place] Date(s): 05/23/22 - 05/27/[address] [address] Discharge Disposition: A-D/C Home Attending Physician: Inder Nicholas DO Admitting Physician: Giancarlo Gu MD Referring Physician: Not on Staff, Referring [...] 1 08/22/20 Given 1Result Comment: Manufactured by [employer] Medications Afrin 0.05% spray 2 sprays, Nares, Both, 2 times a day, # 15 mL, 0 Refills, Maintenance, 11/22/21 11:51:00 EST, [place], Partial fill upon patient request if the [...] Refills, Maintenance, 05/27/22 9:41:00 EDT, Inhalation Solution, [facility], Partial fill upon patient request [...] 05/26/22 14:42:00 EDT, Route to Pharmacy Electronically, [facility] 3, Partial fill upon patient [...] 05/26/22 14:43:00 EDT, Route to Pharmacy Electronically, [facility] 3, Partial fill upon patient [...] 13:29:00 EDT Start Date: 09/02/20 Status: Ordered metoprolol 25 mg oral tablet, extended release 25 mg, XL Tablet, By Mouth, 05/27/22 9:00:00 EDT Start Date: 05/27/22 Stop Date: 05/27/22 Status: Completed MiraLax oral powder for reconstitution = 17 [...] 0 Refills, Maintenance, 05/26/22 14:43:00 EDT, Tablet, [facility] 3, Partial fill upon patient request if theprescription is for a schedule II opioid drug., 163... Start Date: 05/26/22 Status: Ordered omeprazole 20 mg oral enteric coated capsule 1 capsule = 20 mg, By Mouth, Daily Start Date: 9/24/20 Status: Ordered pramipexole 1 mg oral tablet [...] 05/26/22 14:43:00 EDT, Route to Pharmacy Electronically, [facility], Partial fill [...] Date: 05/23/22 Status: Ordered Problem List Condition Effective Dates Status Health Status Inform ant COPD with respiratory failur e, acute(Confirmed) Active MSSA bacteremia(Confirmed) Active Macular degeneration(Confirmed) Active Essential hypertension(Confirmed) Active Glaucoma(Confirmed) Active Hyperlipidemia(Confirmed) Active Acute kidney injury(Confirmed) Active Right low back pain(Confirmed) Active Buerger disease(Confirmed) Active Results Radiology Reports * Exam Date Time Procedure Performing Provider Status 05/24/22 12:20 AM Abdomen AP Argelia Garcia; Auth ( Verified) Notes: (Abdomen AP) Reason For Exam: Pain RESULT: XR Abdomen AP XR Abdomen AP 1 view INDICATION/CLINICAL QUESTION: Reason: Pain; Clinical Question(s): Colitis COMPARISON: CT 11/16/2021. FINDINGS: Nonspecific nonobstructive bowel gas pattern. No evidence of gross pneumoperitoneum on this supine radiograph. Right upper quadrant cholecystectomy clips are noted. Ectatic infrarenal abdominal aorta previously measured 2.[address] 11/16/2021, likely unchanged allowing for differences in technique. Multilevel degenerative changes of the spine. Partially imaged right hip ORIF. IMPRESSION: Nonobstructive bowel gas pattern. Ectatic infrarenal abdominal aorta likely unchanged when compared to 11/16/2021 allowing for differences in technique. WSN: [id number] Ordering Physician: Mayra Elise Dictated By: Blas Chavez MD Dictated Date/Time: 05/24/22 8:50 am Reviewed By: Blas Chavez MD Signed By: Blas Chavez MD Signed Date/Time: 05/24/22 8:50 am Transcribed By: IVANNA Transcribed Date/Time: 05/24/22 8:49 am * Exam Date Time Procedure Performing Provider Status 05/24/22 12:20 AM Chest Portable Argelia Garcia; Auth (Verified) Notes: (Chest Portable) Reason For Exam: CHF RESULT: Chest Portable Chest Portable Reason: CHF; Clinical Question(s): CHF COMPARISON: 05/23/2022 FINDINGS: LINES AND TUBES: None. LUNGS AND PLEURA: Improving hazy opacification the lung bases bilaterally. Decreased pleural effusions bilaterally. Persistent mild interstitial prominence. No pneumothorax. HEART, MEDIASTINUM AND HUA: Heart is normal in size. Aorta is tortuous and partially calcified. BONES AND SOFT TISSUES: No acute abnormality. IMPRESSION: Improving pulmonary edema and pleural effusions. Mild interstitial edema and trace effusions remain. WSN: [id number] Ordering Physician: Mayra Elise Dictated By: Blas Chavez MD Dictated Date/Time: 05/24/22 8:48 am Reviewed By: Blas Chavez MD Signed By: Blas Chavez MD Signed Date/Time: 05/24/22 8:48 am Transcribed By: IVANNA Transcribed Date/Time: 05/24/22 8:47 am * Exam Date Time Procedure Performing Provider Status 05/23/22 6:11 AM Chest Portable Vanesa Noriega; Auth (Verified) Notes: (Chest Portable) Reason For Exam: Shortness of Breath RESULT: Chest Portable Chest Portable Hx of Present Illness: SOB; Reason: Shortness of Breath; Clinical Question(s): CHF COMPARISON: 11/26/2021. FINDINGS: LINES AND TUBES: None. LUNGS AND PLEURA: Increased interstitial markings throughout both lung gould and trace pleural effusions. There are hazy opacities in lower lung gould. No pneumothorax, although right apex partially obscured by patient's chin. HEART, MEDIASTINUM AND HUA: Heart is normal in size. Aorta is calcified. BONES AND SOFT TISSUES: No acute abnormality. IMPRESSION: Pulmonary edema and trace pleural effusions. Hazy opacities in lower lung gould could represent atelectasis but superimposed pneumonia cannot be excluded. WSN: [id number] Ordering Physician: Joanna Padilla Dictated By: Anne Logan MD Dictated Date/Time: 05/23/22 8:26 am Reviewed By: Anne Logan MD Signed By: Anne Logan MD Signed Date/Time: 05/23/22 8:26 am Transcribed By: IVANNA Transcribed Date/Time: 05/23/22 8:24 am Vital Signs Most recent to oldest [Reference Range]: 1 2 3 Height 163.83 cm (05/27/22 8:02 AM) 163.83 cm (05/27/22 3:22 AM) 163.83 cm (05/26/22 8:40 PM) Weight 54.9 kg (05/27/22 6:42 AM) 55.1 kg (05/26/22 2:44 AM) 59.2 kg (05/23/22 3:36 PM) Oxygen Saturation [94-100 %] 94 % (05/27/22 8:02 AM) 96 % (05/27/22 3:22 AM) 96 % (05/26/22 8:40 PM) Pulse Rate [55-90 bpm] 89 bpm (05/27/22 9:22 AM) 89 bpm (05/27/22 8:02 AM) 90 bpm (05/27/22 3:22 AM) Body Mass Index [18.5-24.99] 22.06 (05/23/22 3:36 PM) 36.14 *>HHI* (05/23/22 9:51 AM) Blood Pressure [90-138/55-84 mm Hg] 114/77mm Hg (05/27/22 9:22 AM) 114/77mm Hg (05/27/22 8:02 AM) 121/68mm Hg (05/27/22 3:22 AM) Respiratory Rate [16-30 br/min] 20 br/min (05/27/22 8:02 AM) 20 br/min (05/27/22 3:22 AM) 20 br/min (05/26/22 8:40 PM) Temperature [96.8-100.4 DegF] 97.8 DegF (05/27/22 8:02 AM) 97.6 DegF (05/27/22 3:22 AM) 97.5 DegF (05/26/22 8:40 PM) Liters per Minute 2 L/min (05/27/22 3:22 AM) 2 L/min (05/26/22 8:40 PM) 3 L/min (05/26/22 2:41 AM) Mode of Delivery (Oxygen) Room air (05/27/22 8:02 AM) Nasal cannula (05/27/22 3:22 AM) Nasal cannula (05/26/22 8:40 PM) Blood pressure sites Arm, right (05/27/22 8:02 AM) Arm, right (05/27/22 3:22 AM) Arm, right (05/26/22 8:40 PM) Temperature Route Temporal (05/27/22 8:02 AM) Temporal (05/27/22 3:22 AM) Temporal (05/26/22 8:40 PM) Dry Weight 55.7 kg (05/23/22 5:19 PM) 78.1 kg (05/23/22 9:51 AM) Weight Obtained Via Bed scale (05/26/22 2:44 AM) Bed scale (05/23/22 3:36 PM) Social History Social History Type Response Tobacco Use: 4 or less cigar ettes(less than 1/4 pack)/day in last 30 days. Tobacco user in household: Yes. Sex
--- OUTSIDE RECORDS SUMMARY | 2023-05-17 08:53 | XMS_ITS | Continuity of Care Document ---
Author Name Unknown Organization [facility] Address [facility] [place] [address]- Care Team Providers Care Agent Ticketing Gate Name Role Phone Sharon Chamberlain MD Primary Care Physician Encounter [facility] [place] Date(s): 01/17/21 - 02/16/21 [facility] [address] [place] [id number] Attending Physician: AdmtrCaden Admitting Physician: Admtr, Ar8 Referring Physician: Admtr, Ar8 Allergies, Adverse Reactions, Alerts Substance Reaction Severity Status codeine Passed out Active Immunizations Given and Recorded Vaccine Date Status Refusal Reason influenza virus vaccine, inactivated 08/23/20 Give n pneumococcal 13-valent vaccine 1 08/22/20 Given 1Result Comment: Manufactured by [employer] Medications albuterol 0.083% inhalation solution 3 mL [...]
--- OUTSIDE RECORDS SUMMARY | 2023-05-17 08:54 | XMS_ITS | Continuity of Care Document ---
Author Name Unknown Organization [facility] Address [address] [facility], [address] d Floor, [address] [place] [address]- Care Team Providers Care Strip Machine Operator Name Role Phone Bulmaro DEVLIN, Sharon Langley Primary Care Physician Encounter [facility] [place] [facility] [id number] Date(s): 12/15/22 - 04/02/23 [facility] [address], [address] Floor, [address] [place] [id number] Attending Physician: Moy Qiu MD Admitting Physician: Moy Qiu MD Allergies, Adverse Reactions, Alerts Substance Reaction [...] 1 08/22/20 Given 1Result Comment: Manufactured by [employer] Medications albuterol 0.083% inhalation solution 3 mL [...] 05/26/22 14:42:00 EDT, Route to Pharmacy Electronically, [facility], Partial fill upon patient [...] 0 Refills, Maintenance, 02/22/23 21:37:00 EDT, Tablet, [facility], Partial fill upon patient request if the prescription is for a schedule II opioid drug., 163, cm, 02/01... Start Date: 02/22/23 Stop Date: 03/24/23 Status: Ordered Lasix 40 mg oral tablet 40 mg, 1, tablet, By Mouth, Daily, # 30 tablet, Refills 0, Tot. Refills 0, Maintenance, 05/26/22 14:43:00 EDT, Route to Pharmacy Electronically, [facility] 3, Partial fill upon patient [...] 0 Refills, Maintenance, 05/26/22 14:43:00 EDT, Tablet, [facility] 3, Partial fill upon patient [...] Team Personnel Name: Sharon Chamberlain MD Position: [facility] Outreach Member Role: PCP Address: Address: [address] [place] [address]- Name: Erin Melgar RN Position: [facility] RN Member Role: Primary Care Nurse Name: Latanya Kahn RN Position: [facility] RN Member Role: Primary Care Nurse Name: Ervin Concepcion RN Position: [facility] RN Member Role: Primary Care Nurse Name: Yuliet Mckinney RN Position: [facility] RN Member Role: Primary Care Nurse Name: Silvia Calhoun RN Position: [facility] RN Member Role: Primary Care Nurse Name: Michael Lomeli RN Position: [facility] RN Member Role: Primary Care Nurse Name: Lesley Santana RN Position: [facility] RN Member Role: Primary Care Nurse Name: Alfredito Mosqueda RN Position: [facility] RN Member Role: Primary Care Nurse Name: Magda Rand Position: [facility] RN Member Role: Primary Care Nurse Name: Amena Ta RN Position: [facility] RN Member Role: Primary Care Nurse Name: Dewayne Wahl III, RN Position: [facility] RN Member Role: Primary Care Nurse Name: Nirmala Oconnor RN Position: [facility] RN Member Role: Primary Care Nurse Name: Marlin Pearce RN Position: [facility] RN Member Role: Primary Care Nurse Name: Eugenia Batista RN Position: [facility] RN Member Role: Primary Care Nurse Name: Agapito oMntanez RN Position: [facility] RN Member Role: Primary Care Nurse Name: Danyelle Dos Santos RN Position: [facility] RN Member Role: Primary Care Nurse Name: Lo Rodriguez RN Position: [facility] RN Member Role: Primary Care Nurse Name: Rosa Maria Artis RN Position: [facility] Onco RN Member Role: Primary Care Nurse Name: Vanesa Lim RN Position: [facility] RN Member Role: Primary Care Nurse Name: Brittney Vallejo RN Position: [facility] RN Member Role: Primary Care Nurse Name: Kat Donovan RN Position: [facility] RN Member Role: Primary Care Nurse Care Team Related Persons Name: CALEB VELA Address: [address] [address]
--- OUTSIDE RECORDS SUMMARY | 2023-05-17 08:54 | XMS_ITS | Continuity of Care Document ---
Author Name Unknown Organization [facility] ter Address [address] [place] [id number]- Care Team Providers Care Spooling Supervisor Name Role Phone Sharon Chamberlain MD Primary Care Physician [place] [facility] [place] 09[place]08/22 - 09/11/[address] [id number]- Encounter Diagnosis COVID-19(Final) - 09/07/22 Syncope(Final) - 09/07/22 Discharge Disposition: A-D/C Home Attending Physician: Tyler White MD Admitting Physician: Fatuma Luther MD Referring Physician: Not on Staff, Referring [...] 1 08/22/20 Given 1Result Comment: Manufactured by [employer]. [employer] Medications Afrin 0.05% spray 2 sprays, Nares, Both, 2 times a day, # 15 mL, 0 Refills, Maintenance, 11/22/21 11:51:00 EST, [place], Partial fill upon patient request if the [...] Refills, Maintenance, 05/27/22 9:41:00 EDT, Inhalation Solution, [facility], Partial fill upon patient request if [...] 05/26/22 14:42:00 EDT, Route to Pharmacy Electronically, [facility], Partial fill upon patient [...] 05/26/22 14:43:00 EDT, Route to Pharmacy Electronically, [facility], Partial fill upon patient [...] Maintenance, 05/26/22 14:43:00 EDT, [facility] Partial fill upon patient request if [...] Exam Date Time Procedure Performing Provider Status 09/07/22 1:01 PM Chest Portable Chencho Garcia h (Verified) Notes: (Chest Portable) Reason For Exam: Shortness of Breath RESULT: Chest Portable Chest Portable Hx of Present Illness: comes from home, call by family for seizures on ems arrival ? syncope after using bathroom, on arrival to ed pt alert, c o cp and some sob; Reason: Shortness of Breath; Clinical Question(s): CHF COMPARISON: 08/10/2022, and correlation with CT chest on 09/04/2022. FINDINGS: LINES AND TUBES: None. LUNGS AND PLEURA: No focal infiltrate. The patient has a known spiculated mass in the right upper lobe medially, which is not visible on the current plain film. No pulmonary vascular congestion. No pleural effusion. No pneumothorax. HEART, MEDIASTINUM AND HUA: Heart is top normal in size. Tortuous thoracic aorta with mural calcification. Normal mediastinal and hilar contour. BONES AND SOFT TISSUES: No acute abnormality. IMPRESSION: No acute cardiopulmonary disease. Known spiculated mass in the right upper lobe as seen on recent CT of the chest, which is not clearly seen on the current plain film. WSN: [id number] Ordering Physician: Mando Puga Dictated By: Amanda New MD, I Dictated Date/Time: 09/07/22 1:22 pm Reviewed By: Amanda New MD, I Signed By: Amanda New MD, I Signed Date/Time: 09/07/22 1:22 pm Transcribed By: IVANNA Transcribed Date/Time: 09/07/22 1:19 pm Vital Signs Most recent to oldest [Reference Range]: 1 2 3 Oxygen Saturation [94-100 %] 91 % *L* (09/11/22 3:20 PM) 98 % (09/11/22 10:19 AM) 93 % *L* (09/11/22 3:48 AM) Pulse Rate [55-90 bpm] 74 bpm (09/11/22 3:20 PM) 90 bpm (09/11/22 10:19 AM) 76 bpm (09/11/22 3:48 AM) Blood Pressure [90-138/55-84 mm Hg] 139/84mm Hg *H* (09/11/22 3:20 PM) 123/85mm Hg (09/11/22 10:19 AM) 126/65mm Hg (09/11/22 3:48 AM) Respiratory Rate [16-30 br/min] 20 br/min (09/11/22 3:20 PM) 20 br/min (09/11/22 10:19 AM) 16 br/min (09/11/22 3:48 AM) Temperature [96.8-100.4 DegF] 97.6 DegF (09/11/22 3:20 PM) 97.3 DegF (09/11/22 10:19 AM) 98.0 DegF (09/11/22 3:48 AM) Liters per Minute 2 L/min (09/10/22 8:36 AM) 4 L/min (09/10/22 5:00 AM) 4 L/min (09/09/22 8:37 PM) Mode of Delivery (Oxygen) Room air (09/11/22 3:20 PM) Room air (09/11/22 10:19 AM) Room air (09/11/22 3:48 AM) Blood pressure sites Arm, right (09/11/22 3:20 PM) Arm, right (09/11/22 10:19 AM) Arm, left (09/11/22 3:48 AM) Temperature Route Oral (09/11/22 3:20 PM) Oral (09/11/22 10:19 AM) Oral (09/11/22 3:48 AM) Social History Social History Type Response Tobacco Use: 4 or less cigar ettes(less than 1/4 pack)/day in last 30 days. Tobacco user in household: Yes. Sex Portable XR Chest Views * [employer] , CIS S: TRANSCRIBE Shaq DEVLIN, Amanda I: VERIFY Event Display: Result: Authored Date: Chest Portable Hx of Present Illness: comes from home, call by family for seizures on ems arrival ? syncope after using bathroom, on arrival to ed pt alert, c o cp and some sob; Reason: Shortness of Breath; Clinical Question(s): CHF COMPARISON: 08/10/2022, and correlation with CT chest on 09/04/2022. FINDINGS: LINES AND TUBES: None. LUNGS AND PLEURA: No focal infiltrate. The patient has a known spiculated mass in the right upper lobe medially, which is not visible on the current plain film. No pulmonary vascular congestion. No pleural effusion. No pneumothorax. HEART, MEDIASTINUM AND HUA: Heart is top normal in size. Tortuous thoracic aorta with mural calcification. Normal mediastinal and hilar contour. BONES AND SOFT TISSUES: No acute abnormality. IMPRESSION: No acute cardiopulmonary disease. Known spiculated mass in the right upper lobe as seen on recent CT of the chest, which is not clearly seen on the current plain film. WSN: [id number] Ordering Physician: Mando Puga Dictated By: Amanda New MD, I Dictated Date/Time: 09/07/22 1:22 pm Reviewed By: Amanda New MD, I Signed By: Amanda New MD, I Signed Date/Time: 09/07/22 1:22 pm Transcribed By: IVANNA Transcribed Date/Time: 09/07/22 1:19 pm Patient Care team information Personnel Name: Sharon Chamberlain MD Address: Address: [address] [place] [address] [address] Sharon Chamberlain MD [place], [place] [address]
--- OUTSIDE RECORDS SUMMARY | 2023-05-17 08:54 | XMS_ITS | Continuity of Care Document ---
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 Medications albuterol 0.083% inhalation solution 3 [...] 05/26/22 14:42:00 EDT, Route to Pharmacy Electronically, [facility], Partial fill upon patient [...] 0 Refills, Maintenance, 02/22/23 21:37:00 EDT, Tablet, [facility], Partial fill upon patient request if the prescription is for a schedule II opioid drug., 163, cm, 02/01... Start Date: 02/22/23 Stop Date: 03/24/23 Status: Ordered Keppra 500 mg oral tablet 2 tablet = 1,000 mg, By Mouth, 2 times a day, # 120 tablet, 0 Refills, Maintenance, 01/14/23 14:23:00 EST, Tablet, [facility], Partial fill upon patient request if the prescription is for a schedule II opioid drug., 162, cm, 01/14/23 1:3... Start Date: 01/14/23 Status: Ordered Lasix 40 mg oral tablet 40 mg, 1, tablet, By Mouth, Daily, # 30 tablet, Refills 0, Tot. Refills 0, Maintenance, 05/26/22 14:43:00 EDT, Route to Pharmacy Electronically, [facility], Partial fill upon patient [...] 0 Refills, Maintenance, 05/26/22 14:43:00 EDT, Tablet, [facility], Partial fill upon patient request if theprescription is for a schedule II opioid drug., 163... Start Date: 05/26/22 Status: Ordered oxymetazoline 0.05% nasal spray 2 sprays, Nares, Both, 2 times a day, PRN as needed for nasal congestion, Maintenance, 02/15/23 7:33:00 EDT, [place], Partial fill upon patient request if the [...] Exam Date Time Procedure Performing Provider Status 02/22/23 7:[address] Head/Brain W/O Contrast Colon , Patria marifer; Auth (Verified) Notes: (CT Head/Brain W/O Contrast) Reason For Exam: Seizure Disorder RESULT: CT Head/Brain W/O Contrast CT Head/Brain W/O Contrast INDICATION: Hx of Present Illness: Seizures; Reason: Seizure Disorder; Clinical Question(s): Other:; known mass ,bleeding?; Order Comment: CLINICAL QUESTION: Other: TECHNIQUE: Noncontrast head CT using axial technique and reconstructed in axial and coronal plane. Age-based protocol was used to optimize exposure parameters. CTDIvol Head: 46.90 mGy, DLP Head: 773 mGy*cm. COMPARISON: 01/17/2021 MRI of the brain 12/13/2022 FINDINGS: BRAIN: There is a heterogeneous mass in the right high parietal lobe, 2.5 x 2 cm, with adjacent vasogenic edema, overall increasing from 12/13/2022. There is no midline shift or significant cisternal effacement. Ventricular size is stable from previous. There is no intracranial hemorrhage. Chronic right cerebellar encephalomalacia. Mild periventricular and subcortical low-density white matter changes. CALVARIUM, SKULL BASE and SINUSES: No acute finding. IMPRESSION: Right high parietal mass with adjacent vasogenic edema, increasing from 12/13/2022. WSN: [id number] Ordering Physician: Halina Mesa Dictated By: Shaista Perez MD Dictated Date/Time: 02/22/23 8:00 pm Reviewed By: Shaista Perez MD Signed By: Shaista Perez MD Signed Date/Time: 02/22/23 8:00 pm Transcribed By: IVANNA Transcribed Date/Time: 02/22/23 7:53 pm Vital Signs Most recent to oldest [Reference Range]: 1 2 3 Oxygen Saturation [94-100 %] 95 % (02/22/23 11:37 PM) 99 % (02/22/23 9:50 PM) 100 % (02/22/23 7:24 PM) Pulse Rate [55-90 bpm] 86 bpm (02/22/23 11:37 PM) 85 bpm (02/22/23 9:50 PM) 88 bpm (02/22/23 7:24 PM) Blood Pressure [90-138/55-84 mm Hg] 100/56mm Hg (02/22/23 11:37 PM) 117/61mm Hg (02/22/23 9:50 PM) 114/63mm Hg (02/22/23 7:24 PM) Respiratory Rate [16-30 br/min] 21 br/min (02/22/23 11:37 PM) 23 br/min (02/22/23 9:50 PM) 26 br/min (02/22/23 7:24 PM) Temperature [96.8-100.4 DegF] 98.6 DegF (02/22/23 9:50 PM) 98.6 DegF (02/22/23 7:24 PM) 98.1 DegF (02/22/23 6:39 PM) Liters per Minute 3 L/min (02/22/23 11:37 PM) 3 L/min (02/22/23 9:50 PM) 3 L/min (02/22/23 7:24 PM) Mode of Delivery (Oxygen) Nasal cannula (02/22/23 11:37 PM) Nasal cannula (02/22/23 9:50 PM) Nasal cannula (02/22/23 7:24 PM) Blood pressure sites Arm, left (02/22/23 11:37 PM) Arm, left (02/22/23 9:50 PM) Arm, left (02/22/23 7:24 PM) Temperature Route Oral (02/22/23 9:50 PM) Oral (02/22/23 7:24 PM) Oral (02/22/23 6:39 PM) Social History Social History Type Response Tobacco Other: quit smoking in 2018, started smoking age 11, 2 or 3 packs per day. Sex Note * Bonita DEVLIN, Halina Bryant: PERFORM, SIGN, VERIFY Event Display: Patient Education Handout Authored Date: CT Head WO contrast * [employer] , CIS S: TRANSCRIBE Ana DEVLIN, Shaista Vann: VERIFY Event Display: Result: Authored Date: CT Head/Brain W/O Contrast INDICATION: Hx of Present Illness: Seizures; Reason: Seizure Disorder; Clinical Question(s): Other:; known mass ,bleeding?; Order Comment: CLINICAL QUESTION: Other: TECHNIQUE: Noncontrast head CT using axial technique and reconstructed in axial and coronal plane. Age-based protocol was used to optimize exposure parameters. CTDIvol Head: 46.90 mGy, DLP Head: 773 mGy*cm. COMPARISON: 01/17/2021 MRI of the brain 12/13/2022 FINDINGS: BRAIN: There is a heterogeneous mass in the right high parietal lobe, 2.5 x 2 cm, with adjacent vasogenic edema, overall increasing from 12/13/2022. There is no midline shift or significant cisternal effacement. Ventricular size is stable from previous. There is no intracranial hemorrhage. Chronic right cerebellar encephalomalacia. Mild periventricular and subcortical low-density white matter changes. CALVARIUM, SKULL BASE and SINUSES: No acute finding. IMPRESSION: Right high parietal mass with adjacent vasogenic edema, increasing from 12/13/2022. WSN: [id number] Ordering Physician: Halina Mesa Dictated By: Shaista Perez MD Dictated Date/Time: 02/22/23 8:00 pm Reviewed By: Shaista Perez MD Signed By: Shaista Perez MD Signed Date/Time: 02/22/23 8:00 pm Transcribed By: IVANNA Transcribed Date/Time: 02/22/23 7:53 pm Patient Care team information Care Team Personnel Name: Sharon Chamberlain MD Position: [facility] Outreach Member Role: PCP Address: Address: [address] [place] [address] [address] Sharon Chamberlain [place], [place] [address] Name: Latanya Kahn RN Position: [facility] RN Member Role: Primary Care Nurse Name: Ervin Concepcion RN Position: [facility] RN Member Role: Primary Care Nurse Name: Yuliet Mckinney RN Position: [facility] RN Member Role: Primary Care Nurse Name: Silvia Calhoun RN Position: [facility] RN Member [...] Care Nurse Name: Nirmala Oconnor RN Position: [facility] RN [...] RN Member Role: Primary Care Nurse Name: Scot Concepcion DO Position: [facility] ED Medicine MD Member Role: ED Attending Physician Address: Address: [address] [place] [address]- Name: Lois Mar RN Position: [facility] ED RN W/OE and Tasks Member Role: Patient Care Provider Name: Halina Mesa MD Position: [facility] Resident Member Role: ED Resident Address: Address: [address] [place] [address]- Care Team Related Persons Name: MIRIAN, CALEB Address: home [address] [place] [id number]
--- OUTSIDE RECORDS SUMMARY | 2023-05-17 08:54 | XMS_ITS | Continuity of Care Document ---
Author Name Unknown Organization [facility] Address [address] [facility], [address] Floor, [address] [place] [phone]- Care Team Providers Care Structural Engineering Project Manager Name Role Phone Bulmaro DEVLIN, Sharon Langley Primary Care Physician Encounter [facility] [place] [facility] [place] [id number] Date(s): 12/24/20 - 12/31/20 [facility] [address], [address], [address] [place] [id number] Attending Physician: Anu Dempsey MD, Nikki Allergies, Adverse Reactions, Alerts Substance Reaction Severity Status codeine Passed out Active Immunizations Given and Recorded Vaccine Date Status Refusal Reason influenza virus vaccine, inactivated 08/23/20 Give n pneumococcal 13-valent vaccine 1 08/22/20 Given 1Result Comment: Manufactured by [employer] Medications albuterol 0.083% inhalation solution 3 mL [...]
--- OUTSIDE RECORDS SUMMARY | 2023-05-17 08:54 | XMS_ITS | Continuity of Care Document ---
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 Name Role Phone Sharon Chamberlain MD Primary Care Physician Encounter [facility] Date(s): 12/11/22 - 12/14/[address] [address]- Encounter Diagnosis Seizure(Final) - 12/11/22 Discharge Disposition: A-D/C Home Attending Physician: Anne Welch MD Admitting Physician: No Hernandez MD Referring Physician: Not on Staff, Referring [...] 1 08/22/20 Given 1Result Comment: Manufactured by [employer] Afrin 0.05% spray 2 sprays, Nares, Both, 2 times a day, # 15 mL, 0 Refills, Maintenance, 11/22/21 11:51:00 EST, [place], Partial fill upon patient request if the [...] Refills, Maintenance, 05/27/22 9:41:00 EDT, Inhalation Solution, [facility], Partial fill upon patient request [...] 05/26/22 14:42:00 EDT, Route to Pharmacy Electronically, [facility], Partial fill upon patient request if [...] drug. Start Date: 05/23/22 Status: Ordered Keppra 750 mg oral tablet 1 tablet = 750 mg, By Mouth, 2 times a day, # 60 tablet, 0 Refills, Maintenance, 12/14/22 10:30:00 EST, Tablet, [facility], Partial fill upon patient request if the prescription is for a schedule II opioid drug., 163, cm, 12/14/22 7:33:0... Start Date: 12/14/22 Stop Date: 01/13/23 Status: Ordered Lasix 40 mg oral tablet 40 mg, 1, tablet, By Mouth, Daily, # 30 tablet, Refills 0, Tot. Refills 0, Maintenance, 05/26/22 14:43:00 EDT, Route to Pharmacy Electronically, [facility], Partial fill upon patient request [...] 0 Refills, Maintenance, 05/26/22 14:43:00 EDT, Tablet, [facility], Partial fill upon patient request [...] Confirmed Active 1Problem added by Discern Expert Procedures Procedure Date Related Diagnosis Body Site Status section Complete d Cholecystectomy Completed Results Radiology Reports * Exam Date Time Procedure Performing Provider Status 12/13/22 12:26 PM MRI Brain W+W/O Contrast Scot Branch ; Auth (Verified) Notes: (MRI Brain W+W/O Contrast) Reason For Exam: Other: RESULT: MRI Brain W+W/O Contrast MRI Brain W+W/O Contrast INDICATION / CLINICAL QUESTION: Reason: Other:; Clinical Question(s): Other:; Special Instructions:r o seizure; seizure protocol; Order Comment: Please see Reference Text for complete list of contraindications Other: TECHNIQUE: MRI of the brain was performed with and without contrast utilizing sagittal and axial T1, axial T2, axial FLAIR, coronal T2, coronal FLAIR, axial SWAN, and axial DWI sequences, and post-contrast 3D T1 RAY with multiplanar reformats. 11 mL of Clariscan was administered intravenously. COMPARISON: MRI of 10/20/2020, CT of 11/16/2021. FINDINGS: This examination was degraded by motion. Within the confines, the following are the findings. BRAIN and EXTRA-AXIAL SPACES: There is a 1.5 x 1.6 x 1.5 cm predominantly peripherally enhancing mass in the right medial posterior parietal lobe with associated restricted diffusion predominantly in the periphery most compatiblewith hypercellularity. There is subtle susceptibility signal in the nonenhancing center suggesting blood products and necrosis. There is surrounding vasogenic edema. Within the confines of motion, noother mass is identified. The bilateral medial temporal lobes are symmetric in signal, morphology, and volume. There is no abnormal enhancement. There is no midline shift or effacement of the basal cisterns. No other areas of restricted diffusion that would indicate acute or subacute infarct present. No other areas of susceptibility signal are present. There are mild to moderate concentric T2 hyperintensities in the periventricular and subcortical white matter which is nonspecific but may represent chronic microangiopathy. There is encephalomalacia in the right cerebellum. In the axillary fat in the inferior left cerebellum is also noted. T2 hyperintense foci are also noted in the francisco which are nonspecific. The midline structures areunremarkable. Ventricles, cisterns, and sulci are moderately prominent, consistent with volume loss, without hydrocephalus. No abnormal extra-axial fluid collections are seen. Meningeal surfaces are normal. No other abnormal intracranial enhancement is seen. Major intracranial flow voids are present. EXTRACRANIAL SOFT TISSUES: Orbits are unremarkable. Paranasal sinuses and mastoids are unremarkable. BONES: Marrow signal is preserved. IMPRESSION: Right parietal predominantly peripheral enhancing intraparenchymal mass most consistent with metastatic disease. No midline shift or hydrocephalus. No other area of abnormal enhancement or other massis identified. No acute/subacute infarct or acute hemorrhage. Mild to moderate nonspecific white matter T2 hyperintensities. Mild to moderate global cerebral volume loss. A critical result message (Nichols) has been communicated via the [employer] system on 12/13/2022 1:12 PM, Message ID [id number]. WSN: [id number] Ordering Physician: Anne Welch Dictated By: Judi Eller MD Dictated Date/Time: 12/13/22 1:13 pm Reviewed By: Judi Eller MD Signed By: Judi Eller MD Signed Date/Time: 12/13/22 1:13 pm Transcribed By: IVANNA Transcribed Date/Time: 12/13/22 1:00 pm * Exam Date Time Procedure Performing Provider Status 12/11/22 6:07 PM Chest 2 Views Frontal and Lat Lorna , Mago; Auth (Verified) Notes: (Chest 2 Views Frontal and Lat) Reason For Exam: Chest Pain;Other: RESULT: Chest 2 Views Frontal and Lat Chest 2 Views Frontal and Lat Hx of Present Illness: pt states she is unsure what happened they told me i had a seiziure. pt reports just finishing supper unable to finish and requested to go to bedroom to go to bed, pt reports not sleeping well the night before; Reason: Other:; Chest Pain; Clinical Question(s): CHF COMPARISON: None. FINDINGS: LINES AND TUBES: None. LUNGS AND PLEURA: Residual hazy opacity in the medial right upper lung field which is less prominent compared to the prior exam. HEART, MEDIASTINUM AND HUA: Prominent cardiomediastinal silhouette which remains unchanged. Tortuous ectatic thoracic aorta with atherosclerotic calcifications. There is a moderate-sized hiatal hernia. BONES AND SOFT TISSUES: No acute abnormality. IMPRESSION: 1. Residual hazy opacity in the medial right upper lung field which is less prominent compared to the prior exam. 2. Persistent enlargement of the cardiomediastinal silhouette. WSN: [id number] Ordering Physician: Elyssa Valdez Dictated By: Jasmina Lopez MD Dictated Date/Time: 12/11/22 6:21 pm Reviewed By: Jasmina Lopez MD Signed By: Jasmina Lopez MD Signed Date/Time: 12/11/22 6:21 pm Transcribed By: IVANNA Transcribed Date/Time: 12/11/22 6:10 pm Vital Signs Most recent to oldest [Reference Range]: 1 2 3 Height 163 cm (12/14/22 11:44 AM) 163 cm (12/14/22 7:33 AM) 163 cm (12/14/22 4:01 AM) Weight 59.5 kg (12/12/22 11:33 AM) Oxygen Saturation [94-100 %] 80 % *L* (12/14/22 11:44 AM) 93 % *L* (12/14/22 7:33 AM) 94 % (12/14/22 4:01 AM) Pulse Rate [55-90 bpm] 55 bpm (12/14/22 11:44 AM) 86 bpm (12/14/22 7:33 AM) 83 bpm (12/14/22 4:01 AM) Body Mass Index [18.5-24.99 kg/m2] 22.39 kg/m2 (12/12/22 11:33 AM) Blood Pressure [90-138/55-84 mm Hg] 103/58mm Hg (12/14/22 11:44 AM) 116/75mm Hg (12/14/22 7:33 AM) 116/58mm Hg (12/14/22 4:01 AM) Respiratory Rate [16-30 br/min] 20 br/min (12/14/22 11:44 AM) 20 br/min (12/14/22 7:33 AM) 18 br/min (12/14/22 4:01 AM) Temperature [96.8-100.4 DegF] 98.0 DegF (12/14/22 11:44 AM) 98.0 DegF (12/14/22 7:33 AM) 98.1 DegF (12/14/22 4:01 AM) Liters per Minute 2 L/min (12/14/22 11:44 AM) 2 L/min (12/14/22 7:33 AM) 2 L/min (12/14/22 4:01 AM) Mode of Delivery (Oxygen) Nasal cannula (12/14/22 11:44 AM) Nasal cannula (12/14/22 7:33 AM) Nasal cannula (12/14/22 4:01 AM) Blood pressure sites Arm, right (12/14/22 11:44 AM) Arm, right (12/14/22 7:33 AM) Arm, right (12/14/22 4:01 AM) Temperature Route Oral (12/14/22 11:44 AM) Oral (12/14/22 7:33 AM) Oral (12/14/22 4:01 AM) Dry Weight 59.5 kg (12/12/22 11:33 AM) Social History Social History Type Response Tobacco Other: quit smoking in 2019, started smoking age 11, 2 or 3 packs per day. Sex Admission evaluation note * Selina Freeman MD: PERFORM Event Display: Admission Note Authored Date: [id number] Patient: ??BRI STOUT ? Age:??77 Years?Sex:??Female?:??1945?? History of Present Illness Bri Stout is a 77-year-old female patient??with past medical history significant for HTN, HLD, thromboangitis obliterans with left digit amputation, subacute right cerebellar stroke in 2019, COPD on nocturnal oxygen 2 L, former smoker, heart failure with reduced ejection fraction, EF 25%, recently admitted through 11/24/22 for heart failure exacerbation??in the setting of community acquired pneumonia??who is presenting from home for the chief complaint of seizure-like activity. Reportedly patient had an episode of vomiting followed by an episode of shaking and clenching her upper body, she states that this is what her sister had told her had happened. Patient reports that the next thing that she remembered was her son calling for an ambulance. ?? She states that prior to this episode she had been feeling very well. Her shortness of breath had been at baseline given her COPD and she did not have any worsened nausea and vomiting than usual. She does report occasional nausea and vomiting for several months now, which is usually exacerbated by meals, and she does not feel this episode of vomiting would be out of the ordinary for her. She does not report any dysuria though does report chronic difficulties with incontinence. She does occasionally have dizziness but did not have any dizziness prior to the episode. ??She does report some history of??episodic hypotension as well. ??Since she was feeling nauseas she had asked her sister to help her back to her room in her wheelchair and that was when she had the episode. She did not fallout of the wheelchair or injure herself in any way. She did not have any tongue biting. She does not report any recent coughing, fevers, diarrhea, constipation, or rashes. She does not report??any medication changes recently??since her most recent??discharge.??Patient did have a similar episode in August of 2022 and was diagnosed with syncope and discharged home. ?? While in the ED, patient was found to have stable anemia at 10.1, no leukocytosis, normal sodiumat 141, and [id number] potassium low at 3.2.?? However, serum potassium was hemolyzed.?? Repeat stat electrolytes have been ordered.?? Otherwise, ionized calcium is also low at 1.07.?? EKG showed normal sinus rhythm with a rate of around 85.?? proBNP was within normal limits at 360 and TSH was also within normal limits at 0.73.?? Urinalysis was not concerning for UTI, and high-sensitivity troponin returned at 22. ??Chest x-ray showed stable right upper lobe opacity. Review of Systems General: Negative for fevers, chills, fatigue HEENT: Negative for cough, congestion, rhinorrhea, sore throat Cardiovascular: Negative for chest pain, palpitations Respiratory: Negative for shortness of breath, wheezing Gastrointestinal: Positive for nausea, vomiting. ??Negative for abdominal pain, diarrhea/constipation Genitourinary: Negative for dysuria, increased urinary frequency Musculoskeletal: Negative for MSK pain, bone pain Neurologic: Positive for syncope. ??Negative for weakness, numbness/tingling, headache, dizziness Skin: Negative for rashes or lesions Psychiatric: Negative for depression, anxiety Objective Vital Signs?? Temperature: 98 DegF (12/11/22 19:37:00) Temperature Route: Oral (12/11/22 19:37:00) Pulse Rate:??94 bpm??High (12/12/22 04:21:00) Respiratory Rate: 20 br/min (12/12/22 04:21:00) Systolic Blood Pressure: 110 mm Hg (12/12/22 04:21:00) Diastolic Blood Pressure: 80 mm Hg (12/12/22 04:21:00) Mean Arterial Pressure: 86 mm Hg (12/11/22 19:37:00) Pulse Pressure: 52 mm Hg (12/12/22 00:25:00) Oxygen Saturation: 98 % (12/12/22 04:21:00) Liters per Minute: 15 L/min (12/12/22 04:21:00) Mode of Delivery (Oxygen): Partial rebreather mask (12/12/22 04:21:00) Early Warning Score: 0 (12/12/22 04:28:21) ? Physical Exam General Appearance: The patient is in NAD. Eyes: EOMI. ROBERT. No scleral icterus. Cardiovascular: RRR S1 and S2 heard with no M/R/G. Respiratory: ??Breath sounds clear to auscultation bilaterally. No wheezing. Good air movement throughout both lungs. GI: Soft. Nontender and nondistended. No rebound tenderness. MS: ??No edema or erythema in the lower extremities. Skin: No rashes seen on chest, abdomen, or back. ? Neuro: ??No slurred speech. Upper extremity strength equal bilaterally with 5/5 strength in flexion, extension and accounting recruiter. ??Lower extremity strength equal bilaterally with 5/5 strength. ??Reflexes 2+ throughout. ??CN II-XII intact. Psych: Alert and oriented x3. Appropriate and pleasant. Lines: Peripheral IV in place. Assessment/Plan ?? Bri Stout is a 77-year-old female patient??with past medical history significant for HTN, HLD, thromboangitis obliterans with left digit amputation, subacute right cerebellar stroke in 2020, COPD on nocturnal oxygen 2 L, former smoker, heart failure with reduced ejection fraction, EF 25%, recently admitted through 11/24/22 for heart failure exacerbation??in the setting of community acquired pneumonia??who is presenting from home for the chief complaint of seizure-like activity following an episode of nausea and vomiting. She is being kept in observation status for further workup and management. ?? 1. Seizure-like activity vs. Syncope ?? Given that patient??had a prodrome of nausea and vomiting,??this is more likely to be??vasovagal syncope than??seizure. ??Seizure is also less likely given absence of tongue biting. ??Orthostatic syncope is also possible. ??However, this happened while patient was seated.?? Still, given the patient reports??orthostasis in the past, will check orthostatic vital signs during this admission.?? 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 ??Given possible other episodes of seizure in the past, will consult neurology to see if??they would recommend any additional testing.?? Given patient's likely lung cancer,??it is also possible that she has pain metastases which could be causing seizure. ??She is scheduled to discuss her PET/CT findings with warp dyeing tender on 12/19 and does not yet??know the diagnosis. ?? -orthostatic vitals in AM -[place] police lieutenant -f/u repeat troponin -seizure precautions, neurochecks every 4 hours -PRN ativan for seizure -neurology consult -f/u repeat stat electrolytes ? chronic/stable medical conditions: COPD: continue scheduled and as needed duonebs, spiriva+breo ellipta??while inpatient??in place of??[place] Ellipta hld: continue home aspirin, atorvastatin, clopidogrel HFrEF: continue home lasix 40 mg po daily depression/anxiety: continue home mirtazapine, sertraline ? Quality Metrics: DVT:??lovenox Diet:??cardiac Code: DNR/DNI ? Patient seen and discussed with??Dr. Britt ? Selina Freeman MD PGY-2, Internal Medicine Available on Cortext December 12, 2022 at 4:51 AM ? Histories Allergies Allergies ?(Active and Proposed Allergies [...] with adapter)?2?puff(s)?Inhalation?4 times a day?as needed?for wheezing Albuterol/Ipratropium (albuterol-ipratropium 3 mg-0.5 mg/3 ml inhalation solution)?3?Milliliter?Neb?Every 4 hours?Dx: J44.9 Aspirin (Aspirin Enteric Coated 81 mg oral delayed release tablet)?1?tab(s)?81?Milligram?By Mouth?Daily Atorvastatin (atorvastatin 80 mg oral tablet)?1?tab(s)?80?Milligram?By Mouth?Daily at bedtime Clopidogrel (clopidogrel 75 mg oral tablet)?75?Milligram?1?tablet?By Mouth?Daily Docusate (Doculase 100 mg oral capsule)?1?capsule?100?Milligram?By Mouth?2 times a day?as needed?as needed for constipation Furosemide (Lasix 40 mg oral tablet)?40?Milligram?1?tablet?By Mouth?Daily Loperamide (loperamide 2 mg oral capsule)?2?Milligram?1?capsule?By Mouth?Daily?as [...] Recent Labs BLOOD COUNT & DIFF WBC 4.9 k/mm3 ()?? 12/11/2022 18:16 RBC 3.13 m/mm3 (Low)?? 12/11/2022 18:16 Hgb 10.1 Gm/dL (Low)?? 12/11/2022 18:16 Hct 29.1 % (Low)?? 12/11/2022 18:16 MCV 93.0 femtoliters ()?? 12/11/2022 18:16 MCH 32.3 pg ()?? 12/11/2022 18:16 MCHC 34.7 g/dL ()?? 12/11/2022 18:16 Platelet Count 242 k/mm3 ()?? 12/11/2022 18:16 RDW-SD 51.5 femtoliters (High)?? 12/11/2022 18:16 MPV 9.3 femtoliters (Low)?? 12/11/2022 18:16 Nucleated RBC (Automated) 0.0 #/100 WBC'S ()?? 12/11/2022 18:16 Abs. NRBC 0.0 k/mm3 ()?? 12/11/2022 18:16 Abs. Neut 3.9 k/mm3 ()?? 12/11/2022 18:16 Abs. Lymph 0.6 k/mm3 (Low)?? 12/11/2022 18:16 Abs. Leslie 0.3 k/mm3 (Low)?? 12/11/2022 18:16 Abs. Eo 0.1 k/mm3 ()?? 12/11/2022 18:16 Abs. Baso 0.0 k/mm3 ()?? 12/11/2022 18:16 Neut % 78.7 % (High)?? 12/11/2022 18:16 Lymph % 12.4 % (Low)?? 12/11/2022 18:16 Leslie % 6.7 % ()?? 12/11/2022 18:16 Eos % 1.4 % ()?? 12/11/2022 18:16 Baso % 0.4 % ()?? 12/11/2022 18:16 Hemoglobin (POC) POC Cartridge 10.2 Gm/dL (Low)?? 12/11/2022 21:38 Hematocrit (POC) POC Cartridge 30 % (Low)?? 12/11/2022 21:38 Imm Gran 0.4 % ()?? 12/11/2022 18:16 Abs. Imm Gran 0.0 k/mm3 ()?? 12/11/2022 18:16 ?? CARDIAC Nt-Probnp 364 pg/mL ()?? 12/11/2022 18:16 High Sensitivity Troponin (HSTnT) 22 ng/L (High)?? 12/11/2022 18:25 ?? CHEM GENERAL Sodium 141 mmol/L ()?? 12/11/2022 18:16 Potassium HEMOLYZED mmol/L ()?? 12/11/2022 18:16 Chloride 99 mmol/L ()?? 12/11/2022 18:16 Bicarbonate Level 29 mmol/L ()?? 12/11/2022 18:16 Anion Gap 13 ()?? 12/11/2022 18:16 Sodium (POC) POC Cartridge 141 mmol/L ()?? 12/11/2022 21:38 Potassium (POC) POC Cartridge 3.2 mmol/L (Low)?? 12/11/2022 21:38 Chloride (POC) POC Cartridge 97 mmol/L (Low)?? 12/11/2022 21:38 Glucose Level 134 mg/dL (High)?? 12/11/2022 18:16 Glucose (POC) POC Cartridge 132 (High)?? 12/11/2022 21:38 BUN 15 mg/dL ()?? 12/11/2022 18:16 BUN (POC) POC Cartridge 17 mg/dL ()?? 12/11/2022 21:38 Creatinine-Blood 1.0 mg/dL ()?? 12/11/2022 18:16 Creatinine (POC) POC Cartridge 1.0 mg/dL ()?? 12/11/2022 21:38 Estimated GFR Creatinine 57 ML/MIN/1.73 M2 ()?? 12/11/2022 18:16 Calcium 8.9 mg/dL ()?? 12/11/2022 18:16 Ionized Calcium (POC) POC Cartridge 1.07 mmol/L (Low)?? 12/11/2022 21:38 Magnesium 1.7 mg/dL ()?? 12/11/2022 18:16 Protein, Total 6.8 Gm/dL ()?? 12/11/2022 18:16 Albumin 3.8 Gm/dL ()?? 12/11/2022 18:16 Alkaline Phosphatase 124 units/L (High)?? 12/11/2022 18:16 AST (SGOT) HEMOLYZED units/L ()?? 12/11/2022 18:16 ALT (SGPT) 10 units/L ()?? 12/11/2022 18:16 Bilirubin, Total 0.6 mg/dL ()?? 12/11/2022 18:16 Bilirubin, Direct HEMOLYZED mg/dL ()?? 12/11/2022 18:16 Bilirubin, Indirect Unable to calculate mg/dL ()?? 12/11/2022 18:16 ?? ENDOCRINE/TUMOR MARKER TSH 0.73 uIU/mL ()?? 12/11/2022 18:16 ?? HEME OTHER Hold Lavender Top SPECIMEN DISCARDED AFTER 24 HOURS. ()?? 12/12/2022 03:34 Hold Blue Top SPECIMEN DISCARDED AFTER 4 HOURS. ()?? 12/11/2022 18:16 ?? UA/URINALYSIS Appear/Color, Urine LIGHT YELLOW ()?? 12/11/2022 20:20 Specific [place], Urine 1.009 ()?? 12/11/2022 20:20 pH, Urine 5.5 ()?? 12/11/2022 20:20 Albumin, Urine NEGATIVE ()?? 12/11/2022 20:20 Glucose, Urine NEGATIVE ()?? 12/11/2022 20:20 Ketones, Urine NEGATIVE ()?? 12/11/2022 20:20 Bilirubin, Urine NEGATIVE ()?? 12/11/2022 20:20 Hemoglobin, Urine NEGATIVE ()?? 12/11/2022 20:20 Nitrite, Urine NEGATIVE ()?? 12/11/2022 20:20 Leukocyte, Urine NEGATIVE ()?? 12/11/2022 20:20 Urobilinogen NORMAL mg/dL ()?? 12/11/2022 20:20 WBC's, Urine NONE SEEN /HPF ()?? 12/11/2022 20:20 RBC's, Urine 1 /HPF ()?? 12/11/2022 20:20 Hold Urine Culture Testing available 48 hours from time of collection. ()?? 12/11/2022 20:20 ?? VIROLOGY COVID-19 by RT-PCR NEGATIVE ()?? 12/11/2022 20:48 ? * Keven Britt MD: PERFORM Event Display: Admission Note Authored Date: ??Attending Attestation:?? I had seen and evaluated this patient. ?? I had ??discussed the case and its management with the resident and agree with the findings and plan as documented in the resident's note. ??I??had ??provided care to this patient till 7 AM of the admitting date. ? Hospital Progress note * Berto Quevedo RN: PERFORM, SIGN, VERIFY Event Display: Progress Note Hospital Authored Date: Patient: BRI STOUT Age: 77 years Sex: Female : 1945 Associated Diagnoses: None Author: Berto Quevedo RN Findings Patient alert and oriented, VSS, answers questions appropriately. No significant events or complaints overnight. On tele reading NSR and on O2 @ 2L via nasal cannula. Patient denies pain, lungs clearto auscultation, and seizure precautions in place. Patient has occasional cough, given PRN cough syrup which appears to have suppressed cough. Patient refused scheduled neb. treatment to continue sleeping. Med rescheduled for a later time. Call haq in reach, safety and comfort measures maintained.. * Stan Rivas: PERFORM Event Display: Progress Note Hospital Authored Date: Patient: ??BRI STOUT ? Age:??77 Years?Sex:??Female?:??1945?? Subjective interim hx no further events Review of Systems Allergies Allergies ?(Active and Proposed Allergies Only) codeine? (Severity: Unknown severity, Onset: Unknown) ?Reactions: Passed out ? Objective Vital Signs?? Temperature: 97.5 DegF (12/13/22 14::00) Temperature Route: Oral (12/13/22 14::00) Pulse Rate:??47 bpm??Low (12/13/22 14::00) Respiratory Rate: 20 br/min (12/13/22 14:01:00) Systolic Blood Pressure: 112 mm Hg (12/13/22 14::00) Diastolic Blood Pressure: 81 mm Hg (12/13/22 14:01:00) Blood pressure sites: Arm, right (12/13/22 14::00) Mean Arterial Pressure: 91 mm Hg (12/13/22 14::00) Pulse Pressure: 31 mm Hg (12/13/22 14:01:00) Oxygen Saturation: 95 % (12/13/22 14:01:00) Liters per Minute: 2 L/min (12/13/22 14:01:00) Mode of Delivery (Oxygen): Nasal cannula (12/13/22 14:01:00) Early Warning Score: 5 (12/13/22 14:02:14) ? Physical Exam Gen- NAD? neuro- mentation- alert and oriented x person, place, time, and disposition. ??able to name simple objectssuch as watch and eyeglasses. ??able to follow simple and complex commands. ??no aphasia.?? 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 face- symmetric, sensation intact speech- clear, fluent ?? Motor- good muscle bulk and tone, no rigidity, no tremor RUE- 5/5 ?? RLE- 5/5 LUE- 5/5 ?LLE- 5/5 ?? sensation-??intact to LT bilaterally ? _ Home Medications Acetaminophen (Tylenol 325 mg oral tablet)?650?Milligram?2?tablet?By Mouth?Every 6 hours?as needed?Pain , Mild Albuterol (albuterol 0.083% inhalation solution)?3?Milliliter?2.5?Milligram?Neb?Every 6 hours?as needed?as needed for wheezing Albuterol (Ventolin HFA 108 mcg/inh inhalation aerosol with adapter)?2?puff(s)?Inhalation?4 times a day?as needed?for wheezing Albuterol/Ipratropium (albuterol-ipratropium 3 mg-0.5 mg/3 ml inhalation solution)?3?Milliliter?Neb?Every 4 hours?Dx: J44.9 Aspirin (Aspirin Enteric Coated 81 mg oral delayed release tablet)?1?tab(s)?81?Milligram?By Mouth?Daily Atorvastatin (atorvastatin 80 mg oral tablet)?1?tab(s)?80?Milligram?By Mouth?Daily at bedtime Clopidogrel (clopidogrel 75 mg oral tablet)?75?Milligram?1?tablet?By Mouth?Daily Docusate (Doculase 100 mg oral capsule)?1?capsule?100?Milligram?By Mouth?2 times a day?as needed?as needed for constipation Furosemide (Lasix 40 mg oral tablet)?40?Milligram?1?tablet?By Mouth?Daily Loperamide (loperamide 2 mg oral capsule)?2?Milligram?1?capsule?By Mouth?Daily?as [...] mcg/inh inhalation powder)?1?puff(s)?Inhalation?Daily ? Inpatient Medications Medications (25) Active SCHEDULED: (15) Albuterol/Ipratropium Inhalation Karma 3mL (Duoneb Inhalation Solution) ??1 vials, BAND Nebulizer, 4 times a day Aspirin 81 mg EC Tablet (aspirin 81 mg oral delayed release tablet) ??81 mg, By Mouth, Daily Atorvastatin 80 mg Tablet (atorvastatin 80 mg oral tablet) ??80 mg, By Mouth, Daily at bedtime Breo Ellipta 200 mcg / 25 mcg Inhaler (Breo Ellipta 200 mcg-25 mcg Inhaler) ??1 puffs, Inhalation, Daily Clopidogrel 75 mg Tablet (clopidogrel 75 mg oral tablet) ??75 mg, By Mouth, Daily Enoxaparin 40 mg Inj (Enoxaparin Inj) ??40 mg 0.4 mL, Subcutaneous Injection, Daily Furosemide 40 mg Tablet (Lasix 40 mg oral tablet) ??40 mg, By Mouth, Daily Levetiracetam 250 mg Tablet (Keppra 500 mg oral tablet) ??750 mg, By Mouth, 2 times a day Mirtazapine 15 mg Tablet (mirtazapine 15 mg oral tablet) ??7.5 mg, By Mouth, Daily at bedtime NaCl 0.9% Flush 3ml (NaCL 0.9% Flush) ??3 mL, IV Push, Every 8 hours Pantoprazole 40 mg EC Tablet (Protonix 40 mg oral delayed release tablet) ??40 mg, By Mouth, Daily Potassium Chloride 10mEq ER Tablet (potassium chloride 10 mEq oral tablet, extended release) ??40 mEq, By Mouth, Every 4 hours Pramipexole 0.5 mg Tablet (pramipexole 0.5 mg oral tablet) ??1 mg, By Mouth, Daily at bedtime Sertraline 50 mg Tablet (Zoloft 50 mg oral tablet) ??50 mg, By Mouth, Daily Spiriva Respimat 2.5 mcg Inhaler (Spiriva Respimat Inhaler) ??2 puffs, Inhalation, Daily CONTINUOUS: (0) PRN: (10) Acetaminophen 325 mg Tablet (Acetaminophen Tablet) ??650 mg, By Mouth, Every 4 hours Albuterol/Ipratropium Inhalation Karma 3mL (Duoneb Inhalation Solution) ??1 vials, BAND Nebulizer, 4 times a day Dextromethorphan-Guaifenesin 20 mg-200 mg/10 mL Liqu UD (Robitussin DM Liquid) ??10 mL, By Mouth, Every 4 hours Lorazepam 2 mg Inj Syringe (Ativan Inj) ??1 mg, IV Push Slowly, Once Melatonin 3 mg Tablet (Melatonin Tablet) ??3 [...] Recent Labs BLOOD COUNT & DIFF WBC 4.4 k/mm3 ()?? 12/13/2022 00:37 RBC 3.18 m/mm3 (Low)?? 12/13/2022 00:37 Hgb 8.8 Gm/dL (Low)?? 12/13/2022 00:37 Hct 28.2 % (Low)?? 12/13/2022 00:37 MCV 88.7 femtoliters ()?? 12/13/2022 00:37 MCH 27.7 pg ()?? 12/13/2022 00:37 MCHC 31.2 g/dL (Low)?? 12/13/2022 00:37 Platelet Count 236 k/mm3 ()?? 12/13/2022 00:37 RDW-SD 52.2 femtoliters (High)?? 12/13/2022 00:37 MPV 9.3 femtoliters (Low)?? 12/13/2022 00:37 Nucleated RBC (Automated) 0.0 #/100 WBC'S ()?? 12/13/2022 00:37 Abs. NRBC 0.0 k/mm3 ()?? 12/13/2022 00:37 Abs. Neut 2.5 k/mm3 ()?? 12/13/2022 00:37 Abs. Lymph 1.3 k/mm3 ()?? 12/13/2022 00:37 Abs. Leslie 0.4 k/mm3 ()?? 12/13/2022 00:37 Abs. Eo 0.2 k/mm3 ()?? 12/13/2022 00:37 Abs. Baso 0.0 k/mm3 ()?? 12/13/2022 00:37 Neut % 56.1 % ()?? 12/13/2022 00:37 Lymph % 28.8 % ()?? 12/13/2022 00:37 Leslie % 10.1 % ()?? 12/13/2022 00:37 Eos % 4.3 % ()?? 12/13/2022 00:37 Baso % 0.2 % ()?? 12/13/2022 00:37 Imm Gran 0.5 % ()?? 12/13/2022 00:37 Abs. Imm Gran 0.0 k/mm3 ()?? 12/13/2022 00:37 ?? CARDIAC High Sensitivity Troponin (HSTnT) 24 ng/L (High)?? 12/12/2022 05:25 ?? CHEM GENERAL Sodium 143 mmol/L ()?? 12/13/2022 00:37 Potassium 3.0 mmol/L (Low)?? 12/13/2022 00:37 Chloride 101 mmol/L ()?? 12/13/2022 00:37 Bicarbonate Level 33 mmol/L (High)?? 12/13/2022 00:37 Anion Gap 9 ()?? 12/13/2022 00:37 Glucose Level 107 mg/dL (High)?? 12/13/2022 00:37 BUN 18 mg/dL ()?? 12/13/2022 00:37 Creatinine-Blood 0.9 mg/dL ()?? 12/13/2022 00:37 Estimated GFR Creatinine 63 ML/MIN/1.73 M2 ()?? 12/13/2022 00:37 Calcium 9.1 mg/dL ()?? 12/12/2022 05:25 Magnesium 1.7 mg/dL ()?? 12/13/2022 00:37 ?? HEME OTHER Hold Lavender Top SPECIMEN DISCARDED AFTER 24 HOURS. ()?? 12/12/2022 03:34 ? (12/13/2022 12:26 EST MRI Brain W+W/O Contrast) IMPRESSION: ?? Right parietal predominantly peripheral enhancing intraparenchymal mass most consistent with metastatic disease. No midline shift or hydrocephalus. No other area of abnormal enhancement or other massis identified. ?? No acute/subacute infarct or acute hemorrhage. ?? Mild to moderate nonspecific white matter T2 hyperintensities. ?? Mild to moderate global cerebral volume loss. ?? A critical result message (Nichols) has been communicated via the [employer] system on 12/13/2022 1:12 PM, Message ID [id number]. WSN: [id number] ? Ordering Physician: Anne Welch ?? Signature Line Dictated By: ?Judi Eller MD Dictated Date/Time: ?12/13/22 1:13 pm [1] Assessment/Plan Diagnoses Seizure ??(R56.9) ? 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 ?? MRI with R parietal metastatic lesion? patient with syncope vs sz ?? recommend cancel EEG and start keppra 750mg BID.?? I deferred the movement d/o f/u as this is possibly due to brain lesion, would rec neurosurgery/ oncology.?? we will sign off.?? I will refer for f/u in sz clinic. ?? d/w dr aj messaged team [1]??MRI Brain W+W/O Contrast; Judi Eller MD 12/13/2022 12:26 EST * Lazarus DEVLIN, Moy L: PERFORM Event Display: Progress Note Hospital Authored Date: I personally reviewed the case and agree with the findings and plan as noted below. * Rebekah DEVLIN, Anne Lujan: MODIFY, PERFORM Event Display: Progress Note Hospital Authored Date: Patient: ??BRI STOUT ? Age:??77 Years?Sex:??Female?:??1945?? Subjective Seen and examined today Awaiting for MRI k very low does not want iv kcl as it tim ?? no cp no sob no further seizure ? Review of Systems Objective ?? Physical Exam Awake, alert, oriented Lungs: Clear to auscultation bilateral, no wheezing no rales Heart: Regular rate and rhythm, no murmur, no rub or gallop Abdomen: Soft, nontender, nondistended; Bowel sounds present Extremity: No edema cyanosis clubbing Neurological: No focal deficit Psychiatric: Normal mood and affect Assessment/Plan Assessment:??77 y/o??female patient with past medical history significant for HTN, HLD, thromboangitis obliterans with left digit amputation, subacute right cerebellar stroke in 2019, COPD on nocturnal oxygen 2 L, former smoker, heart failure with reduced ejection fraction, EF 25%, recently admitted through 11/24/22 for heart failure exacerbation in the setting of community acquired pneumonia who is presenting from home for the chief complaint of seizure-like activity following an episode of nausea and vomiting. She is being kept in observation status for further workup and management. ?? Seizure vs. syncope Possible parkinsonism ?? Plan: Awaiting for??MRI brain with and without contrast, seizure protocol ??-Routine EEG ??-Orthostatic BP measurements supine and standing ??-Seizure precautions Appreciated neurology consult ? Chronic/stable medical conditions: ?? COPD: continue scheduled and as needed duonebs, spiriva+breo ellipta Hyperlipidemia: Will continue home aspirin, atorvastatin, clopidogrel ?? HFrEF: Stable Will continue home lasix 40 mg po daily ?? Depression/anxiety: Will continue home mirtazapine, sertraline ?? DVT: lovenox ?? Diet: cardiac ?? Code: DNR/DNI ?? Discharge Planning:? MRI shows brain mass (left parietal) likely??mets ?? CT PET done outside that shows lung mass ?? Will start Keppra for seizure prophylaxis Oncology and neuro surgery consult Updated daughter Note * Mable Cervantes RN: PERFORM Event Display: Discharge/Transfer Note Hospital Authored Date: [id number] Nursing Discharge Note Entered On: 12/14/2022 16:06 EST Performed On: 12/14/2022 14:30 EST by Mable Cervantes RN Nursing Discharge Note 2 Discharge VNA/Hospice/Home Care(v001) : [facility] Discharge Comments : LEFT MESSAGE WITH [facility] FOR PHYSICAL THERAPY SERVICES. Mable Cervantes RN - 12/14/2022 16:58 EST Discharge Time : 12/14/2022 14:30 EST Discharge Level of Care at Discharge : Homehealth/VNA Patient Left Unit Via : Chair [facility] Patient Accompanied Off Unit with : Ambulance/Chair [facility] Personnel Handover Given to Transport Personnel : Yes DC Instructions Provided & Signed by Pt : Yes Patient Understands D/C Instructions : Yes Patient Instructions Discharge Signed : Yes Did Pt have Specialty Bed or Wound Vac : No Mable Cervantes RN - 12/14/2022 16:05 EST * Rebekah DEVLIN, Anne Lujan: PERFORM, MODIFY Event Display: Discharge/Transfer Note Hospital Authored Date: [id number] Patient: ??IMRIAN, BRI ? Age:??77 Years?Sex:??Female?:??1945?? Patient Information Discharge Location: [facility] Primary Care Physician: Sharon Chamberlain MD Admit Date/Time: 12/11/22 16:04 Discharge Disposition Discharge Disposition: ?? Discharge Diagnosis Seizure (R56.9) ??Brain mass Lung Mass ?? _ Discharge Medications Acetaminophen (Tylenol 325 mg oral tablet)?650?Milligram?2?tablet?By Mouth?Every 6 hours?as needed?Pain , Mild Albuterol (albuterol 0.083% inhalation solution)?3?Milliliter?2.5?Milligram?Neb?Every 6 hours?as needed?as needed for wheezing Albuterol (Ventolin HFA 108 mcg/inh inhalation aerosol with adapter)?2?puff(s)?Inhalation?4 times a day?as needed?for wheezing Albuterol/Ipratropium (albuterol-ipratropium 3 mg-0.5 mg/3 ml inhalation solution)?3?Milliliter?Neb?Every 4 hours?Dx: J44.9 Aspirin (Aspirin Enteric Coated 81 mg oral [...] mcg-25 mcg/inh inhalation powder)?1?puff(s)?Inhalation?Daily ? Medications Started Keppra Allergies Allergies ?(Active and Proposed Allergies Only) codeine? (Severity: Unknown severity, Onset: Unknown) ?Reactions: Passed out ? Future Appointments Thursday 10:00 AM EST ?? With: Bharathi DEVLIN, Grace Reyes Where: [facility] Pulmonary [address] [place] [address]- Thursday 9:15 AM EST ?? With: Kamala Hassan NP Where: [facility] Cardiology [address] [place] [address]- 2022 12:45 PM EDT ?? With: David Ventura MD Where: [facility] Cardiology [address] [place] [address]- Hospital Course 77 y/o female patient with past medical history significant for HTN, HLD, thromboangitis obliteranswith left digit amputation, subacute right cerebellar stroke in 2019, COPD on nocturnal oxygen 2 L,former smoker, heart failure with reduced ejection fraction, EF 25%, recently admitted through 11/24/22 for heart failure exacerbation in the setting of community acquired pneumonia who is presenting from home for the chief complaint of seizure-like activity following an episode of nausea and vomiting. She is being kept in observation status for further workup and management. ?? Seizure vs. syncope Possible parkinsonism MRI brain with and without contrast, seizure protocol showed??left parietal mass??likely mets with primary lung She already knows that she has lung mass; also has thyroid mass ?CT PET done outside that shows lung mass Neurosurgery and Oncology consulted; recommended lung and thyroid biopsy Patient is well aware that this is most likely metastatic disease, but does not want biopsy She wants to go home Patient is independent and she is rational Updated patient's son too ?? She is being discharged home Advised to d/w PCP if she wants to move ahead with biopsy and treatment ?? Plan: ??Will continue??Stephane for seizure prophylaxis ??F/up with PCP ? Chronic/stable medical conditions: ?COPD: continue scheduled and as needed duonebs, spiriva+breo ellipta while inpatient in place of [facility] Ell[facility] ? HFrEF: Stable ?? Will continue home lasix 40 mg po daily ? Depression/anxiety: ?? Will continue home mirtazapine, sertraline ? Diet: cardiac ? Code: DNR/DNI ? Objective Assessment and Plan Vital Signs?? Temperature: 98 DegF (12/14/22 07:33:00) Temperature Route: Oral (12/14/22 07:33:00) Pulse Rate: 86 bpm (12/14/22 07:33:00) Respiratory Rate: 20 br/min (12/14/22 07:33:00) Systolic Blood Pressure: 116 mm Hg (12/14/22 07:33:00) Diastolic Blood Pressure: 75 mm Hg (12/14/22 07:33:00) Blood pressure sites: Arm, right (12/14/22 07:33:00) Mean Arterial Pressure: 89 mm Hg (12/14/22 07:33:00) Pulse Pressure: 41 mm Hg (12/14/22 07:33:00) Oxygen Saturation:??93 %??Low (12/14/22 07:33:00) Liters per Minute: 2 L/min (12/14/22 07:33:00) Mode of Delivery (Oxygen): Nasal cannula (12/14/22 07:33:00) Early Warning Score: 2 (12/14/22 07:34:27) ? . Physical Exam Awake, alert, oriented Lungs: Clear to auscultation bilateral, no wheezing no rales Heart: Regular rate and rhythm, no murmur, no rub or gallop Abdomen: Soft, nontender, nondistended; Bowel sounds present Extremity: No edema cyanosis clubbing Neurological: No focal deficit Psychiatric: Normal mood and affect Pending Results No Pending Results Follow-Up Appointments Added Follow Up ?Time Frame ?Comments Bulmaro DEVLIN, Sharon Langley?1 week Home Health Face to Face ^HomeHealth[facility] Results Discharge Labs BLOOD COUNT & DIFF WBC 4.4 k/mm3 ()?? 12/14/2022 00:34 RBC 3.07 m/mm3 (Low)?? 12/14/2022 00:34 Hgb 9.4 Gm/dL (Low)?? 12/14/2022 00:34 Hct 28.7 % (Low)?? 12/14/2022 00:34 MCV 93.5 femtoliters ()?? 12/14/2022 00:34 MCH 30.6 pg ()?? 12/14/2022 00:34 MCHC 32.8 g/dL (Low)?? 12/14/2022 00:34 Platelet Count 261 k/mm3 ()?? 12/14/2022 00:34 RDW-SD 52.5 femtoliters (High)?? 12/14/2022 00:34 MPV 8.9 femtoliters (Low)?? 12/14/2022 00:34 Nucleated RBC (Automated) 0.0 #/100 WBC'S ()?? 12/14/2022 00:34 Abs. NRBC 0.0 k/mm3 ()?? 12/14/2022 00:34 Abs. Neut 2.4 k/mm3 ()?? 12/14/2022 00:34 Abs. Lymph 1.1 k/mm3 ()?? 12/14/2022 00:34 Abs. Leslie 0.6 k/mm3 ()?? 12/14/2022 00:34 Abs. Eo 0.2 k/mm3 ()?? 12/14/2022 00:34 Abs. Baso 0.0 k/mm3 ()?? 12/14/2022 00:34 Neut % 56.0 % ()?? 12/14/2022 00:34 Lymph % 25.9 % ()?? 12/14/2022 00:34 Leslie % 12.8 % (High)?? 12/14/2022 00:34 Eos % 4.6 % ()?? 12/14/2022 00:34 Baso % 0.5 % ()?? 12/14/2022 00:34 Hemoglobin (POC) POC Cartridge 10.2 Gm/dL (Low)?? 12/11/2022 21:38 Hematocrit (POC) POC Cartridge 30 % (Low)?? 12/11/2022 21:38 Imm Gran 0.2 % ()?? 12/14/2022 00:34 Abs. Imm Gran 0.0 k/mm3 ()?? 12/14/2022 00:34 ?? CARDIAC Nt-Probnp 364 pg/mL ()?? 12/11/2022 18:16 High Sensitivity Troponin (HSTnT) 24 ng/L (High)?? 12/12/2022 05:25 ?? CHEM GENERAL Sodium 142 mmol/L ()?? 12/14/2022 00:34 Potassium 4.3 mmol/L ()?? 12/14/2022 00:34 Chloride 105 mmol/L ()?? 12/14/2022 00:34 Bicarbonate Level 25 mmol/L ()?? 12/14/2022 00:34 Anion Gap 12 ()?? 12/14/2022 00:34 Sodium (POC) POC Cartridge 141 mmol/L ()?? 12/11/2022 21:38 Potassium (POC) POC Cartridge 3.2 mmol/L (Low)?? 12/11/2022 21:38 Chloride (POC) POC Cartridge 97 mmol/L (Low)?? 12/11/2022 21:38 Glucose Level 94 mg/dL ()?? 12/14/2022 00:34 Glucose (POC) POC Cartridge 132 (High)?? 12/11/2022 21:38 BUN 17 mg/dL ()?? 12/14/2022 00:34 BUN (POC) POC Cartridge 17 mg/dL ()?? 12/11/2022 21:38 Creatinine-Blood 0.9 mg/dL ()?? 12/14/2022 00:34 Creatinine (POC) POC Cartridge 1.0 mg/dL ()?? 12/11/2022 21:38 Estimated GFR Creatinine 63 ML/MIN/1.73 M2 ()?? 12/14/2022 00:34 Calcium 9.1 mg/dL ()?? 12/12/2022 05:25 Ionized Calcium (POC) POC Cartridge 1.07 mmol/L (Low)?? 12/11/2022 21:38 Magnesium 1.6 mg/dL ()?? 12/14/2022 00:34 Protein, Total 6.8 Gm/dL ()?? 12/11/2022 18:16 Albumin 3.8 Gm/dL ()?? 12/11/2022 18:16 Alkaline Phosphatase 124 units/L (High)?? 12/11/2022 18:16 AST (SGOT) HEMOLYZED units/L ()?? 12/11/2022 18:16 ALT (SGPT) 10 units/L ()?? 12/11/2022 18:16 Bilirubin, Total 0.6 mg/dL ()?? 12/11/2022 18:16 Bilirubin, Direct HEMOLYZED mg/dL ()?? 12/11/2022 18:16 Bilirubin, Indirect Unable to calculate mg/dL ()?? 12/11/2022 18:16 ?? ENDOCRINE/TUMOR MARKER TSH 0.73 uIU/mL ()?? 12/11/2022 18:16 ? HEME OTHER Hold Lavender Top SPECIMEN DISCARDED AFTER 24 HOURS. ()?? 12/12/2022 03:34 Hold Blue Top SPECIMEN DISCARDED AFTER 4 HOURS. ()?? 12/11/2022 18:16 ?? UA/URINALYSIS Appear/Color, Urine LIGHT YELLOW ()?? 12/11/2022 20:20 Specific [place], Urine 1.009 ()?? 12/11/2022 20:20 pH, Urine 5.5 ()?? 12/11/2022 20:20 Albumin, Urine NEGATIVE ()?? 12/11/2022 20:20 Glucose, Urine NEGATIVE ()?? 12/11/2022 20:20 Ketones, Urine NEGATIVE ()?? 12/11/2022 20:20 Bilirubin, Urine NEGATIVE ()?? 12/11/2022 20:20 Hemoglobin, Urine NEGATIVE ()?? 12/11/2022 20:20 Nitrite, Urine NEGATIVE ()?? 12/11/2022 20:20 Leukocyte, Urine NEGATIVE ()?? 12/11/2022 20:20 Urobilinogen NORMAL mg/dL ()?? 12/11/2022 20:20 WBC's, Urine NONE SEEN /HPF ()?? 12/11/2022 20:20 RBC's, Urine 1 /HPF ()?? 12/11/2022 20:20 Hold Urine Culture Testing available 48 hours from time of collection. ()?? 12/11/2022 20:20 ?? VIROLOGY COVID-19 by RT-PCR NEGATIVE ()?? 12/11/2022 20:48 ? Microbiology ?? COVID-19 (Novel Coronavirus), Rapid PCR?? Completed?? Source: Nasal Body Site: Nose Collected Dt/Tm: 12/11/2022 20:25 Last Updated Dt/Tm: 12/11/2022 23:03 ? 35 minutes spent on discharge * Billy WING, Mable Schaefer: PERFORM Event Display: Patient Education/Instruction Authored Date: [id number] Inpatient Adult Discharge Instructions [address] [address] Name: BRI STOUT : 1945 Visit: 12/11/2022 16:04:00 Current Date: 12/14/2022 13:36 Account: [id number] Inpatient Adult Discharge Instructions We would like [...] and their families. Surveys are administered by [email or web address] ?? If further treatment with your primary care physician or another doctor is recommended, it is important for you to keep the appointment. Call your primary care physician or return to the Emergency Department immediately if your condition worsens, fails to improve, or new symptoms develop. If you need to find a doctor, you can call [facility] for a referral at [phone] or toll free at [phone] or log in to [email or web address] ?? You can view and manage your care through the patient portal or by using a health care leihg of your choosing. [employer] is a website that allows you to securely view your medical information including your hospital discharge summary, office visit summaries, medications and follow-up visits. You can also request appointments, renew medications, and request access to your medical information using a health care leigh of your choosing, or just ask a question. You can enroll at [email or web address] or register during your next office visit. You have been discharged from [facility], Patient Care Unit: D3B. If you have any questions regarding these instructions after you leave, please call us and we will be happy to assist you. [facility] Your Care Team Attending Physician Anne Welch MD Discharging Providers Anne Welch MD Reason for Admission pt had an episode of upper body convulsions x 5 minutes then patient was confused per family, pt had one episode of incontinence of stool and vomiting. now a&ox4. seizure hx per family Your Diagnosis Seizure Tests Performed Below is a partial list of the tests performed during your hospitalization. You may have had other tests and procedures not included in this list. Please discuss all test results with your provider. Basic Metabolic Panel BUN BUN POC CARTRIDGE CALCIUM IONIZED POC CART CBC w/ Differential CHLORIDE POC CARTRIDGE COMPLETE BLOOD COUNT COVID-19 (Novel Coronavirus), Rapid PCR Creatinine CREATININE POC CARTRIDGE Electrolytes Glucose Level GLUCOSE POC CARTRIDGE HEMATOCRIT POC CARTRIDGE HEMOGLOBIN POC CARTRIDGE Hepatic Function Panel High??Sensitivity??Troponin T HOLD BLUE TUBE HOLD LAVENDER TUBE Lytes Magnesium Level POTASSIUM POC CARTRIDGE ProBNP SODIUM POC CARTRIDGE Troponin T, High Sensitivity TSH with T4 Reflex (Adults Only) Urinalysis w/hold for Urine Culture MRI Brain W+W/O Contrast XR Chest 2 Views Frontal and Lat Primary Care Provider Sharon Chamberlain MD Advance Directive Health Care Proxy on File Yes - Health Care Proxy No qualifying data available. Discharge Vitals Temperature: 98 DegF Height: 163 cm Pulse Rate: 55 bpm Weight: 59.5 kg Respiratory Rate: 20 br/min Body Mass Index: 22.39 kg/m2 Systolic Blood Pressure: 103 mm Hg Body surface area: 1.64 Diastolic Blood Pressure: 58 mm Hg ?? Oxygen Saturation:??80 %??Low ?? Studies Pending All tests and labs ordered during this hospital stay have been completed unless listed below. Please discuss all pending results with your provider listed above in these instructions. ?? No incomplete studies found What to do next Instructions From Your Doctor Discharge Orders Scheduled Follow-Up Appointments Thursday 10:00 AM EST ?? With: Grace Garvin MD Where: [facility] Pulmonary [address] [place] [address]- Thursday 9:15 AM EST ?? With: Kamala Hassan NP Where: [facility] Cardiology [address] [place] [address]- 2022 12:45 PM EDT ?? With: David Ventura MD Where: [facility] Cardiology [address] [place] [address]- You Need to Schedule the Following Appointments Follow Up with??Sharon Chamberlain MD When??Within 1 week Where: [address] [place] [address]- Discharge Medications BRI STOUT :1945 Visit Date:12/11/2022 Medications: Please continue your medications until treatment is completed or stopped by your provider. Medications not listed below should be discontinued. Discuss any questions related to medications with your provider. What How Much When Instructions Next Dose New levETIRAcetam (Keppra 750 mg oral tablet) 1 tab(s) Oral Twice a day Duration: 30 Days Pickup at [facility] 12/14/22 Unchanged Acetaminophen (Tylenol 325 mg oral tablet) 2 tab(s) Oral Every 6 hours as needed for Pain , Mild as needed Unchanged Albuterol (albuterol 0.083% inhalation solution) 3 Milliliter Nebulized inhalation Every 6 hours as needed for as needed for wheezing as needed Unchanged Albuterol (Ventolin HFA 108 mcg/ inh inhalation aerosol with adapter) 2 puff(s) Inhalation 4 times a day as needed for for wheezing as needed Unchanged Albuterol/ Ipratropium (albuterol-ipratropium 3 mg-0.5 mg/ 3 ml inhalation solution) 3 Milliliter Nebulized inhalation Every 4 hours Dx: J44.9 ?? 5pm today 12/14/22 Unchanged Aspirin (Aspirin Enteric Coated 81 mg oral delayed release tablet) 1 tab(s) Oral Daily tomorrow am 12/15/21 Unchanged Atorvastatin (atorvastatin 80 mg oral tablet) 1 tab(s) Oral Daily at Bedtime tonight at bedtime 12/14/22 Unchanged Clopidogrel (clopidogrel 75 mg oral tablet) 1 tab(s) Oral Daily tomorrow am 12/15/22 Unchanged Docusate (Doculase 100 mg oral capsule) 1 capsule Oral Twice a day as needed for as needed for constipation as needed Unchanged Furosemide (Lasix 40 mg oral tablet) 1 tab(s) Oral Daily tomorrow am 12/15/22 Unchanged Loperamide (loperamide 2 mg oral capsule) 1 capsule Oral Daily as needed for as needed for loose stool as needed Unchanged Meclizine (meclizine 25 mg oral tablet, chewable) 1 tab(s) Chew 3 times a day as needed for for dizziness as needed Unchanged Mirtazapine (mirtazapine 7.5 mg oral tablet) 1 tab(s) Oral Daily at Bedtime tonight at bedtime 12/14/22 Unchanged Nitroglycerin (nitroglycerin 0.4 mg sublingual tablet) 1 tab(s) Sublingual Every 5 minutes as needed for Chest Pain as needed Unchanged Oxymetazoline Nasal (Afrin 0.05% spray) 2 spray(s) Nares, Both Twice a day as previous Unchanged Pantoprazole (Protonix 40 mg oral delayed release tablet) 40 Milligram Oral Daily Please take daily - refill per PCP ?? tomorrow am 12/15/22 Unchanged Polyethylene Glycol 3350 (MiraLax oral powder for reconstitution) 17 gram Oral Daily as needed for Constipation as needed Unchanged Pramipexole (pramipexole 1 mg oral tablet) 1 tab(s) Oral Daily at Bedtime tonight at bedtime 12/14/22 Unchanged Sertraline (Zoloft 50 mg oral tablet) 1 tab(s) Oral Daily tomorrow am 12/15/22 Unchanged umeclidinium-vilanterol (Anoro Ellipta 62.5 mcg-25 mcg/ inh inhalation powder) 1 puff(s) Inhalation Daily tomorrow am 12/15/22 Pharmacy Information [facility]: [address] [place], [place] [id number] [phone] ?? What How Much When Comments Stop Taking Omeprazole (omeprazole 20 mg oral enteric coated capsule) 1 capsule Oral Daily Stop Taking PredniSONE (predniSONE 10 mg oral tablet) See instructions 20 mg for 2 days then 10 mg for 3 days then stop ?? Test Results Below is a partial list of the most recent Laboratory test results done prior to this discharge. You may have had other tests and procedures not included in this list. Please discuss all test resultswith your provider. Basic Metabolic Panel (12/12/2022) ???Sodium - 144 mmol/L???Potassium - 3.2 mmol/L???Chloride - 102 mmol/L???Bicarbonate Level - 31 mmol/L???Anion Gap - 11???Glucose Level - 108 mg/dL???BUN - 17 mg/dL???Creatinine-Blood - 0.9 mg/dL???Estimated GFR Creatinine - 62 ML/MIN/1.73 M2???Calcium - 9.1 mg/dL BUN (12/14/2022) ???BUN - 17 mg/dL BUN POC CARTRIDGE (12/11/2022) ???BUN (POC) POC Cartridge - 17 mg/dL CALCIUM IONIZED POC CART (12/11/2022) ???Ionized Calcium (POC) POC Cartridge - 1.07 mmol/L CBC w/ Differential (12/14/2022) ???WBC - 4.4 k/mm3???RBC - 3.07 m/mm3???Hgb - 9.4 Gm/dL???Hct - 28.7 %???MCV - 93.5 femtoliters???MCH - 30.6 pg???MCHC - 32.8 g/dL???Platelet Count - 261 k/mm3???RDW-SD - 52.5 femtoliters???MPV - 8.9femtoliters???Nucleated RBC (Automated) - 0.0 #/100 WBC'S???Abs. NRBC - 0.0 k/mm3???Abs. Neut - 2.4 k/mm3???Abs. Lymph - 1.1 k/mm3???Abs. Leslie - 0.6 k/mm3???Abs. Eo - 0.2 k/mm3???Abs. Baso - 0.0 k/mm3???Neut % - 56.0 %???Lymph % - 25.9 %???Leslie % - 12.8 %???Eos % - 4.6 %???Baso % - 0.5 %???Imm Gran- 0.2 %???Abs. Imm Gran - 0.0 k/mm3 CHLORIDE POC CARTRIDGE (12/11/2022) ???Chloride (POC) POC Cartridge - 97 mmol/L COMPLETE BLOOD COUNT (12/12/2022) ???WBC - 5.5 k/mm3???RBC - 3.41 m/mm3???Hgb - 9.6 Gm/dL???Hct - 29.9 %???MCV - 87.7 femtoliters???MCH - 28.2 pg???MCHC - 32.1 g/dL???Platelet Count - 245 k/mm3???RDW-SD - 50.1 femtoliters???MPV - 9.3femtoliters???Nucleated RBC (Automated) - 0.0 #/100 WBC'S???Abs. NRBC - 0.0 k/mm3 COVID-19 (Novel Coronavirus), Rapid PCR (12/11/2022) ???COVID-19 by RT-PCR - NEGATIVE Creatinine (12/14/2022) ???Creatinine-Blood - 0.9 mg/dL???Estimated GFR Creatinine - 63 ML/MIN/1.73 M2 CREATININE POC CARTRIDGE (12/11/2022) ???Creatinine (POC) POC Cartridge - 1.0 mg/dL Electrolytes (12/14/2022) ???Sodium - 142 mmol/L???Potassium - 4.3 mmol/L???Chloride - 105 mmol/L???Bicarbonate Level - 25 mmol/L???Anion Gap - 12 Glucose Level (12/14/2022) ???Glucose Level - 94 mg/dL GLUCOSE POC CARTRIDGE (12/11/2022) ???Glucose (POC) POC Cartridge - 132 HEMATOCRIT POC CARTRIDGE (12/11/2022) ???Hematocrit (POC) POC Cartridge - 30 % HEMOGLOBIN POC CARTRIDGE (12/11/2022) ???Hemoglobin (POC) POC Cartridge - 10.2 Gm/dL Hepatic Function Panel (12/11/2022) ???Protein, Total - 6.8 Gm/dL???Albumin - 3.8 Gm/dL???Alkaline Phosphatase - 124 units/L???AST (SGOT) - HEMOLYZED???ALT (SGPT) - 10 units/L???Bilirubin, Total - 0.6 mg/dL???Bilirubin, Direct - HEMOLYZED???Bilirubin, Indirect - Unable to calculate High??Sensitivity??Troponin T (12/11/2022) ???High Sensitivity Troponin (HSTnT) - 22 ng/L HOLD BLUE TUBE (12/11/2022) ???Hold Blue Top - SPECIMEN DISCARDED AFTER 4 HOURS. HOLD LAVENDER TUBE (12/12/2022) ???Hold Lavender Top - SPECIMEN DISCARDED AFTER 24 HOURS. Lytes (12/13/2022) ???Sodium - 142 mmol/L???Potassium - 3.9 mmol/L???Chloride - 101 mmol/L???Bicarbonate Level - 32 mmol/L???Anion Gap - 9 Magnesium Level (12/14/2022) ???Magnesium - 1.6 mg/dL POTASSIUM POC CARTRIDGE (12/11/2022) ???Potassium (POC) POC Cartridge - 3.2 mmol/L ProBNP (12/11/2022) ???Nt-Probnp - 364 pg/mL SODIUM POC CARTRIDGE (12/11/2022) ???Sodium (POC) POC Cartridge - 141 mmol/L Troponin T, High Sensitivity (12/12/2022) ???High Sensitivity Troponin (HSTnT) - 24 ng/L TSH with T4 Reflex (Adults Only) (12/11/2022) ???TSH - 0.73 uIU/mL Urinalysis w/hold for Urine Culture (12/11/2022) ???Appear/Color, Urine - LIGHT YELLOW???Specific [place], Urine - 1.009???pH, Urine - 5.5???Albumin, Urine - NEGATIVE???Glucose, Urine - NEGATIVE???Ketones, Urine - NEGATIVE???Bilirubin, Urine - NEGATIVE???Hemoglobin, Urine - NEGATIVE???Nitrite, Urine - NEGATIVE???Leukocyte, Urine - NEGATIVE???Urobi linogen - NORMAL???WBC's, Urine - NONE SEEN???RBC's, Urine - 1 /HPF???Hold Urine Culture - Testing available 48 hours from time of collection. Allergies (NKA means No Known Allergies) codeine??(Passed out) Problems Active Problems??(10) Acute kidney injury?? Buerger disease?? COPD with respiratory failure, acute?? COVID-19?? Essential hypertension?? Glaucoma?? Hyperlipidemia?? Macular degeneration?? MSSA bacteremia?? Right low back pain?? Education Materials Below is the list of Educational Leaflet Providered with your Discharge Instructions. First Aid: Seizures?? Valuables and Belongings I fully understand and agree that [facility] accepts no responsibility for all my personal [...] patient Date for Pt to Sign Valuables/Belongings: 12/12/22 07:36:00 ?? Other Discharge Information ? Pulmonary Rehab Status?? Pulmonary Rehab Discharge Status?? Respiratory Rate: 20 br/min ? Common Emergency Awareness Tips IS [...] are strongly encouraged to quit. Please call [facility] Fur and Mask Link at [phone] or [phone]) or log in to [email or web address] for referrals to smoking cessation programs. ?? The National Suicide Prevention Hotline is available 15/06 if you or someone you know needs to find a reason to keep living. By calling 3-219-950-[employer] (7887) you'll be connected to a skilled, trained counselor at a crisis center in your area. INPATIENT DISCHARGE INSTRUCTIONS SIGNATURE PAGE BIR STOUT Location:[facility] Registration Date and Time:12/11/2022 16:04 [facility] Primary Care Physician: Bulmaro DEVLIN, Sharon Langley, I MIRIAN BRI, have received the above patient education materials/instructions and have verbalized understanding. If ambulance or transport services are being used I further acknowledge being givena choice of service. ?? If you need to contact me, please call me at this number: . Patient/Wilderness Guide Name: Patient/Wilderness Guide Signature: Relationship to Patient: Witness Name/Signature: Date: * Mable Cervantes RN: PERFORM Event Display: Patient Education Leaflets Authored Date: [id number] First Aid: Seizures ?? [id number] First Aid: Seizures A seizure results from a sudden cristobal of abnormal electrical signals in the brain. Symptoms may range from a minor daze to uncontrollable muscle spasms (convulsions). In many cases, the person will faint (lose consciousness). A seizure can be caused by a high fever, head injury, medicine reaction, stroke, infection, or condition such as epilepsy. Step 1. Protect the head Use these steps if you see someone having a seizure: ??? Help the person to the floor if they start losing muscle control. Turn them on their side. Thisis to help them breathe better. It also helps prevent choking or having a foreign object get into their airway (aspiration). ??? Protect the person's head from injury by placing something soft under it, such as folded clothes. Also move any objects away from the person. ??? Don't cause injury by restraining the person or by placing anything in their mouth. Don't try to hold the person's tongue. ??? Remove any eyeglasses. ?? Step 2.??Preserve their dignity ??? Clear away bystanders. ??? Reassure the person. They may be confused, drowsy, or hostile when coming out of the seizure. ??? Cover the person or provide dry clothes if muscle spasms have caused a loss of bladder control. ?? Step 3. Check for injury ??? Make sure the person's mental state has returned to normal. One way todo this is to ask them their name, the year, and your location. ??? Injuries can occur to the head,mouth, tongue, or body.? Check to see if the person is wearing a medical information bracelet or necklace with instructions. ?? Step 4. Call 911 Call 911 right away if: ??? The seizure lasts longer than??5??minutes (timing the seizure and recovery time is helpful in many cases) ??? A second seizure occurs ??? The person doesn???t??regain consciousness ??? The person is or has diabetes or heart disease ??? The person has no history of seizures ??? The person has an injury during the seizure ?? Last Reviewed Date: 2022 ?? [id number] The [employer]. All rights reserved. This information is not intended as a substitute for professional medical care. Always follow your healthcare professional's instructions. ?? * Billy WING, Mable Schaefer: PERFORM Event Display: Patient Education Leaflets Authored Date: [id number] First Aid: Seizures ?? [id number] First Aid: Seizures A seizure results from a sudden cristobal of abnormal electrical signals in the brain. Symptoms may range from a minor daze to uncontrollable muscle spasms (convulsions). In many cases, the person will faint (lose consciousness). A seizure can be caused by a high fever, head injury, medicine reaction, stroke, infection, or condition such as epilepsy. Step 1. Protect the head Use these steps if you see someone having a seizure: ??? Help the person to the floor if they start losing muscle control. Turn them on their side. Thisis to help them breathe better. It also helps prevent choking or having a foreign object get into their airway (aspiration). ??? Protect the person's head from injury by placing something soft under it, such as folded clothes. Also move any objects away from the person. ??? Don't cause injury by restraining the person or by placing anything in their mouth. Don't try to hold the person's tongue. ??? Remove any eyeglasses. ?? Step 2.??Preserve their dignity ??? Clear away bystanders. ??? Reassure the person. They may be confused, drowsy, or hostile when coming out of the seizure. ??? Cover the person or provide dry clothes if muscle spasms have caused a loss of bladder control. ?? Step 3. Check for injury ??? Make sure the person's mental state has returned to normal. One way todo this is to ask them their name, the year, and your location. ??? Injuries can occur to the head,mouth, tongue, or body.? Check to see if the person is wearing a medical information bracelet or necklace with instructions. ?? Step 4. Call 911 Call 911 right away if: ??? The seizure lasts longer than??5??minutes (timing the seizure and recovery time is helpful in many cases) ??? A second seizure occurs ??? The person doesn???t??regain consciousness ??? The person is or has diabetes or heart disease ??? The person has no history of seizures ??? The person has an injury during the seizure ?? Last Reviewed Date: 2022 ?? [id number] [employer]. All rights reserved. This information is not intended as a substitute for professional medical care. Always follow your healthcare professional's instructions. ?? * BHSPdarwin , CIS S: TRANSCRIBE Jasmina Lopez MD O: VERIFY Event Display: Result: Authored Date: [id number] Chest 2 Views Frontal and Lat Hx of Present Illness: pt states she is unsure what happened they told me i had a seiziure. pt reports just finishing supper unable to finish and requested to go to bedroom to go to bed, pt reports not sleeping well the night before; Reason: Other:; Chest Pain; Clinical Question(s): CHF COMPARISON: None. FINDINGS: LINES AND TUBES: None. LUNGS AND PLEURA: Residual hazy opacity in the medial right upper lung field which is less prominent compared to the prior exam. HEART, MEDIASTINUM AND HUA: Prominent cardiomediastinal silhouette which remains unchanged. Tortuous ectatic thoracic aorta with atherosclerotic calcifications. There is a moderate-sized hiatal hernia. BONES AND SOFT TISSUES: No acute abnormality. IMPRESSION: 1. Residual hazy opacity in the medial right upper lung field which is less prominent compared to the prior exam. 2. Persistent enlargement of the cardiomediastinal silhouette. WSN: [id number] Ordering Physician: Elyssa Valdez Dictated By: Jasmina Lopez MD Dictated Date/Time: 12/11/22 6:21 pm Reviewed By: Jasmina Lopez MD Signed By: Jasmina Lopez MD Signed Date/Time: 12/11/22 6:21 pm Transcribed By: IVANNA Transcribed Date/Time: 12/11/22 6:10 pm MR Brain WO and W contrast IV * BHSPowerscribe , CIS S: TRANSCRIBE Judi Eller MD: VERIFY Event Display: Result: Authored Date: [id number] MRI Brain W+W/O Contrast INDICATION / CLINICAL QUESTION: Reason: Other:; Clinical Question(s): Other:; Special Instructions:r o seizure; seizure protocol; Order Comment: Please see Reference Text for complete list of contraindications Other: TECHNIQUE: MRI of the brain was performed with and without contrast utilizing sagittal and axial T1, axial T2, axial FLAIR, coronal T2, coronal FLAIR, axial SWAN, and axial DWI sequences, and post-contrast 3D T1 RAY with multiplanar reformats. 11 mL of Clariscan was administered intravenously. COMPARISON: MRI of 10/20/2020, CT of 11/16/2021. FINDINGS: This examination was degraded by motion. Within the confines, the following are the findings. BRAIN and EXTRA-AXIAL SPACES: There is a 1.5 x 1.6 x 1.5 cm predominantly peripherally enhancing mass in the right medial posterior parietal lobe with associated restricted diffusion predominantly in the periphery most compatiblewith hypercellularity. There is subtle susceptibility signal in the nonenhancing center suggesting blood products and necrosis. There is surrounding vasogenic edema. Within the confines of motion, noother mass is identified. The bilateral medial temporal lobes are symmetric in signal, morphology, and volume. There is no abnormal enhancement. There is no midline shift or effacement of the basal cisterns. No other areas of restricted diffusion that would indicate acute or subacute infarct present. No other areas of susceptibility signal are present. There are mild to moderate concentric T2 hyperintensities in the periventricular and subcortical white matter which is nonspecific but may represent chronic microangiopathy. There is encephalomalacia in the right cerebellum. In the axillary fat in the inferior left cerebellum is also noted. T2 hyperintense foci are also noted in the francisco which are nonspecific. The midline structures areunremarkable. Ventricles, cisterns, and sulci are moderately prominent, consistent with volume loss, without hydrocephalus. No abnormal extra-axial fluid collections are seen. Meningeal surfaces are normal. No other abnormal intracranial enhancement is seen. Major intracranial flow voids are present. EXTRACRANIAL SOFT TISSUES: Orbits are unremarkable. Paranasal sinuses and mastoids are unremarkable. BONES: Marrow signal is preserved. IMPRESSION: Right parietal predominantly peripheral enhancing intraparenchymal mass most consistent with metastatic disease. No midline shift or hydrocephalus. No other area of abnormal enhancement or other massis identified. No acute/subacute infarct or acute hemorrhage. Mild to moderate nonspecific white matter T2 hyperintensities. Mild to moderate global cerebral volume loss. A critical result message (Nichols) has been communicated via the [employer] system on 12/13/2022 1:12 PM, Message ID [id number]. WSN: [id number] Ordering Physician: Anne Welch Dictated By: Judi Eller MD Dictated Date/Time: 12/13/22 1:13 pm Reviewed By: Judi Eller MD Signed By: Judi Eller MD Signed Date/Time: 12/13/22 1:13 pm Transcribed By: IVANNA Transcribed Date/Time: 12/13/22 1:00 pm Patient Care team information Care Team Personnel Name: Sharon Chamberlain MD Position: [facility] Outreach Member Role: PCP Address: Address: [address] [place] [address] [address] [place] [address]- Name: Latanya Kahn RN Position: [facility] RN Member Role: Primary Care Nurse Name: Ervin Concepcion RN Position: [facility] RN Member Role: Primary Care Nurse Name: Yuliet Mckinney RN Position: [facility] RN Member Role: Primary Care Nurse Name: Silvia Calhoun RN Position: [facility] RN Member Role: Primary Care Nurse Name: Johana Chacon RN Position: [facility] RN Member Role: Primary Care Nurse Name: Lesley Santana RN Position: [facility] RN Member Role: Primary Care Nurse Name: Alfredito Mosqueda RN Position: [facility] RN Member Role: Primary Care Nurse Name: Magda Rand Position: [facility] RN Member Role: Primary Care Nurse Name: Amena Ta RN Position: [facility] RN Member Role: Primary Care Nurse Name: Dewayne Wahl III, RN Position: [facility] RN Member Role: Primary Care Nurse Name: Nirmala Oconnor RN Position: [facility] RN Member Role: Primary Care Nurse Name: Marlin Pearce RN Position: [facility] RN Member Role: Primary Care Nurse Name: Agapito Montanez RN Position: [facility] RN Member Role: Primary Care Nurse Name: Lo Rodriguez RN Position: [facility] RN Member Role: Primary Care Nurse Name: Rosa Maria Artis RN Position: [facility] Onco RN Member Role: Primary Care Nurse Name: Vanesa Lim RN Position: [facility] RN Member Role: Primary Care Nurse Name: Brittney Vallejo RN Position: [facility] RN Member Role: Primary Care Nurse Name: Kat Donovan RN Position: [facility] RN Member Role: Primary Care Nurse Name: Mya Middleton RN Position: [facility] RN Member Role: Primary Care Nurse Name: Terrell CORONADO Attending Position: [facility] ED Medicine MD Name: Deepak Garcia Position: [facility] ED RN W/OE and Tasks Member Role: Patient Care Provider Name: Mari Spain RN Position: [facility] ED RN W/OE and Tasks Member Role: Patient Care Provider Name: Elyssa Valdez NP Position: [facility] Associate Professional Member Role: ED Physician [employer] Associate Address: Address: [address] [place] [address] [place] [address]- Name: Maddi Vela Position: S ED TA [facility] Member Role: Pick Up Attendant Care Team Related Persons Name: CALEB STOUT Address: home [address] [place] [address]
--- OUTSIDE RECORDS SUMMARY | 2023-05-17 08:54 | XMS_ITS | Continuity of Care Document ---
Author Name Unknown Organization [facility] Address [address] [place] [id number]- Care Team Providers Care Trichologist Name Role Phone Sharon Chamberlain MD Primary Care Physician [phone] Encounter [facility] Date(s): 08/10/22 - 08/11/[address] [address]- Encounter Diagnosis COPD exacerbation(Final) - 08/10/22 Discharge Disposition: A-D/C Home Attending Physician: Horace Farrell DO Admitting Physician: Horace Farrell DO Referring Physician: Not on Staff, Referring [...] 1 08/22/20 Given 1Result Comment: Manufactured by [facility] Medications Afrin 0.05% spray 2 sprays, Nares, Both, 2 times a day, # 15 mL, 0 Refills, Maintenance, 11/22/21 11:51:00 EST, [place], Partial fill upon patient request if the [...] Refills, Maintenance, 05/27/22 9:41:00 EDT, Inhalation Solution, [facility], Partial fill upon patient [...] 05/26/22 14:42:00 EDT, Route to Pharmacy Electronically, [facility], Partial fill upon patient request if [...] 05/26/22 14:43:00 EDT, Route to Pharmacy Electronically, [facility], Partial fill upon patient request if [...] 0 Refills, Maintenance, 05/26/22 14:43:00 EDT, Tablet, [facility], Partial fill upon patient request if theprescription is for a schedule II opioid drug., 163... Start Date: 05/26/22 Status: Ordered omeprazole 20 mg oral enteric coated capsule 1 capsule = 20 mg, By Mouth, Daily Start Date: 08/16/20 Status: Ordered pramipexole 1 mg oral tablet 1 tablet = 1 mg, By Mouth, Daily at bedtime Start Date: 08/16/20 Status: Ordered predniSONE 50 mg oral tablet 1 tablet = 50 mg, By Mouth, Daily, for 3 days, # 3 tablet, 0 Refills, Acute 08/13/22 21:03:00 EDT, 08/10/22 21:03:00 EDT, Tablet, [facility], Partial fill upon patient request ifthe prescription is for a schedule II opioid drug.,... Start Date: 08/10/22 Stop Date: 08/13/22 Status: Ordered Tylenol 325 mg oral tablet [...] 05/26/22 14:43:00 EDT, Route to Pharmacy Electronically, [facility], Partial fill upon patient [...] Exam Date Time Procedure Performing Provider Status 08/10/22 6:54 PM Chest 2 Views Frontal and Lat Niharika Terrell; Auth (Verified) Notes: (Chest 2 Views Frontal and Lat) Reason For Exam: Shortness of Breath, Fever;Other: RESULT: Chest 2 Views Frontal and Lat Chest 2 Views Frontal and Lat INDICATION: Hx of Present Illness: Pt here with SOB that started when she woke up this morning, productive cough. 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 Mild right basilar atelectasis versus infiltrate. Distal descending aorta is tortuous. In the right upper lung field there is a suggested 1.6 cm focal opacity, more prominent from prior. Heart size is borderline. IMPRESSION: 1.6 cm focal/nodular opacity in the right upper lung field. Would recommend CT of the chest to further assess. Mild right basilar atelectasis/infiltrate. WSN: [id number] Ordering Physician: Horace Farrell Dictated By: Shaista Perez MD Dictated Date/Time: 08/10/22 7:04 pm Reviewed By: Shaista Perez MD Signed By: Shaista Perez MD Signed Date/Time: 08/10/22 7:04 pm Transcribed By: IVANNA Transcribed Date/Time: 08/10/22 7:01 pm Vital Signs Most recent to oldest [Reference Range]: 1 2 3 4 Weight 56 kg (08/10/22 5:32 PM) Oxygen Saturation [94-100 %] 97 % (08/10/22 7:59 PM) 98 % (08/10/22 7:23 PM) 98 % (08/10/22 6:36 PM) Pulse Rate [55-90 bpm] 86 bpm (08/10/22 7:59 PM) 87 bpm (08/10/22 7:23 PM) 83 bpm (08/10/22 6:36 PM) Blood Pressure [90-138/55-84 mm Hg] 144/75mm Hg *H* (08/10/22 7:59 PM) 129/96mm Hg (08/10/22 7:23 PM) 133/66mm Hg (08/10/22 6:36 PM) Respiratory Rate [16-30 br/min] 21 br/min (08/10/22 7:59 PM) 16 br/min (08/10/22 6:36 PM) 17 br/min (08/10/22 5:32 PM) Temperature [96.8-100.4 DegF] 97.9 DegF (08/10/22 7:59 PM) 98.7 DegF (08/10/22 5:32 PM) Liters per Minute 2 L/min (08/10/22 7:59 PM) 2 L/min (08/10/22 7:23 PM) 2 L/min (08/10/22 5:32 PM) 2 L/min (08/10/22 5:32 PM) Mode of Delivery (Oxygen) Nasal cannula (08/10/22 7:59 PM) Nasal cannula (08/10/22 7:23 PM) Nasal cannula (08/10/22 5:32 PM) Nasal cannula (08/10/22 5:32 PM) Temperature Route Oral (08/10/22 7:59 PM) Social History Social History Type Response Tobacco Use: 4 or less cigar ettes(less than 1/4 pack)/day in last 30 days. Tobacco user in household: Yes. Sex Note * BHSPowerscribe , CIS S: TRANSCRIBE Shaista Perez MD: VERIFY Event Display: Result: Authored Date: [id number] Chest 2 Views Frontal and Lat INDICATION: Hx of Present Illness: Pt here with SOB that started when she woke up this morning, productive cough. 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 Mild right basilar atelectasis versus infiltrate. Distal descending aorta is tortuous. In the right upper lung field there is a suggested 1.6 cm focal opacity, more prominent from prior. Heart size is borderline. IMPRESSION: 1.6 cm focal/nodular opacity in the right upper lung field. Would recommend CT of the chest to further assess. Mild right basilar atelectasis/infiltrate. WSN: [id number] Ordering Physician: Horace Farrell Dictated By: Shaista Perez MD Dictated Date/Time: 08/10/22 7:04 pm Reviewed By: Shaista Perez MD Signed By: Shaista Perez MD Signed Date/Time: 08/10/22 7:04 pm Transcribed By: IVANNA Transcribed Date/Time: 08/10/22 7:01 pm Care Team Personnel Name: Sharon Chamberlain MD Address: [address] [place] [address] [address] Sharon Chamberlain MD [place] [address]
--- OUTSIDE RECORDS SUMMARY | 2023-05-17 08:54 | XMS_ITS | Continuity of Care Document ---
Author Name Unknown Organization [facility] Address [address] [place] [address]- Care Team Providers Care Server Software Engineer Name Role Phone Sharon Chamberlain MD Primary Care Physician Encounter [facility] [place] Date(s): 06/20/22 - 07/24/22 [facility] [address] [place] [address]- Attending Physician: Mo HARGROVE, Kamala Admitting Physician: [...] 1 08/22/20 Given 1Result Comment: Manufactured by [employer] Medications Afrin 0.05% spray 2 sprays, Nares, Both, 2 times a day, # 15 mL, 0 Refills, Maintenance, 11/22/21 11:51:00 EST, [place], Partial fill upon patient request if the [...] Refills, Maintenance, 05/27/22 9:41:00 EDT, Inhalation Solution, [facility], Partial fill upon patient [...] 05/26/22 14:42:00 EDT, Route to Pharmacy Electronically, [facility], Partial fill upon patient [...] 05/26/22 14:43:00 EDT, Route to Pharmacy Electronically, [facility], Partial fill upon patient [...] 0 Refills, Maintenance, 05/26/22 14:43:00 EDT, Tablet, [facility], Partial fill upon patient request [...] 05/26/22 14:43:00 EDT, Route to Pharmacy Electronically, [facility], Partial fill upon patient [...] days. Tobacco user in household: Yes. Sex Care Team Personnel Name: Sharon Chamberlain MD Address: [address] [place] [address] [address] Sharon Chamberlain MD [place], [place] [address]
--- OUTSIDE RECORDS SUMMARY | 2023-05-17 08:54 | XMS_ITS | Continuity of Care Document ---
Author Name Unknown Organization [facility] Address [address] [place] [address]- Care Team Providers Care Supervisor Securities Vault Name Role Phone Bulmaro DEVLIN, Sharon Langley Primary Care Physician Encounter [facility] Date(s): 10/04/20 - 11/03/20 [facility] [address] [place] [address] Allergies, Adverse Reactions, Alerts Substance Reaction Severity Status codeine Passed out Active Immunizations Given and Recorded Vaccine Date Status Refusal Reason influenza virus vaccine, inactivated 08/23/20 Give n pneumococcal 13-valent vaccine 1 08/22/20 Given 1Result Comment: Manufactured by [employer] Medications albuterol 0.083% inhalation solution 3 mL [...]
--- OUTSIDE RECORDS SUMMARY | 2023-05-17 08:54 | XMS_ITS | Continuity of Care Document ---
Author Name Unknown Organization [facility] Address [address] [facility], [address] d Floor, [address] [place] [address]- Care Team Providers Care Shipping Lead Name Role Phone Bulmaro DEVLIN, Sharon Langley Primary Care Physician [phone] Encounter [facility] [place] [facility] R [id number] Date(s): 12/16/22 - 02/11/23 [facility] [address], [address], [address] [place] [address]- Attending Physician: Makenna Osuna Admitting Physician: Makenna Osuna Allergies, Adverse Reactions, Alerts Substance Reaction Severity [...] 1 08/22/20 Given 1Result Comment: Manufactured by [employer] Medications albuterol 0.083% inhalation solution 3 mL [...] 05/26/22 14:42:00 EDT, Route to Pharmacy Electronically, [facility], Partial fill upon patient [...] 0 Refills, Maintenance, 01/14/23 14:23:00 EST, Tablet, [facility], Partial fill upon patient request if the prescription is for a schedule II opioid drug., 162, cm, 01/14/23 1:3... Start Date: 01/14/23 Status: Ordered Lasix 40 mg oral tablet 40 mg, 1, tablet, By Mouth, Daily, # 30 tablet, Refills 0, Tot. Refills 0, Maintenance, 05/26/22 14:43:00 EDT, Route to Pharmacy Electronically, [facility], Partial fill upon patient [...] 0 Refills, Maintenance, 05/26/22 14:43:00 EDT, Tablet, [facility], Partial fill upon [...] Team Personnel Name: Sharon Chamberlain MD Position: [facility] Outreach Member Role: PCP Address: Address: [address] [place] [address] [address] Sharon Chamberlain MD [place], [place] [address] Name: Latanya Kahn RN Position: [facility] RN Member Role: Primary Care Nurse Name: Ervin Concepcion RN Position: [facility] RN Member Role: Primary Care Nurse Name: Yuliet Mkcinney RN Position: S RN Member Role: Primary [...] Care Nurse Name: Amena Ta RN Position: [facility] RN Member Role: Primary Care Nurse Name: Michael Landa RN Position: [facility] RN Member Role: Primary Care Nurse Name: Dewayne Wahl III, RN Position: [facility] RN Member Role: Primary Care Nurse Name: Nirmala Oconnor RN Position: [facility] RN Member Role: Primary Care Nurse Name: Marlin Pearce RN Position: [facility] RN Member Role: Primary Care Nurse Name: Agapito Montanez RN Position: [facility] RN Member Role: Primary Care Nurse Name: Danyelle Dos Santos RN Position: [facility] RN Member Role: Primary Care Nurse Name: Lo Rodriguez RN Position: [facility] RN Member Role: Primary Care Nurse Name: Rosa Maria Artis RN Position: [facility] Onco RN Member Role: Primary Care Nurse Name: Vanesa Lim RN Position: [facility] RN Member Role: Primary Care Nurse Name: Brittney Vallejo RN Position: [facility] RN Member Role: Primary Care Nurse Name: Kat Donovan RN Position: [facility] RN Member Role: Primary Care Nurse Name: Mya Middleton RN Position: [facility] RN Member Role: Primary Care Nurse Care Team Related Persons Name: CALEB VELA Address: [address] [address]
--- OUTSIDE RECORDS SUMMARY | 2023-05-17 08:54 | XMS_ITS | Continuity of Care Document ---
Author Name Unknown Organization [facility] Address [address] [place] [address]- Care Team Providers Care Security And Compliance Analyst Name Role Phone Sharon Chamberlain MD Primary Care Physician [place] [facility] [place] 12/05/22 - 01/04/23 [facility] [address] [place] [address]- Allergies, Adverse Reactions, Alerts Substance Reaction Severity [...] 1 08/22/20 Given 1Result Comment: Manufactured by [employer] Medications Afrin 0.05% spray 2 sprays, Nares, Both, 2 times a day, # 15 mL, 0 Refills, Maintenance, 11/22/21 11:51:00 EST, [place], Partial fill upon patient request if the [...] 05/26/22 14:42:00 EDT, Route to Pharmacy Electronically, [facility], Partial fill upon patient [...] 0 Refills, Maintenance, 12/14/22 10:30:00 EST, Tablet, [facility], Partial fill upon patient request if the prescription is for a schedule II opioid drug., 163, cm, 12/14/22 7:33:0... Start Date: 12/14/22 Stop Date: 01/13/23 Status: Ordered Lasix 40 mg oral tablet 40 mg, 1, tablet, By Mouth, Daily, # 30 tablet, Refills 0, Tot. Refills 0, Maintenance, 05/26/22 14:43:00 EDT, Route to Pharmacy Electronically, [facility], Partial fill upon patient [...] 0 Refills, Maintenance, 05/26/22 14:43:00 EDT, Tablet, [facility], Partial fill upon patient request if theprescription is for a schedule II opioid drug., 163... Start Date: 05/26/22 Status: Ordered pramipexole 1 mg oral tablet 1 tablet = 1 mg, By Mouth, Daily at bedtime Start Date: 08/16/20 Status: Ordered predniSONE 10 mg oral tablet See Instructions, 4 tab po daily for 2 days then 3 tabs po daily for 2 days then 2 tabs po daily for 2 days then 1 tab po daily for 2 days then stop, # 20 tablet, 0 Refills, Maintenance, 12/23/22 9:47:00 EST, Tablet, [facility], Partial... Start Date: 12/23/22 Status: Ordered Protonix 40 mg oral delayed [...] Team Personnel Name: Sharon Chamberlain MD Position: [facility] Outreach Member Role: PCP Address: Address: [address] [place] [address] [address] [place] [address]- Name: Latanya Kahn RN Position: [facility] RN Member Role: Primary Care Nurse Name: Ervin Concepcion RN Position: [facility] RN Member Role: Primary Care Nurse Name: Yuliet Mckinney RN Position: [facility] RN Member Role: Primary Care Nurse Name: Silvia Calhoun RN Position: [facility] RN Member Role: Primary Care Nurse Name: Johana Chacon RN Position: [facility] RN Member Role: Primary Care Nurse Name: Lesley Santana RN Position: [facility] RN Member Role: Primary Care Nurse Name: Alfredito Mosqueda RN Position: [facility] RN Member Role: Primary Care Nurse Name: Magda Rand Position: [facility] RN Member Role: Primary Care Nurse Name: Amena Ta RN Position: [facility] RN Member Role: Primary Care Nurse Name: Michael Landa RN Position: [facility] ED RN W/OE and Tasks Member Role: Primary Care Nurse Name: Dewayne Wahl III, RN Position: [facility] RN Member Role: Primary Care Nurse Name: Nirmala Oconnor RN Position: [facility] RN Member Role: Primary Care Nurse Name: Marlin Pearce RN Position: [facility] RN Member Role: Primary Care Nurse Name: Agapito Montanez RN Position: [facility] RN Member Role: Primary Care Nurse Name: Danyelle Dos Santos RN Position: [facility] RN Member Role: Primary Care Nurse Name: Lo Rodriguez RN Position: [facility] RN Member Role: Primary Care Nurse Name: Rosa Maria Artis RN Position: [facility] Onco RN Member Role: Primary Care Nurse Name: Vanesa Lim RN Position: [facility] RN Member Role: Primary Care Nurse Name: Brittney Vallejo RN Position: [facility] RN Member Role: Primary Care Nurse Name: Kat Doonvan RN Position: [facility] RN Member Role: Primary Care Nurse Name: Mya Middleton RN Position: [facility] RN Member Role: Primary Care Nurse Care Team Related Persons Name: CALEB VELA Address: home [address] [place] [address]
--- OUTSIDE RECORDS SUMMARY | 2023-05-17 08:54 | XMS_ITS | Continuity of Care Document ---
Author Name Unknown Organization [facility] Address [address] [place] [address]- Care Team Providers Care Research Engineer Name Role Phone Sharon Chamberlain MD Primary Care Physician En[place] [facility] [place] Date(s): 12/05/22 - 01/10/23 [facility] [address] [place] [address]- Attending Physician: Houston Mo MD Admitting Physician: Houston Mo MD Referring Physician: Judi Mcduffie MD Allergies, Adverse Reactions, Alerts Substance Reaction [...] 1 08/22/20 Given 1Result Comment: Manufactured by [employer] Medications Afrin 0.05% spray 2 sprays, Nares, Both, 2 times a day, # 15 mL, 0 Refills, Maintenance, 11/22/21 11:51:00 EST, [place], Partial fill upon patient request if the [...] 05/26/22 14:42:00 EDT, Route to Pharmacy Electronically, [facility], Partial fill upon patient request if [...] 0 Refills, Maintenance, 12/14/22 10:30:00 EST, Tablet, [facility], Partial fill upon patient request if the prescription is for a schedule II opioid drug., 163, cm, 12/14/22 7:33:0... Start Date: 12/14/22 Stop Date: 01/13/23 Status: Ordered Lasix 40 mg oral tablet 40 mg, 1, tablet, By Mouth, Daily, # 30 tablet, Refills 0, Tot. Refills 0, Maintenance, 05/26/22 14:43:00 EDT, Route to Pharmacy Electronically, [facility], Partial fill upon patient request [...] 0 Refills, Maintenance, 05/26/22 14:43:00 EDT, Tablet, [facility], Partial fill upon patient [...] 0 Refills, Maintenance, 12/23/22 9:47:00 EST, Tablet, [facility], Partial... Start Date: [...] HOSPITAL Outreach Member Role: PCP Address: Address: [address] [place] [address] [address] [place] [address]- Name: Latanya Kahn RN Position: [facility] RN Member Role: Primary Care Nurse Name: Ervin Concepcion RN Position: [facility] RN Member Role: Primary Care Nurse Name: Yuliet Mckinney RN Position: [facility] RN Member Role: Primary Care Nurse Name: Silvia Calhoun RN Position: [facility] RN Member Role: Primary Care Nurse Name: Johana Chacon RN Position: [facility] RN Member Role: Primary Care Nurse Name: Lesley Santana RN Position: [facility] RN Member Role: Primary Care Nurse Name: Alfredito Mosqueda RN Position: [facility] RN Member Role: Primary Care Nurse Name: Magda Rand Position: [facility] RN Member Role: Primary Care Nurse Name: Amena Ta RN Position: [facility] RN Member Role: Primary Care Nurse Name: Michael Landa RN Position: [facility] ED RN W/OE and Tasks Member [...] Related Persons Name: CALEB VELA Address: home [address] [place] [address]
--- OUTSIDE RECORDS SUMMARY | 2023-05-17 08:54 | XMS_ITS | Continuity of Care Document ---
Author Name Unknown Organization [facility] Address [address] [place] [address]- Care Team Providers Care Company Laborer Name Role Phone Sharon Chamberlain MD Primary Care Physician Encounter [facility] [place] Date(s): 12/22/22 - 01/21/23 [facility] [address] [place] [address]- Attending Physician: Caden Lynch Admitting Physician: Caden Lynch Referring Physician: Caden Lynch Allergies, Adverse Reactions, Alerts Substance Reaction Severity [...] 1 08/22/20 Given 1Result Comment: Manufactured by [employer] Medications albuterol 0.083% inhalation solution 3 mL [...] 05/26/22 14:42:00 EDT, Route to Pharmacy Electronically, [facility], Partial fill upon [...] 0 Refills, Maintenance, 01/14/23 14:23:00 EST, Tablet, [facility], Partial fill upon patient request if the prescription is for a schedule II opioid drug., 162, cm, 01/14/23 1:3... Start Date: 01/14/23 Status: Ordered Lasix 40 mg oral tablet 40 mg, 1, tablet, By Mouth, Daily, # 30 tablet, Refills 0, Tot. Refills 0, Maintenance, 05/26/22 14:43:00 EDT, Route to Pharmacy Electronically, [facility], Partial fill upon [...] 0 Refills, Maintenance, 05/26/22 14:43:00 EDT, Tablet, [facility], Partial fill upon patient request if [...] 3 packs per day. Sex Note * Event Display: Cardiovascular Result Scanned Authored Date: Patient Care team information Care Team Personnel Name: Sharon Chamberlain MD Position: [facility] Outreach Member Role: PCP Address: Address: [address] [place] [address] [address] Sharon Chamberlain [place], [place] [address] Name: Latanya Kahn RN Position: [facility] RN Member Role: Primary Care Nurse Name: Ervin Concepcion RN Position: [facility] RN Member Role: Primary Care Nurse Name: Yuliet Mckinney RN Position: S RN Member Role: Primary Care Nurse Name: Silvia Calhoun RN Position: [facility] RN Member Role: Primary Care Nurse Name: Johana Chacon RN Position: S RN Member Role: Primary Care Nurse Name: Lesley Santana RN Position: S RN Member Role: Primary Care Nurse Name: Alfredito Mosqueda RN Position: S RN Member Role: Primary Care Nurse Name: Magda Rand Position: S RN Member Role: Primary Care Nurse Name: Amena Ta RN Position: [facility] RN Member Role: Primary Care Nurse Name: Michael Landa RN Position: [facility] RN Member Role: Primary Care Nurse Name: Dewayne Wahl III, RN Position: [facility] RN Member Role: Primary Care Nurse Name: Nirmala Oconnor RN Position: [facility] RN Member Role: Primary Care Nurse Name: Marlin Pearce RN Position: [facility] RN Member Role: Primary Care Nurse Name: Agapito Montanez RN Position: [facility] RN Member Role: Primary Care Nurse Name: Danyelle Dos Santos RN Position: [facility] RN Member Role: Primary Care Nurse Name: Lo Rodriguez RN Position: [facility] RN Member Role: Primary Care Nurse Name: Rosa Maria Artis RN Position: [facility] Onco RN Member Role: Primary Care Nurse Name: Vanesa Lim RN Position: [facility] RN Member Role: Primary Care Nurse Name: Brittney Vallejo RN Position: [facility] RN Member Role: Primary Care Nurse Name: Kat Donovan RN Position: [facility] RN Member Role: Primary Care Nurse Name: Mya Middleton RN Position: [facility] RN Member Role: Primary Care Nurse Care Team Related Persons Name: SHELLI VELAN Address: [address] [address]
--- OUTSIDE RECORDS SUMMARY | 2023-05-17 08:54 | XMS_ITS | Continuity of Care Document ---
Author Name Unknown Organization [facility] Address [address] [address]- Care Team Providers Care Stores Assistant Name Role Phone Bulmaro DEVLIN, Sharon S Primary Care Physician [phone] [place] [facility] [place] Date(s): 10/29/20 - 12/01/20 [facility] [address] [address]- Attending Physician: Nikki Heard MD Admitting Physician: Nikki Heard MD Referring Physician: Nikki Heard MD Allergies, Adverse Reactions, Alerts Substance Reaction Severity Status codeine Passed out Active Immunizations Given and Recorded Vaccine Date Status Refusal Reason influenza virus vaccine, inactivated 08/23/20 Give n pneumococcal 13-valent vaccine 1 08/22/20 Given 1Result Comment: Manufactured by [employer] Medications albuterol 0.083% inhalation solution 3 mL [...]
--- OUTSIDE RECORDS SUMMARY | 2023-05-17 08:54 | XMS_ITS | Continuity of Care Document ---
Author Name Unknown Organization [facility] ter Address [address] [place] [id number]- Care Team Providers Care Marketing Technology Specialist Name Role Phone Bulmaro DEVLIN, Sharon Langley Primary Care Physician [phone] [place] [facility] [place]15[place]22 - 11/24/[address] [id number]- Encounter Diagnosis Hypoxia(Final) - 11/15/22 Discharge Disposition: A-D/C Home Attending Physician: Juan M Argueta MD Admitting Physician: Silvano Blanca MD Referring Physician: Not on Staff, Referring [...] 1 08/22/20 Given 1Result Comment: Manufactured by [employer] Medications Afrin 0.05% spray 2 sprays, Nares, Both, 2 times a day, # 15 mL, 0 Refills, Maintenance, 11/22/21 11:51:00 EST, [place], Partial fill upon patient request if the [...] Refills, Maintenance, 05/27/22 9:41:00 EDT, Inhalation Solution, [facility], Partial fill upon patient [...] 05/26/22 14:42:00 EDT, Route to Pharmacy Electronically, [facility], Partial fill upon patient request [...] 05/26/22 14:43:00 EDT, Route to Pharmacy Electronically, [facility], Partial fill upon patient [...] 0 Refills, Maintenance, 05/26/22 14:43:00 EDT, Tablet, [facility], Partial fill upon patient [...] predniSONE 10 mg oral tablet See Instructions, 20 mg for 2 days then 10 mg for 3 days then stop, # 7 tablet, 0 Refills, Maintenance, 11/24/22 9:52:00 EST, Tablet, [facility], Partial fill upon patient request if the prescription is for a schedule II opioid drug., 16... Start Date: 11/24/22 Status: Ordered Protonix 40 mg oral delayed [...] for Microbiology Reports Name Date Blood Culture 11/15/22 Blood Culture #2 11/15/22 Microbiology Reports TEST:Blood Culture STATUS:Auth (Verified) BODY SITE: SOURCE:Blood COLLECTED DATE/TIME:11/15/22 5:03 AM Blood Culture SPECIMEN DESCRIPTION : BLOOD NO SITE SPECIAL REQUESTS : NONE CULTURE : NO GROWTH 5 DAYS. REPORT STATUS : FINAL 11/20/2022 TEST:Blood Culture, Second Order STATUS:Auth (Verified) BODY SITE: SOURCE:Blood COLLECTED DATE/TIME:11/15/22 5:03 AM Blood Culture, Second Order SPECIMEN DESCRIPTION : BLOOD NO SITE SPECIAL REQUESTS : NONE CULTURE : NO GROWTH 5 DAYS. REPORT STATUS : FINAL 11/20/2022 Radiology Reports * Exam Date Time Procedure Performing Provider Status 11/19/22 10:37 AM Chest Portable Oralia Ledbetter; Auth (Verified) Notes: (Chest Portable) Reason For Exam: CHF RESULT: Chest Portable Chest Portable Reason: CHF; Clinical Question(s): CHF COMPARISON: 11/05/2022 FINDINGS: LINES AND TUBES: None. LUNGS AND PLEURA: No pulmonary edema. Left basilar linear atelectasis. Severe upper lung emphysema. No pneumothorax. There is resolution of the diffuse prominence of the interstitium which was previously seen. HEART, MEDIASTINUM AND MORRIS: Borderline to mild cardiomegaly Tortuous atherosclerotic aorta. BONES AND SOFT TISSUES: No acute abnormality. IMPRESSION: Left basilar atelectasis. WSN: [id number] Ordering Physician: Juan M Argueta Dictated By: Viviana Manzanares MD Dictated Date/Time: 11/19/22 11:49 a Reviewed By: Viviana Manzanares MD Signed By: Viviana Manzanares MD Signed Date/Time: 11/19/22 11:49 am Transcribed By: IVANNA Transcribed Date/Time: 11/19/22 11:47 am * Exam Date Time Procedure Performing Provider Status 11/15/22 4:46 AM Chest Portable Argelia Garcia; Aut h (Verified) Notes: (Chest Portable) Reason For Exam: Shortness of Breath RESULT: Chest Portable Chest Portable Reason: Shortness of Breath; Clinical Question(s): CHF COMPARISON: 09/07/2022 FINDINGS: Low lung volumes. Mild perihilar and lower lung opacities with focal opacity developing in the right upper lung and left lower lobe. On lateral trace to small pleural effusions. No pneumothorax. Unchanged cardiomediastinal aortic atherosclerosis. No acute osseous interval change. IMPRESSION: Right upper lung and left lung base opacity, concerning for infection. Mild diffuse opacities also present, can represent underlying mild edema. WSN: [id number] Ordering Physician: Kim Maloney Dictated By: Viviana Manzanares MD Dictated Date/Time: 11/15/22 9:26 am Reviewed By: Viviana Manzanares MD Signed By: Viviana Manzanares MD Signed Date/Time: 11/15/22 9:26 am Transcribed By: IVANNA Transcribed Date/Time: 11/15/22 9:25 am * Exam Date Time Procedure Performing Provider Status 11/15/22 9:[address] Angio Chest Rk [place] (Verified) Notes: (CT Angio Chest) Reason For Exam: PE suspected, Intermediate prob, positive D-dimer,;Other: RESULT: CT Angio Chest EXAMINATION: CT Angio Chest INDICATION: Reason: PE suspected, Intermediate prob, positive D-dimer,; Clinical Question(s): Pulmonary Embolism TECHNIQUE: Spiral CTA of the chest was performed after rapid IV contrast administration without cardiac gating, triggered by an DORI on the main pulmonary artery. Images are formatted in multiple planes using 2-D multiplanar and 3-D maximum intensity projection. 50 cc of Omnipaque 300 was administered intravenously. Weight-based protocol using automatic tube modulation was used to optimize exposure parameters. CTDIvol Body: 6.55 mGy, DLP Body: 343 mGy*cm. COMPARISONS: Multiple priors most recently 09/07/2022 ANGIOGRAPHIC FINDINGS: Evaluation is mildly limited by motion artifact. No pulmonary embolism to the subsegmental level. Normal caliber pulmonary arteries. Descending thoracic aortic ectasia measuring up to 3.2 cm in maximum dimension. NON-ANGIOGRAPHIC FINDINGS: Degreasing Solution Mixer View Findings, Lines and Tubes: None. Trachea and Airways: Patent without evidence of tracheal or endobronchial lesion. Lungs and Pleura: Increasing size of the spiculated nodule in the anterior right upper lobe measuring 2.2 x 2.4 x 2.6 cm which appears to be extending inferiorly towards the hilum. Severe centrilobular, predominantly apical, emphysema. New groundglass opacities in bilateral lung bases with more dense consolidation seen in the dependent portion of bilateral lower lobes. No effusion or pneumothorax. Mediastinum and morris: Multiple enlarged mediastinal lymph nodes, the largest being a conglomerate mass measuring up to 3.5 cm anterior to the verónica. Right hilar lymph node measuring up to 2.7 cm. Subcarinal lymph node measuring up to 2.2 cm. Left hilar lymph node measuring up to 3.2 cm. Additionalsmaller lymph nodes are seen.Type 3 paraesophageal hernia. Multinodular thyroid, with the largest nodule measuring up to 1.7 cm. Heart: Heart is normal in size. No pericardial effusion. Severe coronary artery calcification. Chest Wall Soft Tissues: Normal. Diaphragm and upper abdomen: Redemonstrated is a right adrenal gland nodule measuring up to 1.3 cm.Left adrenal gland is thickened. Bones: Multilevel degenerative changes of the visualized spine. 1 cm sclerotic lesion on the right transverse process of T7, present since 08/16/2020. IMPRESSION: No evidence of pulmonary embolism. Increasing size of right upper lobe nodule, now measuring up to 2.6 cm. Slightly increased size of mediastinal lymphadenopathy with the large precarinal maury mass measuring up to 3.5 cm. Findings remain suggestive of a lung malignancy with metastatic mediastinal lymphadenopathy. New groundglass opacities and consolidation in bilateral dependent lung bases, could represent aspiration or infection. Malignancy is not excluded. Stable type III paraesophageal hernia. I have personally reviewed the images and I agree with this report. WSN: [id number] Ordering Physician: Cristian Bobby Dictated By: Mane Bateman DO Dictated Date/Time: 11/15/22 10:43 a Reviewed By: Abdiaziz Pena MD Signed By: Abdiaziz Pena MD Signed Date/Time: 11/15/22 10:48 am Transcribed By: IVANNA Transcribed Date/Time: 11/15/22 9:56 am Vital Signs Most recent to oldest [Reference Range]: 1 2 3 Height 164 cm (11/24/22 7:34 AM) 164 cm (11/24/22 2:51 AM) 164 cm (11/23/22 9:29 PM) Weight 56.5 kg (11/24/22 3:25 AM) 57.8 kg (11/23/22 5:55 AM) 57.1 kg (11/22/22 6:51 AM) Oxygen Saturation [94-100 %] 93 % *L* (11/24/22 7:34 AM) 95 % (11/24/22 2:51 AM) 93 % *L* (11/23/22 7:35 PM) Pulse Rate [55-90 bpm] 90 bpm (11/24/22 7:34 AM) 86 bpm (11/24/22 2:51 AM) 94 bpm *H* (11/23/22 9:29 PM) Body Mass Index [18.5-24.99 kg/m2] 22.12 kg/m2 (11/15/22 10:02 PM) Blood Pressure [90-138/55-84 mm Hg] 140/90mm Hg *H* (11/24/22 7:34 AM) 125/70mm Hg (11/24/22 2:51 AM) 128/81mm Hg (11/23/22 9:29 PM) Respiratory Rate [16-30 br/min] 18 br/min (11/24/22 7:34 AM) 18 br/min (11/24/22 2:51 AM) 22 br/min (11/23/22 7:35 PM) Temperature [96.8-100.4 DegF] 98.2 DegF (11/24/22 7:34 AM) 97.7 DegF (11/24/22 2:51 AM) 97.5 DegF (11/23/22 7:35 PM) Liters per Minute 2 L/min (11/24/22 7:34 AM) 2 L/min (11/24/22 2:51 AM) 2 L/min (11/23/22 7:35 PM) Mode of Delivery (Oxygen) Nasal cannula (11/24/22 7:34 AM) High flow nasal cannula (11/24/22 2:51 AM) Nasal cannula (11/23/22 7:35 PM) Blood pressure sites Arm, right (11/24/22 7:34 AM) Arm, left (11/24/22 2:51 AM) Arm, right (11/23/22 9:29 PM) Temperature Route Oral (11/24/22 7:34 AM) Temporal (11/24/22 2:51 AM) Temporal (11/23/22 7:35 PM) Dry Weight 59.5 kg (11/15/22 10:02 PM) Weight Obtained Via Bed scale (11/24/22 3:25 AM) Bed scale (11/23/22 5:55 AM) Bed scale (11/22/22 6:51 AM) Dry Weight Obtained Via Bed scale (11/15/22 10:02 PM) Social History Social History Type Response Tobacco Use: 4 or less cigar ettes(less than 1/4 pack)/day in last 30 days. Tobacco user in household: Yes. Sex History and physical note * Bianca DEVLIN, Ange: MODIFY, PERFORM Event Display: History and Physical Hospital Authored Date: Patient: ??BEATRICE VELA ? Age:??77 Years?Sex:??Female?:??1945?? Chief Complaint/Reason for Consultation see lvl 1 sheet History of Present Illness Date of exam: 11/15/2022 ?? 77-year-old female with past medical history significant for HTN, HLD, thromboangitis obliterans with left digit amputation, subacute right cerebellar stroke in 2019, COPD on nocturnal oxygen 2 L, former smoker, heart failure with reduced ejection fraction, EF 25%, recently admitted from 09/08 through 09/11/2022 for COVID-19 infection and hypoxic respiratory failure, presented to ED with sudden onset shortness of breath.?? She woke up this morning in her usual state of health, and shortly afterdeveloped shortness of breath which rapidly worsened within a matter of minutes prompting her to call 911 and come to ED.?? She denies having any chest pain.?? No dizziness, lightheadedness, palpitations or syncope.?? No nausea, vomiting, diaphoresis, abdominal pain, dysuria or change in bowel habits.?? No fevers or chills. ?? Upon arrival to ED, afebrile, tachycardic with heart rate in the low 100s, hypotensive with blood pressure 82/52, requiring BiPAP.?? Venous blood gas showing pH of 7.17.?? Labs with no leukocytosis, electrolytes within normal limits, anion gap elevated, lactate level initially 4.9, later elevated to 10.7, initial troponin elevated at 35, proBNP 514, better compared to previous values, COVID-19 negative.?? Chest x-ray with right upper lung and left lung base opacity, concerning for infection, mild diffuse opacities also present can represent underlying mild edema.?? CT angiogram of the chest done, no evidence of PE, ncreasing size of right upper lobe nodule, now measuring up to 2.6 cm. Slightly increased size of mediastinal lymphadenopathy with the large precarinal maury mass measuring up to 3.5 cm., New groundglass opacities and consolidation in bilateral dependent lung bases, could represent aspiration or infection.?? EKG showing normal sinus rhythm, inferior and anteroseptal infarct, age undetermined. ?? She was given 40 mg of IV Lasix, DuoNeb's, 125 mg of Solu-Medrol, Zosyn, vancomycin.?? Was started on Levophed for pressor support.?? Cardiology consulted, appreciate input.?? Cardiology assessed that her presentation was likely noncardiac in nature.?? Recommended to hold metoprolol.?? Troponin elev ation thought to be secondary to demand ischemia.?? No heparin recommended.?? She was weaned off Levophed.?? Admitted to intercare for further management. ?? During my exam, she feels restless and anxious.?? Complains of cramps in her legs.?? Trying to pull BiPAP off.?? When asked, states that the BiPAP is helping her but is uncomfortable wearing it.??Rest of ROS negative. Review of Systems Constitutional: No fevers, chills HEENT: No headache, rhinorrhea, difficulty swallowing, blurry vision Cardiovascular: No chest pain Respiratory: Shortness of breath GI: No nausea, no vomiting, no abdominal pain, no change in bowel habits Neuro: No weakness, numbness, tingling in extremities Psych: No acute behavioral changes Muscular skeletal: No joint or muscle pain Endocrine: No recent weight loss or gain, no change in appetite : No dysuria or hematuria Objective Vital Signs?? Temperature: 98.7 DegF (11/15/22 22:02:00) Temperature Route: Oral (11/15/22 22:02:00) Pulse Rate:??96 bpm??High (11/15/22 22:02:00) Heart Rate Monitored:??108 bpm??High (11/15/22 20:44:00) Respiratory Rate: 26 br/min (11/15/22 22:02:00) Systolic Blood Pressure: 101 mm Hg (11/15/22 22:02:00) Diastolic Blood Pressure: 59 mm Hg (11/15/22 22:02:00) Blood pressure sites: Arm, left (11/15/22 22:02:00) Mean Arterial Pressure: 73 mm Hg (11/15/22 22:02:00) Pulse Pressure: 42 mm Hg (11/15/22 22:02:00) Oxygen Saturation: 96 % (11/15/22 22:02:00) Liters per Minute: 5 L/min (11/15/22 15:09:00) Mode of Delivery (Oxygen): BiPAP (11/15/22 22:02:00) FiO2: 40 % (11/15/22 19:41:00) Early Warning Score: 2 (11/15/22 22:34:34) ? Physical Exam General: On BiPAP, appears restless HEENT: PERRLA, EOMI Cardiac: S1, S2 heard, RRR Pulmonary: Diminished bilateral air entry, no wheezing, rhonchi or crackles heard Abdomen: Soft, nontender, nondistended, bowel sounds heard Extremities: No cyanosis, clubbing,??no edema Skin: No rash Neuro: No focal deficits, awake and alert Psych: Anxious Assessment/Plan Assessment:??77-year-old female with past medical history significant for HTN, HLD, thromboangitis obliterans with left digit amputation, subacute right cerebellar stroke in 2019, COPD on nocturnal oxygen 2 L, former smoker, heart failure with reduced ejection fraction, EF 25%, recently admitted from 09/08 through 09/11/2022 for COVID-19 infection and hypoxic respiratory failure,??admitted with??acute hypoxic respiratory failure and shock ?? Acute respiratory failure with hypoxia (J96.01):?? Chronic obstructive pulmonary disease (J44.9):?? Healthcare-associated pneumonia (J18.9):?? Heart failure with reduced ejection fraction (I50.20):?? Reviewed imaging studies. Chest x-ray with right upper lung and left lung base opacity, concerning for infection, mild diffuse opacities also present can represent underlying mild edema. CT angiogramof the chest done, no evidence of PE, ncreasing size of right upper lobe nodule, now measuring up to 2.6 cm. Slightly increased size of mediastinal lymphadenopathy with the large precarinal maury mass measuring up to 3.5 cm., New groundglass opacities and consolidation in bilateral dependent lung bases, could represent aspiration or infection. Malignancy cannot be excluded She is afebrile and has no leukocytosis VBG initially with pH of 7.17, improved to 7.34 after??BiPAP Less likely to be COPD exacerbation, no wheezes or rhonchi on exam. Does not have any signs of volume overload, no JVD, no lower extremity edema, no crackles on exam, CTA does not show any pulmonary vascular congestion appreciate cardiology input Appreciate cardiology input, elevated troponin likely secondary to demand ischemia. Advised againsttrending troponin as that would not pipe changer. No heparin recommended. Recommended to hold beta-blockers. ?? Received Zosyn and vancomycin, which will be continued Continue scheduled and as needed bronchodilators Continue BiPAP Closely monitor respiratory status Monitor strict ins and outs and daily weights Continue Plavix, aspirin, statin. Holding metoprolol, valsartan and Lasix. Please note she has received 40 mg IV Lasix in the ED. ?ACEI or ARB for LVSD:??ARB has been ordered ?? Shock (R57.9):??Initially presented with hypotension??requiring??brief pressor support with Levophed During her ED course,??she became??transiently hypotensive again,??but responded well to 500 cc of IV fluid bolus??and is currently maintaining stable blood pressure Shock likely related to sepsis from pneumonia, less likely to be cardiogenic shock, no??evidence ofvolume overload on exam Lactic acid??levels increased to as high as 10.7, but improved to 2.1 after??Levophed Continue closely monitor blood pressure, hold all antihypertensives,??small fluid boluses as needed Antibiotics as above ?? High anion gap metabolic acidosis: Secondary to??shock,??resolved ?? History of CVA (cerebrovascular accident) (Z86.73):??Continue aspirin, Plavix, statin ?? Hyperlipidemia (E78.5):??Continue statin ?? 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 VTE Prophylaxis:??Subcutaneous heparin ?? Code Status:??Full code ? CT of the chest showing findings??that are concerning for malignancy with metastasis. ??Please consult pulmonology in a.m.??for further evaluation and recommendations ?? Histories Allergies Allergies ?(Active and Proposed Allergies Only) codeine? (Severity: Unknown severity, Onset: Unknown) ?Reactions: Passed out ? Past Medical History/Problem List Active Problems??(10) Acute kidney injury Buerger disease COPD with respiratory failure, acute COVID-19 Essential hypertension Glaucoma Hyperlipidemia Macular degeneration MSSA bacteremia Right low back pain ? Past Surgical History Cataract extraction Amputation of finger tip ? Social History Alcohol Details:??Use: Current. ??Frequency: Daily. ??Type: Beer. ??Other: 1-2 per day. Home/Environment Details:??Living situation: Home with assistance. ??Lives with: Sister. ??Other: Son and his familylive upstairs. ??She ambulates with a walker.. Substance Abuse Details:??Use: Never. Tobacco Details:??Use: 4 or less cigarettes(less than 1/4 pack)/day in last 30 days. ??Tobacco user in household: Yes. Details:??Use: Smoker, current status unknown. ? Family History CAD in both mother and father ? Medications Home Medications Acetaminophen (Tylenol 325 [...] tablet, chewable)?1?tab(s)?25?Milligram?Chew?3 times a day?as needed?for dizziness Metoprolol (metoprolol 25 mg oral tablet, extended release)?25?Milligram?1?tablet?ByMouth?Daily Mirtazapine (mirtazapine 7.5 mg oral tablet)?1?tab(s)?7.5?Milligram?By Mouth?Daily at bedtime Nitroglycerin (nitroglycerin 0.4 mg sublingual tablet)?1?tab(s)?0.4?Milligram?Sublingual?Every 5 minutes?as needed?Chest Pain Omeprazole (omeprazole 20 mg oral enteric coated capsule)?1?capsule?20?Milligram?By Mouth?Daily Oxymetazoline Nasal (Afrin 0.05% spray)?2?spray(s)?Nares, Both?2 times a day Polyethylene Glycol 3350 (MiraLax oral powder for reconstitution)?17?gram?By Mouth?Daily?as needed?Constipation Pramipexole (pramipexole 1 mg oral tablet)?1?tab(s)?1?Milligram?By Mouth?Daily atbedtime Sertraline (Zoloft 50 mg oral tablet)?1?tab(s)?50?Milligram?By Mouth?Daily umeclidinium-vilanterol (Anoro Ellipta 62.5 mcg-25 mcg/inh inhalation powder)?1?puff(s)?Inhalation?Daily Valsartan (valsartan 40 mg oral tablet)?40?Milligram?1?tablet?By Mouth?2 times a day ? Results Recent Labs BLOOD COUNT & DIFF WBC 11.4 k/mm3 (High)?? 11/15/2022 10:04 RBC 3.98 m/mm3 (Low)?? 11/15/2022 10:04 Hgb 11.1 Gm/dL (Low)?? 11/15/2022 10:04 Hct 34.7 % (Low)?? 11/15/2022 10:04 MCV 87.2 femtoliters ()?? 11/15/2022 10:04 MCH 27.9 pg ()?? 11/15/2022 10:04 MCHC 32.0 g/dL (Low)?? 11/15/2022 10:04 Platelet Count 327 k/mm3 ()?? 11/15/2022 10:04 RDW-SD 49.0 femtoliters (High)?? 11/15/2022 10:04 MPV 9.4 femtoliters ()?? 11/15/2022 10:04 Nucleated RBC (Automated) 0.0 #/100 WBC'S ()?? 11/15/2022 10:04 Abs. NRBC 0.0 k/mm3 ()?? 11/15/2022 10:04 Abs. Neut 10.9 k/mm3 (High)?? 11/15/2022 10:04 Abs. Lymph 0.3 k/mm3 (Low)?? 11/15/2022 10:04 Abs. Burt 0.1 k/mm3 (Low)?? 11/15/2022 10:04 Abs. Eo 0.0 k/mm3 ()?? 11/15/2022 10:04 Abs. Baso 0.0 k/mm3 ()?? 11/15/2022 10:04 Neut % 95.9 % (High)?? 11/15/2022 10:04 Lymph % 2.5 % (Low)?? 11/15/2022 10:04 Burt % 1.1 % (Low)?? 11/15/2022 10:04 Eos % 0.0 % ()?? 11/15/2022 10:04 Baso % 0.1 % ()?? 11/15/2022 10:04 Imm Gran 0.4 % ()?? 11/15/2022 10:04 Abs. Imm Gran 0.0 k/mm3 ()?? 11/15/2022 10:04 ?? BLOOD GAS Specimen Type - Blood Gas VENOUS ()?? 11/15/2022 10:05 pH, Venous 7.34 ()?? 11/15/2022 10:05 pCO2, Venous 48 mm Hg ()?? 11/15/2022 10:05 pO2, Venous 29 mm Hg (Low)?? 11/15/2022 10:05 Bicarbonate, Estimated(Venous) 25 mmol/L ()?? 11/15/2022 10:05 ?? CARDIAC Nt-Probnp 514 pg/mL (High)?? 11/15/2022 04:46 High Sensitivity Troponin (HSTnT) 190 ng/L (Critical)?? 11/15/2022 09:18 ?? CHEM GENERAL Sodium 141 mmol/L ()?? 11/15/2022 10:04 Potassium 3.7 mmol/L ()?? 11/15/2022 10:04 Chloride 100 mmol/L ()?? 11/15/2022 10:04 Bicarbonate Level 24 mmol/L ()?? 11/15/2022 10:04 Anion Gap 17 ()?? 11/15/2022 10:04 Glucose Level 177 mg/dL (High)?? 11/15/2022 10:04 Glucose, POC 199 mg/dL (High)?? 11/15/2022 04:41 BUN 21 mg/dL ()?? 11/15/2022 10:04 Creatinine-Blood 1.1 mg/dL (High)?? 11/15/2022 10:04 Estimated GFR Creatinine 53 ML/MIN/1.73 M2 ()?? 11/15/2022 10:04 Calcium 8.9 mg/dL ()?? 11/15/2022 10:04 Protein, Total 7.4 Gm/dL ()?? 11/15/2022 10:04 Albumin 4.1 Gm/dL ()?? 11/15/2022 10:04 AG Ratio 1.2 ()?? 11/15/2022 10:04 Alkaline Phosphatase 122 units/L (High)?? 11/15/2022 10:04 AST (SGOT) 16 units/L ()?? 11/15/2022 10:04 ALT (SGPT) 6 units/L ()?? 11/15/2022 10:04 Bilirubin, Total 1.0 mg/dL ()?? 11/15/2022 10:04 Lactate 2.1 mmol/L ()?? 11/15/2022 09:18 ?? HEME OTHER Hold Blue Top SPECIMEN DISCARDED AFTER 4 HOURS. ()?? 11/15/2022 05:25 ?? VIROLOGY Influenza A PCR NEGATIVE ()?? 11/15/2022 05:32 Influenza B PCR NEGATIVE ()?? 11/15/2022 05:32 RSV PCR NEGATIVE ()?? 11/15/2022 05:32 COVID-19 PCR Specimen Source NASAL ()?? 11/15/2022 05:32 COVID-19 PCR Result NEGATIVE ()?? 11/15/2022 05:32 ? Imaging(s) ?CT Angio Chest ?? 11/15/2022 09:09??by Abdiaziz Pean MD ?Chest Portable ?? 11/15/2022 04:46??by Viviana Manzanares MD ? Consults(s) ?Consultation Note ?? 11/15/2022 10:31??by Jimmy Jacob MD ? EKG study * Event Display: EKG Authored Date: * Event Display: ECG 12-Lead Authored Date: Please click on pdf link to open report * Event Display: ECG 12-Lead Authored Date: Ventricular Rate: 100 BPM Atrial Rate: 100 BPM P-R Interval: 164 ms QRS Duration: 84 ms Q-T Interval: 384 ms QTC Calculation(Bazett): 495 ms P [place]: 34 degrees R [place]: -65 degrees T [place]: -7 degrees Normal sinus rhythm Left axis deviation Inferior infarct , age undetermined Anterior infarct , age undetermined Abnormal ECG When compared with ECG of 15-NOV-2022 04:33, MANUAL COMPARISON REQUIRED, DATA IS UNCONFIRMED Confirmed by MICHELLE DANIEL MD ([id number]) on 11/19/2022 8:48:27 AM [place]: MICHELLE DANIEL MD * Event Display: ECG 12-Lead Authored Date: Please click on pdf link to open report * Event Display: ECG 12-Lead Authored Date: Ventricular Rate: 109 BPM Atrial Rate: 109 BPM P-R Interval: 154 ms QRS Duration: 88 ms Q-T Interval: 358 ms QTC Calculation(Bazett): 482 ms P [place]: 32 degrees R [place]: -75 degrees T [place]: 60 degrees Sinus tachycardia Possible Left atrial enlargement Left axis deviation Inferior infarct , age undetermined Anteroseptal infarct , age undetermined Abnormal ECG When compared with ECG of 07-SEP-2022 12:37, Anteroseptal infarct is now Present No significant change was found Confirmed by JANES MARKS ([id number]) on 11/18/2022 10:55:16 AM [place]: JANES MARKS Note * Mehnaz Miles RN: PERFORM Event Display: Discharge/Transfer Note Hospital Authored Date: Nursing Discharge Note Entered On: 11/24/2022 12:22 EST Performed On: 11/24/2022 12:22 EST by Mehnaz Miles RN Nursing Discharge Note 2 Discharge Time : 11/24/2022 12:20 EST Discharge Level of Care at Discharge : Homehealth/VNA Discharge VNA/Hospice/Home Care([id number]) : [facility] Patient Left Unit Via : Wheelchair Patient Accompanied Off Unit with : Responsible adult DC Instructions Provided & Signed by Pt : Yes Patient Understands D/C Instructions : Yes Patient Instructions Discharge Signed : Yes Did Pt have Specialty Bed or Wound Vac : No Mehnaz Miles RN - 11/24/2022 12:22 EST * Juan M Argueta MD: PERFORM Event Display: Discharge/Transfer Note Hospital Authored Date: Patient: ??MIRIAN, BEATRICE ? Age:??77 Years?Sex:??Female?:??1945?? 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) Acute kidney injury COPD with respiratory failure, [...] mg sublingual tablet)?1?tab(s)?0.4?Milligram?Sublingual?Every 5 minutes?as needed?Chest Pain Omeprazole (omeprazole 20 mg oral enteric coated capsule)?1?capsule?20?Milligram?By Mouth?Daily Oxymetazoline Nasal (Afrin 0.05% spray)?2?spray(s)?Nares, Both?2 times a day Pantoprazole (Protonix 40 mg oral delayed release tablet)?40?Milligram?By Mouth?Daily?Please take daily - refill per PCP Polyethylene Glycol 3350 (MiraLax oral powder for reconstitution)?17?gram?By Mouth?Daily?as needed?Constipation Pramipexole (pramipexole 1 mg oral tablet)?1?tab(s)?1?Milligram?By Mouth?Daily atbedtime PredniSONE (predniSONE 20 mg oral tablet)?See Instructions?20 mg for 2 days then 10 mg for 3 days then stop Sertraline (Zoloft 50 mg oral tablet)?1?tab(s)?50?Milligram?By Mouth?Daily umeclidinium-vilanterol (Anoro Ellipta 62.5 mcg-25 mcg/inh inhalation powder)?1?puff(s)?Inhalation?Daily ? Vaccinations and Immunoprophylaxis influenza virus vaccine, [...] vaccine, inactivated: 0.5 Unknown (07/05/21 08:00:00) ?? Durable Medical Equipment Current home treatments: IV therapy (11/21/22) On Admit VNA/Hospice/Home Care: [facility] [address] [place] [phone] (11/18/22) On Admit Medical Equip Companies: [employer] [address] [place] [address] (11/18/22) Discharge recommendations: Home with outpatient sevices (11/21/22) Discharge Medical Equipment Companies: [employer] (05/27/22) Name of Agency #1: [facility] (05/27/22) Agency Leasing Director #1: intake (11/21/22) Service Categories #1: Physical Therapy, Intermediate (11/21/22) Service Start Date and Time #1: 11/29/21 14:30:00 (11/29/21) Service Comments #1: A nurse will call you to arrange a visit with you at your home. If you do not hear from agency please call them. (11/21/22) Name of Agency #2: [facility] (05/27/22) Service Categories #2: Nebulizer, Oxygen Therapy (05/27/22) Service Comments #2: Patient is active with [facility] for home oxygen; if any issues or concern with the equipment please call them directly. (05/27/22) CPAP/BiPAP Mask Type: Full (11/17/22) CPAP/BiPAP Mask Size: Medium (11/17/22) Ambulatory devices needed: Walker, Wheelchair (11/20/22) ? Allergies Allergies ?(Active and Proposed Allergies Only) codeine? (Severity: Unknown severity, Onset: Unknown) ?Reactions: Passed out ? Future Appointments Thursday 9:15 AM EST ?? With: Kamala Hassan NP Where: [facility] [address] [place] [phone]- 2022 12:45 PM EDT ?? With: David Ventura MD Where: [facility] [address] [place] [phone]- Hospital Course 77-year-old female with past medical history significant for HTN, HLD, thromboangitis obliterans with left digit amputation, subacute right cerebellar stroke in 2019, COPD on nocturnal oxygen 2 L, former smoker, heart failure with reduced ejection fraction, EF 25%, recently admitted from 09/08 through 09/11/2022 for COVID-19 infection and hypoxic respiratory failure, admitted with acute hypoxic respiratory failure and shock??on 11/15.??Shock is resolved and??hypoxia has been??lingering. ? 11/19: Accepted patient under my care at 7AM. Chart reviewed, saw and examined patient. Increase shortness of breath reported. Also she is on more oxygen. Chart reviewed, Lasix has been held for several days. Her blood work was obtained and showing increase in BNP however chest x-ray is slightly improved. She was started on IV Lasix with improved symptoms and oxygenation. ?? 11/20: Patient reports subjective improvements. Still with some crackles on lung exam but improved.She continues with IV Lasix with good urine output. She was seen by pulm rn rehabilitation who recommends continue on oxygen 2 L at rest and 5 L with exertion. Patient continues to refuse rehab. Also, patientwith difficulty swallowing which has been ongoing for quite some time (both dysphagia and odynophagia reported), however has continued to worsen and is having difficulty eating and drinking. ?? 11/21: Patient continues with subjective improvements and is doing better in terms of her oxygen requirement with pulm rehab. She continues with IV Lasix with improvements. She is being set up with home oxygen as she continues to refuse recommendations to go to rehab after hospitalization. Her dysph agia/odynophagia were evaluated by SCHEDULE PLANNING MANAGER and she was cleared for regular diet however was recommendedfor GI eval as her symptoms are likely limiting her p.o. intake. GI team saw her and she adamantly refuses endoscopy even if she would have cancer.??After shared decision making, they decided for conservative management. ?? 11/22: Patient shortness of breath continues to improve with IV Lasix from yesterday. However her creatinine has risen up further, will hold IV Lasix today. She reports feeling weak and was counseledabout rehab, she will think about it. Otherwise, she would like to go home tomorrow if her blood work is stable. ?? 11/23: Patient stable for discharge. She is started back on PO Lasix. Home oxygen delivery was confirmed. Because of transportation issues/patient/family/CM request, she will be discharged tomorrow in the morning. Pulm paged to set up outpatient follow up. ?? 11/24: Patient stable on PO lasix. No new events or complaints. Pul has been paged again; per Dr. Ballard/prior notes, she was recommmended for outaptient Pulm follow up; they will co-ordinate for her.DC home with service. ?? Assessment and Plan ?? Acute on chronic respiratory failure with hypoxia (J96.01): Chronic obstructive pulmonary disease (J44.9): PNA likely CAP Heart failure with reduced ejection fraction (I50.20): Pt uses 1-2 L at baseline Presented with hypoxia, CXR ~ PNA, CTA ~ -ve for PE, however RUL nodule increasing in size. No fever or leucocytosis. Initially required BiPAP. No signs of volume overload. Cardiology consulted elevated trops??without??likely demand ischemia, No intervention needed.?And recommended??holding BB for now. Patient completed course of empiric??antibiotics, follow-up Pro-Alejo 11/19 remains low??however BNP high. Patient improving??with??IV Lasix diuresis,??not back to baseline but getting there Creatinine is up slightly, we may be reaching the limit of IV Lasix diuresis Held briefly then started back on PO ?? -DC home with service -Hold further antibiotics for now -Cont inh and nebs -Cont prednisone,??tapered 20 on 11/24 and then every 3 days -Resume PO Lasix 40 -hold valsartan and metoprolol for now ??- cont with asa, Plavix and statin. ??- pulm rehab eval??appreciated -Patient??now would like to get biopsy done for her lung nodules. Prior hospitalist spoke to Dr Ballard from pul, [facility] her with pulm procedure dept at the time of discharge for outpt procedure. ? -Pul was paged again to inform about impending discharge so they can set her up for the appointment as needed -Patient??has been recommended repeatedly for rehab but continues to refuse,??she was seen by??pulmrehab RN, recommendations appreciated -Patient has definitively refused??rehab and would like to go home,??she??was??set up with home oxygen ?? Dysphagia, odynophagia Ongoing for quite some time??but has been worsening while in hospital per patient report Reports difficulty with both solid and liquid foods SCHEDULE PLANNING MANAGER eval??appreciated, cleared for regular diet, recommended for GI eval GI saw patient and she refuses endoscopy??therefore they recommend??conservative management ?? -Hold off on any further work-up, patient has been counseled about chewing her food properly -Will give PPI for now given history of severe reflux, probably should remain on indefinitely because she is refusing further workup ?? Shock (R57.9):??likely septic resolved ?High anion gap metabolic acidosis:??likely due to lactic acidosis resolved ?p/w hypotension requiring Levophed briefly. responded well to fluid boluses as well. VL was significantly elevated which came down with IVF. 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 Please note, dictation software ([employer])??may have been used in the preparation of this note, and may have generated unintentional errors in speech recognition. If there are any questions going forward, please reach out for clarification. ?? Objective Measurements?? Height: 164 cm (11/24/22) Weight: 56.5 kg (11/24/22) Dry Weight: 59.5 kg (11/15/22) Body Mass Index: 22.12 kg/m2 (11/15/22) ? Vital Signs?? Temperature: 98.2 DegF (11/24/22 07:34:00) Temperature Route: Oral (11/24/22 07:34:00) Pulse Rate: 90 bpm (11/24/22 07:34:00) Respiratory Rate: 18 br/min (11/24/22 07:34:00) Systolic Blood Pressure:??140 mm Hg??High (11/24/22 07:34:00) Diastolic Blood Pressure:??90 mm Hg??High (11/24/22 07:34:00) Blood pressure sites: Arm, right (11/24/22 07:34:00) Mean Arterial Pressure: 107 mm Hg (11/24/22 07:34:00) Pulse Pressure: 50 mm Hg (11/24/22 07:34:00) Oxygen Saturation:??93 %??Low (11/24/22 07:34:00) Liters per Minute: 2 L/min (11/24/22 07:34:00) Mode of Delivery (Oxygen): Nasal cannula (11/24/22 07:34:00) Early Warning Score: 2 (11/24/22 07:34:51) ? . Physical Exam Constitutional: Alert, in no acute distress. ?Head EENT: PERRL.??NCAT. ?Nasal cannula in place ?Neck: Supple. No obvious LAD. ?Respiratory: CTAB. No use of accessory muscles. ?Cardiovascular: S1S2 present. No obvious JVD. ?Gastrointestinal: Abdomen soft, non-tender, non-distended. Bowel sounds present. ?Genitourinary: No CVA tenderness. Genital exam deferred. ?Extremities: No lower extremity pitting??edema. No cyanosis or clubbing. ?Neurologic: Alert, generally appropriate. Speech normal. No gross focal neurological deficits. _ [facility] GI Pulm Rehab CM PT Pending Results Add On Lab Order ordered on 11/19/2022 COVID-19 (2019 Novel Coronavirus) PCR ordered on 11/24/2022 Follow-Up Appointments Added Follow Up ?Time Frame ?Comments Bulmaro DEVLIN, [facility] Face to Face *Denotes mandatory gould ?? *I certify that this patient is under my care and that I or an allowed non- physician working with me had a face to face encounter with the patient on this date:??11/24/2022 09:38 ?? 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 *Select the indications for the discipline/s that are being arranged for this patient. Nursing (select all that apply): [_] None [X] Medication management (reconciliation, teaching)?? [X] Chronic disease management?? [_] Wound care and treatment?? [_] Home safety evaluation [_] Administer SQ/IM/IV medications?? [_] Cath care?? [_] Drain care?? [_] Trach or GT care?? Other _ Occupation Therapy (select all that apply): [_] None [_] ADL Management [_] Fall prevention training [_] Energy conservation [_] Cognitive training Other _ Physical Therapy (select all that apply): [_] None [X] Functional mobility training [X] Home exercise program to strengthen [_] Increase ROM?? [_] Falls prevention training [_] Home maintenance program for chronic disease Other _ Speech Therapy (select all that apply): [_] None [_] Swallow evaluation and training [_] Speech and language training [_] Cognitive training to process, organize, and/or recall information Other _ ? *Homebound due to (select all that apply): [_] Inability to leave home without assistance/supervision [X] Inability to ambulate without assistance [_] Pain [X] Decreased strength and endurance [_] Unsteady gait [X] Severe SOB and fatigue [_] Impaired transfers [_] Inability to negotiate stairs [_] Limited weight bearing [_] Mental status change? *Physician Signature: Juan M??MD Ellie ?? *By signing this, I certify that I have personally evaluated the patient and agree with the findings and recommendations as documented above. ? Results Discharge Labs BACTERIOLOGY MRSA PCR Result Negative, MRSA target DNA not detected. ()?? 11/16/2022 11:33 S Aureus ??PCR Result Positive, SA target DNA detected. ()?? 11/16/2022 11:33 ?? BLOOD COUNT & DIFF WBC 9.0 k/mm3 ()?? 11/22/2022 04:46 RBC 3.39 m/mm3 (Low)?? 11/22/2022 04:46 Hgb 9.8 Gm/dL (Low)?? 11/22/2022 04:46 Hct 31.0 % (Low)?? 11/22/2022 04:46 MCV 91.4 femtoliters ()?? 11/22/2022 04:46 MCH 28.9 pg ()?? 11/22/2022 04:46 MCHC 31.6 g/dL (Low)?? 11/22/2022 04:46 Platelet Count 298 k/mm3 ()?? 11/22/2022 04:46 RDW-SD 53.4 femtoliters (High)?? 11/22/2022 04:46 MPV 9.4 femtoliters ()?? 11/22/2022 04:46 Nucleated RBC (Automated) 0.0 #/100 WBC'S ()?? 11/22/2022 04:46 Abs. NRBC 0.0 k/mm3 ()?? 11/22/2022 04:46 Abs. Neut 10.9 k/mm3 (High)?? 11/15/2022 10:04 Abs. Lymph 0.3 k/mm3 (Low)?? 11/15/2022 10:04 Abs. Burt 0.1 k/mm3 (Low)?? 11/15/2022 10:04 Abs. Eo 0.0 k/mm3 ()?? 11/15/2022 10:04 Abs. Baso 0.0 k/mm3 ()?? 11/15/2022 10:04 Neut % 95.9 % (High)?? 11/15/2022 10:04 Lymph % 2.5 % (Low)?? 11/15/2022 10:04 Burt % 1.1 % (Low)?? 11/15/2022 10:04 Eos % 0.0 % ()?? 11/15/2022 10:04 Baso % 0.1 % ()?? 11/15/2022 10:04 Imm Gran 0.4 % ()?? 11/15/2022 10:04 Abs. Imm Gran 0.0 k/mm3 ()?? 11/15/2022 10:04 ?? BLOOD GAS Specimen Type - Blood Gas VENOUS ()?? 11/15/2022 10:05 pH, Venous 7.34 ()?? 11/15/2022 10:05 pCO2, Venous 48 mm Hg ()?? 11/15/2022 10:05 pO2, Venous 29 mm Hg (Low)?? 11/15/2022 10:05 Bicarbonate, Estimated(Venous) 25 mmol/L ()?? 11/15/2022 10:05 ? CARDIAC Nt-Probnp 3103 pg/mL (High)?? 11/19/2022 13:01 High Sensitivity Troponin (HSTnT) 190 ng/L (Critical)?? 11/15/2022 09:18 ?? CHEM GENERAL Sodium 142 mmol/L ()?? 11/23/2022 05:37 Potassium 4.9 mmol/L ()?? 11/23/2022 05:37 Chloride 105 mmol/L ()?? 11/23/2022 05:37 Bicarbonate Level 28 mmol/L ()?? 11/23/2022 05:37 Anion Gap 9 ()?? 11/23/2022 05:37 Glucose Level 83 mg/dL ()?? 11/23/2022 05:37 Glucose, POC 199 mg/dL (High)?? 11/15/2022 04:41 BUN 44 mg/dL (High)?? 11/23/2022 05:37 Creatinine-Blood 1.1 mg/dL (High)?? 11/23/2022 05:37 Estimated GFR Creatinine 50 ML/MIN/1.73 M2 ()?? 11/23/2022 05:37 Calcium 9.6 mg/dL ()?? 11/23/2022 05:37 Magnesium 2.3 mg/dL ()?? 11/22/2022 04:46 Protein, Total 7.4 Gm/dL ()?? 11/15/2022 10:04 Albumin 4.1 Gm/dL ()?? 11/15/2022 10:04 AG Ratio 1.2 ()?? 11/15/2022 10:04 Alkaline Phosphatase 122 units/L (High)?? 11/15/2022 10:04 AST (SGOT) 16 units/L ()?? 11/15/2022 10:04 ALT (SGPT) 6 units/L ()?? 11/15/2022 10:04 Bilirubin, Total 1.0 mg/dL ()?? 11/15/2022 10:04 Lactate 2.1 mmol/L ()?? 11/15/2022 09:18 ?? HEME OTHER Hold Lavender Top SPECIMEN DISCARDED AFTER 24 HOURS. ()?? 11/23/2022 05:37 Hold Blue Top SPECIMEN DISCARDED AFTER 4 HOURS. ()?? 11/15/2022 05:25 ?? MISC. CHEMISTRY Procalcitonin 0.14 ng/mL ()?? 11/19/2022 13:01 ? VIROLOGY Influenza A PCR NEGATIVE ()?? 11/15/2022 05:32 Influenza B PCR NEGATIVE ()?? 11/15/2022 05:32 RSV PCR NEGATIVE ()?? 11/15/2022 05:32 COVID-19 PCR Specimen Source NASAL ()?? 11/20/2022 17:15 COVID-19 PCR Result NEGATIVE ()?? 11/20/2022 17:15 ? Microbiology ?? Blood Culture?? Completed?? Source: Blood Body Site: ?? Collected Dt/Tm: 11/15/2022 04:24 Last Updated Dt/Tm: 11/15/2022 04:27 ?SPECIMEN DESCRIPTION : BLOOD NO SITESPECIAL REQUESTS : NONECULTURE : NO GROWTH 5 DAYS.REPORT STATUS : FINAL 11/20/2022 Blood Culture #2?? Completed?? Source: Blood Body Site: ?? Collected Dt/Tm: 11/15/2022 04:24 Last Updated Dt/Tm: 11/15/2022 04:27 ?SPECIMEN DESCRIPTION : BLOOD NO SITESPECIAL REQUESTS : NONECULTURE : NO GROWTH 5 DAYS.REPORT STATUS : FINAL 11/20/2022 MRSA PCR Nasal Swab?? Completed?? Source: Swab Body Site: Nares Both Collected Dt/Tm: 11/16/2022 11:30 Last Updated Dt/Tm: 11/16/2022 14:29 COVID-19 (2019 Novel Coronavirus) PCR?? Completed?? Source: Nasal Body Site: Nose Collected Dt/Tm: 11/17/2022 05:07 Last Updated Dt/Tm: 11/17/2022 15:38 COVID-19 (2018 Novel Coronavirus) PCR?? Completed?? Source: Nasal Body Site: Nose Collected Dt/Tm: 11/20/2022 17:20 Last Updated Dt/Tm: 11/21/2022 11:34 ? 40??minutes spent on discharge including assessment, documentation, care coordination * Mehnaz Miles RN: PERFORM Event Display: Patient Education/Instruction Authored Date: [id number] Inpatient Adult Discharge Instructions [address] [address] Name: BEATRICE VELA : 1945 Visit: 11/15/2022 12:26:00 Current Date: 11/24/2022 10:15 Account: [id number] Inpatient Adult Discharge Instructions We would like [...] and their families. Surveys are administered by [employer] ?? If further treatment with your primary care physician or another doctor is recommended, it is important for you to keep the appointment. Call your primary care physician or return to the Emergency Department immediately if your condition worsens, fails to improve, or new symptoms develop. If you need to find a doctor, you can call [facility] [employer] for a referral at [phone] or toll free at [phone] [email or web address] ([phone]) or log in to [email or web address].. ?? You can view and manage your care through the patient portal or by using a health care leigh of your choosing. [employer] is a website that allows you to securely view your medical information including your hospital discharge summary, office visit summaries, medications and follow-up visits. You can also request appointments, renew medications, and request access to your medical information using a health care leigh of your choosing, or just ask a question. You can enroll at [email or web address] or register during your next office visit. You have been discharged from [facility], Patient Care Unit: S3. If you have any questions regarding these instructions after you leave, please call us and we will be happy to assist you. [facility] Your Care Team Attending Physician Ellie DEVLIN, Juan M Subramanian Consulting Providers Rylie DEVLIN, Maddi Lorenzo MD, Deandra; Froy DEVLIN, O'Lamberto J Discharging Providers Ellie DEVLIN, Juan M Subramanian Reason for Admission see lvl 1 sheet Your Diagnosis Hypoxia Essential hypertension Hyperlipidemia Acute respiratory failure with hypoxia Shock Healthcare-associated pneumonia Heart failure with reduced ejection fraction Thromboangiitis obliterans History of CVA (cerebrovascular accident) Chronic obstructive pulmonary disease Tests Performed Below is a partial list of the tests performed during your hospitalization. You may have had other tests and procedures not included in this list. Please discuss all test results with your provider. Basic Metabolic Panel Blood Gas Venous BNP BUN CBC CBC w/ Differential Comprehensive Metabolic Panel COVID-19, RSV, FLU A/B PCR Creatinine Electrolytes GLUCOSE POC H + H High??Sensitivity??Troponin T HOLD BLUE TUBE HOLD LAVENDER TUBE Lactate Level Magnesium Level MRSA PCR Nasal Swab ProBNP Procalcitonin Level VBG CT Angio Chest CXR Portable XR Chest Portable Primary Care Provider Bulmaro DEVLIN, Sharon Langley Advance Directive Health Care Proxy on File Yes - Health Care Proxy No qualifying data available. Discharge Vitals Temperature: 98.2 DegF Height: 164 cm Pulse Rate: 90 bpm Weight: 56.5 kg Respiratory Rate: 18 br/min Body Mass Index: 22.12 kg/m2 Systolic Blood Pressure:??140 mm Hg??High Body surface area: 1.65 Diastolic Blood Pressure:??90 mm Hg??High ?? Oxygen Saturation:??93 %??Low ?? Studies Pending All tests and labs ordered during this hospital stay have been completed unless listed below. Please discuss all pending results with your provider listed above in these instructions. ?? Add On Lab Order COVID-19 (2019 Novel Coronavirus) PCR What to do next Instructions From Your Doctor Discharge Orders Scheduled Follow-Up Appointments Thursday 9:15 AM EST ?? With: Mo HARGROVE, Kamala Where: [facility] [address] [place] [address]- 2022 12:45 PM EDT ?? With: David Ventura MD Where: [facility] [address] [place] [phone]- You Need to Schedule the Following Appointments Follow Up with??Bulmaro DEVLIN, Sharon Langley When?? Where: [address] [place] [address] [address] [place] [address]- Discharge Medications BEATRICE VELA :1945 Visit Date:11/15/2022 Medications: Please continue your medications until treatment is completed or stopped by your provider. Medications not listed below should be discontinued. Discuss any questions related to medications with your provider. What How Much When Instructions Next Dose New Pantoprazole (Protonix 40 mg oral delayed release tablet) 40 Milligram Oral Daily Please take daily - refill per PCP ?? Pickup at [facility] 3 1/3 AM New PredniSONE (predniSONE 10 mg oral tablet) See instructions 20 mg for 2 days then 10 mg for 3 days then stop ?? Pickup at [facility] 3 1/3 AM Unchanged Acetaminophen (Tylenol 325 mg oral tablet) [...] a day as needed for for wheezing as?? needed Unchanged Albuterol/ Ipratropium (albuterol-ipratropium 3 mg-0.5 mg/ 3 ml inhalation solution) 3 Milliliter Nebulized inhalation Every 4 hours Dx: J44.9 ?? as needed Unchanged Aspirin (Aspirin Enteric Coated 81 mg oral delayed release tablet) 1 tab(s) Oral Daily 1/3 AM Unchanged Atorvastatin (atorvastatin 80 mg oral tablet) 1 tab(s) Oral Daily at Bedtime 1/2 bedtime Unchanged Clopidogrel (clopidogrel 75 mg oral tablet) 1 tab(s) Oral Daily 1/3 AM Unchanged Docusate (Doculase 100 mg oral capsule) 1 capsule Oral Twice a day as needed for as needed for constipation as needed Unchanged Furosemide (Lasix 40 mg oral tablet) 1 tab(s) Oral Daily 1/3 AM Unchanged Loperamide (loperamide 2 mg oral capsule) 1 capsule Oral Daily as needed for as needed for loose stool as needed Unchanged Meclizine (meclizine 25 mg oral tablet, chewable) 1 tab(s) Chew 3 times a day as needed for for dizziness as needed Unchanged Mirtazapine (mirtazapine 7.5 mg oral tablet) 1 tab(s) Oral Daily at Bedtime 1/2 bedtime Unchanged Nitroglycerin (nitroglycerin 0.4 mg sublingual tablet) 1 tab(s) Sublingual Every 5 minutes as needed for Chest Pain as needed Unchanged Omeprazole (omeprazole 20 mg oral enteric coated capsule) 1 capsule Oral Daily 1/3 AM Unchanged Oxymetazoline Nasal (Afrin 0.05% spray) 2 spray(s) Nares, Both Twice a day 1/2 PM Unchanged Polyethylene Glycol 3350 (MiraLax oral powder for reconstitution) 17 gram Oral Daily as needed for Constipation as needed Unchanged Pramipexole (pramipexole 1 mg oral tablet) 1 tab(s) Oral Daily at Bedtime 1/2 bedtime Unchanged Sertraline (Zoloft 50 mg oral tablet) 1 tab(s) Oral Daily 1/3 AM Unchanged umeclidinium-vilanterol (Anoro Ellipta 62.5 mcg-25 mcg/ inh inhalation powder) 1 puff(s) Inhalation Daily 1/3 AM [facility] [address], [place] [id number] [phone] ?? What How Much When Comments Stop Taking Metoprolol (metoprolol 25 mg oral tablet, extended release) 1 tab(s) Oral Daily Stop Taking Valsartan (valsartan 40 mg oral tablet) 1 tab(s) Oral Twice a day Test Results Below is a partial list of the most recent Laboratory test results done prior to this discharge. You may have had other tests and procedures not included in this list. Please discuss all test resultswith your provider. Basic Metabolic Panel (11/23/2022) ???Sodium - 142 mmol/L???Potassium - 4.9 mmol/L???Chloride - 105 mmol/L???Bicarbonate Level - 28 mmol/L???Anion Gap - 9???Glucose Level - 83 mg/dL???BUN - 44 mg/dL???Creatinine-Blood - 1.1 mg/dL???Estimated GFR Creatinine - 50 ML/MIN/1.73 M2???Calcium - 9.6 mg/dL Blood Gas Venous (11/15/2022) ???Specimen Type - Blood Gas - VENOUS???pH, Venous - 7.17???pCO2, Venous - 39 mm Hg???pO2, Venous -54 mm Hg???Bicarbonate, Estimated(Venous) - 14 mmol/L BNP (11/19/2022) ???Nt-Probnp - 3103 pg/mL BUN (11/16/2022) ???BUN - 24 mg/dL CBC (11/22/2022) ???WBC - 9.0 k/mm3???RBC - 3.39 m/mm3???Hgb - 9.8 Gm/dL???Hct - 31.0 %???MCV - 91.4 femtoliters???MCH - 28.9 pg???MCHC - 31.6 g/dL???Platelet Count - 298 k/mm3???RDW-SD - 53.4 femtoliters???MPV - 9.4femtoliters???Nucleated RBC (Automated) - 0.0 #/100 WBC'S???Abs. NRBC - 0.0 k/mm3 CBC w/ Differential (11/15/2022) ???WBC - 11.4 k/mm3???RBC - 3.98 m/mm3???Hgb - 11.1 Gm/dL???Hct - 34.7 %???MCV - 87.2 femtoliters???MCH - 27.9 pg???MCHC - 32.0 g/dL???Platelet Count - 327 k/mm3???RDW-SD - 49.0 femtoliters???MPV - 9.4 femtoliters???Nucleated RBC (Automated) - 0.0 #/100 WBC'S???Abs. NRBC - 0.0 k/mm3???Abs. Neut - 10.9 k/mm3???Abs. Lymph - 0.3 k/mm3???Abs. Burt - 0.1 k/mm3???Abs. Eo - 0.0 k/mm3???Abs. Baso - 0.0 k/mm3???Neut % - 95.9 %???Lymph % - 2.5 %???Burt % - 1.1 %???Eos % - 0.0 %???Baso % - 0.1 %???Imm Gran - 0.4 %???Abs. Imm Gran - 0.0 k/mm3 Comprehensive Metabolic Panel (11/15/2022) ???Sodium - 141 mmol/L???Potassium - 3.7 mmol/L???Chloride - 100 mmol/L???Bicarbonate Level - 24 mmol/L???Anion Gap - 17???Glucose Level - 177 mg/dL???BUN - 21 mg/dL???Creatinine-Blood - 1.1 mg/dL???Estimated GFR Creatinine - 53 ML/MIN/1.73 M2???Calcium - 8.9 mg/dL???Protein, Total - 7.4 Gm/dL???Alb umin - 4.1 Gm/dL???AG Ratio - 1.2???Alkaline Phosphatase - 122 units/L???AST (SGOT) - 16 units/L???ALT (SGPT) - 6 units/L???Bilirubin, Total - 1.0 mg/dL COVID-19, RSV, FLU A/B PCR (11/15/2022) ???Influenza A PCR - NEGATIVE???Influenza B PCR - NEGATIVE???RSV PCR - NEGATIVE???COVID-19 PCR Specimen Source - NASAL???COVID-19 PCR Result - NEGATIVE Creatinine (11/16/2022) ???Creatinine-Blood - 1.1 mg/dL???Estimated GFR Creatinine - 54 ML/MIN/1.73 M2 Electrolytes (11/16/2022) ???Sodium - 146 mmol/L???Potassium - 3.6 mmol/L???Chloride - 108 mmol/L???Bicarbonate Level - 27 mmol/L???Anion Gap - 11 GLUCOSE POC (11/15/2022) ???Glucose, POC - 199 mg/dL H + H (11/18/2022) ???Hgb - 8.5 Gm/dL???Hct - 23.5 % High??Sensitivity??Troponin T (11/15/2022) ???High Sensitivity Troponin (HSTnT) - 190 ng/L HOLD BLUE TUBE (11/15/2022) ???Hold Blue Top - SPECIMEN DISCARDED AFTER 4 HOURS. HOLD LAVENDER TUBE (11/23/2022) ???Hold Lavender Top - SPECIMEN DISCARDED AFTER 24 HOURS. Lactate Level (11/15/2022) ???Lactate - 2.1 mmol/L Magnesium Level (11/22/2022) ???Magnesium - 2.3 mg/dL MRSA PCR Nasal Swab (11/16/2022) ???MRSA PCR Result - Negative, MRSA target DNA not detected.???S Aureus PCR Result - Positive, SA target DNA detected. ProBNP (11/15/2022) ???Nt-Probnp - 514 pg/mL Procalcitonin Level (11/19/2022) ???Procalcitonin - 0.14 ng/mL VBG (11/15/2022) ???Specimen Type - Blood Gas - VENOUS???pH, Venous - 7.34???pCO2, Venous - 48 mm Hg???pO2, Venous -29 mm Hg???Bicarbonate, Estimated(Venous) - 25 mmol/L Allergies (NKA means No Known Allergies) codeine??(Passed out) Problems Active Problems??(10) Acute kidney injury?? Buerger disease?? COPD with respiratory failure, acute?? COVID-19?? Essential hypertension?? Glaucoma?? Hyperlipidemia?? Macular degeneration?? MSSA bacteremia?? Right low back pain?? Education Materials Below is the list of Educational Leaflet Providered with your Discharge Instructions. Dysphagia Diet: Managing Foods?? Discharge Instructions for Heart Failure?? Valuables and Belongings I fully understand and agree that [facility] accepts no responsibility for all my [...] patient Date for Pt to Sign Valuables/Belongings: 11/24/22 08:21:00 ?? Other Discharge Information ? Case Management Discharge Plan?? Discharge Plan?? Discharge Agency Information?? Discharge Level of Care at Discharge: Homehealth/VNA Agency Leasing Director #1: intake Discharge Rx Program: Discharge Prescription Program Service Categories #1: Physical Therapy, Intermediate Discharge Rx Program: Discharge Prescription Program Service Comments #1: A nurse will call you to arrange a visit with you at your home. If you do not hear from agency please call them. Discharge VNA/Hospice/Home Care: [facility] ? Pulmonary Rehab Status?? Pulmonary Rehab Discharge Status?? CPAP/BiPAP Mask Type: Full CPAP/BiPAP Mask Size: Medium Respiratory Rate: 18 br/min ? Common Emergency [...] are strongly encouraged to quit. Please call [facility] at [phone] or [phone] or log in to [email or web address] for referrals to smoking cessation programs. ?? The National Suicide Prevention Hotline is available 15/06 if you or someone you know needs to find a reason to keep living. By calling 9-702-475-[employer] (8973) you'll be connected to a skilled, trained counselor at a crisis center in your area. INPATIENT DISCHARGE INSTRUCTIONS SIGNATURE PAGE MIRIANYULINE Location:[facility] Registration Date and Time:11/15/2022 12:26 [facility] Primary Care Physician: Bulmaro DEVLIN, Sharon Langley, I BEATRICE VELA, have received the above patient education materials/instructions and have verbalized understanding. If ambulance or transport services are being used I further acknowledge being givena choice of service. ?? If you need to contact me, please call me at this number: . Patient/Structural Ironworker Name: Patient/Structural Ironworker Signature: Relationship to Patient: Witness Name/Signature: Date: * Mehnaz Miles RN: PERFORM Event Display: Patient Education Leaflets Authored Date: [id number] Dysphagia Diet: Managing Foods ?? 46418 Dysphagia Diet: Managing Foods A dysphagia diet is a special eating plan. Your healthcare provider may advise it if you have trouble swallowing (dysphagia). Why a dysphagia diet is needed When you have dysphagia, you are at risk for aspiration. Aspiration is when food or liquid enters the lungs by accident. It can cause pneumonia and other problems. The foods you eat can affect your ability to swallow. For example, soft foods are easier to swallow than hard foods. A dysphagia diet can help prevent aspiration. You may be at risk for aspiration from dysphagia if you have any of these health conditions: ??? Stroke ??? Severe dental problems ??? Conditions that lead to less saliva (dry mouth), such as Sjogren syndrome ??? Mouth sores ??? Parkinson disease or other nervous system conditions ??? Muscular dystrophies ??? Blockage in the esophagus, such as a growth from cancer ??? History of radiation therapy or surgery for throat cancer You may need to follow a dysphagia diet for only a short time. Or you may be on it for a while. It depends on what is causing your dysphagia and how serious it is. A speech-language pathologist (SCHEDULE PLANNING MANAGER)assesses a person with dysphagia. The SCHEDULE PLANNING MANAGER will determine your risk for aspiration and talk about the best food and drink choices for you. ?? Levels of a dysphagia diet The International Dysphagia Diet Standardisation Initiative (IDDSI) has created a diet plan or framework for people with dysphagia. The dysphagia diet has levels that rate drinks and foods on a thickness scale from 0 to 7. Drinks are ranked from 0 to 4. Foods are ranked from 3 to 7, depending on thickness. The food levels are: ??? Level 3 (moderately thick). These are foods that: o Don't require chewing o Have a smooth texture but are not lumpy o Can be eaten with a spoon, but not with a fork o Are not thick enough to stand stiff on a plate. For example, not stiff like molded gelatin. ??? Level 4 (pureed, extremely thick). These foods: o Can often be eaten with a spoon, but sometimes a fork o Can't be drunk from a cup o Don't need to be chewed o Can be molded, such as gelatin o Are not sticky or lumpy o Fall off a spoon all together when tilted and still hold shape on a plate. For example, pudding. o Can't be poured but move very slowly if the plate is tilted ??? Level 5 (minced, moist). These foods: o Can be eaten with a fork or spoon, or a chopstick if you have good hand control o Can be scooped and shaped mikhail plate. For example, mashed potatoes. o Are soft and moist but don't separate into liquid o May have small lumps that can be mashed with the tongue ??? Level 6 (soft). These foods: o Are tender, moist, and bite-sized o Can be eaten with a fork, spoon, or chopsticks but don't need a knife to cut o Must be chewed ??? Level 7 (regular). These are: o Normal, everyday foods of varying textures, including soft, stringy, and hard and crunchy o Foods that can be eaten by any method. For example, from a cup or using utensils. o Foods that need to be chewed, with all types of textures and may have pieces that can't be swallowed, such as gristle You will also need to be careful about the liquids you drink. Talk with your SCHEDULE PLANNING MANAGER about the liquids that are allowed on your dysphagia diet. ?? Preparing food and liquids Your SCHEDULE PLANNING MANAGER will give you instructions about how to prepare your food. You may need to not eat certainfoods, or make changes to some foods. For example, you may need to puree your food. Make sure to taste and season your food before pureeing it. It will be easier to adjust to a new diet if your food smells and tastes appealing. You may also need to make liquids thicker. You can manage your liquids by making thin liquids thicker. This is done by adding a flavorless gel, gum, powder, or other liquid to it. These are called thickeners. You can also buy pre-thickened liquids. Talk with your SCHEDULE PLANNING MANAGER if you have any questions aboutmanaging your liquids. ?? While you eat While eating or drinking, it may help to sit upright, with your back straight. You may need supportpillows to get into the best position. It may also help to have few distractions while eating or drinking. Changing between solid food and liquids may also help your swallowing. Stay upright for at least 30 minutes after eating. This can help reduce the risk for aspiration. Watch for symptoms of aspiration such as: ??? Coughing or wheezing during or right after eating ???Excess saliva ??? Shortness of breath or fatigue while eating ??? A wet-sounding voice during or after eating or drinking ??? Fever 30 to 60 minutes after eating ?? After you eat After meals, it???s important to do proper oral care. The SCHEDULE PLANNING MANAGER can give you instructions for your teeth or dentures. Make sure to not swallow any water during your oral care routine. ?? Checking your health Your healthcare team will keep track of how well you are swallowing. You may need follow-up tests such as a fiberoptic endoscopic evaluation of swallowing (FEES) test. If your swallowing gets better or worse, your SCHEDULE PLANNING MANAGER may change your dysphagia diet over time. In time, you may be able to eat and drink foods and liquids of all kinds. ?? Getting enough liquids While on a dysphagia diet, you may have trouble taking in enough fluid. This can cause dehydration,which can lead to serious health problems. Talk with your healthcare team about how you can help prevent this. In some cases drinking thicker liquids may make some of your medicines work less well. Because of this, you may need some of your medicines changed for a while. ?? While you are on a dysphagia diet ??? Follow all instructions about what food and drink you can have. ??? Do swallowing exercises as advised. ??? Don't change your food or liquids, even if your swallowing gets better. Talk with your health care provider first. ??? Crush medicines and mix them with food as needed. ??? Tell all healthcare providers and caregivers that you are on a dysphagia diet. Explain which foods and liquids you can and cannot have. ?? Call 911 Call 911 or have someone else call if you have trouble breathing because of food blocking your airway. ?? When to call your healthcare provider Call your healthcare provider right away if you have any of these: ??? Trouble swallowing that getsworse ??? Unplanned weight loss ??? Chewed food coming back up into the mouth ??? Vomiting ?? Last Reviewed Date: 2020 ?? 4698-8646 [employer]. All rights reserved. This information is not intended as a substitute for professional medical care. Always follow your healthcare professional's instructions. ?? * Mehnaz Miles RN: PERFORM Event Display: Patient Education Leaflets Authored Date: [id number] Discharge Instructions for Heart Failure ?? 70369 Discharge Instructions for Heart Failure The heart is a muscle that pumps oxygen-rich blood to all parts of the body. When you have heart failure, the heart is not able to pump as well as it should. Blood and fluid may back up into the lungs. Some parts of the body don???t get enough oxygen-rich blood to work normally. These problems leadto the symptoms of heart failure. Heart failure can occur because of an injury to the heart or fromnatural processes.??You can control symptoms of heart failure with some lifestyle changes and by following your doctor's advice. Activity Ask your healthcare provider about an exercise program. Simple activities such as walking or gardening can help. Exercising most days of the week can make you feel better. Don't be discouraged if your progress is slow at first. Rest as needed. Stop activity if you get symptoms such as chest pain, lightheadedness, or shortness of breath. Find activities that you enjoy. Examples might be brisk walking, dancing, swimming, and gardening. These will help you stay active and strengthen your heart. Ask your healthcare provider about cardiac rehab. This is a program that helps you to exercise safely. ?? Diet Follow a heart healthy diet. And make sure to limit the salt (sodium) in your diet. Salt causes your body to hold water. This makes your heart work harder because there is more fluid for the heart topump. Limit your salt as directed by your healthcare provider by doing the following: ??? Limit canned, dried, packaged, and fast foods. ??? Don't add salt to your food. ??? Season foods with herbs instead of salt. ??? Watch how much liquids you drink. Drinking too much can make heart failure worse. Talk with your healthcare provider about how much you should drink each day. ??? Limit the amount of alcohol you drink. It may harm your heart. Women should have no more than 1 drink a day. Men should have no more than 2 a day. ??? Ask that your meals have no added salt when you eat out. ??? Talk with your healthcare provider before using salt substitutes. They often have potassium in them. Thismay not be good for your health. This will depend on how well your kidneys are working and what medicines you???re taking. Some people need extra potassium. Others don???t. ?? Tobacco It's important to quit if you smoke. Smoking increases your chances of having a heart attack by harming the blood vessels that provide oxygen to your heart. This makes heart failure worse. Quitting smoking is the number one thing you can do to improve your health. Enroll in a stop-smoking program to improve your chances of success. Talk with your healthcare provider??about medicines or nicotine replacement therapy. Also ask your healthcare provider about smoking cessation support groups. ?? Medicine Take your medicines exactly as prescribed. Learn the names and purpose of each of your medicines. Keep an accurate medicine list and current dosages with you at all times. Don't skip doses. If you miss a dose of your medicine, take it as soon as you remember. If you miss a dose and??it's almost time for your next dose, just wait and take your next dose at the normal time. Don't take a double dose. If you are unsure, call your doctor's office. Make sure not to mix up your medicines or forget what you've taken the same day. Refill your prescriptions before you run out of medicine. Talk with your healthcare provider if you have trouble with the cost of your medicines. ?? Weight monitoring Weigh yourself every day. A sudden weight gain can mean your heart failure is getting worse. Weigh yourself at the same time of day and in the same kind of clothes. Ideally, weigh yourself first thing in the morning after you empty your bladder, but before you eat breakfast. Your healthcare provider will show you how to track your weight. They will also tell you when you should call if you have asudden, unexpected increase in your weight. In general, your healthcare provider may ask you to report if your weight goes up by more than 2 pounds in 1 day,?? 5 pounds in 1 week, or whatever weight gain you were told by your doctor. This is asign that you are retaining more fluid than you should be. Clues to weight gain include checking your ankles for swelling, or noticing you are short of breath when you lie down. ?? Follow-up care Have a follow-up appointment as instructed. Depending on the type and severity of heart failure youhave, you may need follow-within 7 days from hospital discharge. Keep appointments for checkups andlab tests that are needed to check your medicines and condition. Recognize that your health and even survival depend on you following your provider's advice. ?? Symptoms Heart failure can cause a variety of symptoms. They include: ??? Shortness of breath ??? Trouble breathing at night, especially when you lie down ??? Swelling in the legs and feet or in the belly (abdomen) ??? Becoming easily tired ??? Irregular or rapid heartbeat ??? Weakness or lightheadedness ??? Swelling of the neck veins It's important to know what to do if symptoms get worse or if you develop signs of worsening heart failure. Keep track of how you feel each day. Report any changes to your healthcare provider. ?? When to call your healthcare provider Call your healthcare provider right away if you have any of these signs of worsening heart failure:??? Sudden weight gain. This means more than 2 pounds in 1 day or 5??pounds in 1 week, or whatever weight gain you were told to report by your doctor. ??? Trouble breathing not related to being active ??? New or increased swelling of your legs or ankles ??? Swelling or pain in your abdomen ??? Breathing trouble at night. This means waking up short of breath or needing more pillows to breathe. ???Frequent coughing that doesn't go away ??? Feeling much more tired than usual ?? Call 911 Call 911 right away if you have: ??? Severe shortness of breath, such that you can't catch your breath even while??resting ??? Severe chest pain that does not resolve with rest or nitroglycerin ??? [place], foamy mucus with cough and shortness of breath ??? An ongoing rapid or irregular heartbeat ??? Passing out or fainting ??? Stroke symptoms such as sudden numbness or weakness on one side of your face, arm, or leg or sudden confusion, trouble speaking or vision changes ?? Last Reviewed Date: 2021 ?? [id number] [employer]. All rights reserved. This information is not intended as a substitute for professional medical care. Always follow your healthcare professional's instructions. ?? * Event Display: Cardiac Rhythm Strips Authored Date: [id number] Hospital Progress note * Selina Gonzalez RN: PERFORM, SIGN, VERIFY Event Display: Progress Note Hospital Authored Date: [id number] Patient: BEATRICE VELA Age: 77 years Sex: Female : 1945 Associated Diagnoses: None Author: Selina Gonzalez RN Findings Problem Related to Alteration in Cardiac Function (new) : Alteration in Cardiac Function/new 11/24/2022 3:00 EST Alteration in Cardiac Status Related to Heart failure Goals & Outcomes, Cardiac Status Pt will resume/maintain adequate cardiac output, Pt will resume/maintain adequate hemodynamic status, Pt will resume/maintain adequate respiratory function, Pt will resume/maintain intact neuro function, Pt will maintain adequate GI/ function appropriate for pt, Pt will maintain adequate nutrition status, Pt/caregiver will state understanding of diagnosis, Pt/caregiver will state strategies to reduce risk factors Cardiac Interventions Implemented Assess/monitor cardiac status, Assess/monitor neuro status, Assess/monitor respiratory status, Ensure adequate caloric intake, If no bowel movement in 3 days activate bowel regime, Monitor & document daily weight, Teach/encourage deep breath & cough exercises BH Goals/Interventions, Cardiac Yes Cardiac, Problem Start 11/18/2022 4:55 Reviewed Plan with, Cardiac Status Patient Patient Progression, Cardiac Status Patient progressing according to plan . Nursing Data Cardiac Data. : Cardiac Data. 11/23/2022 21:00 EST Cardiovascular Symptoms None Cardiac Rhythm Normal sinus rhythm cardiac monitor technician Yes Cardiovascular WNL except . Respiratory/Pulmonary Data. : Respiratory/Pulmonary Data. 11/23/2022 21:00 EST Left Upper Lobe Breath Sounds Clear Right Upper Lobe Breath Sounds Clear Left Lower Lobe Breath Sounds Fine crackles Right Lower Lobe Breath Sounds Fine crackles Respiratory Treatment(s) Cough and deep breathe, Updraft Nebulizer Therapy/MDI Respiratory WNL except . Vital Signs : VITAL SIGNS SECTION 11/24/2022 2:51 EST Temperature 97.7 DegF Temperature Route Temporal Pulse Rate 86 bpm Respiratory Rate 18 br/min Systolic Blood Pressure 125 mm Hg Diastolic Blood Pressure 70 mm Hg Blood pressure sites Arm, left Mean Arterial Pressure 88 mm Hg Pulse Pressure 55 mm Hg Oxygen Saturation 95 % Liters per Minute 2 L/min Mode of Delivery (Oxygen) High flow nasal cannula . Evaluation Pt A/O x 3. she is NSR 90's on tele. lung sounds were clear at the top with fine crackles auscultated to lower bases. at the time of the assessment she denied having any pain/SOB. please see the biophysical for the rest of the assessment. purewick remains in place for accurate urine output recording. during this shift pt was on bedrest. at the time of this note, pt is resting comfortably with call-haq by the bed side, bed in lowest locked position & bed alarm activated. nursing care will continue to monitor for safety & comfort. plan is for pt to go home later today with the son.. Discharge Information Case Management Discharge Plan : Case Management Discharge Plan Data 11/21/2022 12:44 EST Discharge Level of Care at Discharge Homehealth/VNA Discharge VNA/Hospice/Home Care [facility] Agency Leasing Director #1 intake Service Categories #1 Physical Therapy, Intermediate Service Comments #1 A nurse will call you to arrange a visit with you at your home. If you do not hear from agency please call them. Rehabilitation Discharge : Rehab Discharge Index 11/21/2022 14:48 EST Full chart review completed Yes Hospital course Hospital course 11/19/2022 16:19 EST Walker: distance < 10 * Priscilla King RN: PERFORM, SIGN, VERIFY Event Display: Progress Note Hospital Authored Date: Patient: BEATRICE VELA Age: 77 years Sex: Female : 1945 Associated Diagnoses: None Author: Priscilla King RN Findings Narrative/Incidental 12:[address] Argueta, verified with patient's son Caleb, oxygen equipment is at the patient'stephen and were educated on how to use it. Patient unable to be discharge today due to son unable topick up until tomorrow morning before 12PM. Pulmonary Rehab assessed patient on 11/20, see note. Patient to be discharged home with services tomorrow 11/24/2022. Discharge Information Case Management Discharge Plan : Case Management Discharge Plan Data 11/21/2022 12:44 EST Discharge Level of Care at Discharge Homehealth/VNA Discharge VNA/Hospice/Home Care [facility] Leasing Director #1 intake Service Categories #1 Physical Therapy, Intermediate Service Comments #1 A nurse will call you to arrange a visit with you at your home. If you do not hear from agency please call them. Rehabilitation Discharge : Rehab Discharge Index 11/21/2022 14:48 EST Full chart review completed Yes Hospital course Hospital course 11/19/2022 16:19 EST Walker: distance < 10 * Ellie DEVLIN, Juan M Subramanian: PERFORM Event Display: Progress Note Hospital Authored Date: [id number] Patient: ??BEATRICE VELA ? Age:??77 Years?Sex:??Female?:??1945?? Subjective 11/19: Accepted patient under my care at 7AM. Chart reviewed, saw and examined patient.?? Increase shortness of breath reported.?? Also she is??on more oxygen.?? Chart reviewed, Lasix has been held for several days. ??Her blood work was obtained??and showing??increase in BNP??however??chest x-ray??is slightly improved. ??She was??started on IV Lasix with improved symptoms??and oxygenation. ?? 11/20: Patient reports subjective improvements. ??Still with some??crackles on lung exam but improved.?? She continues with IV Lasix with??good urine output. ??She was seen by pulm rn rehabilitation who recommends??continue on oxygen 2 L??at rest and 5 L??with exertion. ??Patient continues to refuse rehab. ??Also, patient with??difficulty swallowing which has been ongoing for quite some time??(both??dysphagia and odynophagia reported), however has continued to worsen and is having difficulty eating and drinking. ?? 11/21: Patient continues with subjective improvements and??is doing better??in terms of her??oxygenrequirement with pulm??rehab.?? She continues with IV Lasix??with improvements.??She is being set up with home??oxygen as she continues to refuse??recommendations to go to??rehab after??hospitalization.?? Her dysphagia/odynophagia??were evaluated by SCHEDULE PLANNING MANAGER and she was cleared for regular diet however??was recommended for GI??eval??as her symptoms are likely??limiting her??p.o. intake.?? GI team saw her and she adamantly refuses endoscopy even if she would have cancer. ?? 11/22: Patient??shortness of breath??continues to improve with IV Lasix??from yesterday. ??However her creatinine has risen up further,??will hold IV Lasix today.?? She reports feeling weak??and was counseled about rehab, she will think about it.?? Otherwise, she would like to go home tomorrow??if her blood work is stable. ?? 11/23: Patient stable for discharge. ??She is started back on Lasix.?? Because of transportation issues, she will be discharged tomorrow in the morning. ??She can go to the discharge MD cynthia to RN order placed. Review of Systems Constitutional:??denies F/C Cardiovascular:?no CP or palpitations Respiratory:??no SOB or significant cough Gastrointestinal:??no N/V/D :??no complaints Objective Measurements?? Height: 164 cm (11/23/22) Weight: 57.8 kg (11/23/22) Dry Weight: 59.5 kg (11/15/22) Body Mass Index: 22.12 kg/m2 (11/15/22) ? Vital Signs?? Temperature: 99.4 DegF (11/23/22 13:48:00) Temperature Route: Temporal (11/23/22 13:48:00) Pulse Rate:??96 bpm??High (11/23/22 13:48:00) Respiratory Rate: 18 br/min (11/23/22 13:48:00) Systolic Blood Pressure: 108 mm Hg (11/23/22 13:48:00) Diastolic Blood Pressure: 59 mm Hg (11/23/22 13:48:00) Blood pressure sites: Arm, right (11/23/22 13:48:00) Mean Arterial Pressure: 75 mm Hg (11/23/22 13:48:00) Pulse Pressure: 49 mm Hg (11/23/22 13:48:00) Oxygen Saturation: 95 % (11/23/22 13:48:00) Liters per Minute: 2 L/min (11/23/22 13:48:00) Mode of Delivery (Oxygen): Nasal cannula (11/23/22 13:48:00) Early Warning Score: 2 (11/23/22 13:48:41) ? Pain Scores?? No qualifying data available. ? Intake/Output? 11/15 12:26 11/23 07:00 11/22 07:00 11/21 07:00 11/20 07:00 ?? 11/23 16:56 11/23 16:56 11/23 06:59 11/22 06:59 11/21 06:59 Intake ? 4577 ?180 ?717 ?650 ?780 Output ? 9875 ?650 ?725 ? 1150 ? 1600 Net Total ?-5298 ? -470 ? -8 ? -500 ? -820 ? Urine Count ?4 ?0 ?1 ?1 ?1 Diaper Count ?7 ?0 ?0 ?1 ?1 ? Physical Exam Constitutional: Alert, in no acute distress. ?Head EENT: PERRL.??NCAT. ?Nasal cannula in place ?Neck: Supple. No obvious LAD. ?Respiratory: CTAB. No use of accessory muscles. ?Cardiovascular: S1S2 present. No obvious JVD. ?Gastrointestinal: Abdomen soft, non-tender, non-distended. Bowel sounds present. ?Genitourinary: No CVA tenderness. Genital exam deferred. ?Extremities: No lower extremity pitting??edema. No cyanosis or clubbing. ?Neurologic: Alert, generally appropriate. Speech normal. No gross focal neurological deficits. _ _ Inpatient Medications Medications (24) Active SCHEDULED: (13) Albuterol/Ipratropium Inhalation Karma 3mL (Duoneb Inhalation Solution) ??1 vials, BAND Nebulizer, 4 times a day Aspirin 81 mg EC Tablet (aspirin 81 mg oral delayed release tablet) ??81 mg, By Mouth, Daily Atorvastatin 80 mg Tablet (atorvastatin 80 mg oral tablet) ??80 mg, By Mouth, Daily at bedtime Clopidogrel 75 mg Tablet (clopidogrel 75 mg oral tablet) ??75 mg, By Mouth, Daily Furosemide 40 mg Tablet (Lasix 40 mg oral tablet) ??40 mg, By Mouth, Daily Heparin 5000 units/mL Inj (1 mL) (Heparin Inj) ??5,000 units 1 mL, Subcutaneous Injection, 3 times a day Mirtazapine 15 mg Tablet (mirtazapine 15 mg oral tablet) ??7.5 mg, By Mouth, Daily at bedtime Multivitamin Therapeutic / Minerals Tablet (Multivit Therapeutic/Minerals Tablet) ??1 tablet, By Mouth, Daily NaCl 0.9% Flush 3ml (NaCL 0.9% Flush) ??3 mL, IV Push, Every 8 hours Pantoprazole 40 mg EC Tablet (Protonix 40 mg oral delayed release tablet) ??40 mg, By Mouth, Daily Pramipexole 0.5 mg Tablet (pramipexole 0.5 mg oral tablet) ??1 mg, By Mouth, Daily at bedtime PredniSONE (predniSONE 20 mg oral tablet) ??20 mg, By Mouth, Daily Sertraline 50 mg Tablet (Zoloft 50 mg oral tablet) ??50 mg, By Mouth, Daily CONTINUOUS: (0) PRN: (11) Acetaminophen 325 mg Tablet (Acetaminophen Tablet) ??650 mg, By Mouth, Every 4 hours Albuterol 90mcg/Inhalation Inhaler HFA (albuterol CFC free 90 mcg/inh inhalation aerosol) ??180 mcg2 puffs, Inhalation, Every 4 hours Albuterol/Ipratropium Inhalation Karma 3mL (Duoneb Inhalation Solution) ??1 vials, BAND Nebulizer, Every 4 hours Dextromethorphan-Guaifenesin 20 mg-200 mg/10 mL Liqu UD (Robitussin DM Liquid) ??10 mL, By Mouth, Every 4 hours Lorazepam 0.5 mg Tablet (Ativan 0.5 mg oral tablet) ??0.25 mg, By Mouth, Daily Melatonin 3 mg Tablet (Melatonin Tablet) ??3 mg, By Mouth, Daily at bedtime MorPHINE 2 mg Inj Syringe (MorPHINE Inj) ??2 mg, IV Push Slowly, Once NaCl 0.9% Flush 3ml (NaCL 0.9% Flush) [...] Recent Labs BLOOD COUNT & DIFF WBC 9.0 k/mm3 ()?? 11/22/2022 04:46 RBC 3.39 m/mm3 (Low)?? 11/22/2022 04:46 Hgb 9.8 Gm/dL (Low)?? 11/22/2022 04:46 Hct 31.0 % (Low)?? 11/22/2022 04:46 MCV 91.4 femtoliters ()?? 11/22/2022 04:46 MCH 28.9 pg ()?? 11/22/2022 04:46 MCHC 31.6 g/dL (Low)?? 11/22/2022 04:46 Platelet Count 298 k/mm3 ()?? 11/22/2022 04:46 RDW-SD 53.4 femtoliters (High)?? 11/22/2022 04:46 MPV 9.4 femtoliters ()?? 11/22/2022 04:46 Nucleated RBC (Automated) 0.0 #/100 WBC'S ()?? 11/22/2022 04:46 Abs. NRBC 0.0 k/mm3 ()?? 11/22/2022 04:46 ?? CHEM GENERAL Sodium 142 mmol/L ()?? 11/23/2022 05:37 Potassium 4.9 mmol/L ()?? 11/23/2022 05:37 Chloride 105 mmol/L ()?? 11/23/2022 05:37 Bicarbonate Level 28 mmol/L ()?? 11/23/2022 05:37 Anion Gap 9 ()?? 11/23/2022 05:37 Glucose Level 83 mg/dL ()?? 11/23/2022 05:37 BUN 44 mg/dL (High)?? 11/23/2022 05:37 Creatinine-Blood 1.1 mg/dL (High)?? 11/23/2022 05:37 Estimated GFR Creatinine 50 ML/MIN/1.73 M2 ()?? 11/23/2022 05:37 Calcium 9.6 mg/dL ()?? 11/23/2022 05:37 Magnesium 2.3 mg/dL ()?? 11/22/2022 04:46 ?? HEME OTHER Hold Lavender Top SPECIMEN DISCARDED AFTER 24 HOURS. ()?? 11/23/2022 05:37 ? 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 ??Essential hypertension ??(I10) 2. ??Hyperlipidemia ??(E78.5) ?? Assessment:??77-year-old female with past medical history significant for HTN, HLD, thromboangitis obliterans with left digit amputation, subacute right cerebellar stroke in 2019, COPD on nocturnal oxygen 2 L, former smoker, heart failure with reduced ejection fraction, EF 25%, recently admitted from 09/08 through 09/11/2022 for COVID-19 infection and hypoxic respiratory failure, admitted with acute hypoxic respiratory failure and shock??on 11/15.??Shock is resolved and??hypoxia has been??lingering. ? Acute on chronic respiratory failure with hypoxia (J96.01): Chronic obstructive pulmonary disease (J44.9): PNA likely CAP Heart failure with reduced ejection fraction (I50.20): Pt uses 1-2 L at baseline Presented with hypoxia, CXR ~ PNA, CTA ~ -ve for PE, however RUL nodule increasing in size. No fever or leucocytosis. Initially required BiPAP. No signs of volume overload. Cardiology consulted elevated trops??without??likely demand ischemia, No intervention needed.?And recommended??holding BB for now. Patient completed course of empiric??antibiotics, follow-up Pro-Alejo 11/19 remains low??however BNP high. Patient improving??with??IV Lasix diuresis,??not back to baseline but getting there Creatinine is up slightly, we may be reaching the limit of IV Lasix diuresis ?? -Continue inpatient care -Hold further antibiotics for now -Cont inh and nebs -Cont prednisone,??tapered to 30 daily??on 11/21 and??will taper to 20 /2 and then every 3 days -Resume PO Lasix 40 -hold valsartan and metoprolol for now ??- cont with asa, Plavix and statin. ??- pulm rehab eval??appreciated -Patient??now would like to get biopsy done for her lung nodules. Prior hospitalist spoke to Dr Ballard from pul, [facility] her with pulm procedure dept at the time of discharge for outpt procedure. -Pulm was paged to inform about impending discharge so they can set her up for the appointment as needed -Patient??has been recommended repeatedly for rehab but continues to refuse,??she was seen by??pulmrehab RN, recommendations appreciated -Patient has definitively refused??rehab and would like to go home,??she??was??set up with home oxygen -She will discharge in the morning because of transportation issues, she??can go to the discharge lounge ?? Dysphagia, odynophagia Ongoing for quite some time??but has been worsening while in hospital per patient report Reports difficulty with both solid and liquid foods SCHEDULE PLANNING MANAGER eval??appreciated, cleared for regular diet, recommended for GI eval GI saw patient and she refuses endoscopy??therefore they recommend??conservative management ?? -Hold off on any further work-up, patient has been counseled about chewing her food properly -Will give PPI for now given history of severe reflux ?Shock (R57.9):??likely septic resolved ?High anion gap metabolic acidosis:??likely due to lactic acidosis resolved ?p/w hypotension requiring Levophed briefly. responded well to fluid boluses as well. VL was significantly elevated which came down with IVF. 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 Discharge Planning:?? -Patient has definitively refused rehab and would like to go home, she was set up with home oxygen -She will discharge in the morning because of transportation issues, she can go to the discharge lounge (MD to RN order in place) ?? Portable XR Chest Views * ISADORASPtarunscosiel , CIS S: TRANSCRIViviana Gonzales MD: VERIFY Event Display: Result: Authored Date: [id number] Chest Portable Reason: CHF; Clinical Question(s): CHF COMPARISON: 11/05/2022 FINDINGS: LINES AND TUBES: None. LUNGS AND PLEURA: No pulmonary edema. Left basilar linear atelectasis. Severe upper lung emphysema. No pneumothorax. There is resolution of the diffuse prominence of the interstitium which was previously seen. HEART, MEDIASTINUM AND MORRIS: Borderline to mild cardiomegaly Tortuous atherosclerotic aorta. BONES AND SOFT TISSUES: No acute abnormality. IMPRESSION: Left basilar atelectasis. WSN: [id number] Ordering Physician: Juan M Argueta Dictated By: Viviana Manzanares MD Dictated Date/Time: 11/19/22 11:49 a Reviewed By: Viviana Manzanares MD Signed By: Viviana Manzanares MD Signed Date/Time: 11/19/22 11:49 am Transcribed By: IVANNA Transcribed Date/Time: 11/19/22 11:47 am * ISADORASPowerscrimarimar , CIS S: TRANSCViviana Angeles MD: VERIFY Event Display: Result: Authored Date: [id number] Chest Portable Reason: Shortness of Breath; Clinical Question(s): CHF COMPARISON: 09/07/2022 FINDINGS: Low lung volumes. Mild perihilar and lower lung opacities with focal opacity developing in the right upper lung and left lower lobe. On lateral trace to small pleural effusions. No pneumothorax. Unchanged cardiomediastinal aortic atherosclerosis. No acute osseous interval change. IMPRESSION: Right upper lung and left lung base opacity, concerning for infection. Mild diffuse opacities also present, can represent underlying mild edema. WSN: [id number] Ordering Physician: Kim Maloney Dictated By: Viviana Manzanares MD Dictated Date/Time: 11/15/22 9:26 am Reviewed By: Viviana Manzanares MD Signed By: Viviana Manzanares MD Signed Date/Time: 11/15/22 9:26 am Transcribed By: IVANNA Transcribed Date/Time: 11/15/22 9:25 am CTA Chest vessels W contrast IV * BHSPowerscribe , CIS S: TRANSCRIBE Mane Bateman DO: SIGN Abdiaziz Pena MD: VERIFY Event Display: Result: Authored Date: [id number] EXAMINATION: CT Angio Chest INDICATION: Reason: PE suspected, Intermediate prob, positive D-dimer,; Clinical Question(s): Pulmonary Embolism TECHNIQUE: Spiral CTA of the chest was performed after rapid IV contrast administration without cardiac gating, triggered by an DORI on the main pulmonary artery. Images are formatted in multiple planes using 2-D multiplanar and 3-D maximum intensity projection. 50 cc of Omnipaque 300 was administered intravenously. Weight-based protocol using automatic tube modulation was used to optimize exposure parameters. CTDIvol Body: 6.55 mGy, DLP Body: 343 mGy*cm. COMPARISONS: Multiple priors most recently 09/07/2022 ANGIOGRAPHIC FINDINGS: Evaluation is mildly limited by motion artifact. No pulmonary embolism to the subsegmental level. Normal caliber pulmonary arteries. Descending thoracic aortic ectasia measuring up to 3.2 cm in maximum dimension. NON-ANGIOGRAPHIC FINDINGS: Degreasing Solution Mixer View Findings, Lines and Tubes: None. Trachea and Airways: Patent without evidence of tracheal or endobronchial lesion. Lungs and Pleura: Increasing size of the spiculated nodule in the anterior right upper lobe measuring 2.2 x 2.4 x 2.6 cm which appears to be extending inferiorly towards the hilum. Severe centrilobular, predominantly apical, emphysema. New groundglass opacities in bilateral lung bases with more dense consolidation seen in the dependent portion of bilateral lower lobes. No effusion or pneumothorax. Mediastinum and morris: Multiple enlarged mediastinal lymph nodes, the largest being a conglomerate mass measuring up to 3.5 cm anterior to the verónica. Right hilar lymph node measuring up to 2.7 cm. Subcarinal lymph node measuring up to 2.2 cm. Left hilar lymph node measuring up to 3.2 cm. Additionalsmaller lymph nodes are seen.Type 3 paraesophageal hernia. Multinodular thyroid, with the largest nodule measuring up to 1.7 cm. Heart: Heart is normal in size. No pericardial effusion. Severe coronary artery calcification. Chest Wall Soft Tissues: Normal. Diaphragm and upper abdomen: Redemonstrated is a right adrenal gland nodule measuring up to 1.3 cm.Left adrenal gland is thickened. Bones: Multilevel degenerative changes of the visualized spine. 1 cm sclerotic lesion on the right transverse process of T7, present since 08/16/2020. IMPRESSION: No evidence of pulmonary embolism. Increasing size of right upper lobe nodule, now measuring up to 2.6 cm. Slightly increased size of mediastinal lymphadenopathy with the large precarinal maury mass measuring up to 3.5 cm. Findings remain suggestive of a lung malignancy with metastatic mediastinal lymphadenopathy. New groundglass opacities and consolidation in bilateral dependent lung bases, could represent aspiration or infection. Malignancy is not excluded. Stable type III paraesophageal hernia. I have personally reviewed the images and I agree with this report. WSN: [id number] Ordering Physician: Cristian Bobby Dictated By: Mane Bateman DO Dictated Date/Time: 11/15/22 10:43 a Reviewed By: Abdiaziz Pena MD Signed By: Abdiaziz Pena MD Signed Date/Time: 11/15/22 10:48 am Transcribed By: IVANNA Transcribed Date/Time: 11/15/22 9:56 am Patient Care team information Care Team Personnel Name: Sharon Chamberlain MD Position: [facility] Outreach Member Role: PCP Address: Address: [address] [place] [address] [address] Sharon Chamberlain MD [place], [place] [address] Name: Latanya Kahn RN Position: S RN [...] RN Member Role: Primary Care Nurse Name: Giorgi Magda Position: [facility] RN Member Role: Primary Care Nurse Name: Amena Ta RN Position: [facility] RN Member Role: Primary Care Nurse Name: Dewayne Wahl III, RN Position: [facility] RN Member Role: Primary Care Nurse Name: Nirmala Oconnor RN Position: [facility] RN Member Role: Primary Care Nurse Name: Marlin Pearce RN Position: [facility] RN Member Role: Primary Care Nurse Name: Agapito Montanez RN Position: [facility] RN Member Role: Primary Care Nurse Name: Rosa Maria Artis RN Position: [facility] Onco RN Member Role: Primary Care Nurse Name: Brittney Vallejo RN Position: [facility] RN Member Role: Primary Care Nurse Name: Kat Donovan RN Position: [facility] RN Member Role: Primary Care Nurse Name: Mya Middleton RN Position: [facility] RN Member Role: Primary Care Nurse Name: Jose RamonCHILTON MEDICAL CENTERTerrell Attending Position: [facility] ED Medicine MD Name: Kaci Yeh Position: [facility] ED RN W/OE and Tasks Member Role: Patient Care Provider Name: Luis Antonio Torres Position: [facility] ED TA [facility] Member Role: Ditch Digger Name: Hola Buitrago Position: [facility] ED OA Charge Member Role: ED Associate Name: Abdiaziz Orta MD Position: [facility] Resident Member Role: ED Resident Address: Address: [address] [place] [address] [place] [address]- [place] Care Team Related Persons Name: CALEB VELA Address: home [address] [place] [address]
--- OUTSIDE RECORDS SUMMARY | 2023-05-17 08:54 | XMS_ITS | Continuity of Care Document ---
Author Name Unknown Organization [facility] Address [address] [place] [address]- Care Team Providers Care Medical Illustrator Name Role Phone Sharon Chamberlain MD Primary Care Physician Encounter [facility] Date(s): 10/22/20 - 11/21/20 [facility] [address] [place] [id number] Allergies, Adverse Reactions, Alerts Substance Reaction Severity Status codeine Passed out Active Immunizations Given and Recorded Vaccine Date Status Refusal Reason influenza virus vaccine, inactivated 08/23/20 Give n pneumococcal 13-valent vaccine 1 08/22/20 Given 1Result Comment: Manufactured by [employer] Medications albuterol 0.083% inhalation solution 3 mL [...]
--- OUTSIDE RECORDS SUMMARY | 2023-05-17 08:54 | XMS_ITS | Continuity of Care Document ---
Author Name Unknown Organization [facility] ter Address [address] [place] [id number]- Care Team Providers Care Information Technology Project Manager Name Role Phone Sharon Chamberlain MD Primary Care Physician Encounter [facility] Date(s): 12/18/22 - 12/23/[address] [address]- Encounter Diagnosis Dyspnea(Final) - 12/18/22 Discharge Disposition: A-Transfer VNA/Home Health Attending Physician: Lashawn DEVLIN [facility] Admitting Physician: Ab De La Fuente MDhinav Referring Physician: Not on Staff, Referring MD [...] 1 08/22/20 Given 1Result Comment: Manufactured by [employer] Medications Afrin 0.05% spray 2 sprays, Nares, Both, 2 times a day, # 15 mL, 0 Refills, Maintenance, 11/22/21 11:51:00 EST, [place], Partial fill upon patient request if the [...] 05/26/22 14:42:00 EDT, Route to Pharmacy Electronically, [facility], Partial fill upon patient [...] 0 Refills, Maintenance, 12/14/22 10:30:00 EST, Tablet, [facility], Partial fill upon patient request if the prescription is for a schedule II opioid drug., 163, cm, 12/14/22 7:33:0... Start Date: 12/14/22 Stop Date: 01/13/23 Status: Ordered Lasix 40 mg oral tablet 40 mg, 1, tablet, By Mouth, Daily, # 30 tablet, Refills 0, Tot. Refills 0, Maintenance, 05/26/22 14:43:00 EDT, Route to Pharmacy Electronically, [facility], Partial fill upon patient [...] 0 Refills, Maintenance, 05/26/22 14:43:00 EDT, Tablet, [facility], Partial fill upon patient [...] 0 Refills, Maintenance, 12/23/22 9:47:00 EST, Tablet, [facility], Partial... Start Date: [...] for Microbiology Reports Name Date Blood Culture 12/17/22 Blood Culture #2 12/17/22 Microbiology Reports TEST:Blood Culture STATUS:Auth (Verified) BODY SITE: SOURCE:Blood COLLECTED DATE/TIME:12/17/22 4:26 PM Blood Culture SPECIMEN DESCRIPTION : BLOOD RAC SPECIAL REQUESTS : NONE CULTURE : NO GROWTH 5 DAYS. REPORT STATUS : FINAL 12/22/2022 TEST:Blood Culture, Second Order STATUS:Auth (Verified) BODY SITE: SOURCE:Blood COLLECTED DATE/TIME:12/17/22 4:19 PM Blood Culture, Second Order SPECIMEN DESCRIPTION : BLOOD HIDE SPECIAL REQUESTS : NONE CULTURE : NO GROWTH 5 DAYS. REPORT STATUS : FINAL 12/22/2022 Radiology Reports * Exam Date Time Procedure Performing Provider Status 12/20/22 10:23 AM Chest Portable Ann Gallegos; Olive [facility] (Verified) Notes: (Chest Portable) Reason For Exam: Shortness of Breath RESULT: Chest Portable Chest Portable Reason: Shortness of Breath; Clinical Question(s): Lung Ca; Order Comment: portable COMPARISON: Multiple priors, the most recent 12/17/2022. FINDINGS: LINES AND TUBES: None. LUNGS AND PLEURA: Unchanged opacity at the right upper lung corresponding to a spiculated mass better seen on the CT chest 12/17/2022. Worsening left basilar opacity. No pleural effusion. No pneumothorax, although lung apices partially obscured by patient's chin. HEART, MEDIASTINUM AND MORRIS: Unchanged. BONES AND SOFT TISSUES: No acute abnormality. IMPRESSION: 1. Worsening left basilar opacity could represent atelectasis versus pneumonia or a combination. 2. Similar appearance of right upper lung opacity corresponding to a known spiculated right upper lobe mass. I have personally reviewed the images and I agree with this report. WSN: [id number] Ordering Physician: Gutierrez Hardin Dictated By: Balwinder[Radiology] Nalini DEVLIN Dictated Date/Time: 12/20/22 2:08 pm Reviewed By: Latanya Das MD Signed By: Latanya Das MD Signed Date/Time: 12/20/22 2:13 pm Transcribed By: IVANNA Transcribed Date/Time: 12/20/22 1:10 pm * Exam Date Time Procedure Performing Provider Status 12/17/22 7:[address] Angio Chest Stupak , Wai; Auth (Ve rified) Notes: (CT Angio Chest) Reason For Exam: PE suspected, Intermediate prob, positive D-dimer,;Other: RESULT: CT Angio Chest EXAMINATION: CT Angio Chest INDICATION: Shortness of breath since this afternoon, patient was given a Duoneb en route by EMS would good effect. Patient reports feeling like she is breathing better by arrival at ED. For EMS patient SPO2 was 92% on 10lpm; Reason: PE suspected, Intermediate prob, positive D-dimer; Clinical [...] used to optimize exposure parameters. CTDIvol Body: 4.69 mGy, DLP Body: 322 mGy*cm. COMPARISONS: 11/15/2022. PET/CT 12/08/2022. ANGIOGRAPHIC FINDINGS: No pulmonary embolism to the subsegmental level. Normal caliber pulmonary arteries. No acute aortic abnormality seen on this study performed without cardiac gating. Moderate atherosclerotic calcification. 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 Trachea and Airways: Small amount mucus within the right main bronchus. Lungs and Pleura: Moderate upper lobe predominant centrilobular emphysema. Increased now 3.9 x 2.3 x 3.8 cm spiculated mass in the right upper lobe in the right medial upper lobe abutting the SVC, with mild mass effect on the adjacent neurovascular bundle. Subsegmental atelectasis in the lingula and right lower lobe. No effusion or pneumothorax. Mediastinum and morris: Mildly increased mediastinal lymphadenopathy, measuring up to 4.1 x 2.8 cm precarinal, 1.7 cm in short axis pericardial, and 1.8 cm right infrahilar. Moderate type III paraesophageal hernia. No thyroid nodule large enough to warrant follow up. Heart: Heart is normal in size. No pericardial effusion. Severe coronary artery calcification. Moderate aortic valvular and severe mitral annular calcification. Chest Wall Soft Tissues: Normal. Diaphragm and upper abdomen: Status post cholecystectomy. Right renal cysts. Punctate nonobstructing calcification in both kidneys. Renal vascular calcification. Unchanged nodular thickening of the right adrenal gland. Bones: Sclerotic lesion in the right T7 transverse process measures mean 1460 Hounsfield unit, consistent with a bone island. Degenerative changes of the visualized spine. No acute abnormality. IMPRESSION: No evidence of pulmonary embolism. Increased size of a 3.9 cm spiculated mass in the right upper lobe. Mildly increased metastatic mediastinal and right hilar lymphadenopathy. Unchanged moderate type III paraesophageal hernia. I have personally reviewed the images and I agree with this report. WSN: [id number] Ordering Physician: Shiela Wellington Dictated By: Micaela Gutierrez DO Dictated Date/Time: 12/17/22 8:53 pm Reviewed By: Baljit Robins MD Signed By: Baljit Robins MD Signed Date/Time: 12/17/22 8:58 pm Transcribed By: IVANNA Transcribed Date/Time: 12/17/22 8:08 pm * Exam Date Time Procedure Performing Provider Status 12/17/22 5:21 PM Chest Portable Lisa Cristina; Auth ( Verified) Notes: (Chest Portable) Reason For Exam: Shortness of Breath RESULT: Chest Portable Chest Portable Hx of Present Illness: Patient brought in by EMS for shortness of breath since this afternoon, patient was given a duoneb enroute by EMS would good effect. Patient reports feeling like she is breathing better by arrival at ED. For EMS patient SPO2 was 92% on 10lpm; Reason: Shortness of Breath; Clinical Question(s): CHF COMPARISON: 12/11/2022, 11/19/2022, 11/15/2022 CTA chest from 09/07/2022 FINDINGS: LINES AND TUBES: None. LUNGS AND PLEURA: 2.3 cm right medial upper lung nodule. Mild hazy opacity in the left lung base. Normal pulmonary vascularity. No pleural effusion. No pneumothorax. HEART, MEDIASTINUM AND MORRIS: Heart is normal in size. Aorta is calcified. BONES AND SOFT TISSUES: No acute abnormality. IMPRESSION: Mild hazy airspace density in the left lung base, either due to atelectasis, scarring, or developing consolidation. Redemonstration of a 2.3 cm nodule right upper lobe. WSN: [id number] Ordering Physician: Shiela Wellington Dictated By: Tyler Lopez MD Dictated Date/Time: 12/17/22 5:27 pm Reviewed By: Tyler Lopez MD Signed By: Tyler Lopez MD Signed Date/Time: 12/17/22 5:27 pm Transcribed By: IVANNA Transcribed Date/Time: 12/17/22 5:25 pm Vital Signs Most recent to oldest [Reference Range]: 1 2 3 Weight 53.1 kg (12/22/22 1:51 PM) Oxygen Saturation [94-100 %] 98 % (12/23/22 12:39 PM) 97 % (12/23/22 6:32 AM) 93 % *L* (12/22/22 9:43 PM) Pulse Rate [55-90 bpm] 60 bpm (12/23/22 12:39 PM) 79 bpm (12/23/22 6:32 AM) 92 bpm *H* (12/22/22 9:43 PM) Blood Pressure [90-138/55-84 mm Hg] 114/72mm Hg (12/23/22 12:39 PM) 118/67mm Hg (12/23/22 6:32 AM) 110/59mm Hg (12/22/22 9:43 PM) Respiratory Rate [16-30 br/min] 22 br/min (12/23/22 12:39 PM) 16 br/min (12/23/22 6:32 AM) 16 br/min (12/22/22 9:43 PM) Temperature [96.8-100.4 DegF] 98.4 DegF (12/23/22 12:39 PM) 97.8 DegF (12/23/22 6:32 AM) 98.5 DegF (12/22/22 9:43 PM) Liters per Minute 2 L/min (12/22/22 1:53 PM) 3 L/min (12/21/22 3:00 PM) 3 L/min (12/21/22 5:00 AM) Mode of Delivery (Oxygen) Room air (12/23/22 12:39 PM) Room air (12/23/22 6:32 AM) Room air (12/22/22 9:43 PM) Blood pressure sites Arm, left (12/23/22 12:39 PM) Arm, right (12/23/22 6:32 AM) Arm, right (12/22/22 9:43 PM) Temperature Route Oral (12/23/22 12:39 PM) Oral (12/23/22 6:32 AM) Oral (12/22/22 9:43 PM) Weight Obtained Via Bed scale (12/22/22 1:51 PM) Social History Social History Type Response Tobacco Other: quit smoking in 2019, started smoking age 11, 2 or 3 packs per day. Sex Consult note * Jamaal Matute MD, Anne Kendall: MODIFY Jas Gurrola DO: PERFORM Event Display: Consult Authored Date: [id number] Patient: ??BRI STOUT ? Age:??77 Years?Sex:??Female?:??1945?? Chief Complaint/Reason for Consultation Lung mass History of Present Illness 77 y/o male with COPD, Chronic hypoxic respiratory failure on 2L O2 mostly at night, HTN, HLD, HFrEF??and recently diagnosed lung mass. Presented to the hospital with shortness of breath.?? SHe was recently admitted for CAP and CHF as well as an admission for seizure like activity. This admission, she was started on empiric antibitoics and admitted for acute on chronic hypoxic respiratory failure. Pulmonary is consulted due to lung mass and concern for tissue diagnosis.?? Recent??PET scan showsFDG avidity in the mediastinum suggestive of mediastinal involvement.? Patient overall feels ok. She is short of breath, and has cough with productive sputum.?? She had arapid response this morning after an episode of desaturation to the 70s requiring non-rebreathing. Now back to 3L 02 at rest ?? Former 50 year smoker, 1.5 ppd NO occupational exposure No family history of pulmonary disease ?? Reports being managed for COPD by her outpatient PCP and is on anoro with rescue albuterol Review of Systems Constitutional:??No weight loss, fever, chills. + weakness, fatigue Allergy/Immune: Denies any??Eczema or hives Eyes:??No visual loss, blurred vision, double vision or yellow sclera ENT:??No hearing loss, sneezing, congestion, runny nose or sore throat. Respiratory:??+ SOB, cough, spurum production Cardiovascular:??No chest pain, chest pressure or chest discomfort. No palpitations or pedal edema. Gastrointestinal:??No anorexia, nausea, vomiting or diarrhea. No abdominal pain or blood in stool. Genitourinary:??No burning micturition. No urinary frequency or incontinence. Neurologic:??No headache, dizziness, syncope, unilateral weakness, ataxia, numbness or tingling in the extremities. No change in bowel or bladder control. Musculoskeletal:??No muscle pain, back pain, joint pain or stiffness. Hematologic/Lymphatics:??No bleeding or bruising. No painful lymph nodes. Skin:??No rash or itching. Endocrine:??No reports of sweating. No cold or heat intolerance. No polyuria or polydipsia. Psychiatric:??No depression or anxiety. Objective ? Vital Signs?? Temperature: 98.1 DegF (12/20/22 10:10:00) Temperature Route: Oral (12/20/22 10:10:00) Pulse Rate:??99 bpm??High (12/20/22 10:10:00) Respiratory Rate: 18 br/min (12/20/22 06:00:00) Systolic Blood Pressure:??147 mm Hg??High (12/20/22 10:03:00) Diastolic Blood Pressure: 75 mm Hg (12/20/22 10:03:00) Blood pressure sites: Arm, right (12/20/22 06:00:00) Mean Arterial Pressure: 99 mm Hg (12/20/22 10:03:00) Pulse Pressure: 72 mm Hg (12/20/22 10:03:00) Oxygen Saturation:??88 %??Low (12/20/22 10:10:00) Liters per Minute: 3 L/min (12/20/22 10:10:00) Mode of Delivery (Oxygen): Nasal cannula (12/20/22 10:10:00) Early Warning Score: 3 (12/20/22 10:11:58) ? Pain Scores?? No qualifying data available. ?? Ventilator Settings?? No qualifying data available. ? Intake/Output? 12/18 01:39 12/20 07:00 12/19 07:00 12/18 07:00 ?? 12/20 13:21 12/20 13:21 12/20 06:59 12/19 06:59 Urine Count ?2 ?0 ?2 ?0 ? Physical Exam Constitutional: Alert, in no distress. Frail, elderly female Mental Status: Oriented to person, place and time. Head: Normocephalic. Eyes: Pupils are equal, round and reactive to light. Extraocular muscles intact. Ear, Nose and Throat: Oropharynx clear, mucous membranes moist. Neck: Supple, Full range of motion. Respiratory: Clear to auscultation. No wheezing, rales or rhonchi. Cardiovascular: S1 S2 regular. No murmurs, rubs or gallops. Gastrointestinal: Abdomen soft, non-tender, non-distended. Neurologic: Cranial nerves II-XII grossly intact. No focal neurological deficits. Skin: No rashes or lesions. No petechiae or purpura.?? Musculoskeletal: No cyanosis or clubbing. No gross deformities. Normal range of motion. Psychiatric: Normal mood and affect Assessment/Plan Acute on chronic hypoxic respiratory failure COPD At risk for aspiration, grade 3 hiatal hernia Lung mass with mediastinal lymphadenopathy ?? Airway clearance regimen albuterol followed by hypertonic saline nebs q6h Acapella device Incentive spirometer ?? Currently on spiriva, would change??to [facility] or [facility] LAMA/LABA equivalent If no equivalent, can add arformoterol nebulizers to spiriva ?? Aspiration precautions ?? Obtain procalcitonin and if low, reasonable to discontinue antibiotics ?? Patient is amenable to EBUS for diagnosis and staging??of lung mass Will plan to schedule for early this week Please keep NPO at??midnight on??Thursday night ?? Discussed with Dr. Amezquita ?? Jas Gurrola DO PGY-4 Pulmonary and Critical Care Medicine Fellow ?? Histories Allergies Allergies ?(Active and Proposed [...] Recent Labs BLOOD COUNT & DIFF WBC 7.4 k/mm3 ()?? 12/19/2022 05:55 RBC 3.05 m/mm3 (Low)?? 12/19/2022 05:55 Hgb 10.0 Gm/dL (Low)?? 12/19/2022 05:55 Hct 28.4 % (Low)?? 12/19/2022 05:55 MCV 93.1 femtoliters ()?? 12/19/2022 05:55 MCH 32.8 pg ()?? 12/19/2022 05:55 MCHC 35.2 g/dL ()?? 12/19/2022 05:55 Platelet Count 368 k/mm3 ()?? 12/19/2022 05:55 RDW-SD 51.5 femtoliters (High)?? 12/19/2022 05:55 MPV 9.0 femtoliters (Low)?? 12/19/2022 05:55 Nucleated RBC (Automated) 0.0 #/100 WBC'S ()?? 12/19/2022 05:55 Abs. NRBC 0.0 k/mm3 ()?? 12/19/2022 05:55 ?? CHEM GENERAL Sodium 144 mmol/L ()?? 12/19/2022 05:55 Potassium 4.5 mmol/L ()?? 12/19/2022 05:55 Chloride 105 mmol/L ()?? 12/19/2022 05:55 Bicarbonate Level 26 mmol/L ()?? 12/19/2022 05:55 Anion Gap 13 ()?? 12/19/2022 05:55 Glucose Level 119 mg/dL (High)?? 12/19/2022 05:55 Glucose, POC 141 mg/dL (High)?? 12/20/2022 09:36 BUN 22 mg/dL ()?? 12/19/2022 05:55 Creatinine-Blood 1.1 mg/dL (High)?? 12/19/2022 05:55 Estimated GFR Creatinine 49 ML/MIN/1.73 M2 ()?? 12/19/2022 05:55 Calcium 9.3 mg/dL ()?? 12/19/2022 05:55 ? Chest CT personally reviewed and agree with the radiologist's interpretation unless otherwise specified ? COMPARISONS: 11/15/2022. PET/CT 12/08/2022. ?? ANGIOGRAPHIC FINDINGS: ?? No pulmonary embolism to the subsegmental level. Normal caliber pulmonary arteries. ?? No acute aortic abnormality seen on this study performed without cardiac gating. Moderate atherosclerotic calcification. ?? NON-ANGIOGRAPHIC FINDINGS: ?? Undertaker Assistant View Findings, Lines and Tubes: None. ?? Trachea and Airways: Small amount mucus within the right main bronchus. ?? Lungs and Pleura: Moderate upper lobe predominant centrilobular emphysema. Increased now 3.9 x 2.3 x 3.8 cm spiculated mass in the right upper lobe in the right medial upper lobe abutting the SVC, with mild mass effect on the adjacent neurovascular bundle. Subsegmental atelectasis in the lingula and right lower lobe. No effusion or pneumothorax. ?? Mediastinum and morris: Mildly increased mediastinal lymphadenopathy, measuring up to 4.1 x 2.8 cm precarinal, 1.7 cm in short axis pericardial, and 1.8 cm right infrahilar. Moderate type III paraesophageal hernia. No thyroid nodule large enough to warrant follow up. ?? Heart: Heart is normal in size. No pericardial effusion. Severe coronary artery calcification. Moderate aortic valvular and severe mitral annular calcification. ?? Chest Wall Soft Tissues: Normal.? Diaphragm and upper abdomen: Status post cholecystectomy. Right renal cysts. Punctate nonobstructing calcification in both kidneys. Renal vascular calcification. Unchanged nodular thickening of the right adrenal gland. ?? Bones: Sclerotic lesion in the right T7 transverse process measures mean 1460 Hounsfield unit, consistent with a bone island. Degenerative changes of the visualized spine. No acute abnormality. ?? IMPRESSION:? No evidence of pulmonary embolism. ?? Increased size of a 3.9 cm spiculated mass in the right upper lobe. Mildly increased metastatic mediastinal and right hilar lymphadenopathy. ?? Unchanged moderate type III paraesophageal hernia. ? Admission evaluation note * Mauro Faulkner DO: PERFORM Event Display: Admission Note Authored Date: [id number] Patient: ??BRI STOUT ? Age:??77 Years?Sex:??Female?:??1945?? Chief Complaint/Reason for Consultation Shortness of Breath History of Present Illness Ms. 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 ?? Ms.??Argelia was recently discharged on 12/14/2022 after a hospitalization for seizure-like activity followed by an episode of nausea/vomiting. During that hospitalization, work-up was concerning for potential worsening of her known lung cancer with metastasis for which she does not wish to pursue further evaluation. Since her return home, she has been taking all her medications appropriately, however was undergoing albuterol treatment on the day of presentation when she became hypoxic down to 74%oxygen saturation. ??In the interceding time between her prior admission and this current presentation, she also noted worsening shortness of breath on exertion??requiring her to??utilize her oxygen??nearly at all times during the day, as well as a cough, both of which are only partially relieved by her albuterol inhaler.?? She has not had any fevers, and with regard to chest pain, she states that she feels as though she is having??pain in her lungs. ?? Otherwise, denies lower extremity edema. ??With regard to oral intake??she states that she has not been eating as much, however has been drinking fluids??appropriately. ?? In the emergency department, vitals are stable and she was on her home oxygen requirement of 2 L via nasal cannula (which she wears at night typically). ??EKG with sinus tachycardia at 111 bpm. ??[id number] ms. ??Labs notable for mild anemia (consistent with prior), elevated D-dimer at 2.67, potassium3.4, bicarbonate 30, high-sensitivity troponin 29, followed by 30, NT proBNP 279, and COVID-19 was n egative. ??CXR with mild hazy airspace density in the left lung base, thought to be due to atelectasis, scarring, or developing consolidation. ??The known 2.3 cm nodule in the right upper lobe was again reported. ??CTA was without evidence of pulmonary embolism, again it was remarked on the increased size of a 3.9 cm spiculated mass in the right upper lobe. ??She received ceftriaxone and 500 cc of normal saline. Review of Systems A full review of systems was completed and is otherwise negative except as mentioned in history of present illness. Objective Vital Signs?? Temperature: 99.1 DegF (12/17/22 20:00:00) Temperature Route: Oral (12/17/22 20:00:00) Pulse Rate:??100 bpm??High (12/18/22 05:38:00) Respiratory Rate: 28 br/min (12/18/22 05:38:00) Systolic Blood Pressure: 114 mm Hg (12/18/22 05:38:00) Diastolic Blood Pressure: 68 mm Hg (12/18/22 05:38:00) Blood pressure sites: Arm, left (12/18/22 02:00:00) Mean Arterial Pressure: 83 mm Hg (12/18/22 05:38:00) Pulse Pressure: 46 mm Hg (12/18/22 05:38:00) Oxygen Saturation: 100 % (12/18/22 05:38:00) Liters per Minute: 2 L/min (12/18/22 05:38:00) Mode of Delivery (Oxygen): Nasal cannula (12/18/22 05:38:00) Early Warning Score: 2 (12/18/22 05:38:25) ? Physical Exam General:??Alert, in no acute cardiopulmonary distress. Mental Status:??Normal affect. Responding appropriately to questions. HEENT:??Normocephalic. Respiratory:??Clear to auscultation. No wheezing, rales or rhonchi. Cardiovascular:??Regular rate and rhythm, no murmurs, rubs, or gallops.?? Gastrointestinal:??Abdomen soft, nontender, nondistended, bowel tones present. No hepatosplenomegaly appreciated. Neurologic:??Cranial nerves II-XII grossly intact. Moves all extremities spontaneously. Extremities:??No edema. Musculoskeletal:??No gross deformities. Assessment/Plan Assessment:??Ms. 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 Started on??treatment for??community-acquired pneumonia??In the emergency department. Now admitted??for further evaluation and management. ?? Dyspnea (R06.00):?? Pneumonia (J18.9):?? Acute on chronic respiratory failure with hypoxia (J96.21):?? Patient with recent hospitalization who presented with acute on chronic??respiratory failure. Since discharge, has decreased??shortness of breath??with cough.?? Work-up consistent with??pneumonia. Was started on??treatment for community-acquired infection in the emergency department. Certainly could be at risk for hospital infections, however??overall??pneumonia appears relatively mild. Will??transition to Zosyn given recent hospitalization. Obtain MRSA nares as well??to rule out MRSA. ?? Plan: ?Zosyn??and azithromycin ??? Sputum culture ??? MRSA nares ??? Supplemental O2 as needed ?DuoNebs ?? Lung cancer (C34.90):?? Known??history of lung cancer with likely metastasis??for which she does not??wish for further work-up. Imaging done this presentation??shows??an expansion of??the spiculated lung lesion. Part of her presentation may in fact be??in the setting of worsening lung cancer. Oxygen requirement may be her new baseline, and??she??would likely benefit from pulmonary rehab consultation. Additionally, palliative care may be??a strong consideration for this??lady who does not wish for further??cancer intervention. ?? Plan: ??? Consider pulmonary rehab nurse consult??close to discharge ?Palliative care consultation may be prudent as well ?? Hypokalemia (E87.6):?? Mild hypokalemia on presentation, suspect due to decreased oral intake. ?? Plan: ?Replace with potassium tablets ?Assess magnesium level ?? Chronic and/or Stable Medical Conditions: Seizure disorder (G40.909):??Continue Keppra COPD without exacerbation (J44.9):??Spiriva and Duo Neb while inpatient Heart failure with reduced ejection fraction (I50.20):??x Not in volume overload, continue home regimen ?? Quality Measures: VTE Prophylaxis:??Lovenox Code Status:??DNR/DNI, confirmed on admission Ongoing Medical Necessity:??Pneumonia Discharge Planning:??Home, pending further evaluation and management Family:??Son, Caleb. Patient has asked he be updated at some time during the day. Patient seen and evaluated 12/18/2022. ?? Histories Allergies Allergies ?(Active and Proposed Allergies Only) codeine? (Severity: Unknown severity, Onset: Unknown) ?Reactions: Passed out ? Past Medical History/Problem List Active Problems??(10) Acute kidney injury Buerger disease COPD with respiratory failure, acute COVID-19 Essential hypertension Glaucoma Hyperlipidemia Macular degeneration MSSA bacteremia Right low back pain ? Past Surgical History Cholecystectomy section Cataract extraction Amputation of finger tip ? Family History Father: Skin cancer ? [...] Ellipta 62.5 mcg-25 mcg/inh inhalation powder)?1?puff(s)?Inhalation?Daily ? * Lashawn DEVLIN, Gutierrez: PERFORM Event Display: Admission Note Authored Date: Patient ??seen and examined today c/o sob, later she had diarrhea as per RN report. will check cdiff. d/w son- as per Son - she was supposed to go for lung biopsy where as patient does not want invasive procedures. she did confirm to me that she want to be DNR and also her son confirmed this as well lung biopsy can be decided as outpatient. EKG study * Event Display: ECG 12-Lead Authored Date: Please click on pdf link to open report * Event Display: ECG 12-Lead Authored Date: Ventricular Rate: 100 BPM Atrial Rate: 100 BPM P-R Interval: 142 ms QRS Duration: 82 ms Q-T Interval: 340 ms QTC Calculation(Bazett): 438 ms P Portage: 15 degrees R Portage: -57 degrees T Portage: 34 degrees Normal sinus rhythm Possible Left atrial enlargement Left axis deviation Inferior infarct (cited on or before 23-MAY-2022) Anteroseptal infarct (cited on or before 26-NOV-2021) Abnormal ECG When compared with ECG of 17-DEC-2022 16:22, Serial changes of Anteroseptal infarct Present Confirmed by MICHELLE DANIEL MD ([id number]) on 12/20/2022 12:38:02 PM [place]: MICHELLE DANIEL MD * Event Display: ECG 12-Lead Authored Date: Please click on pdf link to open report * Event Display: ECG 12-Lead Authored Date: Ventricular Rate: 111 BPM Atrial Rate: 111 BPM P-R Interval: 154 ms QRS Duration: 84 ms Q-T Interval: 360 ms QTC Calculation(Bazett): 489 ms P Portage: -16 degrees R Portage: -79 degrees T Portage: 49 degrees Sinus tachycardia Left axis deviation Inferior infarct , age undetermined Anterior infarct (cited on or before 26-NOV-2021) Abnormal ECG When compared with ECG of 11-DEC-2022 18:31, Serial changes of Anterior infarct Present Confirmed by CHRISTIANO MUNOZ ([id number]) on 12/18/2022 9:19:39 AM [place]: CHRISTIANO MUNOZ [facility] Progress note * Adelina Murcia: PERFORM, SIGN, VERIFY Event Display: Progress Note Hospital Authored Date: [id number] Patient: BRI STOUT Age: 77 years Sex: Female : 1945 Associated Diagnoses: None Author: Adelina Murcia Findings Narrative/Incidental Pt alert and oriented x3, no pain present. Pt has R IV access. Pt is on 2L NC. Pt is going home by ambulance this afternoon. Pt last BM was 12/23. Pt discussed with case management and MD about discharge plan. Call haq within reach, bed alarm exit on, all needs met at this time. Pt safe and comfortable. . Discharge Information Case Management Discharge Plan : Case Management Discharge Plan Data 12/23/2022 10:06 EST Discharge Level of Care at Discharge Homehealth/VNA Discharge VNA/Hospice/Home Care [facility] [address] [place]anc[place] [phone] or [phone] Discharge Medical Equipment [employer] [facility] [place] Discharge Transportation Arranged family transportation Mode of Transportation Arranged private car Name of Agency #1 [facility] [phone] or [phone] Agency [employer] Inspector Trimmer #1 Nadine Trinidad, clinical intake, [facility] Service Categories #1 Physical Therapy, Mcfp Service Comments #1 [facility] will resume your home senior care and physical therapyvisits upon discharge. The agency or your primary nurse will contact you directly to schedule a time for your next home nursing and physical therapy visits. Name of Agency #2 [facility] Service Categories #2 Oxygen Therapy Service Comments #2 As per your evaluation by our Pulmonary Nurse Consult team, you will continue on home oxygen as recommended. Please contact your current provider [facility] for any ongoing home oxygen needs. Rehabilitation Discharge : Rehab Discharge Index 12/21/2022 8:26 EST Comments on treatment indicated 77yo F admitted with pneumonia and hypoxia. PT for bed mobility, transfers, ambulation. Rec home c PT services. Walker: distance < 10 Full chart review completed Yes Hospital course Per chart: Other findings Per comment: Plan of care PT Gait training, Transfer training, Therapeutic exercise, Functional Activities, Balance training, Neuromuscular education * Lashawn DEVLIN, [facility]: PERFORM Event Display: Progress Note Hospital Authored Date: [id number] Patient: ??BRI STOUT ? Age:??77 Years?Sex:??Female?:??1945?? Subjective ?Patient ??seen and examined today ?c/o sob she does not want to get biopsy she is very clear that she does not want to get?? any invasive procedures I spoke to son- he wants to come to hospital and??talk to her d/ w pulmonary -procedure cancelled for today- they will talk to her today and if she agrees then can do the procedure??on Thursday? Review of Systems General: No fever, chills or rigors HEENT: No headache, no blurred vision, no sorethroat Cardiac: No Chest pain, No palpitations, No light headedness Respiratory: SOB Abdomen: No diarrhea or constipation,no nausea or abdominal pain Nervous system: No headache, blurred vision, tingling or numbness or any weakness ? Objective Vital Signs?? Temperature: 97.5 DegF (12/22/22 13:53:00) Temperature Route: Oral (12/22/22 13:53:00) Pulse Rate: 74 bpm (12/22/22 13:53:00) Respiratory Rate: 16 br/min (12/22/22 13:53:00) Systolic Blood Pressure: 133 mm Hg (12/22/22 13:53:00) Diastolic Blood Pressure: 77 mm Hg (12/22/22 13:53:00) Blood pressure sites: Arm, left (12/22/22 13:53:00) Mean Arterial Pressure: 96 mm Hg (12/22/22 13:53:00) Pulse Pressure: 56 mm Hg (12/22/22 13:53:00) Oxygen Saturation:??91 %??Low (12/22/22 13:53:00) Liters per Minute: 2 L/min (12/22/22 13:53:00) Mode of Delivery (Oxygen): Nasal cannula (12/22/22 13:53:00) Early Warning Score: 4 (12/22/22 13:53:26) ? Physical Exam ?? Lungs:?? rhonchi Heart: RRR, No murmurs, gallops or rubs Abdomen: Soft, non tender, normal Bowel sounds AUTO CLUTCH SPECIALIST: Alert awake and oriented X 3 . No cranial nerve deficits appreciated Assessment/Plan Diagnoses Acute on chronic respiratory failure with hypoxia ??(J96.21) COPD without exacerbation ??(J44.9) Dyspnea ??(R06.00) Heart failure with reduced ejection fraction ??(I50.20) Hypokalemia ??(E87.6) Lung cancer ??(C34.90) Pneumonia ??(J18.9) Seizure disorder ??(G40.909) ?? 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 Now admitted??for further evaluation and management. ?? Dyspnea (R06.00):?? Pneumonia (J18.9):?? Acute on chronic respiratory failure with hypoxia (J96.21): Lung Mass: COPD exacerbation.?? Patient with recent hospitalization who presented with acute on chronic??respiratory failure. Since discharge, has decreased??shortness of breath??with cough.?? Work-up consistent with??pneumonia. ?Zosyn??and azithromycin as Procal is 0.33 will continue antibiotics. ??? Sputum culture ??? MRSA?? 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 due to hypoxia- improved with nebs, solumedrol. cxr unchanged.?? Pulmonary spoke to patient and she agreed for EBUS-??but now she declined it on 12/22 Son and also pulmonary team will talk to her. next available time for EBUS is on??Thursday ? Chronic and/or Stable Medical Conditions: Seizure disorder (G40.909):??Continue Keppra COPD without exacerbation (J44.9):??Spiriva and Duo Neb while inpatient Heart failure with reduced ejection fraction (I50.20):??x??home dose lasix 40mg but given one dose of IV lasix 20mg due to respiratory failure. ?? Quality Measures: VTE Prophylaxis:??Lovenox stopped on 12/21 but will resume it Code Status:??DNR/DNI, confirmed on admission Ongoing Medical Necessity:??Pneumonia, lung mass- need further work up Family:??SonCaleb- update given on 12/22-? * Adeola DEVLIN, Ton: MODIFY Kristie Roque DO: PERFORM Event Display: Progress Note Hospital Authored Date: [id number] Patient: ??BRI STOUT ? Age:??77 Years?Sex:??Female?:??1945?? HPI: BRI STOUT??is a 77 y/o female with COPD, Chronic hypoxic respiratory failure on 2L O2 mostly at night, HTN, HLD, HFrEF??and recently diagnosed lung mass. Pulmonary is consulted due to lung mass andconcern for tissue diagnosis.?? Recent??PET scan shows FDG avidity in the mediastinum suggestive ofmediastinal involvement.? ROS: Feeling overall well, breathing at her baseline, enery at her baseline.?? Occasional cough, no wheeze.?? Denies any pain. Some frustrations with just wanting to go home. ?? Objective:Vital Signs (last 24 hrs) ?Last Charted Heart Rate Peripheral?74 bpm ??(DEC 22:53) Resp Rate?16 br/min ??(DEC 22 13:53) SBP?133 mm Hg ??(DEC 22 13:53) DBP?77 mm Hg ??(DEC 22 13:53) SpO2?L??91% ??(DEC 22 13:53) Weight?53.1 kg ??(DEC 22 13:51)??No qualifying data available. No lab data available.?? COVID-19 (Novel Coronavirus), Rapid PCR?? Completed?? Source: Nasal Body Site: Nose Collected Dt/Tm: 12/17/2022 16:07 Last Updated Dt/Tm: 12/17/2022 19:28 COVID-19 (2019 Novel Coronavirus) PCR?? Completed?? Source: Nasal Body Site: Nose Collected Dt/Tm: 12/18/2022 05:01 Last Updated Dt/Tm: 12/18/2022 12:56 MRSA PCR Nasal Swab?? Completed?? Source: Swab Body Site: Nares Both Collected Dt/Tm: 12/18/2022 05:50 Last Updated Dt/Tm: 12/18/2022 10:44 C. difficile Rapid Toxin Assay?? Completed?? Source: Stool Body Site: Collected Dt/Tm: 12/18/2022 15:14 Last Updated Dt/Tm: 12/19/2022 08:20 ? Physical Exam: General:??Alert and oriented,??older chronically ill appearing female in NAD HEENT:??Nasal canula in place, mucous membranes moist.?? Without tracheal deviation??or apparent??cervical mass.?Mild conjunctival injection. Cardiac: Regular rate and rhythm, systolic murmur appreciated??although heart sounds mildly distant Pulmonary: Mild bibasilar crackles, no wheeze, more diminished??breath sounds upper lobes. Abdomen:??Nontender, nondistended Extremities:??Without clubbing??or cyanosis, noted finger hyper extensions.?Trace lower extremity edema, no new rashes or lesions. Neuro:??Cranial nerves grossly intact, moving all extremities??symmetrically??without apparent??focal deficit. ?? Assessment and Plan: Acute on chronic hypoxic respiratory failure COPD on home O2 At risk for aspiration, grade 3 hiatal hernia Lung mass with mediastinal lymphadenopathy ?? Spent prolonged period of time speaking with Bri at her bedside. Both??India Pritchett and and Dr. Mir were present for this conversation.?? Patient seemed to have appropriate understanding of her current lung mass, location and the likelihood of it being malignant.?? She understands what moving forward with work-up for malignancy would entail and stated that this is not in line with her goals.?? She spoke at length discussing how she just wanted to go home she did not want to do any invasive procedures, she did not want any CPR, she did not want any intubation, and she did not want a treatment for possible lung cancer.?? She understands that this lung cancer will likely cause her demise, we spoke over her home care options, unclear progression timing, her home support, and possible hospice consultation in the future. ?? Her son is her POA, she notes that he at this time is not yet accepting of the fact that she is ready??to??accept??the progression??of her suspected underlying lung cancer and?? from it. She states that she has already bought her [place] and worked out her details with her home.?? Because of these strong appropriate decisions she should likely fill out DNR, DNI as well as a MOLST and perhaps even a do not hospitalize form for the future, and likely have the son present during this time.? With her clear understanding of her disease process and likely outcome without treatment or diagnosis we feel it is appropriate for her to refuse further work- up at this time. ?? Recommendation: Airway clearance regimen, DuoNebs, Acapella device, Incentive spirometer Currently on Spiriva, would change??to Anoro or hospital LAMA/LABA equivalent (Back to Spiriva at home) Aspiration precautions Patient should fill out MOLST and DNR/DNI form before discharge Okay for discharge from a pulmonary standpoint ?? Pulmonary will sign off at this time please do not hesitate to reach out with any questions or concerns. ?? Discussed with attending physician Dr Mir * Adeola DEVLIN, [facility]: PERFORM Event Display: Progress Note Hospital Authored Date: Patient seen, examined, investigative data reviewed and plan of care discussed with Dr. Roque. I agree with ??Young's history, exam findings and plan of care as documented.??Bri does not want any additional testing, procedure, treatment for suspected underlying lung cancer. She is aware of this likely will cause her in future. She wants to go home. Bronchoscopy that had been scheduled for Wed would be cancelled, ok to discharge from pulmonary stand point. Consider having her sign MOLST form during her current inpatient stay. Note * Florence Whittington RN: PERFORM Event Display: Discharge/Transfer Note Hospital Authored Date: [id number] Nursing Discharge Note Entered On: 12/23/2022 14:15 EST Performed On: 12/23/2022 14:15 EST by Florence Whittington RN Nursing Discharge Note 2 Discharge Time : 12/23/2022 14:15 EST Discharge Level of Care at Discharge : Homehealth/VNA Discharge VNA/Hospice/Home Care(v001) : [facility] [address] [place] [phone] Discharge Medical Equip Companies(v001) : [employer] Patient Left Unit Via : Ambulance Patient Accompanied Off Unit with : Ambulance/Chair Van Personnel Handover Given to Transport Personnel : Yes DC Instructions Provided & Signed by Pt : Yes Patient Understands D/C Instructions : Yes Verbalized Understanding of D/C Plan By : Patient Patient Instructions Discharge Signed : Yes Did Pt have Specialty Bed or Wound Vac : Yes Florence Whittington RN - 12/23/2022 14:15 EST * Lashawn DEVLIN, Gutierrez: MODIFY, PERFORM Event Display: Discharge/Transfer Note Hospital Authored Date: [id number] Patient: ??BRI STOUT ? Age:??77 Years?Sex:??Female?:??1945?? Patient Information Discharge Location: 4 Primary Care Physician: Sharon Chamberlain MD Admit Date/Time: 12/18/22 01:39 Discharge Disposition Discharge Disposition: Home with Home Health Discharge Diagnosis Acute on chronic respiratory failure with hypoxia (J96.21) COPD without exacerbation (J44.9) Lung mass Chronic Heart failure with reduced ejection fraction (I50.20)) Pneumonia (J18.9) Seizure disorder (G40.909) Essential hypertension Glaucoma Hyperlipidemia Macular degeneration ?? [...] mcg-25 mcg/inh inhalation powder)?1?puff(s)?Inhalation?Daily ? Medications Started prednisone Medications Discontinued none Doses Changed none PCP Follow-Up/Heads-Up DNR/DNI- MOLST form updated and signed by her she does not want to have Lung biopsy or any further work up regarding her lung mass> Son agreedwith it but he also said that he will talk to her again after she comes home. I have advised him that if she changes mind- follow with Primary care or pulmonary Future Appointments Thursday 10:00 AM EST ?? With: Faisal MARTÍNEZ, Makenna Oscar Where: [facility] Neurology [address] [place] [address] [address]rd Floor, [address] [place] [address]- 2022 12:45 PM EDT ?? 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 Pneumonia (J18.9):?? Acute on chronic respiratory failure with hypoxia (J96.21): Lung Mass: COPD exacerbation.?? Patient with recent hospitalization who presented with acute on chronic??respiratory failure. Since discharge, has decreased??shortness of breath??with cough.?? Work-up consistent with??pneumonia. -she was treated with Solumedrol - will change to few more days of oral prednisone as well. ??? Procal is 0.33 -Treated with zosyn for 6 days. she improved clinically and I dont think furtherantbiotics indicated ??? Sputum culture ??? MRSA?? - NEGATIVE -regarding Lung mass - pulmonary saw the patient and advised EBUS as inpatient but patient does not??want to know the diagnosis- she says I??don't want to??have any invasive??procedures and it is my wish to naturally and reach her soon She made her??wishes clear and also she conveyedher wishes pulmonary team as well . Pulmonary cancelled her procedure based on??her wishes. Son -Caleb was involved in the decision process as well- I have explained to him??about her wishes and he agreed with it. MOLST??form signed by her - DNR/DNI/-??She agreed with BIPAP/CPAP if needed. She does not want to have dialysis. She does not want artificial nutrition. She would like to have Artificial hydration?? but for short term only. She want to come??back to hospital if needed??but only to receive non invasive measures such as IVF, antibiotics and simple medications.? oxygen??requirement improved now she is at baseline ? Chronic and/or Stable Medical Conditions: Seizure disorder (G40.909):??Continue Keppra COPD without exacerbation (J44.9):??continue home inhalers and also short course of prednisone. Heart failure with reduced ejection fraction (I50.20):??x??continue lasix ?? . Physical Exam Patient ??seen and examined today chest: b/l cta, heart:s1s2+, abdomen:s oft, bs+, non tender, neuro: aaox3, extremities: no edema MOLST form signed by her. she want to go home today d/w CM spoke to son- explained to him about her mother's wishes. he agreed with dc planning. he will talk to her and also other family members at home Consultants - Pulmonary Follow-Up Appointments Added Follow Up ?Time Frame ?Comments Sharon Chamberlain MD?2 weeks Home Health Face to Face *Denotes mandatory gould ?? *I certify that this patient is under my care and that I or an allowed non- physician working with me had a face to face encounter with the patient on this date:??12/23/2022 09:38 ?? *The encounter with the patient was in whole, or in part, for the following medical condition, which is the primary diagnosis(es) for home health care:??Acute on chronic respiratory failure with hypoxia (J96.21) COPD without exacerbation (J44.9) Dyspnea (R06.00) Heart failure with reduced ejection fraction (I50.20) Hypokalemia (E87.6) Lung cancer (C34.90) Pneumonia (J18.9) Seizure disorder (G40.909) ?? *Select the indications for the discipline/s that are being arranged for this patient. Nursing (select all that apply): [_] None [_x] Medication management (reconciliation, teaching)?? [_] Chronic disease management?? [_] Wound care and treatment?? [_] Home safety evaluation [_] Administer SQ/IM/IV medications?? [_] Cath care?? [_] Drain care?? [_] Trach or GT care?? Other _ Occupation Therapy (select all that apply): [_] None [_] ADL Management [_] Fall prevention training [_] Energy conservation [_] Cognitive training Other _ Physical Therapy (select all that apply): [_] None [_x] Functional mobility training [_] Home exercise program to strengthen [_] Increase ROM?? [_] Falls prevention training [_] Home maintenance program for chronic disease Other _ Speech Therapy (select all that apply): [_] None [_] Swallow evaluation and training [_] Speech and language training [_] Cognitive training to process, organize, and/or recall information Other _ ? *Homebound due to (select all that apply): [x_] Inability to leave home without assistance/supervision [x_] Inability to ambulate without assistance [_] Pain [_] Decreased strength and endurance [_] Unsteady gait [_] Severe SOB and fatigue [_] Impaired transfers [_] Inability to negotiate stairs [_] Limited weight bearing [_] Mental status change? *Physician Signature:??MD Amado ?? *By signing this, I certify that I have personally evaluated the patient and agree with the findings and recommendations as documented above. ?? 33 minutes spent on discharge * Anika Blackwell RN, V: PERFORM, SIGN, VERIFY Event Display: Case Management Discharge Plan Authored Date: [id number] Patient: BRI STOUT Age: 77 years Sex: Female : 1945 Associated Diagnoses: None Author: Anika Blackwell RN, V Discharge Plan Case Management Discharge Plan : Case Management Discharge Plan Data 12/23/2022 10:06 EST Discharge Level of Care at Discharge Homehealth/VNA Discharge VNA/Hospice/Home Care [facility] [address] [place] [facility] [phone] or [phone] Discharge Medical Equipment Companies [facility] [place] Discharge Transportation Arranged [facility] [address] [facility] [phone] (Modified) Discharge Arranged Transport Date/Time 12/23/2022 14:00 Mode of Transportation Arranged Ambulance (Modified) Name of Agency #1 [facility] [phone] or [phone] Agency Padded [employer] Inspector Trimmer #1 Nadine Trinidad, clinical intake, [facility] Service Categories #1 Physical Therapy, Mcfp Service Comments #1 [facility] will resume your home senior care and physical therapyvisits upon discharge. The agency or your primary nurse will contact you directly to schedule a time for your next home nursing and physical therapy visits. Name of Agency #2 [facility] [place] Service Categories #2 Oxygen Therapy Service Comments #2 As per your evaluation by our Pulmonary Nurse Consult team, you will continue on home oxygen as recommended. Please contact your current provider [facility] for any ongoing home oxygen needs. * Anika Blackwell RN, V: PERFORM, SIGN, VERIFY Event Display: Case Management Discharge Plan Authored Date: [id number] Patient: BRI STOUT Age: 77 years Sex: Female : 1945 Associated Diagnoses: None Author: Anika Blackwell RN, V Discharge Plan Case Management Discharge Plan : Case Management Discharge Plan Data 12/23/2022 10:06 EST Discharge Level of Care at Discharge Homehealth/VNA Discharge VNA/Hospice/Home Care [facility] [address] [place] [phone] or [phone] Discharge Medical Equipment Companies [facility] Discharge Transportation Arranged family transportation Mode of Transportation Arranged private car Name of Agency #1 [facility] [phone] or [phone] Agency [employer] Inspector Trimmer #1 Nadine Trinidad, clinical intake, [facility] Service Categories #1 Physical Therapy, Mcfp Service Comments #1 [facility] will resume your home senior care and physical therapyvisits upon discharge. The agency or your primary nurse will contact you directly to schedule a time for your next home nursing and physical therapy visits. Name of Agency #2 [facility] Service Categories #2 Oxygen Therapy Service Comments #2 As per your evaluation by our Pulmonary Nurse Consult team, you will continue on home oxygen as recommended. Please contact your current provider Cristofer for any ongoing home oxygen needs. * Pk WING, Florence: PERFORM Event Display: Patient Education/Instruction Authored Date: [id number] Inpatient Adult Discharge Instructions [address] [address] Name: BRI STOUT : 1945 Visit: 12/18/2022 01:39:00 Current Date: 12/23/2022 12:50 Account: [id number] Inpatient Adult Discharge Instructions We would like [...] and their families. Surveys are administered by [employer] ?? If further treatment with your primary care physician or another doctor is recommended, it is important for you to keep the appointment. Call your primary care physician or return to the Emergency Department immediately if your condition worsens, fails to improve, or new symptoms develop. If you need to find a doctor, you can call [facility] Live[facility]book for a referral at [phone] or toll free at [phone] ([phone]) or log in to [email or web address], [email or web address]... ?? You can view and manage your care through the patient portal or by using a health care leigh of your choosing. [employer] is a website that allows you to securely view your medical information including your hospital discharge summary, office visit summaries, medications and follow-up visits. You can also request appointments, renew medications, and request access to your medical information using a health care leigh of your choosing, or just ask a question. You can enroll at [email or web address] or register during your next office visit. You have been discharged from [facility], Patient Care Unit: S3. If you have any questions regarding these instructions after you leave, please call us and we will be happy to assist you. [facility] Your Care Team Attending Physician Lashawn DEVLIN, Gutierrez Consulting Providers Adeola DEVLIN, Demetrius Amezquita MD, Anne Kendall Discharging Providers Lashawn DEVLIN, Gutierrez Reason for Admission Shortness of Breath Your Diagnosis Dyspnea Pneumonia Heart failure with reduced ejection fraction Acute on chronic respiratory failure with hypoxia COPD without exacerbation Hypokalemia Seizure disorder Lung cancer Tests Performed Below is a partial list of the tests performed during your hospitalization. You may have had other tests and procedures not included in this list. Please discuss all test results with your provider. Basic Metabolic Panel BUN Calcium Level CBC CBC w/ Differential Cdiff Rapid Toxin Assay COVID-19 (2019 Novel Coronavirus) PCR COVID-19 (Novel Coronavirus), Rapid PCR Creatinine D Dimer Electrolytes Glucose Level GLUCOSE POC High??Sensitivity??Troponin T HOLD LAVENDER TUBE Lactate Level Magnesium Level MRSA PCR Nasal Swab PHOSPHORUS ProBNP Procalcitonin Level CT Angio Chest XR Chest Portable Primary Care Provider Adlakha MD, Sharon S Advance Directive Health Care Proxy on File Yes - Health Care Proxy Discharge Vitals Temperature: 98.4 DegF Weight: 53.1 kg Pulse Rate: 60 bpm ?? Respiratory Rate: 22 br/min ?? Systolic Blood Pressure: 114 mm Hg ?? Diastolic Blood Pressure: 72 mm Hg ?? Oxygen Saturation: 98 % ?? Studies Pending All tests and labs ordered during this hospital stay have been completed unless listed below. Please discuss all pending results with your provider listed above in these instructions. ?? Add On Lab Order Hold Lavender Tube (BB) Sputum Culture w/ Gram Smear What to do next Instructions From Your Doctor Discharge Orders Scheduled Follow-Up Appointments Thursday 10:00 AM EST ?? With: Makenna Osuna Where: [facility] Neurology [address] [place] [address] 3rd Floor, [address] [place] [address]- 2022 12:45 PM EDT ?? With: David Ventura MD Where: [facility] Cardiology [address] [place] [address]- You Need to Schedule the Following Appointments Follow Up with??Sharon Chamberlain MD When?? 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 Medications not listed below should be discontinued. Discuss any questions related to medications with your provider. What How Much When Instructions Next Dose New PredniSONE (predniSONE 10 mg oral tablet) See instructions 4 tab po daily for 2 days then 3 tabs po daily for 2 days then 2 tabs po daily for 2 days then 1 tab po daily for 2 days then stop ?? Pickup at [facility] 12/24?? AM Unchanged Acetaminophen (Tylenol 325 mg oral tablet) 2 tab(s) Oral Every 6 hours as needed for Pain , Mild as prescribed Unchanged Albuterol (albuterol 0.083% inhalation solution) 3 Milliliter Nebulized inhalation Every 6 hours as needed for as needed for wheezing 12/23?? 7?? PM Unchanged Albuterol (Ventolin HFA 108 mcg/ inh inhalation aerosol with adapter) 2 puff(s) Inhalation 4 times a day as needed for for wheezing as prescribed Unchanged Aspirin (Aspirin Enteric Coated 81 mg oral delayed release tablet) 1 tab(s) Oral Daily 12/24?? AM Unchanged Atorvastatin (atorvastatin 80 mg oral tablet) 1 tab(s) Oral Daily at Bedtime 12/23?? PM Unchanged Clopidogrel (clopidogrel 75 mg oral tablet) 1 tab(s) Oral Daily 12/24?? AM Unchanged Docusate (Doculase 100 mg oral capsule) 1 capsule Oral Twice a day as needed for as needed for constipation as prescribed Unchanged Furosemide (Lasix 40 mg oral tablet) 1 tab(s) Oral Daily 12/24?? AM Unchanged levETIRAcetam (Keppra 750 mg oral tablet) 1 tab(s) Oral Twice a day Duration: 30 Days 12/23?? PM Unchanged Loperamide (loperamide 2 mg oral capsule) 1 capsule Oral Daily as needed for as needed for loose stool as prescribed Unchanged Meclizine (meclizine 25 mg oral tablet, chewable) 1 tab(s) Chew 3 times a day as needed for for dizziness as prescribed Unchanged Mirtazapine (mirtazapine 7.5 mg oral tablet) 1 tab(s) Oral Daily at Bedtime 12/23?? PM Unchanged Nitroglycerin (nitroglycerin 0.4 mg sublingual tablet) 1 tab(s) Sublingual Every 5 minutes as needed for Chest Pain as prescribed Unchanged Oxymetazoline Nasal (Afrin 0.05% spray) 2 spray(s) Nares, Both Twice a day as prescribed Unchanged Pantoprazole (Protonix 40 mg oral delayed release tablet) 40 Milligram Oral Daily Please take daily - refill per PCP ?? 12/24?? AM Unchanged Polyethylene Glycol 3350 (MiraLax oral powder for reconstitution) 17 gram Oral Daily as needed for Constipation as prescribed Unchanged Pramipexole (pramipexole 1 mg oral tablet) 1 tab(s) Oral Daily at Bedtime 12/23?? PM Unchanged Sertraline (Zoloft 50 mg oral tablet) 1 tab(s) Oral Daily 12/24?? AM Unchanged umeclidinium-vilanterol (Anoro Ellipta 62.5 mcg-25 mcg/ inh inhalation powder) 1 puff(s) Inhalation Daily as prescribed Pharmacy Information [facility] 3: [address], [place] [id number] [phone] ?? What How Much When Comments Stop Taking Albuterol/ Ipratropium (albuterol- ipratropium 3 mg-0.5 mg/ 3 ml inhalation solution) 3 Milliliter Nebulized inhalation Every 4 hours Dx: J44.9 ?? Test Results Below is a partial list of the most recent Laboratory test results done prior to this discharge. You may have had other tests and procedures not included in this list. Please discuss all test resultswith your provider. Basic Metabolic Panel (12/17/2022) ???Sodium - 141 mmol/L???Potassium - 3.4 mmol/L???Chloride - 96 mmol/L???Bicarbonate Level - 30 mmol/L???Anion Gap - 15???Glucose Level - 108 mg/dL???BUN - 21 mg/dL???Creatinine-Blood - 1.0 mg/dL???Estimated GFR Creatinine - 58 ML/MIN/1.73 M2???Calcium - 9.4 mg/dL BUN (12/19/2022) ???BUN - 22 mg/dL Calcium Level (12/19/2022) ???Calcium - 9.3 mg/dL CBC (12/19/2022) ???WBC - 7.4 k/mm3???RBC - 3.05 m/mm3???Hgb - 10.0 Gm/dL???Hct - 28.4 %???MCV - 93.1 femtoliters???MCH - 32.8 pg???MCHC - 35.2 g/dL???Platelet Count - 368 k/mm3???RDW-SD - 51.5 femtoliters???MPV - 9.0 femtoliters???Nucleated RBC (Automated) - 0.0 #/100 WBC'S???Abs. NRBC - 0.0 k/mm3 CBC w/ Differential (12/18/2022) ???WBC - 8.5 k/mm3???RBC - 3.01 m/mm3???Hgb - 10.2 Gm/dL???Hct - 27.7 %???MCV - 92.0 femtoliters???MCH - 33.9 pg???MCHC - 36.8 g/dL???Platelet Count - 356 k/mm3???RDW-SD - 50.4 femtoliters???MPV - 9.0 femtoliters???Nucleated RBC (Automated) - 0.0 #/100 WBC'S???Abs. NRBC - 0.0 k/mm3???Abs. Neut - 6.5 k/mm3???Abs. Lymph - 1.0 k/mm3???Abs. Kingfisher - 0.9 k/mm3???Abs. Eo - 0.0 k/mm3???Abs. Baso - 0.0 k/mm3???Neut % - 76.3 %???Lymph % - 12.2 %???Kingfisher % - 10.2 %???Eos % - 0.4 %???Baso % - 0.4 %???Imm Gran - 0.5 %???Abs. Imm Gran - 0.0 k/mm3 Cdiff Rapid Toxin Assay (12/18/2022) ???C.difficile Toxin - Negative. C.Difficile bacterial antigen and toxin not detected. A COVID-19 (2019 Novel Coronavirus) PCR (12/22/2022) ???COVID-19 PCR Specimen Source - NASAL???COVID-19 PCR Result - NEGATIVE COVID-19 (Novel Coronavirus), Rapid PCR (12/17/2022) ???COVID-19 by RT-PCR - NEGATIVE Creatinine (12/19/2022) ???Creatinine-Blood - 1.1 mg/dL???Estimated GFR Creatinine - 49 ML/MIN/1.73 M2 D Dimer (12/17/2022) ???D-Dimer - 2.67 mg/L FEU Electrolytes (12/19/2022) ???Sodium - 144 mmol/L???Potassium - 4.5 mmol/L???Chloride - 105 mmol/L???Bicarbonate Level - 26 mmol/L???Anion Gap - 13 Glucose Level (12/19/2022) ???Glucose Level - 119 mg/dL GLUCOSE POC (12/20/2022) ???Glucose, POC - 141 mg/dL High??Sensitivity??Troponin T (12/17/2022) ???High Sensitivity Troponin (HSTnT) - 30 ng/L HOLD LAVENDER TUBE (12/20/2022) ???Hold Lavender Top - SPECIMEN DISCARDED AFTER 24 HOURS. Lactate Level (12/17/2022) ???Lactate - 1.7 mmol/L Magnesium Level (12/18/2022) ???Magnesium - 1.6 mg/dL MRSA PCR Nasal Swab (12/18/2022) ???MRSA PCR Result - Negative, MRSA target DNA not detected.???S Aureus PCR Result - Negative, SA target DNA not detected. PHOSPHORUS (12/20/2022) ???Phosphorus - 4.1 mg/dL ProBNP (12/17/2022) ???Nt-Probnp - 279 pg/mL Procalcitonin Level (12/20/2022) ???Procalcitonin - 0.33 ng/mL Allergies (NKA means No Known Allergies) codeine??(Passed out) Problems Active Problems??(10) Acute kidney injury?? Buerger disease?? COPD with respiratory failure, acute?? COVID-19?? Essential hypertension?? Glaucoma?? Hyperlipidemia?? Macular degeneration?? MSSA bacteremia?? Right low back pain?? Education Materials Below is the list of Educational Leaflet Providered with your Discharge Instructions. When You Have Pneumonia?? Preventing Pneumonia?? Zones Pneumonia?? Valuables and Belongings I fully understand and agree that [facility] accepts no responsibility for all my [...] to send valuables and belongings home. ?? No Valuables/Belongings: No valuables/belongings present Review of Valuable and Belonging List: With patient Date for Pt to Sign Valuables/Belongings: 12/23/22 12:39:00 ?? Other Discharge Information ? Case Management Discharge Plan?? Discharge Plan?? Discharge Agency Information?? Discharge Level of Care at Discharge: Homehealth/VNA Name of Agency #1: [facility] [phone] or [phone] Discharge Transportation Arranged: family transportation Agency Padded Products Inspector Trimmer #1: Nadine Trinidad, clinical intake, [facility] Mode of Transportation Arranged: private car Service Categories #1: Physical Therapy, Mcfp Discharge VNA/Hospice/Home Care: [facility] [address] [place] [phone] or [phone] Service Comments #1: [facility] will resume your home senior care and physical therapy visits upon discharge. The agency or your primary nurse will contact you directly to schedule a time for your next home nursing and physical therapy visits. Discharge Medical Equipment Companies: [employer] Name of Agency #2: [employer] ?? Service Categories #2: Oxygen Therapy ?? Service Comments #2: As per your evaluation by our Pulmonary Nurse Consult team, you will continue on home oxygen as recommended. Please contact your current provider Cristofer for any ongoing home oxygen needs. ?? Pulmonary Rehab Status?? Pulmonary Rehab Discharge Status?? Respiratory Rate: 22 br/min Discharge Medical Equipment Companies: [employer] ? Common Emergency Awareness Tips IS IT [...] are strongly encouraged to quit. Please call [facility] [employer] at [phone] or [phone] ([phone]) or log in to [email or web address] for referrals to smoking cessation programs. ?? The National Suicide Prevention Hotline is available 15/06 if you or someone you know needs to find a reason to keep living. By calling 1-586-728-[employer] (4032) you'll be connected to a skilled, trained counselor at a crisis center in your area. INPATIENT DISCHARGE INSTRUCTIONS SIGNATURE PAGE BRI STOUT Location:[facility] Registration Date and Time:12/18/2022 01:39 EST Primary Care Physician: Bulmaro DEVLIN, Sharon Langley, I BRI STOUT, have received the above patient education materials/instructions and have verbalized understanding. If ambulance or transport services are being used I further acknowledge being givena choice of service. ?? If you need to contact me, please call me at this number: . Patient/Small Kick Press Operator Name: Patient/Small Kick Press Operator Signature: Relationship to Patient: Witness Name/Signature: Date: * Gutierrez Hardin MD: SIGN, PERFORM, SIGN, VERIFY Event Display: Patient Education Handout Authored Date: [id number] * Florence Whittington RN: PERFORM Event Display: Patient Education Leaflets Authored Date: [id number] When You Have Pneumonia ?? 63690 When You Have Pneumonia You have been diagnosed with pneumonia. This is a serious lung infection. Most cases of pneumonia are caused by bacteria. But it can also be caused by: ??? Viruses ??? Fungi ??? Atypical bacteria such as mycoplasma ??? Inhaling certain chemicals Pneumonia most often occurs in older adults, young children, and people with chronic health problems. Home care ??? Take your medicine exactly as directed. Don???t skip doses. Take your antibiotics as directed until they are all gone, even if you start to feel better. This will prevent the pneumonia from coming back. ??? Drink plenty of water daily, unless directed otherwise. This may help to loosen and thin lung mucus so that you can cough it up. ??? Use a cool-mist humidifier in your bedroom. Clean the humidifier every day. ??? Don???t use medicines to suppress your cough unless your cough isdry, painful, or keeps you from sleep. Coughing up mucus is normal. It helps you recover. You may use an expectorant if your healthcare provider says it???s OK. ??? You can use warm compresses or a heating pad on the lowest setting to relieve chest discomfort. Do this several times a day for??shortperiods of time. To prevent injury to your skin, set the temperature to warm, not hot. Don???t put the compress or pad directly on your skin. Make sure it has a cover or wrap it in a towel. This is to prevent skin tim. ??? Get plenty of rest until your fever, shortness of breath, and chest pain go away. ??? Plan to get a flu shot every year. The flu is a common cause of pneumonia. Getting a flushot every year can help prevent both the flu and pneumonia. ?? Getting the pneumococcal vaccine Talk with your healthcare provider about getting the pneumococcal vaccine. There are 2 kinds of pneumonia vaccines. You may need to get both. Pneumococcal pneumonia is caused by bacteria that spread from person to person. It can cause minor problems, such as ear infections. But it can also turn into these life- threatening illnesses: ??? Infection of the lungs (pneumonia) ??? Infection of the covering of the brain and spinal cord (meningitis) ??? Infection of the blood (bacteremia) People at the highest risk of pneumococcal disease include:? Children under age 2 ??? Adults over age 65 ??? People with certain health conditions ??? Smokers This vaccine can help prevent pneumococcal disease in both adults and children. Some people should not have the vaccine. Make sure to ask your healthcare provider if you should have the vaccine.? Follow-up care Make a follow-up appointment as directed. ?? When to call your healthcare provider Call your healthcare provider right away if you have any of these: ??? Fever of 100.4??F ( 38??C) or higher ??? Mucus from the lungs (sputum) that???s yellow, green, bloody, or smells bad ??? A largeamount of sputum ??? Vomiting ??? Symptoms that get worse ??? New symptoms ?? Call 911 Call 911 right away if you have any of these: ??? Chest pain ??? Trouble breathing ??? Blue, purple, or hernandez lips or fingernails ??? Feeling of doom ??? Feeling faint or dizzy ??? Trouble talking ?? Last Reviewed Date: 2021 ?? 4487-3163 [employer]. All rights reserved. This information is not intended as a substitute for professional medical care. Always follow your healthcare professional's instructions. ?? * Florence Whittington RN: PERFORM Event Display: Patient Education Leaflets Authored Date: [id number] Preventing Pneumonia ?? 73337 Preventing Pneumonia Pneumonia is an infection in 1 or both of the lungs. It can be caused by bacteria, viruses, or fungi. People most at risk include older adults, children under age 2, smokers, and people with chronic lung diseases or a weak immune system. This includes people with asthma, or COPD (chronic obstructive pulmonary disease) such as??emphysema or chronic bronchitis. It includes people with HIV/AIDS, or who are having chemotherapy. There are some things you can do to reduce your risk of pneumonia. Prevent infection ??? Wash your hands often. To do this: o Use soap and clean, running water and scrub your hands for at least 20 seconds. That's as long as it takes to hum the Happy Birthday song 2 times. o Lather and scrub the backs of your hands, between your fingers, and under your nails. o If soap and water aren't available, use a hand glass mould cleaner with at least 60% alcohol in it. ??? Don't touch your face or mouth with your hands. ??? Take care of your teeth and gums every day and see your dentist regularly. Daily oral care and regular dental visits are important to keep your teeth and gums healthy. They also help control your lung disease. Cobb your teeth with fluoride toothpaste, clean your dentures, floss, and use an antimicrobial mouth rinse that contains chlorhexidine. If you arein the hospital, you likely will be taught to brush your teeth often to prevent pneumonia. Follow your healthcare team's instructions. Doing these things every day and seeing your dentist can help: o Lower the amount of bacteria in your mouth o Lower the risk for pneumonia from inhaling bacteria inyour lungs on tiny droplets of saliva. This is called aspiration. ??? Use disposable tissues instead of a handkerchief. Throw used tissues away. Wash your hands after using tissues. ??? Stay away from people who have a cold or the flu. ??? Try to stay away from crowded places, or wear a mask when in public places ??? Tell your healthcare provider if you have trouble swallowing or cough a lot after eating. They can tell you if you should change what and how you eat and drink. This can stop food and drinks from getting into your lungs and causing an infection. ?? Get vaccinated Ask your healthcare provider what vaccines you need. There are now 2 different pneumonia vaccines. Both of these are needed if you have a chronic disease or are at higher risk of pneumonia. Get a flu shot every year as soon as it's available in your area. The flu shot helps prevent you from getting the flu and complications of the flu, such as pneumonia.? Do breathing exercises Deep breathing and coughing exercises can help clear your lungs. Your healthcare provider may suggest them. If so, you will be shown how to do them. Do them as often as your provider instructs. ?? Take care of your body ??? Drink at least 6 to 8 glasses of??water a day. ??? Eat well-balanced, healthy meals. ??? Cobb and floss your teeth every day. It's also important to brush your teeth and floss at bedtime. ??? Call your dentist right away if you have problems with your teeth or gums. ??? Don't drink alcohol. ??? Don???t smoke and don't let people smoke in your home. Stay away from places where people are smoking. Ask your healthcare provider for resources to quit smoking. ??? Move around to keep your lungs clear. Ask your healthcare provider what type of activity is best for you. Walking is often a good choice. ??? Get enough rest. Sleep at least 8 hours each night. Rest or nap during the day as needed. ??? Ask your healthcare provider when you should schedule follow- up care to make sure any infection is gone. ?? Last Reviewed Date: 2021 ?? [employer]. All rights reserved. This information is not intended as a substitute for professional medical care. Always follow your healthcare professional's instructions. ?? * Florence Whittington RN: PERFORM Event Display: Patient Education Leaflets Authored Date: [id number] Zones Pneumonia ?? 438 PNEUMONIA ZONES EVERY DAY EVERY DAY: ??? Take antibiotics as prescribed every day until all pills are gone. ??? Get a pneumonia vaccine and annual flu vaccine. ??? Eat 4-6 small meals, drink 4-6 glasses of water or fluid each day. ??? Get plenty of sleep. ??Rest between activities. ??? Wash your hands often. ??? Make an appointment with your doctor within one week of your discharge. Which Zone are you today? GREEN, YELLOW, or RED? GREEN ZONE ALL CLEAR - This zone is your goal Your symptoms are under control when: ??? Normal temperature (98.6o). ??? Restful night sleep. ??? No shortness of breath. ??? No cough or cold symptoms. ??? No chest pain. ??? Healthy appetite. ??? If you smoke ??? STOP. YELLOW ZONE ?? STOP && CALL CAUTION - This zone is a warning .?? CALL your doctor if you: Doctor: Phone#: Your symptoms may mean that you need an adjustment in your medication. ??? Rash. ??? Fever of 100.5o or higher, may have shaking chills. ??? Shortness of breath. ??? Problem breathing when you are lying down. ??? Cough with greenish, yellow or bloody mucus. ??? More tired, have less energy, or confusion in the elderly. ??? Urinating less or have a fast heart rate. RED ZONE MEDICAL ALERT WHEN: You may need to be evaluated by your doctor right away.?? Call your doctor immediately if: ??? Sharp or stabbing pain in the chest, that worsens with deep breathing. ??? Shortness of breath has increased. ??? Confusion or can???t think clearly. ??? Increased restlessness or nervousness. ? Portable XR Chest Views * BHSPowerscribe , CIS S: TRANSCANIYA Britt[Radiology] , Amninder: RY Das MD, Latanya: VERIFY Event Display: Result: Authored Date: [id number] Chest Portable Reason: Shortness of Breath; Clinical Question(s): Lung Ca; Order Comment: portable COMPARISON: Multiple priors, the most recent 12/17/2022. FINDINGS: LINES AND TUBES: None. LUNGS AND PLEURA: Unchanged opacity at the right upper lung corresponding to a spiculated mass better seen on the CT chest 12/17/2022. Worsening left basilar opacity. No pleural effusion. No pneumothorax, although lung apices partially obscured by patient's chin. HEART, MEDIASTINUM AND MORRIS: Unchanged. BONES AND SOFT TISSUES: No acute abnormality. IMPRESSION: 1. Worsening left basilar opacity could represent atelectasis versus pneumonia or a combination. 2. Similar appearance of right upper lung opacity corresponding to a known spiculated right upper lobe mass. I have personally reviewed the images and I agree with this report. WSN: [id number] Ordering Physician: Gutierrez Hardin Dictated By: [facility][Radiology] Nalini DEVLIN Dictated Date/Time: 12/20/22 2:08 pm Reviewed By: Latanya Das MD Signed By: Latanya Das MD Signed Date/Time: 12/20/22 2:13 pm Transcribed By: IVANNA Transcribed Date/Time: 12/20/22 1:10 pm * [facility] , CIS S: TRANSCRIBE Tyler Lopez MD: VERIFY Event Display: Result: Authored Date: [id number] Chest Portable Hx of Present Illness: Patient brought in by EMS for shortness of breath since this afternoon, patient was given a duoneb enroute by EMS would good effect. Patient reports feeling like she is breathing better by arrival at ED. For EMS patient SPO2 was 92% on 10lpm; Reason: Shortness of Breath; Clinical Question(s): CHF COMPARISON: 12/11/2022, 11/19/2022, 11/15/2022 CTA chest from 09/07/2022 FINDINGS: LINES AND TUBES: None. LUNGS AND PLEURA: 2.3 cm right medial upper lung nodule. Mild hazy opacity in the left lung base. Normal pulmonary vascularity. No pleural effusion. No pneumothorax. HEART, MEDIASTINUM AND MORRIS: Heart is normal in size. Aorta is calcified. BONES AND SOFT TISSUES: No acute abnormality. IMPRESSION: Mild hazy airspace density in the left lung base, either due to atelectasis, scarring, or developing consolidation. Redemonstration of a 2.3 cm nodule right upper lobe. WSN: [id number] Ordering Physician: Shiela Wellington Dictated By: Tyler Lopez MD Dictated Date/Time: 12/17/22 5:27 pm Reviewed By: Tyler Lopez MD Signed By: Tyler Lopez MD Signed Date/Time: 12/17/22 5:27 pm Transcribed By: IVANNA Transcribed Date/Time: 12/17/22 5:25 pm CTA Chest vessels W contrast IV * [facility] , CIS S: TRANSCRIBE Baljit Robins MD: VERIFY Micaela Gutierrez DO P: SIGN Event Display: Result: Authored Date: [id number] EXAMINATION: CT Angio Chest INDICATION: Shortness of breath since this afternoon, patient was given a Duoneb en route by EMS would good effect. Patient reports feeling like she is breathing better by arrival at ED. For EMS patient SPO2 was 92% on 10lpm; Reason: PE suspected, Intermediate prob, positive D-dimer; Clinical [...] used to optimize exposure parameters. CTDIvol Body: 4.69 mGy, DLP Body: 322 mGy*cm. COMPARISONS: 11/15/2022. PET/CT 12/08/2022. ANGIOGRAPHIC FINDINGS: No pulmonary embolism to the subsegmental level. Normal caliber pulmonary arteries. No acute aortic abnormality seen on this study performed without cardiac gating. Moderate atherosclerotic calcification. 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 Trachea and Airways: Small amount mucus within the right main bronchus. Lungs and Pleura: Moderate upper lobe predominant centrilobular emphysema. Increased now 3.9 x 2.3 x 3.8 cm spiculated mass in the right upper lobe in the right medial upper lobe abutting the SVC, with mild mass effect on the adjacent neurovascular bundle. Subsegmental atelectasis in the lingula and right lower lobe. No effusion or pneumothorax. Mediastinum and morris: Mildly increased mediastinal lymphadenopathy, measuring up to 4.1 x 2.8 cm precarinal, 1.7 cm in short axis pericardial, and 1.8 cm right infrahilar. Moderate type III paraesophageal hernia. No thyroid nodule large enough to warrant follow up. Heart: Heart is normal in size. No pericardial effusion. Severe coronary artery calcification. Moderate aortic valvular and severe mitral annular calcification. Chest Wall Soft Tissues: Normal. Diaphragm and upper abdomen: Status post cholecystectomy. Right renal cysts. Punctate nonobstructing calcification in both kidneys. Renal vascular calcification. Unchanged nodular thickening of the right adrenal gland. Bones: Sclerotic lesion in the right T7 transverse process measures mean 1460 Hounsfield unit, consistent with a bone island. Degenerative changes of the visualized spine. No acute abnormality. IMPRESSION: No evidence of pulmonary embolism. Increased size of a 3.9 cm spiculated mass in the right upper lobe. Mildly increased metastatic mediastinal and right hilar lymphadenopathy. Unchanged moderate type III paraesophageal hernia. I have personally reviewed the images and I agree with this report. WSN: [id number] Ordering Physician: Shiela Wellington Dictated By: Micaela Gutierrez DO Dictated Date/Time: 12/17/22 8:53 pm Reviewed By: Baljit Robins MD Signed By: Baljit Robins MD Signed Date/Time: 12/17/22 8:58 pm Transcribed By: IVANNA Transcribed Date/Time: 12/17/22 8:08 pm Patient Care team information Care Team Personnel Name: Sharon Chamberlain MD Position: [facility] Outreach Member Role: PCP Address: Address: [address] [place] [address] [address] Sharon Chamberlain MD [place], [place] [address] Name: Latanya Kahn RN Position: [...] Nurse Name: Dewayne Wahl III, RN Position: [facility] RN Member Role: Primary Care Nurse Name: Nirmala Oconnor RN Position: [facility] RN Member Role: Primary Care Nurse Name: Marlin Pearce RN Position: [facility] RN Member Role: Primary Care Nurse Name: Agapito Montanez RN Position: [facility] RN Member Role: Primary Care Nurse Name: Danyelle Dos Santos RN Position: [facility] RN Member Role: Primary Care Nurse Name: Lo Rodriguez RN Position: [facility] RN Member Role: Primary Care Nurse Name: Rosa Maria Artis RN Position: [facility] Onco RN Member Role: Primary Care Nurse Name: Vanesa Lim RN Position: [facility] RN Member Role: Primary Care Nurse Name: Brittney Vallejo RN Position: [facility] RN Member Role: Primary Care Nurse Name: Kat Donovan RN Position: [facility] RN Member Role: Primary Care Nurse Name: Mya Middleton RN Position: [facility] RN Member Role: Primary Care Nurse Name: Jose RamonTerrell Langley Attending Position: [facility] ED Medicine MD Name: Rika Sullivan RN Position: [facility] ED RN W/OE and Tasks Member Role: Patient Care Provider Name: Ann Stevens Position: [facility] ED TA [facility] Member Role: Patient Care Provider Care Team Related Persons Name: CALEB STOUT Address: [address] [address]
--- OUTSIDE RECORDS SUMMARY | 2023-05-17 08:54 | XMS_ITS | Continuity of Care Document ---
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 [employer] Medications albuterol 0.083% inhalation solution 3 mL = 2.5 mg, Neb, Every 6 hours, PRN Wheezing/Shortness of Breath, 0 Refills, Maintenance, 08/16/20 18:28:00 EDT, Solution [...] at bedtime Start Date: 08/16/20 Status: Ordered Atropine 1% Ophth ointment 2 drops, Eyes, Both, Daily at bedtime, 0 Refills, Maintenance, 05/08/23 18:18:00 EDT, Partial fill upon patient request if the prescription is for a schedule II opioid drug. Start Date: 05/08/23 Status: Ordered clopidogrel 75 mg oral tablet 75 mg, 1, tablet, By Mouth, Daily, # 30 tablet, Refills 0, Tot. Refills 0, Maintenance, 05/26/22 14:42:00 EDT, Route to Pharmacy Electronically, [facility], Partial fill upon patient request if the prescription is for a schedule II opioi... Start Date: 05/26/22 Status: Ordered dexamethasone 4 mg oral tablet 1 tablet = 4 mg, By Mouth, Daily, 0 Refills, Maintenance, 05/08/23 18:20:00 EDT, Partial fill upon patient request if the prescription is for a schedule II opioid drug. Start Date: 05/08/23 Status: Ordered Doculase 100 mg oral capsule 1 capsule = 100 mg, By Mouth, 2 times a day, PRN as needed for constipation, 0 Refills, Maintenance, 05/23/22 12:07:00 EDT, Partial fill upon patient request if the prescription is for a schedule II opioid drug. Start Date: 05/23/22 Status: Ordered Dulcolax 10 mg rectal suppository 1 supp = 10 mg, Rectally, Daily, PRN as needed for constipation, 0 Refills, Maintenance, 05/08/23 18:19:00 EDT, Partial fill upon patient request if the prescription is for a schedule II opioid drug. Start Date: 05/08/23 Status: Ordered famotidine 20 mg oral tablet 20 mg, 1, tablet, By Mouth, 2 times a day, Refills 0, Maintenance, 03/24/23 14:12:00 EDT, Partial fill upon patient request if the prescription is for a schedule II opioid drug. Start Date: 03/24/23 Status: Ordered Fleet Enema 19 gm-7 gm rectal enema 118 mL, Rectally, Once, PRN as needed for constipation, 0 Refills, Maintenance, 05/08/23 18:21:00 EDT, Partial fill upon patient request if the prescription is for a schedule II opioid drug. Start Date: 05/08/23 Status: Ordered Keppra 100 mg/mL oral solution 15 mL = 1,500 mg, By Mouth, 2 times a day, 0 Refills, Maintenance, 05/08/23 18:24:00 EDT, Partial fill upon patient request if the prescription is for a schedule II opioid drug. Start Date: 05/08/23 Status: Ordered Lasix 20 mg oral tablet 20 mg, 1, tablet, By Mouth, Every other day, # 30 tablet, Refills 0, Tot. Refills 0, Maintenance, 05/09/23 16:36:00 EDT, Do Not Route, Partial fill upon patient request if the prescription is for a schedule II opioid drug. Start Date: 05/09/23 Status: Ordered loperamide 2 mg oral capsule 2 mg, 1, capsule, By Mouth, Daily, PRN, Refills 0, Maintenance, as needed for loose stool, 05/23/2212:09:00 EDT, Partial fill upon patient request if the prescription is for a schedule II opioid drug. Start Date: 05/23/22 Status: Ordered meclizine 25 mg oral tablet 1 tablet = 25 mg, By Mouth, 3 times a day, PRN as needed for dizziness, 0 Refills, Maintenance, 05/08/23 18:25:00 EDT, Partial fill upon patient request if the prescription is for a schedule II opioid drug. Start Date: 05/08/23 Status: Ordered Milk of Magnesia Liquid 30 mL, By Mouth, Daily, PRN as needed for constipation, 0 Refills, Maintenance, 05/08/23 18:25:00 EDT, Partial fill upon patient request if the prescription is for a schedule II opioid drug. Start Date: 05/08/23 Status: Ordered MiraLax oral powder for reconstitution = 17 Gm, By Mouth, Daily, PRN Constipation, 0 Refills, Maintenance, 05/23/22 12:15:00 EDT, Partial fill upon patient request if the prescription is for a schedule II opioid drug. Start Date: 05/23/22 Status: Ordered mirtazapine 7.5 mg oral tablet 2 tablet = 15 mg, By Mouth, Daily at bedtime, 0 Refills, Maintenance, 05/23/22 12:09:00 EDT, Partial fill upon patient request if the prescription is for a schedule II opioid drug. Start Date: 05/23/22 Status: Ordered Narcan 4 mg/0.1 mL nasal spray = 4 mg, Nares, Both, Once, PRN Sedation/Unresponsive, 0 Refills, Maintenance, 05/08/23 18:26:00 EDT, Partial fill upon patient request if the prescription is for a schedule II opioid drug. Start Date: 05/08/23 Status: Ordered nitroglycerin 0.4 mg sublingual tablet 1 tablet = 0.4 mg, Sublingual, Every 5 minutes, PRN Chest Pain, # 100 tablet, 0 Refills, Maintenance, 05/26/22 14:43:00 EDT, Tablet, [facility], Partial fill upon patient request if theprescription is for a schedule II opioid drug., 163... Start Date: 05/26/22 Status: Ordered nystatin 403746 u/ml oral suspension 5 mL = 500,000 units, Swish and Swallow, 4 times a day, 0 Refills, Maintenance, 05/08/23 18:27:00 EDT, Partial fill upon patient request if the prescription is for a schedule II opioid drug. Start Date: 05/08/23 Stop Date: 06/07/23 Status: Ordered ondansetron 4 mg oral tablet 1 tablet = 4 mg, By Mouth, Every 6 hours, PRN Nausea, 0 Refills, Maintenance, 05/08/23 18:28:00 EDT, Partial fill upon patient request if the prescription is for a schedule II opioid drug. Start Date: 05/08/23 Status: Ordered pramipexole 1 mg oral tablet [...] 650 mg, 2, tablet, By Mouth, Every 4 hours, PRN, Refills 0, Maintenance, Mild Pain/Fever, 11/29/21 13:14:00 EST, Partial fill upon patient request if the prescription is for a schedule II opioid drug. Start Date: 11/29/21 Status: Ordered Tylenol Supp 650 mg, Rectally, Every 4 hours, PRN, Refills 0, Maintenance, Mild Pain/Fever, 05/08/23 18:29:00 EDT, Partial fill upon patient request if the prescription is for a schedule II opioid drug. Start Date: 05/08/23 Status: Ordered Ventolin HFA 108 mcg/inh inhalation [...] Confirmed Active 1Problem added by Discern Expert Vital Signs Most recent to oldest [Reference Range]: 1 2 3 Height 148 cm (05/09/23 2:36 AM) 148 cm (05/09/23 12:02 AM) 148 cm (05/08/23 7:41 PM) Weight 42 kg (05/08/23 2:37 PM) Oxygen Saturation [94-100 %] 99 % (05/09/23 6:07 PM) 100 % (05/09/23 4:14 PM) 100 % (05/09/23 11:13 AM) Pulse Rate [55-90 bpm] 80 bpm (05/09/23 6:07 PM) 82 bpm (05/09/23 4:14 PM) 90 bpm (05/09/23 11:13 AM) Blood Pressure [90-138/55-84 mm Hg] 103/56mm Hg (05/09/23 6:07 PM) 108/68mm Hg (05/09/23 4:14 PM) 116/67mm Hg (05/09/23 11:13 AM) Respiratory Rate [16-30 br/min] 22 br/min (05/09/23 6:07 PM) 22 br/min (05/09/23 4:14 PM) 24 br/min (05/09/23 11:13 AM) Temperature [96.8-100.4 DegF] 98 DegF (05/09/23 11:13 AM) 98.4 DegF (05/09/23 8:35 AM) 99.1 DegF (05/08/23 7:41 PM) Liters per Minute 3 L/min (05/09/23 6:07 PM) 3 L/min (05/09/23 4:14 PM) 3 L/min (05/09/23 11:13 AM) Mode of Delivery (Oxygen) Nasal cannula (05/09/23 6:07 PM) Nasal cannula (05/09/23 4:14 PM) Nasal cannula (05/09/23 11:13 AM) Blood pressure sites Arm, left (05/09/23 6:07 PM) Arm, left (05/09/23 4:14 PM) Arm, left (05/09/23 11:13 AM) Temperature Route Oral (05/09/23 11:13 AM) Oral (05/09/23 8:35 AM) Oral (05/08/23 7:41 PM) Dry Weight 42 kg (05/08/23 2:37 PM) Social History Social History Type Response Tobacco Other: quit smoking in 2019, started smoking age 11, 2 or 3 packs per day. Sex Female Admission evaluation note * Chole DEVLIN, Gaby: PERFORM Event Display: Admission Note Authored Date: Patient: ??BEATRICE STOUT ? Age:??78 Years?Sex:??Female?:??1945?? Chief Complaint Hypokalemia History of Present Illness Patient is a 78-year-old female with history of metastatic lung cancer with mets to the brain liver,??recurrent partial seizure,??COPD??with chronic hypoxemia??on supplemental oxygen,??history of heart failure??with unknown EF??sent from her facility [facility]??for abnormal??labs??and poor oral intake.?? Patient was discharged from??[facility]??on 03/24/2023??for acute??encephalopathy on steroid taper and appears to be taking??40 mg of??Decadron??per MAR summary(patient was recommended to taper), she was seen by palliative care at that time and did not want to??enroll in hospice.?? Patient is unable to provide any meaningful information but??tells me that she is at [facility]. ??She reports feeling tired and??no shortness of breath or chest pain.?? Patient was afebrile on arrival and??saturating 98% on 2 L. ?? Laboratory work-up revealed normal white cell count, hemoglobin of 10.7??and platelet counts of 2 50,000. ??BMP revealed low potassium of 2.7 with??magnesium of 1.7, normal renal function,??slightly??high bicarb of 20 and low chloride of??95. ??Sodium is within normal limits. ??Renal function was??within normal limits. ??She was admitted??with potassium??supplementation both orally and IV. Review of Systems Unable to review??due to lack of patient cooperation Physical Exam Vitals & Measurements T:??99.1?F?? TMIN:??98.1?F?? TMAX:??99.1?F?? HR:??88??(Peripheral)?? RR:??24?? BP:??99/61?? SpO2:??100%?? WT:??42??kg?? Constitutional:??Thin built??cachectic appearing female who appears tired??and chronically ill Mental Status: Oriented to person??and place??but not to time Head: Normocephalic. Eyes: Pupils are equal, round and reactive to light. Extraocular muscles intact. Ear, Nose and Throat: Edentulous, moist oral mucosa,??nasal cannula??in place. Neck: Supple, Full range of motion. Respiratory: Occasional rhonchi,??prolonged expiratory phase without wheezing Cardiovascular: S1 S2 regular. No murmurs, rubs or gallops. Gastrointestinal: Abdomen is soft and nontender, nondistended and normal bowel sounds Genitourinary: No costovertebral angle tenderness. Neurologic: Unable to assess, speech is clear,??moving all 4 extremities.?? No facial droop noted Skin: No new rashes Musculoskeletal:??Evidence of muscle wasting in the lower extremities, no gross deformities noted. Psychiatric: Cooperative and subdued affect Assessment/Plan Assessment:??78-year-old female with history of metastatic lung cancer with mets to brain and liver, history of??recurrent partial seizure,??COPD on home O2, history of heart failure with unknown EF??sent from her??facility??with abnormally low??potassium levels and??poor oral intake.??She was admitted for management of hypokalemia. ?? Hypokalemia (E87.6):??Replace and replete potassium, supplemented 40 mEq??orally and also received??40 mEq IV and IV fluid,??recheck labs in the morning. ?? Failure to thrive in adult (R62.7):??Secondary to malignancy, she is on Remeron,??appears to be worsening??and??will need reassessment for hospice, she??declined to enroll in hospice on last discharge ?? COPD with respiratory failure, acute (J44.9):??On 2 L supplemental oxygen continue??Brovana, Spiriva and as needed albuterol ?? Essential hypertension (I10):??She is normotensive, unable to take orally per nursing staff ?? Metastatic cancer (C79.9):??Metastatic??disease of primary lung cancer with mets to brain and liver,??patient has less than 6 months to live??therefore natural course of disease were to progress.??Reconsult palliative care in the morning for??evaluation for hospice ?? Seizure disorder (G40.909):??Per nursing is unable to take oral medications,??will switch her Keppra to IV ?? VTE Prophylaxis:??Heparin, if she??chooses comfort care measures, discontinue??pharmacological prophylaxis ?VTE Prophylaxis Assessment:??VTE Prophylaxis Ordered ?? Code Status:??DNR/DNI ?Order Code Status:??Code Status Ordered ?? Ongoing Medical Necessity:??Hypokalemia, failure to thrive ?? Discharge Planning:??Patient continues to feel??the trial of??with advanced??lung cancer??with brain mets and liver mets,??palliative care consult in the morning for??reevaluation for hospice. ? Primary Contact: ?CALEB STOUT?Relation to Pt: Child?Cell ? I reached out to patient's??son??Caleb Argelia, who is her healthcare proxy as well, patient??was offered hospice services at home in the past??but??patient??on??who is a??caregiver??and her roommate??at home??was not comfortable giving her??medications??if she??had??increased work of breathing or seizure.?? Caleb understands that??his mother is??having a terminal condition that his??not treatable is agreeable??to comfort care measures if??patient's condition were to worsen. Total Time Spent I personally spent a total of??75 minutes, including both [id number] and [id number]-face time onthe date of the encounter, addressing the above diagnoses. Activities performed in this time include chart review, obtaining / reviewing history, performing amedically necessary evaluation, documentation and Ording of Medications including medical decision making of High Complexity (60-74 minutes for NEW patient) Problem List/Past Medical History Ongoing Acute kidney injury Aspiration pneumonia Buerger disease COPD with respiratory failure, acute COVID-19 Essential hypertension Glaucoma Hyperlipidemia Macular degeneration MSSA bacteremia Right low back pain Procedure/Surgical History ???Amputation of finger tip???Cataract extraction??? section???Cholecystectomy Medications Inpatient Acetaminophen Tablet, 650 mg, By Mouth, Every 4 hours, PRN aspirin 81 mg oral tablet, chewable, 81 mg, By Mouth, Daily atorvastatin 80 mg oral tablet, 80 mg, By Mouth, Daily at bedtime Atropine 1% Ophth, 1 drops, Eyes, Both, Daily at bedtime Brovana 15mcg/2mL Inhalation Solution, 15 mcg= 2 mL, BAND Nebulizer, 2 times a day clopidogrel 75 mg oral tablet, 75 mg, By Mouth, Daily dexamethasone 4 mg oral tablet, 4 mg, By Mouth, Daily Docusate/Senna Tablet, 1 tablet, By Mouth, 2 times a day, PRN Dulcolax Tablet, 10 mg, By Mouth, Daily, PRN famotidine 20 mg oral tablet, 20 mg, By Mouth, Daily Heparin Inj, 5000 units= 1 mL, Subcutaneous Injection, 2 times a day Keppra Inj, 1500 mg, IV Push Slowly, Every 12 hours meclizine 12.5 mg oral tablet, 25 mg, By Mouth, 3 times a day, PRN Melatonin Tablet, 3 mg, By Mouth, Daily at bedtime, PRN MiraLax Powder, 17 Gm= 1 pack/packet, By Mouth, Daily, PRN mirtazapine 15 mg oral tablet, 15 mg, By Mouth, Daily at bedtime NaCL 0.9% 1000mL w/KCL 40mEq 1,000 mL, 1000 mL, IV Infusion NaCL 0.9% Flush, 3 mL, IV Push, Every 8 hours NaCL 0.9% Flush, 3 mL, IV Push, Every 8 hours, PRN nitroglycerin 0.4 mg sublingual tablet, 0.4 mg, Sublingual, Every 5 minutes, PRN Nystatin 100,000 Units/mL Liquid, 015994 units= 5 mL, Swish and Swallow, 4 times a day Ondansetron Inj, 4 mg, IV Push, Every 6 hours, PRN pramipexole 0.5 mg oral tablet, 1 mg, By Mouth, Daily at bedtime Robitussin DM Liquid, 10 mL, By Mouth, Every 4 hours, PRN Simethicone Tablet, 80 mg, Chew, 3 times a day, PRN Spiriva Respimat Inhaler, 2 puffs, Inhalation, Daily Ventolin 0.083% inhalation pavel, 2.5 mg= 3 mL, BAND Nebulizer, Every 4 hours, PRN Zoloft 50 mg oral tablet, 50 mg, By Mouth, Daily Home albuterol 0.083% inhalation solution, 2.5 mg= 3 mL, Neb, Every 6 hours, PRN Anoro Ellipta 62.5 mcg-25 mcg/inh inhalation powder, 1 puffs, Inhalation, Daily Aspirin Enteric Coated 81 mg oral delayed release tablet, 81 mg= 1 tablet, By Mouth, Daily atorvastatin 80 mg oral tablet, 80 mg= 1 tablet, By Mouth, Daily at bedtime Atropine 1% Ophth ointment, 2 drops, Eyes, Both, Daily at bedtime clopidogrel 75 mg oral tablet, 75 mg= 1 tablet, By Mouth, Daily dexamethasone 4 mg oral tablet, 4 mg= 1 tablet, By Mouth, Daily Doculase 100 mg oral capsule, 100 mg= 1 capsule, By Mouth, 2 times a day, PRN Dulcolax 10 mg rectal suppository, 10 mg= 1 supp, Rectally, Daily, PRN famotidine 20 mg oral tablet, 20 mg= 1 tablet, By Mouth, 2 times a day Fleet Enema 19 gm-7 gm rectal enema, 118 mL, Rectally, Once, PRN Keppra 100 mg/mL oral solution, 1500 mg= 15 mL, By Mouth, 2 times a day Lasix 40 mg oral tablet, 40 mg= 1 tablet, By Mouth, Daily loperamide 2 mg oral capsule, 2 mg= 1 capsule, By Mouth, Daily, PRN meclizine 25 mg oral tablet, 25 mg= 1 tablet, By Mouth, 3 times a day, PRN Milk of Magnesia Liquid, 30 mL, By Mouth, Daily, PRN MiraLax oral powder for reconstitution, 17 Gm, By Mouth, Daily, PRN mirtazapine 7.5 mg oral tablet, 15 mg= 2 tablet, By Mouth, Daily at bedtime Narcan 4 mg/0.1 mL nasal spray, 4 mg, Nares, Both, Once, PRN nitroglycerin 0.4 mg sublingual tablet, 0.4 mg= 1 tablet, Sublingual, Every 5 minutes, PRN nystatin 114901 u/ml oral suspension, [id number] units= 5 mL, Swish and Swallow, 4 times a day ondansetron 4 mg oral tablet, 4 mg= 1 tablet, By Mouth, Every 6 hours, PRN pramipexole 1 mg oral tablet, 1 mg= 1 tablet, By Mouth, Daily at bedtime Robitussin DM Liquid, 10 mL, By Mouth, Every 4 hours, PRN Tylenol 325 mg oral tablet, 650 mg= 2 tablet, By Mouth, Every 4 hours, PRN Tylenol Supp, 650 mg, Rectally, Every 4 hours, PRN Ventolin HFA 108 mcg/inh inhalation aerosol with adapter, 2 puffs, Inhalation, 4 times a day, PRN Zoloft 50 mg oral tablet, 50 mg= 1 tablet, By Mouth, Daily Allergies codeine??(Passed out) Social History Alcohol Use: Current. Frequency: Daily. Type: Beer. Other: 2-3 15 oz cans of beer per day. Home/Environment Living situation: Home with assistance. Lives with: Sister. Other: Son and his family live upstairs. She ambulates with a walker.. Substance Abuse Use: Never. Tobacco Other: quit smoking in 2019, started smoking age 11, 2 or 3 packs per day. Family History Skin cancer: Father. Immunizations Vaccine Date Status influenza virus vaccine, inactivated - Not Given Comments : Contraindicated - Do not give held per md recent diagnosis of covid stated pt ok to get as out pt SARS-CoV-2 (COVID-19) mRNA-1273 vaccine 03/20/2022 Recorded zoster vaccine, inactivated 07/05/2021 Recorded tetanus/diphtheria/pertussis, acel(Tdap) 07/05/2021 Recorded SARS-CoV-2 (COVID-19) mRNA-1273 vaccine 06/25/2021 Recorded SARS-CoV-2 (COVID-19) mRNA-1273 vaccine 04/24/2021 Recorded SARS-CoV-2 (COVID-19) mRNA-1273 vaccine 03/26/2021 Recorded influenza virus vaccine, inactivated 08/23/2020 Given pneumococcal 13-valent vaccine 08/22/2020 Given Comments : Manufactured by [employer] Lab Results CBC, CBC w/Diff?? CBC?? Differential?? WBC: 8 k/mm3 (15:30) Abs. Neut: 5.5 k/mm3 (15:30) RBC:??3.72 m/mm3??Low (15:30) Abs. Lymph: 1.6 k/mm3 (15:30) Hct:??33.8 %??Low (15:30) Abs. Bourbon: 0.7 k/mm3 (15:30) RDW-SD:??59.9 femtoliters??High (15:30) Abs. Eo: 0.2 k/mm3 (15:30) Nucleated RBC (Automated): 0 #/100 WBC'S (15:30) Abs. Baso: 0 k/mm3 (15:30) Abs. NRBC: 0 k/mm3 (15:30) Neut %: 68.5 % (15:30) ?? Lymph %: 20.2 % (15:30) ?? Bourbon %: 8.1 % (15:30) ?? Eos %: 2.2 % (15:30) ?? Baso %: 0.5 % (15:30) ?? Imm Gran: 0.5 % (15:30) ?? Abs. Imm Gran: 0 k/mm3 (15:30) BMP, Mg, and Phos Anion Gap: 16 (15:30) Bicarbonate Level:??30 mmol/L??High (15:30) BUN: 20 mg/dL (15:30) Calcium: 9.2 mg/dL (15:30) Chloride:??95 mmol/L??Low (15:30) Creatinine-Blood: 0.8 mg/dL (15:30) Estimated GFR Creatinine: 78 ML/MIN/1.73 M2 (15:30) Glucose Level:??105 mg/dL??High (15:30) Magnesium: 1.7 mg/dL (15:30) Potassium:??2.7 mmol/L??Critical (15:30) Sodium: 141 mmol/L (15:30) Diagnostic Results (03/23/2023 12:37 EDT Chest Portable) ?? IMPRESSION: ?? 1. ??Mildly coarsened bilateral lung markings which could represent a combination of chronic lung disease, atelectasis, pulmonary edema, infection, and/or inflammation. 2. ??A small left pleural effusion is not excluded. 3. ??Similar appearance of ill-defined patchy opacity in the right upper paramediastinal region consistent with known right upper lobe paramediastinal mass. [1] ?? (03/21/2023 03:[address] Abd/Pelvis W/ IV Contrast Only) IMPRESSION: ?? Increased right upper lobe lung mass and new liver and left adrenal metastatic lesions. [2] ?? (03/21/2023 03:[address] Chest W/ Contrast) IMPRESSION: ?? Increased right upper lobe lung mass and new liver and left adrenal metastatic lesions. ?? [3] ?? (03/21/2023 03:[address] Head/Brain W/O Contrast) ?? IMPRESSION: ?? Redemonstrated mass in the superior frontoparietal junction, increased in size and surrounding vasogenic edema when compared to 02/22/2023 ?? No acute intracranial hemorrhage. [4] [1]??Chest Portable; Latanya Das MD 03/23/2023 12:37 EDT [2]??CT Abd/Pelvis W/ IV Contrast Only; Henry Syed MD 03/21/2023 03:27 EDT [3]??CT Chest W/ Contrast; Henry Syed MD 03/21/2023 03:27 EDT [4]??CT Head/Brain W/O Contrast; Juan Alcala MD 03/21/2023 03:27 EDT Note * Janene DEVLIN, Mg: PERFORM Event Display: Discharge/Transfer Note Hospital Authored Date: [id number] Patient: ??ARGELIA, BEATRICE ? Age:??78 Years?Sex:??Female?:??1945?? Patient Information Discharge Location: [facility] Primary Care Physician: Sharon Chamberlain MD Admit Date/Time: 05/08/23 17:13 Discharge Disposition Discharge Disposition: [facility] Facility/Rehab Discharge Diagnosis Hypokalemia (E87.6) Failure to thrive in adult (R62.7) COPD with respiratory failure, acute (J44.9) Essential hypertension (I10) Metastatic cancer (C79.9) Seizure disorder (G40.909) Acute kidney injury COPD with respiratory failure, acute Essential hypertension Glaucoma Hyperlipidemia Macular degeneration ?? _ Discharge Medications Acetaminophen (Tylenol 325 mg oral tablet)?650?Milligram?2?tablet?By Mouth?Every 4 hours?as needed?Mild Pain/Fever Acetaminophen (Tylenol Supp)?650?Milligram?Rectally?Every 4 hours?as needed?Mild Pain/Fever Albuterol (albuterol 0.083% inhalation solution)?3?Milliliter?2.5?Milligram?Neb?Every 6 hours?as needed?Wheezing/Shortness of Breath Albuterol (Ventolin HFA 108 mcg/inh inhalation aerosol with adapter)?2?puff(s)?Inhalation?4 times a day?as needed?Wheezing/Shortness of Breath Aspirin (Aspirin Enteric Coated 81 mg oral delayed release tablet)?1?tab(s)?81?Milligram?By Mouth?Daily Atorvastatin (atorvastatin 80 mg oral tablet)?1?tab(s)?80?Milligram?By Mouth?Daily at bedtime Atropine Ophthalmic (Atropine 1% Ophth ointment)?2?Drops?Eyes, Both?Daily at bedtime Bisacodyl (Dulcolax 10 mg rectal suppository)?1?suppository(ies)?10?Milligram?Rectall y?Daily?as needed?as needed for constipation Clopidogrel (clopidogrel 75 mg oral tablet)?75?Milligram?1?tablet?By Mouth?Daily Dexamethasone (dexamethasone 4 mg oral tablet)?1?tab(s)?4?Milligram?By Mouth?Daily Docusate (Doculase 100 mg oral capsule)?1?capsule?100?Milligram?By Mouth?2 times a day?as needed?as needed for constipation Famotidine (famotidine 20 mg oral tablet)?20?Milligram?1?tablet?By Mouth?2 times a day Furosemide (Lasix 20 mg oral tablet)?20?Milligram?1?tablet?By Mouth?Every other day Guaifenesin/Dextromethorphan (Robitussin DM Liquid)?10?Milliliter?By Mouth?Every 4 hours?as needed?Cough levETIRAcetam (Keppra 100 mg/mL oral solution)?15?Milliliter?1,500?Milligram?By Mouth?2 times a day Loperamide (loperamide 2 mg oral capsule)?2?Milligram?1?capsule?By Mouth?Daily?as needed?as needed for loose stool Meclizine (meclizine 25 mg oral tablet)?1?tab(s)?25?Milligram?By Mouth?3 times a day?as needed?as needed for dizziness Milk of Magnesia (Milk of Magnesia Liquid)?30?Milliliter?By Mouth?Daily?as needed?as needed for constipation Mirtazapine (mirtazapine 7.5 mg oral tablet)?2?tab(s)?15?Milligram?By Mouth?Dailyat bedtime nalOXONE (Narcan 4 mg/0.1 mL nasal spray)?4?Milligram?Nares, Both?Once?as needed?Sedation/Unresponsive Nitroglycerin (nitroglycerin 0.4 mg sublingual tablet)?1?tab(s)?0.4?Milligram?Sublingual?Every 5 minutes?as needed?Chest Pain Nystatin (nystatin 726405 u/ml oral suspension)?5?Milliliter?500,000?unit(s)?Swish and Swallow?4 times a day?for 30?Days Ondansetron (ondansetron 4 mg oral tablet)?1?tab(s)?4?Milligram?By Mouth?Every 6 hours?as needed?Nausea Polyethylene Glycol 3350 (MiraLax oral powder for reconstitution)?17?gram?By Mouth?Daily?as needed?Constipation Pramipexole (pramipexole 1 mg oral tablet)?1?tab(s)?1?Milligram?By Mouth?Daily atbedtime Sertraline (Zoloft 50 mg oral tablet)?1?tab(s)?50?Milligram?By Mouth?Daily Sodium Biphosphate-Sodium Phosphate (Fleet Enema 19 gm-7 gm rectal enema)?118?Milliliter?Rectally?Once?as needed?as needed for constipation umeclidinium-vilanterol (Anoro Ellipta 62.5 mcg-25 mcg/inh inhalation powder)?1?puff(s)?Inhalation?Daily ? Allergies Allergies ?(Active and Proposed Allergies Only) codeine? (Severity: Unknown severity, Onset: Unknown) ?Reactions: Passed out ? Hospital Course 78-year-old female with history of metastatic lung cancer with mets to brain and liver, history of??recurrent partial seizure,??COPD on home O2, history of heart failure with unknown EF??sent from her??facility??with abnormally low??potassium levels and??poor oral intake.??She was admitted for management of hypokalemia. ??Patient is managed with IV hydration??and electrolyte supplementation.?? She tolerated diet with assistance.?? Goals of care discussion done with patient and healthcare proxy??Caleb. Caleb understands that??his mother is??having a terminal condition that his??not treatable is agreeable??to comfort care measures if??patient's condition were to worsen; he is not ready yet and will f/u with rehab if she starts to get worse.?She denies any acute complaints and feels readyto be discharged. ?? Assessment and plan while in the hospital ?? Hypokalemia (E87.6):?? Likely in the setting of poor oral intake. s/p IV hydration?? Electrolytes supplemented. Stop lasix 40mg PO daily. Change to lasix 20mg every other day. Patient tolerating diet with assistance. Repeat electrolytes stable. ?? Failure to thrive in adult (R62.7):?? Secondary to malignancy, she is on Remeron,?? appears to be worsening??and??will need reassessment for hospice she??declined to enroll in hospice reached out to patient's??son??Caleb Stout, who is her healthcare proxy as well, Caleb understands that??his mother is??having a terminal condition that his??not treatable is agreeable??to comfort care measures if??patient's condition were to worsen; he is not ready yet and will f/u with rehab if she starts to get worse. ?? COPD with respiratory failure, acute (J44.9):??On 2 L supplemental oxygen continue??Brovana, Spiriva and as needed albuterol. Stop lasix 40mg PO daily. Change lasix to 20mg every other day. ?? Essential hypertension (I10):??She is normotensive, unable to take orally per nursing staff ?? Metastatic cancer (C79.9):??Metastatic??disease of primary lung cancer with mets to brain and liver,??patient has less than 6 months to live??therefore natural course of disease were to progress.??Continue goals of care discussion. ?? Seizure disorder (G40.909):??resume home??meds Objective Vital Signs?? Temperature: 98 DegF (05/09/23 11:13:00) Temperature Route: Oral (05/09/23 11:13:00) Pulse Rate: 82 bpm (05/09/23 16:14:00) Respiratory Rate: 22 br/min (05/09/23 16:14:00) Systolic Blood Pressure: 108 mm Hg (05/09/23 16:14:00) Diastolic Blood Pressure: 68 mm Hg (05/09/23 16:14:00) Blood pressure sites: Arm, left (05/09/23 16:14:00) Mean Arterial Pressure: 70 mm Hg (05/09/23 02:36:00) Pulse Pressure: 40 mm Hg (05/09/23 16:14:00) Oxygen Saturation: 100 % (05/09/23 16:14:00) Liters per Minute: 3 L/min (05/09/23 16:14:00) Mode of Delivery (Oxygen): Nasal cannula (05/09/23 16:14:00) Early Warning Score: 2 (05/09/23 16:14:43) ? . Physical Exam Constitutional:??Thin built??cachectic appearing female who appears tired??and chronically ill Mental Status: Oriented to person??and place??but not to time Respiratory: Occasional rhonchi,??prolonged expiratory phase without wheezing Cardiovascular: S1 S2 regular. No murmurs, rubs or gallops. Gastrointestinal: Abdomen is soft and nontender, nondistended and normal bowel sounds Genitourinary: No costovertebral angle tenderness. Neurologic: Unable to assess, speech is clear,??moving all 4 extremities.?? No facial droop noted Pending Results No Pending Results Patient Education Titles Discharge Instructions for Hypokalemia?? Follow-Up Appointments Added Follow Up ?Time Frame ?Comments Bulmaro DEVLIN, Sharon Langley?1 week: call to discuss follow up visit Post Discharge Care Diet: Dental Soft Diet Code Status: ?? No Resuscitation Home Health Face to Face ^HomeHealthFTF Results Discharge Labs BLOOD COUNT & DIFF WBC 8.0 k/mm3 ()?? 05/08/2023 15:30 RBC 3.72 m/mm3 (Low)?? 05/08/2023 15:30 Hgb 10.7 Gm/dL (Low)?? 05/08/2023 15:30 Hct 33.8 % (Low)?? 05/08/2023 15:30 MCV 90.9 femtoliters ()?? 05/08/2023 15:30 MCH 28.8 pg ()?? 05/08/2023 15:30 MCHC 31.7 g/dL (Low)?? 05/08/2023 15:30 Platelet Count 250 k/mm3 ()?? 05/08/2023 15:30 RDW-SD 59.9 femtoliters (High)?? 05/08/2023 15:30 MPV 9.2 femtoliters (Low)?? 05/08/2023 15:30 Nucleated RBC (Automated) 0.0 #/100 WBC'S ()?? 05/08/2023 15:30 Abs. NRBC 0.0 k/mm3 ()?? 05/08/2023 15:30 Abs. Neut 5.5 k/mm3 ()?? 05/08/2023 15:30 Abs. Lymph 1.6 k/mm3 ()?? 05/08/2023 15:30 Abs. Bourbon 0.7 k/mm3 ()?? 05/08/2023 15:30 Abs. Eo 0.2 k/mm3 ()?? 05/08/2023 15:30 Abs. Baso 0.0 k/mm3 ()?? 05/08/2023 15:30 Neut % 68.5 % ()?? 05/08/2023 15:30 Lymph % 20.2 % ()?? 05/08/2023 15:30 Bourbon % 8.1 % ()?? 05/08/2023 15:30 Eos % 2.2 % ()?? 05/08/2023 15:30 Baso % 0.5 % ()?? 05/08/2023 15:30 Imm Gran 0.5 % ()?? 05/08/2023 15:30 Abs. Imm Gran 0.0 k/mm3 ()?? 05/08/2023 15:30 ?? CHEM GENERAL Sodium 145 mmol/L ()?? 05/09/2023 12:33 Potassium 5.0 mmol/L ()?? 05/09/2023 12:33 Chloride 106 mmol/L ()?? 05/09/2023 12:33 Bicarbonate Level 25 mmol/L ()?? 05/09/2023 12:33 Anion Gap 14 ()?? 05/09/2023 12:33 Glucose Level 105 mg/dL (High)?? 05/08/2023 15:30 BUN 20 mg/dL ()?? 05/08/2023 15:30 Creatinine-Blood 0.8 mg/dL ()?? 05/08/2023 15:30 Estimated GFR Creatinine 78 ML/MIN/1.73 M2 ()?? 05/08/2023 15:30 Calcium 9.2 mg/dL ()?? 05/08/2023 15:30 Phosphorus 2.6 mg/dL ()?? 05/09/2023 12:33 Magnesium 2.5 mg/dL (High)?? 05/09/2023 12:33 ?? URINE OTHER Est Creatinine Clearance 36.76 mL/min ()?? 05/08/2023 16:36 ? VIROLOGY COVID-19 by RT-PCR NEGATIVE ()?? 05/08/2023 18:00 ? 35??minutes spent on discharge * Mg Watters MD: PERFORM Event Display: Patient Education Leaflets Authored Date: [id number] Discharge Instructions for Hypokalemia ?? 71549 Discharge Instructions for Hypokalemia You have been diagnosed with hypokalemia. This means you have a low level of potassium in your blood. Potassium helps??your nerve and muscle cells work as they should. These cells include the cells??in your heart. A low level of potassium in the blood can cause serious problems, such as abnormal heart rhythms and even a heart attack. Diet changes Eat more potassium-rich foods such as: ??? Bananas ??? Oranges and orange juice ??? Tomatoes, tomato sauce, and tomato juice ??? Leafy green vegetables, such as spinach, kale, salad greens, collards,and chard ??? Melons (all kinds) ??? Pomegranates ??? Peas ??? Beans ??? Potatoes ??? Sweet potatoes ??? Avocados, including guacamole ??? Vegetable juices, such as V8 ??? Fruit juices ??? All nuts and seeds ??? Fish, including tuna, halibut, salmon, cod, snapper, rio, swordfish, and perch ??? Milk, including fat-free, low-fat, whole, chocolate, and buttermilk ??? Soy milk ?? Other home care ??? Take a potassium supplement as directed by your healthcare provider. ??? After heavy exercise or any activity that causes you to sweat a lot, grab a beverage high in potassium. This includes chocolate milk, coconut water, orange juice, or low-sodium vegetable juices. ??? Be sureto eat foods or drink fluids with potassium if you have diarrhea or vomiting. ??? Have your potassium levels checked regularly as directed. ??? Take all medicines exactly as directed. ??? Tell your healthcare provider about all prescription and zipe-kbl-hrzpnix medicines you are taking. This includes herbal products. Some water pills (diuretics) can cause you to lose potassium. ??? Don't have foods that are high in salt. Pass up canned and prepared foods that are high in salt. ?? Follow-up ??? Make a follow-up appointment as directed by our staff. ??? Keep all follow-up appointments. Your healthcare provider needs to monitor your condition closely. ?? When to call your healthcare provider Call your provider right away or go to the emergency room if you have any of the following: ??? Vomiting ??? Fatigue ??? Diarrhea ??? Rapid, irregular heartbeat ??? Shortness of breath ??? Chest pain??? Muscle cramps, spasms, or twitching ??? Weakness ??? Paralysis ?? Last Reviewed Date: 2022 ?? 8458-8169 [employer]. All rights reserved. This information is not intended as a substitute for professional medical care. Always follow your healthcare professional's instructions. ?? Patient Care team information Care Team Personnel Name: Sharon Chamberlain MD Position: [facility] Outreach Member Role: PCP Address: Address: [address] [place] [address] [address] Sharon Chamberlain [place], [place] [address] Name: Erin Melgar RN Position: [facility] RN Member Role: Primary Care Nurse Name: Latanya Kahn RN Position: [facility] RN Member Role: Primary Care Nurse Name: Ervin Concepcion RN Position: [facility] RN Member Role: Primary Care Nurse Name: Yuliet Mckinney RN Position: S RN Member Role: Primary Care Nurse Name: Silvia Calhoun RN Position: S RN Member Role: Primary Care Nurse Name: Michael Lomeli RN Position: S RN Member Role: Primary Care Nurse Name: Lesley Santana RN Position: S RN Member Role: Primary Care Nurse Name: Alfredito Mosqueda RN Position: S RN Member Role: Primary Care Nurse Name: Magda Rand Position: S RN Member Role: Primary Care Nurse Name: Amena Ta RN Position: S RN Member Role: Primary Care Nurse Name: Dewayne Wahl III, RN Position: S RN Member Role: Primary Care Nurse Name: Nirmala Oconnor RN Position: [facility] RN Member Role: Primary Care Nurse Name: Marlin Pearce RN Position: [facility] RN Member Role: Primary Care Nurse Name: Eugenia Batista RN Position: [facility] RN Member Role: Primary Care Nurse Name: Agapito Montanez RN Position: [facility] RN Member Role: Primary Care Nurse Name: Danyelle Dos Santos RN Position: [facility] RN Member Role: Primary Care Nurse Name: Lo Rodriguez RN Position: [facility] RN Member Role: Primary Care Nurse Name: Rosa Maria Artis RN Position: [facility] Onco RN Member Role: Primary Care Nurse Name: Vanesa Lim RN Position: [facility] RN Member Role: Primary Care Nurse Name: Brittney Vallejo RN Position: [facility] RN Member Role: Primary Care Nurse Name: Kat Donovan RN Position: [facility] RN Member Role: Primary Care Nurse Name: Terrell CORONADO Attending Position: [facility] ED Medicine MD Name: Kat Maldonado Position: [facility] ED TA [facility] Member Role: Electrician Yard Name: Mago Palomares RN Position: [facility] ED RN W/OE and Tasks Member Role: Patient Care Provider Care Team Related Persons Name: SHELLI STOUTN Address: [address] [address]
--- OUTSIDE RECORDS SUMMARY | 2023-05-17 08:54 | XMS_ITS | Continuity of Care Document ---
Author Name Unknown Organization [facility] Address [address] [place] [address]- Care Team Providers Care Loom Control Chain Builder Name Role Phone Bulmaro DEVLIN, Sharon Langley Primary Care Physician [phone] Encounter 11/25/22 - 02/18/23 [facility] [address] [place] [address]- Discharge Disposition: CLIENT NO LONGER REQUIRES SKILLED CARE Allergies, Adverse Reactions, Alerts Substance Reaction Severity [...] 1 08/22/20 Given 1Result Comment: Manufactured by Richard P[employer] - [employer] Medications albuterol 0.083% inhalation solution 3 mL [...] 05/26/22 14:42:00 EDT, Route to Pharmacy Electronically, [facility], Partial fill upon patient [...] Refills, Maintenance, 01/14/23 14:23:00 EST, Tablet, [facility], Partial fill upon patient request if the prescription is for a schedule II opioid drug., 162, cm, 01/14/23 1:3... Start Date: 01/14/23 Status: Ordered Lasix 40 mg oral tablet 40 mg, 1, tablet, By Mouth, Daily, # 30 tablet, Refills 0, Tot. Refills 0, Maintenance, 05/26/22 14:43:00 EDT, Route to Pharmacy Electronically, [facility], Partial fill upon patient [...] 0 Refills, Maintenance, 05/26/22 14:43:00 EDT, Tablet, [facility], Partial fill upon patient request if theprescription is for a schedule II opioid drug., 163... Start Date: 05/26/22 Status: Ordered oxymetazoline 0.05% nasal spray 2 sprays, Nares, Both, 2 times a day, PRN as needed for nasal congestion, Maintenance, 02/15/23 7:33:00 EDT, [place], Partial fill upon patient request if the [...] Team Personnel Name: Sharon Chamberlain MD Position: [facility] Outreach Member Role: PCP Address: Address: [address] [place] [address] [address] Sharon Chamberlain MD [place], [place] [address] Name: Latanya Kahn RN Position: [facility] RN Member Role: Primary Care Nurse Name: Ervin Concepcion RN Position: [facility] RN Member Role: Primary Care Nurse Name: Yuliet Mckinney RN Position: S RN Member Role: Primary Care Nurse Name: Silvia Calhoun RN Position: S RN Member Role: Primary Care Nurse Name: Johana Chacon RN Position: S RN Member Role: Primary Care Nurse Name: Lesley Santana RN Position: S RN Member Role: Primary Care Nurse Name: Alfredito Mosqueda RN Position: [facility] RN Member Role: Primary Care Nurse Name: Giorgi Magda Position: [facility] RN Member Role: Primary Care Nurse Name: Amena Ta RN Position: [facility] RN Member Role: Primary Care Nurse Name: Michael Landa RN Position: [facility] RN Member Role: Primary Care Nurse Name: Dewayne Wahl III, RN Position: [facility] RN Member Role: Primary Care Nurse Name: Nirmala Oconnor RN Position: [facility] RN Member Role: Primary Care Nurse Name: Marlin Pearce RN Position: [facility] RN Member Role: Primary Care Nurse Name: Agapito Montanez RN Position: [facility] RN Member Role: Primary Care Nurse Name: Danyelle Dos Santos RN Position: [facility] RN Member Role: Primary Care Nurse Name: Lo Rodriguez RN Position: [facility] RN Member Role: Primary Care Nurse Name: Rosa Maria Artis RN Position: [facility] Onco RN Member Role: Primary Care Nurse Name: Vanesa Lim RN Position: [facility] RN Member Role: Primary Care Nurse Name: Brittney Vallejo RN Position: [facility] RN Member Role: Primary Care Nurse Name: Kat Donovan RN Position: [facility] RN Member Role: Primary Care Nurse Name: Mya Middleton RN Position: [facility] RN Member Role: Primary Care Nurse Care Team Related Persons Name: CALEB VELA Address: [address] [address]
--- OUTSIDE RECORDS SUMMARY | 2023-05-17 08:54 | XMS_ITS | Continuity of Care Document ---
Author Name Unknown Organization [facility] Address [address] [place] [id number] Care Team Providers Care Drafter [employer]ating [employer] Ventilating Name Role Phone Bulmaro DEVLIN, Sharon Langley Primary Care Physician [place] [facility] [place]16[place] - 08/24/[address] [address]- [facility] Discharge Disposition: A-Transfer VNA/Home Health Attending Physician: Dewayne Madsen MD Admitting Physician: Tyler White MD Referring Physician: Not on Staff, Referring MD Allergies, Adverse Reactions, Alerts Substance Reaction Severity Status codeine Passed out Active Immunizations Given and Recorded Vaccine Date Status Refusal Reason influenza virus vaccine, inactivated 08/23/20 Give n pneumococcal 13-valent vaccine 1 08/22/20 Given 1Result Comment: Manufactured by [employer] Medications albuterol 0.083% inhalation solution 3 mL [...] Coated 81 mg oral delayed release tablet TAKE ONE TABLET BY MOUTH ONCE DAILY Start Date: 08/16/20 Status: Ordered atorvastatin 80 mg oral tablet TAKE ONE TABLET DAILY Start Date: 08/16/20 Status: Ordered Bystolic 5 mg oral tablet TAKE ONE TABLET DAILY Start Date: 08/16/20 Status: Ordered ceFAZolin 2 g intravenous injection = 2 Gm, IV Infusion, Every 8 hours, for 23 days, # 69 each, 0 Refills, Acute 09/16/20 11:18:00 EDT,08/24/20 11:18:00 EDT Start Date: 08/24/20 Stop Date: 09/16/20 Status: Ordered celecoxib 200 mg oral capsule TAKE ONE CAPSULE BY MOUTH EVERY DAY Start Date: 08/16/20 Status: Ordered cilostazol 100 mg oral tablet TAKE ONE TABLET BY MOUTH TWICE DAILY Start Date: 08/16/20 Status: Ordered hydroCHLOROthiazide 12.5 mg oral capsule TAKE ONE CAPSULE BY MOUTH EVERY DAY Start Date: 08/16/20 Status: Ordered losartan 50 mg oral tablet TAKE ONE TABLET DAILY Start Date: 08/16/20 Status: Ordered omeprazole 20 mg oral enteric coated capsule TAKE ONE CAPSULE EVERY DAY Start Date: 08/16/20 Status: Ordered pramipexole 1 mg oral tablet TAKE ONE TABLET BY MOUTH AT BEDTIME Start Date: 08/16/20 Status: Ordered predniSONE 20 mg oral tablet 1 tablet = 20 mg, By Mouth, Daily, for 4 days, # 4 tablet, 0 Refills, Acute 08/28/20 10:58:00 EDT, 08/24/20 10:58:00 EDT, Tablet, [facility], 162.56, cm, 05/30/19 7:48:00 EDT, Height, 55.6, kg, 05/30/19 7:48:00 EDT, Dry Weight Start Date: 08/24/20 Stop Date: 08/28/20 Status: Ordered Ventolin HFA 108 mcg/inh inhalation aerosol with adapter 2 puffs, Inhalation, 4 times a day, PRN for wheezing, # 18 Gm, 0 Refills, Maintenance, 08/16/20 18:29:00 EDT, Aerosol Start Date: 08/16/20 Status: Ordered Problem List Condition Effective Dates Status Health Status Inform ant COPD with respiratory failur e, acute(Confirmed) Active Macular degeneration(Confirmed) Active Essential hypertension(Confirmed) Active Glaucoma(Confirmed) Active Hyperlipidemia(Confirmed) Active Buerger disease(Confirmed) Active Procedures Procedure Date Related Diagnosis Body Site Status Amputation of finger tip 1 Completed Cataract extraction Compl eted 1Partial finger amputations due to Buerger's disease Results Orders for Microbiology Reports Name Date Blood Culture 08/19/20 Blood Culture #2 08/19/20 Blood Culture 08/18/20 Blood Culture #2 08/18/20 Blood Culture 08/17/20 Blood Culture #2 08/17/20 Blood Culture 08/16/20 Blood Culture #2 08/16/20 Microbiology Reports TEST:Blood Culture STATUS:Auth (Verified) BODY SITE: SOURCE:Blood COLLECTED DATE/TIME:08/19/20 10:53 AM Blood Culture SPECIMEN DESCRIPTION : BLOOD NOSITE SPECIAL REQUESTS : NONE CULTURE : NO GROWTH 5 DAYS. REPORT STATUS : FINAL 08/24/2020 TEST:Blood Culture, Second Order STATUS:Auth (Verified) BODY SITE: SOURCE:Blood COLLECTED DATE/TIME:08/19/20 10:53 AM Blood Culture, Second Order SPECIMEN DESCRIPTION : BLOOD NOSITE SPECIAL REQUESTS : NONE CULTURE : NO GROWTH 5 DAYS. REPORT STATUS : FINAL 08/24/2020 TEST:Blood Culture, Second Order STATUS:Auth (Verified) BODY SITE: SOURCE:Blood COLLECTED DATE/TIME:08/18/20 8:54 AM Blood Culture, Second Order SPECIMEN DESCRIPTION : BLOOD L SPECIAL REQUESTS : CRITICAL VALUE CALLED AND VERIFIED BY READBACK FOR: GRAM POSITIVE COCCI,BRAYAN [id number],SW5,TECH 357,08/19/20 @0955. CULTURE : STAPHYLOCOCCUS AUREUS. FOR SUSCEPTIBILITY RESULT REFER TO BLOOD CULTURE REPORT STATUS : FINAL 08/21/2020 TEST:Blood Culture STATUS:Auth (Verified) BODY SITE: SOURCE:Blood COLLECTED DATE/TIME:08/18/20 8:49 AM Blood Culture SPECIMEN DESCRIPTION : BLOOD R SPECIAL REQUESTS : CRITICAL VALUE CALLED AND VERIFIED BY READBACK FOR: GRAM POSITIVE COCCI IN BLOOD CULTURE, CALLED TO [id number], 08/19/20 AT 0826 BY TECH [id number]. CULTURE : STAPHYLOCOCCUS AUREUS. REPORT STATUS : FINAL 08/21/2020 ORGANISM STAPHYLOCOCCUS AUREUS. METHOD MIN. INHIB. CONC. (MCG/ML) CIPROFLOXACIN SUSCEPTIBLE CLINDAMYCIN SUSCEPTIBLE ERYTHROMYCIN SUSCEPTIBLE LEVOFLOXACIN SUSCEPTIBLE OXACILLIN SUSCEPTIBLE PENICILLIN SUSCEPTIBLE RIFAMPIN SUSCEPTIBLE RIFAMPIN RIFAMPIN SHOULD NOT BE USED ALONE FOR ANTIMICROBIAL RIFAMPIN THERAPY. TETRACYCLINE SUSCEPTIBLE TRIMETH/SULFAMETHOX SUSCEPTIBLE VANCOMYCIN SUSCEPTIBLE TEST:Blood Culture STATUS:Auth (Verified) BODY SITE: SOURCE:Blood COLLECTED DATE/TIME:08/17/20 4:47 PM Blood Culture SPECIMEN DESCRIPTION : BLOOD L ARM SPECIAL REQUESTS : CRITICAL VALUE CALLED AND VERIFIED BY READBACK FOR: GRAM POSITIVE COCCI IN BLOOD CULTURE, CALLED TO [id number], S2, ON 08/18/20 AT 0806 BY TECH 3953. CULTURE : STAPHYLOCOCCUS AUREUS. REPORT STATUS : FINAL 08/20/2020 ORGANISM STAPHYLOCOCCUS AUREUS. METHOD MIN. INHIB. CONC. (MCG/ML) CIPROFLOXACIN SUSCEPTIBLE CLINDAMYCIN SUSCEPTIBLE ERYTHROMYCIN SUSCEPTIBLE LEVOFLOXACIN SUSCEPTIBLE OXACILLIN SUSCEPTIBLE PENICILLIN SUSCEPTIBLE RIFAMPIN SUSCEPTIBLE RIFAMPIN RIFAMPIN SHOULD NOT BE USED ALONE FOR ANTIMICROBIAL RIFAMPIN THERAPY. TETRACYCLINE SUSCEPTIBLE TRIMETH/SULFAMETHOX SUSCEPTIBLE VANCOMYCIN SUSCEPTIBLE TEST:Blood Culture, Second Order STATUS:Auth (Verified) BODY SITE: SOURCE:Blood COLLECTED DATE/TIME:08/17/20 4:47 PM Blood Culture, Second Order SPECIMEN DESCRIPTION : BLOOD R ARM SPECIAL REQUESTS : CRITICAL VALUE CALLED AND VERIFIED BY READBACK FOR: GRAM POSITIVE COCCI IN BLOOD CULTURE, CALLED TO [id number], S2, ON 08/18/20 AT 0806 BY TECH 3953. CULTURE : STAPHYLOCOCCUS AUREUS. FOR SUSCEPTIBILITY RESULT REFER TO BLOOD CULTURE REPORT STATUS : FINAL 08/20/2020 TEST:Blood Culture, Second Order STATUS:Auth (Verified) BODY SITE: SOURCE:Blood COLLECTED DATE/TIME:08/16/20 11:30 AM Blood Culture, Second Order SPECIMEN DESCRIPTION : BLOOD RAC SPECIAL REQUESTS : CRITICAL VALUE CALLED AND VERIFIED BY READBACK FOR: GRAM POSITIVE COCCI IN BLOOD CULTURE TO EMPLOYEE [id number] () BY TECH 85 AT 0700 08/17/20 CULTURE : STAPHYLOCOCCUS AUREUS. S. aureus was identified by multi-plex PCR. MecA NOT detected. The absence of the mecA gene is associated with susceptibility to methicillin (MSSA). REPORT STATUS : FINAL 08/19/2020 ORGANISM STAPHYLOCOCCUS AUREUS. METHOD MIN. INHIB. CONC. (MCG/ML) CIPROFLOXACIN SUSCEPTIBLE CLINDAMYCIN SUSCEPTIBLE ERYTHROMYCIN SUSCEPTIBLE LEVOFLOXACIN SUSCEPTIBLE OXACILLIN SUSCEPTIBLE PENICILLIN SUSCEPTIBLE RIFAMPIN SUSCEPTIBLE RIFAMPIN RIFAMPIN SHOULD NOT BE USED ALONE FOR ANTIMICROBIAL RIFAMPIN THERAPY. TETRACYCLINE SUSCEPTIBLE TRIMETH/SULFAMETHOX SUSCEPTIBLE VANCOMYCIN SUSCEPTIBLE TEST:Blood Culture STATUS:Auth (Verified) BODY SITE: SOURCE:Blood COLLECTED DATE/TIME:08/16/20 11:15 AM Blood Culture SPECIMEN DESCRIPTION : BLOOD R FA SPECIAL REQUESTS : CRITICAL VALUE CALLED AND VERIFIED BY READBACK FOR: GRAM POSITIVE COCC IN BLOOD CULTURE TO EMPLOYEE [id number] (EW) BY TECH 85 AT 0700 08/17/20 CULTURE : STAPHYLOCOCCUS AUREUS. FOR SUSCEPTIBILITY RESULT REFER TO BLOOD CULTURE REPORT STATUS : FINAL 08/19/2020 Radiology Reports * Exam Date Time Procedure Performing Provider Status 08/19/20 6:55 AM Chest Portable Edgar William; Auth ( Verified) Notes: (Chest Portable) Reason For Exam: Shortness of Breath RESULT: Chest Portable Chest Portable AP semiupright at 6:21 AM REASON: Shortness of Breath; Clinical Question(s): Pneumonia / Pneumonia COMPARISON: 08/18/2020 FINDINGS: LINES AND TUBES: None. LUNGS AND PLEURA: Diffusely coarse lung markings. Linear bands of scarring or atelectasis in the bilateral lower lungs. Unchanged mild hazy opacity in the left lower lung. No pleural effusion. No pneumothorax. HEART, MEDIASTINUM AND HUA: Unchanged. BONES AND SOFT TISSUES: No acute abnormality. IMPRESSION: No significant change. WSN: [id number] Ordering Physician: Niharika Salcido Dictated By: Tyler Doss MD Dictated Date/Time: 08/19/20 10:09 a Reviewed By: Tyler Doss MD Signed By: Tyler Doss MD Signed Date/Time: 08/19/20 10:09 am Transcribed By: IVANNA Transcribed Date/Time: 08/19/20 10:07 am * Exam Date Time Procedure Performing Provider Status 08/18/20 11:18 AM Chest Portable Yaya , Patito; Auth ( Verified) Notes: (Chest Portable) Reason For Exam: Shortness of Breath RESULT: Chest Portable Chest Portable REASON: Shortness of Breath; Clinical Question(s): Pneumonia / Pneumonia COMPARISON: 08/16/2020 FINDINGS: LINES AND TUBES: None. LUNGS AND PLEURA: Coarse lung markings compatible with COPD. Left basilar airspace opacity, similar to prior. Right lung nodule seen on prior CT was better evaluated on that exam. No pleural effusion. No pneumothorax. HEART, MEDIASTINUM AND HUA: Unchanged. BONES AND SOFT TISSUES: No acute abnormality. IMPRESSION: COPD with airspace opacity in the left lower lung which could be due to atelectasis or pneumonia but is not significantly changed. WSN: [id number] Ordering Physician: Niharika Salcido Dictated By: Tyler Doss MD Dictated Date/Time: 08/18/20 11:29 a Reviewed By: Tyler Doss MD Signed By: Tyler Doss MD Signed Date/Time: 08/18/20 11:29 am Transcribed By: IVANNA Transcribed Date/Time: 08/18/20 11:27 am * Exam Date Time Procedure Performing Provider Status 08/16/20 12:06 PM Chest Portable Addie [facility] (Verified) Notes: (Chest Portable) Reason For Exam: Shortness of Breath RESULT: Chest Portable Chest Portable AP upright at 11:58 AM INDICATION: pt reports being short of breathe, cold and nauseous this morning. Now is symptom free;Reason: Shortness of Breath; Clinical Question(s): CHF / CHF COMPARISON: None. FINDINGS: LINES AND TUBES: None. LUNGS AND PLEURA: The central pulmonary vasculature is prominent and indistinct. Mild diffuse interstitial prominence. Small bilateral pleural effusions with mild bibasilar atelectasis. No pneumothorax. HEART, MEDIASTINUM AND HUA: Heart is at the upper limits of normal for size. Aorta is calcified. BONES AND SOFT TISSUES: No acute abnormality. IMPRESSION: Interstitial pulmonary edema with small pleural effusions. WSN: [id number] Ordering Physician: Lorena Duran Dictated By: Tyler Doss MD Dictated Date/Time: 08/16/20 12:20 p Reviewed By: Tyler Doss MD Signed By: Tyler Doss MD Signed Date/Time: 08/16/20 12:20 pm Transcribed By: IVANNA Transcribed Date/Time: 08/16/20 12:19 pm Vital Signs Most recent to oldest [Reference Range]: 1 2 3 Oxygen Saturation [94-100 %] 92 % *L* (08/24/20 1:17 PM) 92 % *L* (08/24/20 8:57 AM) 94 % (08/24/20 1:00 AM) Pulse Rate [55-90 bpm] 83 bpm (08/24/20 1:17 PM) 88 bpm (08/24/20 8:57 AM) 84 bpm (08/24/20 1:00 AM) Blood Pressure [90-138/55-84 mm Hg] 128/76mm Hg (08/24/20 1:17 PM) 169/93mm Hg *H* (08/24/20 8:57 AM) 169/93mm Hg *H* (08/24/20 8:49 AM) Respiratory Rate [16-30 br/min] 18 br/min (08/24/20 1:17 PM) 20 br/min (08/24/20 10:05 AM) 18 br/min (08/24/20 8:57 AM) Temperature [96.8-100.4 DegF] 98.5 DegF (08/24/20 1:17 PM) 98.5 DegF (08/24/20 8:57 AM) 98.6 DegF (08/24/20 1:00 AM) Liters per Minute 2 L/min (08/23/20 12:00 AM) 2 L/min (08/22/20 7:00 PM) 2 L/min (08/22/20 1:19 PM) Mode of Delivery (Oxygen) Room air (08/24/20 1:17 PM) Room air (08/24/20 8:57 AM) Room air (08/24/20 1:00 AM) Blood pressure sites Arm, right (08/24/20 1:17 PM) Arm, left (08/24/20 8:57 AM) Arm, right (08/24/20 1:00 AM) Temperature Route Oral (08/24/20 1:17 PM) Oral (08/24/20 8:57 AM) Oral (08/24/20 1:00 AM) Social History Social History Type Response Smoking Status Smoker, current stat us unknown entered on: 08/16/20 Sex
--- OUTSIDE RECORDS SUMMARY | 2023-05-17 08:54 | XMS_ITS | Continuity of Care Document ---
Author Name Unknown Organization [facility] Address [address] [place] [id number]- Care Team Providers Care C T Tech Name Role Phone Bulmaro DEVLIN, Sharon Langley Primary Care Physician Encounter [facility] Date(s): 02/01/23 - 02/01/[address] [address]- Encounter Diagnosis COPD exacerbation(Final) - 02/01/23 Discharge Disposition: A-D/C Home Attending Physician: Carolina Ricardo MD Admitting Physician: Carolina Ricardo MD Referring Physician: Not on Staff, Referring [...] 1 08/22/20 Given 1Result Comment: Manufactured by [employer]. CUPR Medications albuterol 0.083% inhalation solution 3 mL [...] 05/26/22 14:42:00 EDT, Route to Pharmacy Electronically, [facility] 3, Partial fill upon patient request if [...] 0 Refills, Maintenance, 01/14/23 14:23:00 EST, Tablet, [facility] 3, Partial fill upon patient request if the prescription is for a schedule II opioid drug., 162, cm, 01/14/23 1:3... Start Date: 01/14/23 Status: Ordered Lasix 40 mg oral tablet 40 mg, 1, tablet, By Mouth, Daily, # 30 tablet, Refills 0, Tot. Refills 0, Maintenance, 05/26/22 14:43:00 EDT, Route to Pharmacy Electronically, [facility] 3, Partial fill upon patient request if [...] 0 Refills, Maintenance, 05/26/22 14:43:00 EDT, Tablet, [facility], Partial fill upon [...] Exam Date Time Procedure Performing Provider Status 02/01/23 12:[address] Angio Chest Vanesa Noriega; Au th (Verified) Notes: (CT Angio Chest) Reason For Exam: PE suspected, Intermediate prob, positive D-dimer;Other: RESULT: CT Angio Chest EXAMINATION: CT Angio Chest INDICATION: Hx of Present Illness: SOB, increased home oxygen use, hx right lung CA, recent PNA; Reason: Other:; PE suspected, Intermediate prob, positive D- dimer; Clinical Question(s): Pulmonary Embolism; Order Comment: TECHNIQUE: Spiral CTA of the chest was performed after rapid IV contrast administration without cardiac gating, triggered by an DORI on the main pulmonary artery. Images are formatted in multiple planes using 2-D multiplanar and 3-D maximum intensity projection. 50 cc of Omnipaque 300 was administered intravenously. Weight-based protocol using automatic tube modulation was used to optimize exposure parameters. CTDIvol Body: 4.52 mGy, DLP Body: 211 mGy*cm. COMPARISONS: 12/17/2022. ANGIOGRAPHIC FINDINGS: No pulmonary embolism to the subsegmental level. Normal caliber pulmonary arteries. There are extensive atherosclerotic calcification at the thoracic aorta. Limited nondedicated evaluation demonstrates no evidence of acute pathology. NON-ANGIOGRAPHIC FINDINGS: [employer] Findings, Lines and Tubes: None. Trachea and Airways: Patent without evidence of tracheal or endobronchial lesion. Lungs and Pleura: Again demonstrated are extensive emphysematous changes in the lungs. There are subsegmental atelectatic changes plus or minus scarring of the image lung bases. Again seen at the medial right upper lung lobe extending to the mediastinum is an irregular mass which is slightly increased in size measuring 3.5 x 2.9 cm. There is no evidence of a pneumothorax or pleural effusion. Mediastinum and morris: Again demonstrated is extensive mediastinal and right hilar lymphadenopathy which does not appear changed. Again demonstrated is a moderate-sized hiatal hernia. Heart: Heart is normal in size. No pericardial effusion. Moderate coronary artery calcification. Chest Wall Soft Tissues: Again demonstrated is a 1.4 cm left thyroid nodule. Diaphragm and upper abdomen: Again demonstrated are iso and hypodense bilateral renal lesions whichcannot be further characterized on this exam. There are bilateral small nonobstructing renal calculi. Bones: No acute abnormality. Demonstrated discogenic degenerative changes of the thoracolumbar spine. IMPRESSION: 1. There is no evidence of pulmonary emboli. 2. Again demonstrated is a right upper lung lobe irregular mass which appears slightly increased insize compared to the prior exam. 3. Again demonstrated is extensive mediastinal and right hilar adenopathy which appears unchanged. 4. Again demonstrated centrilobular lung emphysema. WSN: [id number] Ordering Physician: Abdiaziz Orta Dictated By: Jasmina Lopez MD Dictated Date/Time: 02/01/23 1:15 pm Reviewed By: Jasmina Lopez MD Signed By: Jasmina Lopez MD Signed Date/Time: 02/01/23 1:15 pm Transcribed By: IVANNA Transcribed Date/Time: 02/01/23 12:47 pm * Exam Date Time Procedure Performing Provider Status 02/01/23 10:03 AM Chest Portable Anita Scott; Aut h (Verified) Notes: (Chest Portable) Reason For Exam: Shortness of Breath RESULT: Chest Portable Chest Portable Hx of Present Illness: SOB, increased home oxygen use, hx right lung CA, recent PNA; Reason: Shortness of Breath; Clinical Question(s): CHF COMPARISON: None. FINDINGS: LINES AND TUBES: 01/12/2023. LUNGS AND PLEURA: Again demonstrated are bibasilar hazy lung opacities. No pleural effusion. No pneumothorax. HEART, MEDIASTINUM AND MORRIS: Heart is normal in size. Normal mediastinal and hilar contour. BONES AND SOFT TISSUES: No acute abnormality. IMPRESSION: Persistent bibasilar hazy lung opacities. There is no evidence of infiltrates. WSN: [id number] Ordering Physician: Abdiaziz Orta Dictated By: Jasmina Lopez MD Dictated Date/Time: 02/01/23 10:38 a Reviewed By: Jasmina Lopez MD Signed By: Jasmina Lopez MD Signed Date/Time: 02/01/23 10:38 am Transcribed By: IVANNA Transcribed Date/Time: 02/01/23 10:37 am Vital Signs Most recent to oldest [Reference Range]: 1 2 3 Height 163 cm (02/01/23 9:43 AM) Weight 55 kg (02/01/23 9:43 AM) Oxygen Saturation [94-100 %] 99 % (02/01/23 4:30 PM) 99 % (02/01/23 3:30 PM) 99 % (02/01/23 2:30 PM) Pulse Rate [55-90 bpm] 86 bpm (02/01/23 4:30 PM) 91 bpm *H* (02/01/23 3:30 PM) 97 bpm *H* (02/01/23 2:30 PM) Blood Pressure [90-138/55-84 mm Hg] 115/81mm Hg (02/01/23 4:30 PM) 114/72mm Hg (02/01/23 3:30 PM) 117/87mm Hg (02/01/23 2:30 PM) Respiratory Rate [16-30 br/min] 21 br/min (02/01/23 12:30 PM) 28 br/min (02/01/23 11:30 AM) 27 br/min (02/01/23 10:30 AM) Temperature [96.8-100.4 DegF] 97.6 DegF (02/01/23 9:43 AM) Liters per Minute 2 L/min (02/01/23 4:30 PM) 2 L/min (02/01/23 3:30 PM) 2 L/min (02/01/23 2:30 PM) Mode of Delivery (Oxygen) Nasal cannula (02/01/23 4:30 PM) Nasal cannula (02/01/23 3:30 PM) Nasal cannula (02/01/23 2:30 PM) Blood pressure sites Arm, right (02/01/23 4:30 PM) Arm, right (02/01/23 3:30 PM) Arm, right (02/01/23 2:30 PM) Temperature Route Oral (02/01/23 9:43 AM) Dry Weight 55 kg (02/01/23 9:43 AM) Weight Obtained Via Patient/family stated (02/01/23 9:43 AM) Dry Weight Obtained Via Patient/family stated (02/01/23 9:43 AM) Social History Social History Type Response Tobacco Other: quit smoking in 2019, started smoking age 11, 2 or 3 packs per day. Sex Note * Marviel DEVLIN, Abdiaziz Kendall: PERFORM Event Display: Patient Education Leaflets Authored Date: [id number] COPD Flare-Up ?? [id number] COPD Flare-Up You have had a flare-up of your COPD. COPD (chronic obstructive pulmonary disease) is a common lung disease. It causes your airways to get irritated and narrower. This makes it harder for you to breathe. Emphysema and chronic bronchitis are both types of COPD. This is a long-term (chronic) condition. This means you always have it. Sometimes it gets worse. When this happens, it's called a flare-up. Symptoms of COPD People with COPD may have symptoms most of the time. In a flare-up, your symptoms get worse. These symptoms may mean you are having a flare-up: ??? Shortness of breath, shallow or rapid breathing, orwheezing that gets worse ??? Lung infection ??? Cough that gets worse ??? More mucus (or sputum), thicker mucus, or mucus of a different color ??? Tiredness, less energy, or trouble doing your normalactivities ??? Fever ??? Chest tightness ??? Your symptoms don???t get better even when you use your normal medicines, inhalers, and nebulizer ??? Trouble talking ??? You feel confused ?? Causes of flare-ups Unfortunately, a flare-up can happen even if you did everything right, and even if you followed your healthcare provider???s instructions. Some causes of flare- ups are: ??? Cold weather ??? Smoking or secondhand smoke ??? Use of e- cigarettes or vaping products ??? Colds, the flu, or respiratory infections ??? Air pollution ??? Sudden change in the weather ??? Dust, vapors, gases, irritating chemicals, or strong fumes ??? Not taking your medicines as prescribed ??? Indoor pollution such as burning wood, smoke from home cooking, or heating fuels ?? Home care Here are some things you can do at home to treat a flare-up: ??? Keep calm and try not to panic. This makes it harder to breathe, and keeps you from doing the right things. ??? Don???t smoke or be around others who are smoking. If you smoke, quit. Smoking is the main cause of COPD. Quitting will help you be able to better manage your COPD. Don't use e-cigarettes or vaping products either. Ask your healthcare provider about ways to help you quit smoking. ??? Before drinking extra fluids during flare-ups to loosen the mucus, always talk with your healthcare provider first. ??? Eat a healthy, balanced diet. This is important to staying as healthy as possible. So is trying to stay at your ideal weight. Being overweight or underweight can affect your health. Make sure you have a lot of fruits and vegetables every day. And also eat balanced portions of whole grains, lean meats and fish, and low-fat dairy products. ??? Use your inhalers and nebulizer, if you have one, as you have been told to. When using a metered dose inhaler or nebulizer, it's very important to use the proper techniques.If you have any questions about how to use your device, contact your healthcare provider or refer to the user manual. ??? If you were given antibiotics, take them until they are used up or your provider tells you to stop. It???s important to finish the antibiotics even though you feel better. This will make sure the infection has cleared. ??? If you were given a steroid, finish it even if you feel better. ??? Learn the names of your medicines, as well as how and when to use them. Talk with yourprovider about other conditions you have and their treatment and how it may affect your COPD. ??? Oxygen may be prescribed if tests show that your blood contains too little oxygen. Ask your provider about long-term oxygen therapy. ??? Coping tips for shortness of breath include: o Exercise. Try to be as active as possible. This will improve energy levels and strengthen your muscles so you can do more. o Breathing methods. Ask your healthcare provider or nurse to show you how to do pursed-lip breathing. o Balance rest and activity. Each day, try to balance rest periods with activity. For example, you might start the day with getting dressed and eating breakfast. Then you can relax and read the paper. After that, take a brief walk. And then sit with your feet up for a while. o Pulmonary rehab (rehabilitation). Community-based and home-based programs work as well as hospital-based programs as long as they are as often and as intense. Standard home-based pulmonary rehab programs help shortness of breath in people with COPD. Supervised, traditional pulmonary rehab remains the best optionfor people with COPD. These programs help with managing your disease and also help with breathing methods, exercise, support, and counseling. To find one, ask your provider or call your local hospital. Also talk with your healthcare provider about which rehab or self- management program is best for you. ?? Preventing a flare-up Flare-ups happen. But the best way to treat one is to prevent it before it starts. Here are some pointers: ??? Don???t smoke or be around others who are smoking. Avoid using e-cigarettes due to theirharmful side effects. ??? Take your medicines as discussed with your healthcare provider. ??? Talk with your provider about getting a flu shot every year. Also find out if you need a pneumonia shot. ??? If there is a weather advisory warning to stay indoors, try to stay inside when possible. ??? Try to eat healthy, exercise, and get plenty of sleep. ??? Try to stay away from things that normally set you off. These include dust, chemical fumes, hairsprays, or strong perfumes. ?? Follow-up care Follow up with your healthcare provider as advised. If a culture was done, you will be told if your treatment needs to be changed. You can call as directed??for the results. If X-rays were done, you will be told of any new findings that may affect your care. During each appointment, talk with your healthcare provider about your ability to: ??? [employer] in yournormal environment ??? Correctly use inhaler (or your medicine delivery systems) ??? [employer] with other conditions you have and their treatments and how they may affect your COPD ?? Call 911 Call 911 if any of these occur: ??? Wheezing or shortness of breath does not get better with treatment ??? Chest pain or chest tightness ??? Feeling lightheaded or dizzy ??? You have trouble breathing ??? You feel confused or it???s hard to wake you up ??? You faint or lose consciousness ??? You have a rapid heart rate ??? You have new pain in your chest, arm, shoulder, neck, or upper back ?? When to seek medical advice Call your healthcare provider right away??if??any of these occur: ??? Fever of 100.4??F??(38??C) orhigher, or as directed by your healthcare provider ??? Coughing up lots of dark-colored or bloody mucus (sputum) ??? You don't start to get better within 24 hours or new symptoms develop ??? Swellingof your ankles gets worse ??? Weakness ?? Last Reviewed Date: 2021 ?? 3685-3450 [employer]. All rights reserved. This information is not intended as a substitute for professional medical care. Always follow your healthcare professional's instructions. ?? Portable XR Chest Views * [employer] , CIS S: TRANSCRIBE Jasmina Lopez MD O: VERIFY Event Display: Result: Authored Date: [id number] Chest Portable Hx of Present Illness: SOB, increased home oxygen use, hx right lung CA, recent PNA; Reason: Shortness of Breath; Clinical Question(s): CHF COMPARISON: None. FINDINGS: LINES AND TUBES: 01/12/2023. LUNGS AND PLEURA: Again demonstrated are bibasilar hazy lung opacities. No pleural effusion. No pneumothorax. HEART, MEDIASTINUM AND MORRIS: Heart is normal in size. Normal mediastinal and hilar contour. BONES AND SOFT TISSUES: No acute abnormality. IMPRESSION: Persistent bibasilar hazy lung opacities. There is no evidence of infiltrates. WSN: [id number] Ordering Physician: Abdiaziz Orta Dictated By: Jasmina Lopez MD Dictated Date/Time: 02/01/23 10:38 a Reviewed By: Jasmina Lopez MD Signed By: Jasmina Lopez MD Signed Date/Time: 02/01/23 10:38 am Transcribed By: CSMiguel Transcribed Date/Time: 02/01/23 10:37 am CTA Chest vessels W contrast IV * [employer] , CIS S: TRANSCRIBE Jasmina Lopez MD: VERIFY Event Display: Result: Authored Date: EXAMINATION: CT Angio Chest INDICATION: Hx of Present Illness: SOB, increased home oxygen use, hx right lung CA, recent PNA; Reason: Other:; PE suspected, Intermediate prob, positive D- dimer; Clinical Question(s): Pulmonary Embolism; Order Comment: TECHNIQUE: Spiral CTA of the chest was performed after rapid IV contrast administration without cardiac gating, triggered by an DORI on the main pulmonary artery. Images are formatted in multiple planes using 2-D multiplanar and 3-D maximum intensity projection. 50 cc of Omnipaque 300 was administered intravenously. Weight-based protocol using automatic tube modulation was used to optimize exposure parameters. CTDIvol Body: 4.52 mGy, DLP Body: 211 mGy*cm. COMPARISONS: 12/17/2022. ANGIOGRAPHIC FINDINGS: No pulmonary embolism to the subsegmental level. Normal caliber pulmonary arteries. There are extensive atherosclerotic calcification at the thoracic aorta. Limited nondedicated evaluation demonstrates no evidence of acute pathology. NON-ANGIOGRAPHIC FINDINGS: [place] [employer] View Findings, Lines and Tubes: None. Trachea and Airways: Patent without evidence of tracheal or endobronchial lesion. Lungs and Pleura: Again demonstrated are extensive emphysematous changes in the lungs. There are subsegmental atelectatic changes plus or minus scarring of the image lung bases. Again seen at the medial right upper lung lobe extending to the mediastinum is an irregular mass which is slightly increased in size measuring 3.5 x 2.9 cm. There is no evidence of a pneumothorax or pleural effusion. Mediastinum and morris: Again demonstrated is extensive mediastinal and right hilar lymphadenopathy which does not appear changed. Again demonstrated is a moderate-sized hiatal hernia. Heart: Heart is normal in size. No pericardial effusion. Moderate coronary artery calcification. Chest Wall Soft Tissues: Again demonstrated is a 1.4 cm left thyroid nodule. Diaphragm and upper abdomen: Again demonstrated are iso and hypodense bilateral renal lesions whichcannot be further characterized on this exam. There are bilateral small nonobstructing renal calculi. Bones: No acute abnormality. Demonstrated discogenic degenerative changes of the thoracolumbar spine. IMPRESSION: 1. There is no evidence of pulmonary emboli. 2. Again demonstrated is a right upper lung lobe irregular mass which appears slightly increased insize compared to the prior exam. 3. Again demonstrated is extensive mediastinal and right hilar adenopathy which appears unchanged. 4. Again demonstrated centrilobular lung emphysema. WSN: [id number] Ordering Physician: Abdiaziz Orta Dictated By: Jasmina Lopez MD Dictated Date/Time: 02/01/23 1:15 pm Reviewed By: Jasmina Lopez MD Signed By: Jasmina Lopez MD Signed Date/Time: 02/01/23 1:15 pm Transcribed By: IVANNA Transcribed Date/Time: 02/01/23 12:47 pm Patient Care team information Care Team Personnel Name: Sharon Chamberlain MD Position: [facility] Outreach Member Role: PCP Address: Address: [address] [place] [address] [address] Sharon Chamberlain MD [place], [place] [address] Name: Latanya Kahn RN Position: [facility] RN Member Role: Primary Care Nurse [...] Care Nurse Name: Alfredito Mosqueda RN Position: [facility] RN Member Role: Primary Care Nurse Name: Magda Rand Position: [facility] RN Member Role: Primary Care Nurse Name: Amena Ta RN Position: [facility] RN Member Role: Primary Care Nurse Name: Michael Landa RN Position: [facility] RN Member Role: Primary Care Nurse Name: Dewayne Wahl III, RN Position: [facility] RN Member Role: Primary Care Nurse Name: Nirmala Oconnor RN Position: [facility] RN Member Role: Primary Care Nurse Name: Marlin Pearce RN Position: [facility] RN Member Role: Primary Care Nurse Name: Agapito Montanez RN Position: [facility] RN Member Role: Primary Care Nurse Name: Danyelle Dos Santos RN Position: [facility] RN Member Role: Primary Care Nurse Name: Lo Rodriguez RN Position: [facility] RN Member Role: Primary Care Nurse Name: Rosa Maria Artis RN Position: [facility] Onco RN Member Role: Primary Care Nurse Name: Vanesa Lim RN Position: [facility] RN Member Role: Primary Care Nurse Name: Brittney Vallejo RN Position: [facility] RN Member Role: Primary Care Nurse Name: Kat Donovan RN Position: [facility] RN Member Role: Primary Care Nurse Name: Mya Middleton RN Position: [facility] RN Member Role: Primary Care Nurse Name: Tyler Domínguez Position: [facility] ED TA [facility] Member Role: Patient Care Provider Name: Colette Hollingsworth RN Position: [facility] ED RN W/OE and Tasks Member Role: Patient Care Provider Name: Carolina Ricardo MD Position: [facility] Resident Member Role: Admitting Physician Address: Address: [address] [place] [id number]- [place] Name: Abdiaziz Orta MD Position: [facility] Resident Member Role: ED Resident Address: Address: [address] [place] [address]- Care Team Related Persons Name: CALEB VELA Address: home [address] [place] [address]
--- OUTSIDE RECORDS SUMMARY | 2023-05-17 08:54 | XMS_ITS | Continuity of Care Document ---
Author Name Unknown Organization [facility] Address [address] [place] [id number]- Care Team Providers Care Receiving Teller Name Role Phone Sharon Chamberlain MD Primary Care Physician [phone] [place] [facility] [place] 08/23/20 - 09/22/[address] [address]- [facility] Attending Physician: Not on Staff, Attending MD Admitting Physician: Not on Staff, Admitting MD Referring Physician: Not on Staff, Referring MD Allergies, Adverse Reactions, Alerts Substance Reaction Severity Status codeine Passed out Active Immunizations Given and Recorded Vaccine Date Status Refusal Reason influenza virus vaccine, inactivated 08/23/20 Give n pneumococcal 13-valent vaccine 1 08/22/20 Given 1Result Comment: Manufactured by [employer] Medications albuterol 0.083% inhalation solution 3 [...] Glaucoma(Confirmed) Active Hyperlipidemia(Confirmed) Active Buerger disease(Confirmed) Active Social History Social History Type Response Tobacco Use: 4 or less cigar ettes(less than 1/4 pack)/day in last 30 days. Tobacco user in household: Yes. Sex
--- OUTSIDE RECORDS SUMMARY | 2023-05-17 08:54 | XMS_ITS | Continuity of Care Document ---
Author Name Unknown Organization [facility] Address [address] [facility] [address] [place] [address]- Care Team Providers Care Financial Project Manager Name Role Phone Bulmaro DEVLIN, Sharon Langley Primary Care Physician [place] [facility] [id number] Date(s): 12/11/22 - 01/18/23 [facility] [address] [place] [address] [place] [address]- Attending Physician: Grace Garvin MD Admitting Physician: Grace Garvin MD Referring Physician: Sharon Chamberlain MD Allergies, [...] 1 08/22/20 Given 1Result Comment: Manufactured by [employer]. [employer] Medications albuterol 0.083% inhalation solution 3 mL [...] 05/26/22 14:42:00 EDT, Route to Pharmacy Electronically, [facility], Partial fill upon patient [...] 0 Refills, Maintenance, 01/14/23 14:23:00 EST, Tablet, [facility], Partial fill upon patient request if the prescription is for a schedule II opioid drug., 162, cm, 01/14/23 1:3... Start Date: 01/14/23 Status: Ordered Lasix 40 mg oral tablet 40 mg, 1, tablet, By Mouth, Daily, # 30 tablet, Refills 0, Tot. Refills 0, Maintenance, 05/26/22 14:43:00 EDT, Route to Pharmacy Electronically, [facility], Partial fill upon patient [...] 0 Refills, Maintenance, 05/26/22 14:43:00 EDT, Tablet, [facility], Partial fill upon [...] Team Personnel Name: Sharon Chamberlain MD Position: [facility] Outreach Member Role: PCP Address: Address: [address] [place] [address] [address] Sharon Chamberlain MD [place], [place] [address] Name: Latanya Kahn RN Position: [facility] RN Member Role: Primary Care Nurse Name: Ervin Concepcion RN Position: [facility] RN Member Role: Primary Care Nurse Name: Yuliet Mckinney RN Position: S RN Member Role: Primary Care Nurse Name: Slivia Calhoun RN Position: [facility] RN Member Role: Primary Care Nurse Name: Johana Chacon RN Position: S RN Member Role: Primary Care Nurse Name: Lesley Santana RN Position: S RN Member Role: Primary Care Nurse Name: Alfredito Mosqueda RN Position: S RN Member Role: Primary Care Nurse Name: Magda Rand Position: S RN Member Role: Primary Care Nurse Name: Amena Ta RN Position: [facility] RN Member Role: Primary Care Nurse Name: Michael Landa RN Position: [facility] RN Member Role: Primary Care Nurse Name: Dewayne Wahl III, RN Position: [facility] RN Member Role: Primary Care Nurse Name: Nirmala Oconnor RN Position: [facility] RN Member Role: Primary Care Nurse Name: Marlin Pearce RN Position: [facility] RN Member Role: Primary Care Nurse Name: Agapito Montanez RN Position: [facility] RN Member Role: Primary Care Nurse Name: Danyelle Dos Santos RN Position: [facility] RN Member Role: Primary Care Nurse Name: Lo Rodriguez RN Position: [facility] RN Member Role: Primary Care Nurse Name: Rosa Maria Artis RN Position: [facility] Onco RN Member Role: Primary Care Nurse Name: Vanesa Lim RN Position: [facility] RN Member Role: Primary Care Nurse Name: Brittney Vallejo RN Position: [facility] RN Member Role: Primary Care Nurse Name: Kat Donovan RN Position: [facility] RN Member Role: Primary Care Nurse Name: Mya Middleton RN Position: [facility] RN Member Role: Primary Care Nurse Care Team Related Persons Name: CALEB VELA Address: [address] [address]
--- OUTSIDE RECORDS SUMMARY | 2023-05-17 08:54 | XMS_ITS | Continuity of Care Document ---
Author Name Unknown Organization [facility] Address [address] [place] [address]- Care Team Providers Care Air Conditioning Unit Tester Name Role Phone Sharon Chamberlain MD Primary Care Physician Encounter [facility] [place] Date(s): 02/19/23 - 03/21/23 [facility] [address] [place], [place] [id number]- Attending Physician: Caden Lynch Admitting Physician: Caden [...] 1 08/22/20 Given 1Result Comment: Manufactured by [employer] Medications albuterol 0.083% inhalation solution 3 mL [...] to Pharmacy Electronically, [facility] 3, Partial fill upon patient [...] 0 Refills, Maintenance, 02/22/23 21:37:00 EDT, Tablet, [facility], Partial fill upon patient request if the prescription is for a schedule II opioid drug., 163, cm, 02/01... Start Date: 02/22/23 Stop Date: 03/24/23 Status: Ordered Lasix 40 mg oral tablet 40 mg, 1, tablet, By Mouth, Daily, # 30 tablet, Refills 0, Tot. Refills 0, Maintenance, 05/26/22 14:43:00 EDT, Route to Pharmacy Electronically, [facility] 3, Partial fill upon patient [...] 0 Refills, Maintenance, 05/26/22 14:43:00 EDT, Tablet, [facility] 3, Partial fill upon patient [...] MD Position: [facility] Outreach Member Role: PCP Address: Address: [address] Sharon Chamberlain [place], [place] [address] Name: Latanya Kahn RN Position: [facility] RN Member Role: Primary Care Nurse Name: Ervin Concepcion RN Position: [facility] RN Member Role: Primary Care Nurse Name: Yuliet Mckinney RN Position: [facility] RN Member Role: Primary Care Nurse Name: Silvia Calhoun RN Position: [facility] RN Member Role: Primary Care Nurse Name: Johana Chacon RN Position: [facility] RN Member Role: Primary Care Nurse Name: Lesley Santana RN Position: [facility] RN Member Role: Primary Care Nurse Name: Alfredito Mosqueda RN Position: [facility] RN Member Role: Primary Care Nurse Name: Magda Rand Position: [facility] RN Member Role: Primary Care Nurse Name: Amena Ta RN Position: [facility] RN Member Role: Primary Care Nurse Name: Michael Landa RN Position: [facility] RN Member Role: Primary Care Nurse Name: Dewayne Wahl III, RN Position: [facility] RN Member Role: Primary Care Nurse Name: Nirmala Oconnor RN Position: [facility] RN Member Role: Primary Care Nurse Name: Marlin Pearce RN Position: [facility] RN Member Role: Primary Care Nurse Name: Agapito Montanez RN Position: [facility] RN Member Role: Primary Care Nurse Name: Danyelle Dos Santos RN Position: [facility] RN Member Role: Primary Care Nurse Name: Lo Rodriguez RN Position: [facility] RN Member Role: Primary Care Nurse Name: Rosa Maria Artis RN Position: [facility] Onco RN Member Role: Primary Care Nurse Name: Vanesa Lim RN Position: [facility] RN Member Role: Primary Care Nurse Name: Brittney Vallejo RN Position: [facility] RN Member Role: Primary Care Nurse Name: Kat Donovan RN Position: [facility] RN Member Role: Primary Care Nurse Care Team Related Persons Name: SHELLI VELAN Address: [address] [address]
--- OUTSIDE RECORDS SUMMARY | 2023-05-17 08:54 | XMS_ITS | Continuity of Care Document ---
Author Name Unknown Organization [facility] Address [address] [address]- Care Team Providers Care Finish Specialist Name Role Phone Bulmaro DEVLIN, Sharon Langley Primary Care Physician Encounter [facility] [place] ACCT R [id number] Date(s): 12/19/22 - 01/18/23 [facility] [address] [place] [address]- Attending Physician: Admtr, [id number] Admitting Physician: Admtr, [...] 1 08/22/20 Given 1Result Comment: Manufactured by [employer] Medications albuterol 0.083% inhalation solution 3 mL [...] 05/26/22 14:42:00 EDT, Route to Pharmacy Electronically, [facility], Partial fill upon patient [...] 0 Refills, Maintenance, 01/14/23 14:23:00 EST, Tablet, [facility], Partial fill upon patient request if the prescription is for a schedule II opioid drug., 162, cm, 01/14/23 1:3... Start Date: 01/14/23 Status: Ordered Lasix 40 mg oral tablet 40 mg, 1, tablet, By Mouth, Daily, # 30 tablet, Refills 0, Tot. Refills 0, Maintenance, 05/26/22 14:43:00 EDT, Route to Pharmacy Electronically, [facility], Partial fill upon patient [...] 0 Refills, Maintenance, 05/26/22 14:43:00 EDT, Tablet, [facility] 3, Partial fill upon patient request [...] Team Personnel Name: Sharon Chamberlain MD Position: [facility] Outreach Member Role: PCP Address: Address: [address] [place] [address] [address] Sharon Chamberlain [place], [place] [address] Name: Latanya Kahn RN Position: [facility] RN Member Role: Primary Care Nurse Name: Ervin Concepcion RN Position: [facility] RN Member Role: Primary Care Nurse Name: Yuliet Mckinney RN Position: S RN Member Role: Primary Care Nurse Name: Silvia Calhoun RN Position: [facility] RN Member Role: Primary Care Nurse Name: Johana Chacon RN Position: S RN Member Role: Primary Care Nurse Name: Lesley Santana RN Position: S RN Member Role: Primary Care Nurse Name: Alfredito Mosqueda RN Position: S RN Member Role: Primary Care Nurse Name: Magda Rand Position: S RN Member Role: Primary Care Nurse Name: Amena Ta RN Position: [facility] RN Member Role: Primary Care Nurse Name: Michael Landa RN Position: [facility] RN Member Role: Primary Care Nurse Name: Dewayne Wahl III, RN Position: [facility] RN Member Role: Primary Care Nurse Name: Nirmala Oconnor RN Position: [facility] RN Member Role: Primary Care Nurse Name: Marlin Pearce RN Position: [facility] RN Member Role: Primary Care Nurse Name: Agapito Montanez RN Position: [facility] RN Member Role: Primary Care Nurse Name: Danyelle Dos Santos RN Position: [facility] RN Member Role: Primary Care Nurse Name: Lo Rodriguez RN Position: [facility] RN Member Role: Primary Care Nurse Name: Rosa Maria Artis RN Position: [facility] Onco RN Member Role: Primary Care Nurse Name: Vanesa Lim RN Position: [facility] RN Member Role: Primary Care Nurse Name: Brittney Vallejo RN Position: [facility] RN Member Role: Primary Care Nurse Name: Kat Donovan RN Position: [facility] RN Member Role: Primary Care Nurse Name: Mya Middleton RN Position: [facility] RN Member Role: Primary Care Nurse Care Team Related Persons Name: CALEB VELA Address: [address] [address]
--- OUTSIDE RECORDS SUMMARY | 2023-05-17 08:54 | XMS_ITS | Continuity of Care Document ---
Author Name Unknown Organization [facility] Address [address] [place] [address]- Care Team Providers Care Frame Maker Name Role Phone Sharon Chamberlain MD Primary Care Physician Encounter [facility] [place] Date(s): 10/31/20 - 02/16/21 [facility] [address] [place] [address] Attending Physician: David Ventura MD Admitting Physician: David Ventura MD Referring Physician: Sharon Chamberlain MD Allergies, Adverse Reactions, Alerts Substance Reaction Severity Status codeine Passed out Active Immunizations Given and Recorded Vaccine Date Status Refusal Reason influenza virus vaccine, inactivated 08/23/20 Give n pneumococcal 13-valent vaccine 1 08/22/20 Given 1Result Comment: Manufactured by [employer] Medications albuterol 0.083% inhalation solution 3 mL [...]
--- NOTE | 2023-05-17 09:18 | PHA.MEDREC ---
Pharmacy Consult ? Medication Reconciliation Pharmacy has completed the medication reconciliation. MEDS PER FACILITY LIST
[2023-05-17 09:26] VITALS: BP 108/57; PULSE 95; RESP 17; TEMP 36.8; O2SAT 94
--- NOTE | 2023-05-17 10:13 | HO.PM.IMPN ---
Subjective Subjective Date of Service: 05/17/23 Review of Systems Follow up Seizure no c/o pain Physical Exam Vital Signs: Vital Signs: Last Vital Signs Temp 98.2 F 05/17/23 09:26 Pulse 95 05/17/23 09:26 Resp 17 05/17/23 09:26 BP 108/57 L 05/17/23 09:26 Pulse Ox 94 05/17/23 09:26 O2 Del Method Oxymask 05/17/23 09:26 O2 Flow Rate 2.0 05/17/23 09:26 FiO2 27 05/17/23 01:32 Oxygen Flow Rate 6 05/16/23 18:18 BMI result Body Mass Index 17.7 Appearing in no acute distress, thin and frail lung sounds rhonchi heart regular rate rhythm, clear S1, S2 positive bowel sounds, abdomen is soft, nontender neuro patient is alert x3, no focal deficits Objective Data Active Medications Acetaminophen (Acetaminophen 325 Mg Tablet) 650 mg PO Q6H PRN PRN Reason: Pain, Mild (Pain Scale 1-3) Acetaminophen (Acetaminophen Supp 650 Mg Supp.Rect) 650 mg [place] Q6H PRN PRN Reason: Pain, Mild (Pain Scale 1-3) Dexamethasone Sodium Phosphate (Dexamethasone Sod Phosphate 4 Mg/Ml Vial) 4 mg IVPUSH Q6H [facility] Last Admin: 05/17/23 08:12 Dose: 4 mg Documented By: JACQUELINE Enoxaparin Sodium (Enoxaparin Sodium 40 Mg/0.4 Ml Syringe) 40 mg SUBCUT Q24H [facility] Last Admin: 05/16/23 21:46 Dose: 40 mg Documented By: RM Levetiracetam (Keppra) 1,500 mg in 100 mls @ 400 mls/hr IV BID [facility] Last Infusion: 05/17/23 09:21 Dose: 0 mls/hr Documented By: IMMANUEL Sodium Chloride (Ns) 1,000 mls @ 100 mls/hr IVCONT .Q10H [facility] Last Admin: 05/17/23 06:32 Dose: 100 mls/hr Documented By: RM Melatonin (Melatonin 3 Mg Tablet) 6 mg PO BEDTIME PRN PRN Reason: Insomnia Ondansetron HCl (Ondansetron Hcl 4 Mg/2 Ml Vial) 4 mg IVPUSH Q8H PRN PRN Reason: Nausea and Vomiting Pharmacy Consult (Consult Rx Perform Med Rec) 1 each MISCELLANE ONCE PRN PRN Reason: Consult order Sodium Chloride (0.9 % Sodium Chloride Flush 3 Ml Syringe) 3 ml IVFLUSH QSHIFT [facility] Last Admin: 05/17/23 08:13 Dose: 3 ml Documented By: JACQUELINE Labs 05/17/23 05:00 05/17/23 05:00 Labs: Laboratory Results - last 24 hr 05/16/23 05/16/23 05/16/23 17:52 18:00 18:20 MCV 89.0 MCH 27.6 MCHC 31.0 RDW 19.1 H Plt Count 327 MPV 9.3 L Immature Gran % (Auto) 0.7 H Neut % (Auto) 68.2 Lymph % (Auto) 21.1 Ness % (Auto) 7.7 Eos % (Auto) 1.8 Baso % (Auto) 0.5 Lymph # (Auto) 2.1 Ness # (Auto) 0.8 Eos # (Auto) 0.2 Baso # (Auto) 0.1 Abs Immat Gran (auto) 0.07 H Absolute Neuts (auto) 6.8 Absolute Nucleated RBC 0.000 Nucleated RBC % (auto) 0.0 Anion Gap 22 H Estim Creat Clear Calc 44.9 Estimated GFR > 60 POC Glucose 112 Random Glucose 113 Calcium 9.7 D Total Bilirubin 1.5 H AST 41 H ALT 26 Alkaline Phosphatase 120 H Total Protein 7.4 Albumin 3.2 L COVID-19 ([facility]) COVID-19 Clin Com 05/16/23 05/17/23 05/17/23 18:20 05:00 05:00 MCV 92.8 MCH 27.7 MCHC 29.9 L RDW 18.6 H Plt Count 175 D MPV 9.2 L Immature Gran % (Auto) 0.4 Neut % (Auto) 83.0 H Lymph % (Auto) 11.3 L Ness % (Auto) 4.7 Eos % (Auto) 0.0 Baso % (Auto) 0.6 Lymph # (Auto) 0.6 L Ness # (Auto) 0.2 Eos # (Auto) 0.0 Baso # (Auto) 0.0 Abs Immat Gran (auto) 0.02 Absolute Neuts (auto) 4.2 Absolute Nucleated RBC 0.000 Nucleated RBC % (auto) 0.0 Anion Gap 15 Estim Creat Clear Calc 55.3 Estimated GFR > 60 POC Glucose Random Glucose 124 H Calcium 8.6 D Total Bilirubin AST ALT Alkaline Phosphatase Total Protein Albumin COVID-19 ([facility]) Negative COVID-19 Clin Com See Note Assessment and Plan (1) Status epilepticus: Status: Acute (2) Hypoxia: Status: Acute Plan 78-year-old female with a PMH significant for 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 Patient was given 1 mg of Ativan IM by EMS without resolution of status epilepticus.? In the ER patient was given 2 mg IV lorazepam and then 1 g IV Keppra which broke patient's status epilepticus. Pt will be admitted to the hospital under observation for supportive treatment and further evaluation status epilepticus. Patient has been seen at [facility] [place] as well and at one point declined any surgical procedures. treatment at this point geared towards palliation Status epilepticus in setting of metastatic lung cancer to the brain Has been experiencing seizures for the past 6 months Arrived to the ER with seizure activity for 30+ minutes Patient was given Ativan 1 mg IM by EMS, and then Ativan 2 mg IV, Keppra 1000 mg IV, and dexamethasone 10 mg IV in the ED Continue Keppra 1.5 mg b.i.d. Dexamethasone 4 mg IV q.6 Oncology following Neurology consult Seizure precautions NPO pending swallow phial discussed possible hospice with son. Hypoxia due to hypoventilation in the setting of metastatic lung cancer OxyMask Patient on 3 L home O2 Titrate supplemental O2 >92, wean as tolerated Monitor respiratory status HFrEF Not in acute exacerbation Continue home meds HLD Continue home meds Depression/mood disorder Continue home meds DNR/DNI Attending:?Dr. Taylor DVT Prophylaxis: Maura chavis plan back to SNF for palliative vs hospice care, son will discuss with patient continued hospital stay for tx of status epilepticus. Time Spent With Patient Time: Total time managing care of this patient today ____ minutes. Quality Stroke Does the patient have a stroke diagnosis?: No VTE Prior VTE?: No VTE Risk Level:: Medical - moderate - high VTE Device Contraindication: Treatment Not Indicated VTE Drug Contraindication: N/A - Med Ordered
--- NOTE | 2023-05-17 14:00 | P.CNNE_ITS ---
History of Present Illness Data of Consult Service Date: 05/17/23 Primary Care Provider: Ronak Finn MD [facility] Reason for consult: Seizures 78 years old woman who probably suffers from metastatic brain disease though diagnosis has not been made yet. Apparently she started having seizure-like episode few months ago and was in hospital with multiple seizures, which were treated with benzodiazepine and then look levetiracetam was started. She was unable to provide any meaningful history. Review of Systems Review of Systems: Mental confusion and seizures PMFSH Social History Social History Patient Tobacco Use Status: Tobacco use Unknown Advance Directives Date on File: 05/17/23 Meds Allergies Allergy/AdvReac Type Severity Reaction Status Date / Time codeine Allergy Unknown passed out Verified 05/16/23 18:17 lisinopril Allergy Unknown cough Verified 05/16/23 18:17 primidone Allergy Unknown nausea Verified 05/16/23 18:17 tetanus and diphtheria Allergy Unknown Unknown Verified 05/16/23 18:17 toxoids varenicline Allergy Unknown Unknown Verified 05/16/23 18:17 No Known Allergies Allergy Verified 05/16/23 18:17 [No Known Allergies*] B-blockers Allergy Unknown Raynauds Uncoded 11/26/18 00:00 Active Medications: Current Medications Acetaminophen (Acetaminophen 325 Mg Tablet) 650 mg PO Q6H PRN PRN Reason: Pain, Mild (Pain Scale 1-3) Acetaminophen (Acetaminophen Supp 650 Mg Supp.Rect) 650 mg GA Q6H PRN PRN Reason: Pain, Mild (Pain Scale 1-3) Dexamethasone Sodium Phosphate (Dexamethasone Sod Phosphate 4 Mg/Ml Vial) 4 mg IVPUSH Q6H [facility] Last Admin: 05/17/23 08:12 Dose: 4 mg Enoxaparin Sodium (Enoxaparin Sodium 40 Mg/0.4 Ml Syringe) 40 mg SUBCUT Q24H KRIS Last Admin: 05/16/23 21:46 Dose: 40 mg Levetiracetam (Keppra) 1,500 mg in 100 mls @ 400 mls/hr IV BID KRIS Last Infusion: 05/17/23 09:21 Dose: Infused Sodium Chloride (Ns) 1,000 mls @ 100 mls/hr IVCONT .Q10H [facility] Last Admin: 05/17/23 06:32 Dose: 100 mls/hr Melatonin (Melatonin 3 Mg Tablet) 6 mg PO BEDTIME PRN PRN Reason: Insomnia Ondansetron HCl (Ondansetron Hcl 4 Mg/2 Ml Vial) 4 mg IVPUSH Q8H PRN PRN Reason: Nausea and Vomiting Pharmacy Consult (Consult Rx Perform Med Rec) 1 each MISCELLANE ONCE PRN PRN Reason: Consult order Sodium Chloride (0.9 % Sodium Chloride Flush 3 Ml Syringe) [facility] Last Admin: 05/17/23 08:13 Dose: 3 ml Home Medications Medication Instructions Recorded Confirmed Last Taken Type albuterol sulfate 2.5 mg/3 mL 2.5 mg inhalation Q6H PRN 05/17/23 05/17/23 Unknown History (0.083 %) solution for nebulization Shortness Of Breath Or Wheezing albuterol sulfate 90 mcg/actuation 2 puff inhalation QID PRN 05/17/23 05/17/23 Unknown History aerosol inhaler (Ventolin HFA) Shortness Of Breath Or Wheezing aspirin 81 mg chewable tablet 81 mg PO DAILY 05/17/23 05/17/23 Unknown History atorvastatin 80 mg tablet 80 mg PO BEDTIME 05/17/23 05/17/23 Unknown History atropine 1 % eye drops 2 drp buccal BEDTIME 05/17/23 05/17/23 Unknown History clopidogrel 75 mg tablet 75 mg PO DAILY 05/17/23 05/17/23 Unknown History codeine 10 mg-guaifenesin 100 mg/5 10 ml PO Q4H PRN Cough 05/17/23 05/17/23 Unknown History mL oral liquid (Guaifenesin AC) collagenase clostridium histo. 250 1 appl topical NEEDED PRN Wound 05/17/23 05/17/23 Unknown History unit/gram topical ointment (Santyl) Care collagenase clostridium histo. 250 1 appl topical QSHIFT 05/17/23 05/17/23 Unknown History unit/gram topical ointment (Santyl) dexamethasone 4 mg tablet 4 mg PO DAILY 05/17/23 05/17/23 Unknown History docusate sodium 100 mg capsule 100 mg PO BID PRN Constipation 05/17/23 05/17/23 Unknown History famotidine 20 mg tablet 20 mg PO BID 05/17/23 05/17/23 Unknown History furosemide 20 mg tablet 20 mg PO Q2D 05/17/23 05/17/23 Unknown History levetiracetam 100 mg/mL oral 1,500 mg PO BID 05/17/23 05/17/23 Unknown History solution loperamide 2 mg capsule 2 mg PO NEEDED PRN Loose Stool 05/17/23 05/17/23 Unknown History meclizine 25 mg tablet 25 mg PO TID PRN Dizziness 05/17/23 05/17/23 Unknown History mirtazapine 7.5 mg tablet 15 mg PO BEDTIME 05/17/23 05/17/23 Unknown History nitroglycerin 0.4 mg sublingual 0.4 mg sublingual DIRECTED PRN 05/17/23 05/17/23 Unknown History tablet Chest Pain nystatin 100,000 unit/mL oral 5 ml PO QID 05/17/23 05/17/23 Unknown History suspension ondansetron HCl 4 mg tablet 4 mg PO Q6H PRN Nausea And Vomiting 05/17/23 05/17/23 Unknown History polyethylene glycol 3350 17 gram 17 g PO DAILY PRN Constipation 05/17/23 05/17/23 Unknown History oral powder packet (Miralax) pramipexole 1 mg tablet 1 mg PO BEDTIME 05/17/23 05/17/23 Unknown History sertraline 50 mg tablet 50 mg PO DAILY 05/17/23 05/17/23 Unknown History umeclidinium 62.5 mcg-vilanterol 1 ea inhalation DAILY 05/17/23 05/17/23 Unknown History 25 mcg/actuation powdr for inhalation (Anoro Ellipta) Physical Exam Vital Signs: Vital Signs: Last Vital Signs Temp 98.2 F 05/17/23 09:26 Pulse 95 05/17/23 09:26 Resp 17 05/17/23 09:26 BP 108/57 L 05/17/23 09:26 Pulse Ox 94 05/17/23 09:26 O2 Del Method Oxymask 05/17/23 09:26 O2 Flow Rate 2.0 05/17/23 09:26 FiO2 27 05/17/23 01:32 Oxygen Flow Rate 6 05/16/23 18:18 BMI result Body Mass Index 17.7 Neuro: Other: She is drowsy but open her eyes made eye contact and answered simple questions. She did not know where she was. This seems to be left hemianopsia. There is left hemiparesis. Both legs are flexed and plantars are equivocal. Exam is limited. Results Labs 05/17/23 05:00 05/17/23 05:00 Labs: Short CBC 05/16/23 05/17/23 Range/Units 17:52 05:00 WBC 10.0 5.1 (4.8-10.8) X10*3/uL Hgb 11.5 L 10.4 L (12.0-16.0) g/dl Hct 37.1 34.8 L (37.0-47.0) % Plt Count 327 175 D (160-400) X10*3/uL BMP 05/16/23 05/17/23 18:20 05:00 Sodium 145 144 Potassium 5.2 H D 4.1 D Chloride 106 110 H Carbon Dioxide 22 23 BUN 9 10 Creatinine 0.69 0.56 Calcium 9.7 D 8.6 D Liver Function 05/16/23 Range/Units 18:20 Total Bilirubin 1.5 H (0.0-1.0) mg/dL AST 41 H (5-31) U/L ALT 26 (0-31) U/L Alkaline Phosphatase 120 H (39-117) U/L Albumin 3.2 L (3.5-5.0) g/dL Noncontrast head CT revealed large area of hypodensity in right parietal region probably a mass. Also noted was moderate diffuse cerebral atrophy and microvascular ischemic changes. Assessment and Plan (1) Seizure disorder: Status: Acute 78 years old woman with seizure disorder likely due to the mass detected on head CT. Etiology likely is a tumor though precise diagnosis has not been made. For now, my recommendation is to give her Decadron to release some pressure in the brain and continue dose of levetiracetam. Mainstay of management is to find exact diagnosis and treat accordingly. Overall prognosis seems grim./ Time Spent With Patient Time: Total time managing care of this patient today ____ minutes. Procedures Date of Service Date of Service: 05/17/23
[2023-05-17 15:24] VITALS: BP 126/74; PULSE 100; RESP 22; TEMP 36.1; O2SAT 98
--- NOTE | 2023-05-17 16:18 | MHC.CM.PN ---
CM CALLED PTS SON, CALEB VELA [phone] WHO REPORTS THE PT HAS BEEN AT [facility] FOR ABOUT 2 MONTHS, BUT HE DOES NOT THINK SHE WILL BE COMING HOME. HE REPORTS THEY HAVE EXPLORED HOSPICE IN THE PAST, BUT THEY ARE UNABLE TO PROVIDE THE CARE AT HOME. CALEB REPORTS HE IS THE HCP/POA, COPY REQUESTED FROM [facility] ON FILE PCP: WILEY HART IMM DELIVERED DCP: RETURN TO [facility] VIA BLS SNF CONFIRMS PT IS A BED HOLD
[2023-05-17] MEDS: Acetaminophen Supp 650 MG SUPP.RECT PR (16:23)
--- NOTE | 2023-05-17 17:55 | PC.NURSE ---
Around 1400 Pt on 2L oxymask and continuous O2 monitoring desatted to 82%. Per order to titrate as needed to maintain oxygen >92 pt oxygen increased to 10L on oxymask and RT called to bedside. Pt oxygen saturation up to 96% on 10L oxymask Around 1500 pt desatted to low 80s. Pt found to be slumped in bed but still responsive, coughing up whitish sputum. Pt sat up to 90 degrees and suctioned. Post suction oxygen saturation increased to 94% on 10L oxymask. Angela Mathias NP and Dr Suazo made aware. Stat chest x-ray ordered, results currently pending, scheduled breathing treatments ordered and IV fluids put on hold per Dr Suazo. RT called to bedside to assess need for deep suctioning. Pt being monitored by [employer] desk for continuous oxygen saturation. Pt current oxygen saturation 92% at 1609
[2023-05-17] MEDS: Albuterol/Iprat 2.5/0.5MG 3 ML AMPUL.NEB INHALE (19:47)
[2023-05-17 19:52] VITALS: PULSE 100; RESP 22; O2SAT 94
[2023-05-17] MEDS: Enoxaparin Sodium 40 MG/0.4 ML SYRINGE SUBCUT (19:55)
[2023-05-18] VITALS (11 sets, daily range): BP systolic 96–105; BP diastolic 55–62; PULSE 92–104; RESP 16–20; TEMP 36.4–37; O2SAT 83–100; BMI 17.7
[2023-05-18] MEDS: dexAMETHasone sod phosphate 4 MG/ML VIAL IVPUSH ×4 (00:42→19:21)
[2023-05-18] MEDS: 0.9 % Sodium Chloride 1,000 ML 100 ML IVCONT ×3 (00:42→19:20)
[2023-05-18] MEDS: levETIRAcetam in NaCl (iso-os) 1,500 MG/100 ML PIGGYBACK 400 MG IV ×2 (08:11→19:20)
[2023-05-18] MEDS: Albuterol/Iprat 2.5/0.5MG 3 ML AMPUL.NEB INHALE ×4 (08:37→20:05)
--- NOTE | 2023-05-18 09:26 | P.PNIM_ITS ---
Subjective Subjective Date of Service: 05/18/23 Review of Systems Follow up Seizure no c/o pain very weak and still requiring 6 liters of oxygen Physical Exam Vital Signs: Vital Signs: Last Vital Signs Temp 97.9 F 05/18/23 07:27 Pulse 92 05/18/23 08:37 Resp 20 05/18/23 08:37 BP 101/58 L 05/18/23 07:27 Pulse Ox 100 05/18/23 07:27 O2 Del Method Nasal Cannula 05/18/23 07:27 O2 Flow Rate 4 05/18/23 07:27 FiO2 27 05/17/23 01:32 Oxygen Flow Rate 6 05/16/23 18:18 BMI result Body Mass Index 17.7 Appearing in no acute distress, thin and frail lung sounds rhonchi heart regular rate rhythm, clear S1, S2 positive bowel sounds, abdomen is soft, nontender neuro patient is alert x3, no focal deficits Objective Data Active Medications Acetaminophen (Acetaminophen 325 Mg Tablet) 650 mg PO Q6H PRN PRN Reason: Pain, Mild (Pain Scale 1-3) Acetaminophen (Acetaminophen Supp 650 Mg Supp.Rect) 650 mg [place] Q6H PRN PRN Reason: Pain, Mild (Pain Scale 1-3) Last Admin: 05/17/23 16:23 Dose: 650 mg Documented By: IMMANUEL Albuterol/Ipratropium (Albuterol/Iprat 2.5/0.5mg 3 Ml Ampul.Neb) 3 ml INHALE RQ4H WHILE AWAKE [facility] Last Admin: 05/18/23 08:37 Dose: 3 ml Documented By: NAEEM Dexamethasone Sodium Phosphate (Dexamethasone Sod Phosphate 4 Mg/Ml Vial) 4 mg IVPUSH Q6H [facility] Last Admin: 05/18/23 08:12 Dose: 4 mg Documented By: JUDY Enoxaparin Sodium (Enoxaparin Sodium 40 Mg/0.4 Ml Syringe) 40 mg SUBCUT Q24H [facility] Last Admin: 05/17/23 19:55 Dose: 40 mg Documented By: HIRAL Levetiracetam (Keppra) 1,500 mg in 100 mls @ 400 mls/hr IV BID [facility] Last Admin: 05/18/23 08:11 Dose: 400 mls/hr Documented By: JUDY Sodium Chloride (Ns) 1,000 mls @ 100 mls/hr IVCONT .Q10H [facility] Last Admin: 05/18/23 00:42 Dose: 100 mls/hr Documented By: HIRAL Melatonin (Melatonin 3 Mg Tablet) 6 mg PO BEDTIME PRN PRN Reason: Insomnia Morphine Sulfate (Morphine Sulfate 2 Mg/Ml Cartridge) 2 mg IVPUSH Q3H PRN; Protocol PRN Reason: respiratory distress Ondansetron HCl (Ondansetron Hcl 4 Mg/2 Ml Vial) 4 mg IVPUSH Q8H PRN PRN Reason: Nausea and Vomiting Pharmacy Consult (Consult Rx Perform Med Rec) 1 each MISCELLANE ONCE PRN PRN Reason: Consult order Sodium Chloride (0.9 % Sodium Chloride Flush 3 Ml Syringe) 3 ml IVFLUSH QSHIFT [facility] Last Admin: 05/18/23 08:26 Dose: Not Given Documented By: JUDY Non-Admin Reason: IV Running Labs 05/17/23 05:00 05/17/23 05:00 Assessment and Plan (1) Status epilepticus: Status: Acute (2) Hypoxia: Status: Acute Plan 78-year-old female with a PMH significant for 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 Patient was given 1 mg of Ativan IM by EMS without resolution of status epilepticus.? In the ER patient was given 2 mg IV lorazepam and then 1 g IV Keppra which broke patient's status epilepticus. Pt will be admitted to the hospital under observation for supportive treatment and further evaluation status epilepticus. Patient has been [place] [facility] [place] well and at one point declined any surgical procedures. treatment at this point geared towards palliation Status epilepticus in setting of metastatic lung cancer to the brain. No further seizure activity Has been experiencing seizures for the past 6 months Arrived to the ER with seizure activity for 30+ minutes Patient was given Ativan 1 mg IM by EMS, and then Ativan 2 mg IV, Keppra 1000 mg IV, and dexamethasone 10 mg IV in the ED Continue Keppra 1.5 mg b.i.d. Dexamethasone 4 mg IV q.6 Oncology following>continue current management Neurology consult>continue decadron and keppra Seizure precautions discussed possible hospice with bony. Hypoxia due to hypoventilation in the setting of metastatic lung cancer OxyMask on 6 liters Titrate supplemental O2 >92, wean as tolerated Monitor respiratory status HFrEF Not in acute exacerbation Continue home meds HLD Continue home meds Depression/mood disorder Continue home meds DNR/DNI Attending:?Dr. Pace DVT Prophylaxis: Maura chavis plan back to SNF for palliative vs hospice care, son will discuss with patient continued hospital stay for tx of status epilepticus. Time Spent With Patient Time: Total time managing care of this patient today ____ minutes. Quality Stroke Does the patient have a stroke diagnosis?: No VTE Prior VTE?: No VTE Risk Level:: Medical - moderate - high VTE Device Contraindication: Treatment Not Indicated VTE Drug Contraindication: N/A - Med Ordered
[2023-05-18 11:18] LABS: Anion Gap 17 (12-20); Blood Urea Nitrogen 17 mg/dL (9-16); Calcium 8.6 mg/dL (8.4-10.2); Carbon Dioxide 20 mmol/L (22-29); Chloride 114 mmol/L (96-108); Creatinine Clr Calc Pharmacy 41.9; Estimated Glomerular Filt Rate > 60; Glucose Random 96 mg/dL (60-115); Potassium 3.6 mmol/L (3.3-5.1); Sodium 147 mmol/L (135-145)
--- NOTE | 2023-05-18 12:02 | MHC.CM.PN ---
Per MD rounds no discharge today.Patient is being weaned from Oxygen. She was on 10L now 4L SPO2 @ 100%. An update has been sent to PVR. DP PVR via BLS.
--- NOTE | 2023-05-18 14:50 | MHC.CLN ---
NUTRITION CONSULT FOR POOR PO INTAKE. SKIN WITH ULCER TO COCCYX. SEEN BY PAPER PLATE MACHINE TENDER WITH DIET UPGRADE TO NDD2 CONSISTENCY, THIN LIQUIDS. ADDING ENSURE BID TO INCREASE NUTRITIONAL INTAKE. PROVIDES 700 KCALS, 40 G PROTEIN. BMI=17.4. QUALIFIES MODERATELY MALNOURISHED WITH MILD DEPLETION OF BODY FAT AND MUSCLE MASS NOTED. SEE CLINICAL NUTRITION ASSESSMENT 05/18/23.
[2023-05-18] MEDS: 0.9 % Sodium Chloride Flush 3 ML SYRINGE IVFLUSH (15:50)
--- NOTE | 2023-05-18 16:28 | PC.NURSE ---
1123: Attempted to ambulate pt. Pt unable to stand or hold onto walker with left hand. Sats on 6L oxymask dropped to 83-84% with activity. Once placed into recliner, sats improved to 90-91%. Half hour later, sats 94-95%. Continued to monitor throughout shift. Sats at rest between 94-98% on 6L. 1630: Pt assisted back to bed. Sats at rest 98%on 6L. O2 decreased to 4L oxymask and sats 93-94%. Will continue to monitor
--- NOTE | 2023-05-18 17:07 | MHC.SL.SWA ---
Speech Pathologist Impression: Risk of aspiration, oropharyngeal dysphagia Dysphasia Diet Status: START on NDD2/THIN by tspn only Liquid Consistency and Strategies for Safe Swallow: Liquid Intake Recommendation: Thin Liquid Intake Strategies: Small Sips No Straws Liquids by Teaspoon Only Solid Food Consistency: Dietary Recommendations: Grnd/Mech Altered (NDD2) Additional Modifications to Solid Foods: Recommend UPGRADE from NPO, START on GROUND/MECH ALTERED (NDD2) solids and THIN liquids (tspn only, no straws), pills CRUSHED in PUREE. Pt requires total 1:1 assistance, close monitoring, ensure aspiration precautions. Recommend strategies to promote oral clearance- moisten food with sauces/gravies, small bites, follow bite with dry swallow then sip of liquid. Pt appears to fatigue quickly and may benefit from smaller portions, more frequent meals throughout the day. Recommendations sent to team (, RN, RD) via [employer] Message, written on board in pt's room. [employer] will continue to follow. Oral Medication Intake: Crushed with Puree Please contact the pharmacy regarding appropriate crushable or liquid drug formulations that are available whenever modified delivery is recommended. Compensatory Strategies and Precautions to be Taken for Safe Swallow: Sitting Upright (90 deg) Double Swallow No Straw Liquids from Spoon Small Bites and Sips Alternate Liquids/Solids Rate of Ingestion Change Oral Check Avoid Specific Foods Supervision While Eating and Drinking for Safe Swallow: Total Assistance (1:1) Foods to Avoid: Hard to chew solids; crunchy or sticky foods; mixed consistencies Swallowing Recommended Treatments: Compens. Strategy Educat. Recommendation for Speech: Inpatient Speech Therapy Plastic Worker Clinican/Clinical Fellow: No Supervisory Statement: I have reviewed and agree with the student/clinical fellow's documentation: N/A Speech Language Pathologist: Pauline Chamorro M.A., CCC-[employer]
[2023-05-18] MEDS: Enoxaparin Sodium 40 MG/0.4 ML SYRINGE SUBCUT (19:21)
[2023-05-19] MEDS: dexAMETHasone sod phosphate 4 MG/ML VIAL IVPUSH ×2 (02:58→08:01)
[2023-05-19 04:00] VITALS: BP 105/58; PULSE 88; RESP 14; TEMP 36.4; O2SAT 96
[2023-05-19 07:02] VITALS: BP 100/60; PULSE 62; RESP 16; TEMP 36.6; O2SAT 94
[2023-05-19] MEDS: Albuterol/Iprat 2.5/0.5MG 3 ML AMPUL.NEB INHALE ×2 (07:56→11:34)
[2023-05-19 07:58] VITALS: PULSE 87; RESP 18; O2SAT 96
[2023-05-19] MEDS: levETIRAcetam in NaCl (iso-os) 1,500 MG/100 ML PIGGYBACK 400 MG IV (08:01)
[2023-05-19] MEDS: 0.9 % Sodium Chloride Flush 3 ML SYRINGE IVFLUSH (08:02)
[2023-05-19 10:46] LABS: Anion Gap 13 (12-20); Blood Urea Nitrogen 13 mg/dL (9-16); Calcium 8.4 mg/dL (8.4-10.2); Carbon Dioxide 20 mmol/L (22-29); Chloride 116 mmol/L (96-108); Creatinine Clr Calc Pharmacy 47.7; Estimated Glomerular Filt Rate > 60; Glucose Random 164 mg/dL (60-115); Potassium 3.4 mmol/L (3.3-5.1); Sodium 146 mmol/L (135-145)
[2023-05-19 11:36] VITALS: PULSE 83; RESP 20; O2SAT 95
[2023-05-19] MEDS: Acetaminophen 325 MG TABLET 650 MG PO (11:44)
--- NOTE | 2023-05-19 11:49 | PM.DS ---
DS: Providers Provider Date of Service: 05/19/23 Date of admission: 05/16/23 20:27 Primary care physician: Ronak Finn MD Consults: 05/16/23 20:27 Consult to Neurology Routine Consulting Provider: [facility] Reason for consultation: seizures 05/16/23 20:33 Consult to Hematology / Oncology Routine Consulting Provider: Dewayne Nolasco Reason for consultation: metastatic lung cancer DS: Diagnosis Discharge Diagnosis (1) Status epilepticus: Status: Acute (2) Hypoxia: Status: Acute DS: Summary Hospital Course Hospital Course: 78-year-old female with a PMH significant for 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 Patient was given 1 mg of Ativan IM by EMS without resolution of status epilepticus.? In the ER patient was given 2 mg IV lorazepam and then 1 g IV Keppra which broke patient's status epilepticus. Pt will be admitted to the hospital under observation for supportive treatment and further evaluation status epilepticus. Patient has been seen at [facility] as well and at one point declined any surgical procedures. treatment at this point geared towards palliation Status epilepticus in setting of metastatic lung cancer to the brain. No further seizure activity Has been experiencing seizures for the past 6 months Arrived to the ER with seizure activity for 30+ minutes Patient was given Ativan 1 mg IM by EMS, and then Ativan 2 mg IV, Keppra 1000 mg IV, and dexamethasone 10 mg IV in the ED treated with Keppra 1.5 mg b.i.d., dc with oral keppra 1500 mg BID treated with Dexamethasone 4 mg IV q.6. seen and evaluated by hospice, poor prognosis Seizure precautions discussed hospice with son, he will decide when she gets to [facility], other options would be paliative radiation at [facility] if that would be offered to her Hypoxia due to hypoventilation in the setting of metastatic lung cancer OxyMask on 6 liters, now on 4 liters HFrEF Not in acute exacerbation Continue home meds HLD Continue home meds Depression/mood disorder Continue home meds Time Spent with Patient Time attestation: Total time managing care of this patient today ____ minutes. Discharge coordination time: Greater than 30 minutes Quality: Safe Use of Opioids Does Pt have an Active Cancer Diagnosis on the Problem List?: No Quality: Stroke Does the patient have a stroke diagnosis?: No Physical Exam Vital Signs: Vital Signs: Last Vital Signs Temp 98 F 05/19/23 07:02 Pulse 83 05/19/23 11:36 Resp 20 05/19/23 11:36 BP 100/60 05/19/23 07:02 Pulse Ox 94 05/19/23 07:02 O2 Del Method Oxymask 05/19/23 07:02 O2 Flow Rate 5 05/19/23 04:00 FiO2 27 05/17/23 01:32 Oxygen Flow Rate 6 05/16/23 18:18 BMI result Body Mass Index 17.7 Appearing in no acute distress head is normocephalic atraumatic eyes pupils are PERRLA sclera is anicteric mouth throat mucous membranes are intact and moist neck is supple no lymphadenopathy, no JVD noted lung sounds diminished heart regular rate rhythm, clear S1, S2 positive bowel sounds, abdomen is soft, nontender neuro patient is alert x3, no focal deficits DS: Data Data Completed and Pending Labs on day of discharge: Laboratory Results - last 24 hr 05/19/23 09:27 Sodium 146 H Potassium 3.4 Chloride 116 H Carbon Dioxide 20 L Anion Gap 13 BUN 13 Creatinine 0.65 Estim Creat Clear Calc 47.7 Estimated GFR > 60 Random Glucose 164 H Calcium 8.4 Discharge Plan Discharge Anticipated Discharge Date/Time: 05/19/23 11:37 Patient Disposition: Xfer Inpatient Rehab Fac Discharge Diagnosis: Status epilepticus Metastatic lung cancer Hypoxia Referrals: Ronak Finn MD [Primary Care Provider] - 1 Week Discharge Medications: New levetiracetam [Keppra] 1,000 mg tablet 1,500 mg PO BID Qty: 60 0RF Continued atorvastatin 80 mg tablet 80 mg PO BEDTIME albuterol sulfate 2.5 mg /3 mL (0.083 %) solution for nebulization 2.5 mg inhalation Q6H PRN (Reason: Shortness Of Breath Or Wheezing) clopidogrel 75 mg tablet 75 mg PO DAILY aspirin 81 mg Tablet,Chewable 81 mg PO DAILY atropine 1 % Drops 2 drp BUCCAL BEDTIME pramipexole 1 mg tablet 1 mg PO BEDTIME nystatin 100,000 unit/mL suspension 5 ml PO QID Rx Instructions: SWISH AND SWALLOW loperamide 2 mg capsule 2 mg PO NEEDED PRN (Reason: Loose Stool) polyethylene glycol 3350 [Miralax] 17 gram Powder In Packet 17 g PO DAILY PRN (Reason: Constipation) ondansetron HCl 4 mg tablet 4 mg PO Q6H PRN (Reason: Nausea And Vomiting) famotidine 20 mg tablet 20 mg PO BID meclizine 25 mg Tablet 25 mg PO TID PRN (Reason: Dizziness) dexamethasone 4 mg tablet 4 mg PO DAILY nitroglycerin 0.4 mg tablet, sublingual 0.4 mg sublingual DIRECTED PRN (Reason: Chest Pain) docusate sodium 100 mg Capsule 100 mg PO BID PRN (Reason: Constipation) codeine-guaifenesin [Guaifenesin AC] 10-100 mg/5 mL Liquid 10 ml PO Q4H PRN (Reason: Cough) furosemide 20 mg tablet 20 mg PO Q2D Santyl 250 unit/gram ointment 1 appl topical QSHIFT Santyl 250 unit/gram ointment 1 appl topical NEEDED PRN (Reason: Wound Care) Rx Instructions: FOR SOILING OR ACCIDENTAL REMOVAL albuterol sulfate [Ventolin HFA] 90 mcg/actuation HFA aerosol inhaler 2 puff inhalation QID PRN (Reason: Shortness Of Breath Or Wheezing) sertraline 50 mg tablet 50 mg PO DAILY levetiracetam 100 mg/mL solution 1,500 mg PO BID mirtazapine 7.5 mg tablet 15 mg PO BEDTIME Anoro Ellipta 62.5-25 mcg/actuation blister with device 1 ea inhalation DAILY Discharge Orders: Discharge Order (Routine); Ordered 05/19/23 Ordered By: Angela Mathias Diet: Advance to usual diet Activity on Discharge: As tolerated Stand Alone Forms: Patient Portal Discharge page Care Plan Goals: 4 L oxygen continuous and or as needed continue seizure medications seizure precautions Health Concerns: Status epilepticus Metastatic lung cancer Hypoxia Plan of Treatment: Follow-up with primary care provider for initiation of hospice Take all medications as prescribed Assessment: See discharge summary
--- NOTE | 2023-05-19 12:21 | MHC.CM.PN ---
CALEB HOANG [phone], AWARE OF 2 PM PLANNED TRANSPORT BACK TO [facility]. RN AND UNIT AWARE OF PLAN, WELL. IMM 05/17 PREVIOUSLY COMPLETED
--- NOTE | 2023-05-19 12:38 | P.CDIM_ITS ---
PROVIDER RESPONSE TEXT: To clarify, the appropriate diagnosis supported by the clinical indicators: Pressure (decubitus) ulcer/injury coccyx Stage 2 QUERY TEXT: PHYSICIAN'S DOCUMENTATION REQUEST Date of Query: 05/19/2023 08:44 AM EDT Patient Name: Bri Stout Admit Date: 05/17/2023 Dear Angela Mathias, A review of the medical record indicates additional documentation may be needed. Please review below and update the documentation accordingly. Clinical Indicators: Wound care pressure assessment notes: Pressure injury/ulcer coccyx Stage 2 Foam dressing. Based on the above, could you please provide further information regarding the ulcer/wound: Pressure (decubitus) ulcer/injury coccyx Stage 2 Other Other (explain)Clinically unable to determine (explain)Thank you, Cesilia Condon, CCS, CDIS Use of terms such as suspected, likely, concern for, or probable (associated with a specific diagnosi s that is being evaluated, monitored, or treated as if it exists) are acceptable and can be coded in the inpatient se tting, when documented at the time of discharge. Please use your independent medical judgment in providing your response. THIS QUERY IS PART OF THE PERMANENT MEDICAL RECORD
== END 2023-05-19 14:15 | DRG 101 ==
LOC: HO.ED 19:54 → HO.S3 05-17 07:56 → HO.EDOVER 05-17 08:51
PROVIDERS: Admitting Provider Student in an Organized Health Care Education/Training Program; Emergency Provider Internal Medicine; PCP Family Medicine; Visit Provider Nurse Practitioner Acute Care
DX: G40.501 Epileptic seizures related to external causes, not intractable, with status epilepticus (principal); I50.22 Chronic systolic (congestive) heart failure; C34.11 Malignant neoplasm of upper lobe, right bronchus or lung; C79.31 Secondary malignant neoplasm of brain; E44.0 Moderate protein-calorie malnutrition; Z68.1 Body mass index [BMI] 19.9 or less, adult; L89.152 Pressure ulcer of sacral region, stage 2; E78.5 Hyperlipidemia, unspecified; Z66 Do not resuscitate; J44.9 Chronic obstructive pulmonary disease, unspecified; Z20.822 Contact with and (suspected) exposure to COVID-19; Z79.02 Long term (current) use of antithrombotics/antiplatelets; Z79.82 Long term (current) use of aspirin; Z79.899 Other long term (current) drug therapy
CPT/HCPCS: 36415; 70450; 71045; 80048; 80053; 82947; 85025; 87635; 92610; 99221; 99285; J1100; J1650; J1953; J2060